=== PATIENT | male | born 1990 | race Caucasian/White ===

== ENCOUNTER 2018-01-29 05:52 | Emergency (ER) | payer MEDICAID, SELFPAY ==
[2018-01-29 05:53] VITALS: BP 128/99; PULSE 116; RESP 20; TEMP 36.6; O2SAT 100; BMI 22.1
--- NOTE | 2018-01-29 06:10 | ED.VISSUMM ---
- ER Visit Summary Date of Service: 01/29/18 Chief Complaint: Scalp wound History of Present Illness: The patient is a 27 M presenting for evaluation secondary to his scalp wound. Patient states that when he was 6 years old he suffered a laceration of his scalp. He states it was repaired with bob. Patient reports that the physician informed him that if it ever broke open he needed to go back to the emergency department immediately. Patient states 3 weeks ago he started to notice that this was opening. He states that there is pain over the area, and now he is getting drainage. Denies any headaches or fevers. Patient additionally states that he frequently gets skin infections. States that he has intermittent breakouts. He is not currently on any medications for this. Physical Examination: Vital signs notable for tachycardia 116. Well-nourished male no acute distress. Head exam shows a well-healed scar over the patient's occiput with an abrasion noted. No underlying fluctuance erythema or active drainage at this time. Neck was supple. Heart was tachycardic and regular. Lungs clear. Abdomen soft. Multiple picking gallego on the patient's skin, patient was alert and oriented no lateralizing deficits. Test Results: None indicated Emergency Department Course and Treatment: Patient presented for evaluation secondary to possible wound. Patient states that he has been getting purulent drainage out of this, although I do not appreciated at this point. However, the patient seems like he has multiple picking gallego on his body, and he reports that he gets breakouts. He potentially has a staph colonization. Patient will be placed on a course of doxycycline and Bactroban. He was instructed to follow-up primary care. Disposition: Discharge Impression: 1. Scalp abrasion This note was generated with [employer] dictation software. It may contain incorrect words, spelling, and punctuation that were not noted in review of the chart prior to signing ED Disposition - Plan for ED Patient: Disposition: Home or Assisted Living Chief Complaint: Head Injury Diagnosis: Scalp abrasion Instructions: ED Abrasion Prescriptions: Smz/Tmp Ds [Bactrim Ds] 1 tab PO BID #14 tab Mupirocin Calcium [Bactroban] 30 gm TP 4X/DAY #1 tube Referrals: Luis Antonio Mccartney MD [NON-STAFF] - As Needed
[2018-01-29 06:32] VITALS: RESP 16
== END 2018-01-29 06:32 | disposition home or self-care (01) ==
LOC: ED 06:25
PROVIDERS: Emergency Provider Emergency Medicine; Family Provider Family Medicine
DX: S00.01XA Abrasion of scalp, initial encounter (principal); X58.XXXA Exposure to other specified factors, initial encounter; Y93.9 Activity, unspecified; Y92.9 Unspecified place or not applicable; Z72.0 Tobacco use
CPT/HCPCS: 99282

== ENCOUNTER 2020-05-05 00:54 | Emergency (ER) | payer MEDICAID, SELFPAY ==
[2020-05-05 00:55] VITALS: BP 134/89; PULSE 94; RESP 16; TEMP 36.3; O2SAT 99; BMI 27.8
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
[2020-05-05] MEDS: HYDROcodone Bitartrate/Apap 5/325 Tablet PO (01:37)
== END 2020-05-05 02:55 | disposition home or self-care (01) ==
PROVIDERS: Emergency Provider Emergency Medicine
DX: S52.134A Nondisplaced fracture of neck of right radius, initial encounter for closed fracture (principal); S50.311A Abrasion of right elbow, initial encounter; V19.9XXA Pedal cyclist (driver) (passenger) injured in unspecified traffic accident, initial encounter; Y93.55 Activity, bike riding; Y92.9 Unspecified place or not applicable; F17.200 Nicotine dependence, unspecified, uncomplicated
CPT/HCPCS: 29125; 73080; 73090; 99283

== ENCOUNTER 2020-05-19 13:28 | Outpatient (RCR) | payer MEDICAID, SELFPAY ==
[2020-05-12 14:30] VITALS: BMI 27.8
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
--- NOTE | 2020-09-05 10:38 | HP.OT.NRP ---
CHARLY MONTALVO was seen in my office for initial evaluation on 05/19/20. The following Plan of Care was established for this patient: Initial Frequency: 1-2x /Week Initial Duration: 6 Weeks Anticipated Interventions: A/AAROM/PROM, Strengthening, Edema Control, Modalities, Orthoses, Joint Protection/Energy Conservation, Ergonomic Education This patient was last seen in our office 05/19/20. Pertinent comments regarding their Occupational therapy will appear below: pt was seen for eval only- cancelled his follow up apt and has not rescheduled. pt d/c at this time due to non attendance. At this point I will be discontinuing this patient from occupational therapy. I would be happy to see this patient again in the future if found appropriate by the physician. Thank you! Doloers Le, OTR/L, CHT
== END 2020-05-19 19:00 | disposition home or self-care (01) ==
LOC: OT 13:28
PROVIDERS: Referring Provider Orthopaedic Surgery; Visit Provider Orthopaedic Surgery
DX: S52.121D Displaced fracture of head of right radius, subsequent encounter for closed fracture with routine healing (principal)
CPT/HCPCS: 97110; 97166

== ENCOUNTER 2020-10-25 20:24 | Emergency (ER) | payer MEDICAID, SELFPAY ==
[2020-05-31 11:45] VITALS: BMI 27.8
[2020-10-25] VITALS (10 sets, daily range): BP systolic 115–154; BP diastolic 86–111; PULSE 82–118; RESP 13–28; TEMP 36.9–37; O2SAT 97–100; BMI 25.1
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
[2020-10-25 21:04] LABS: Absolute Lymphocyte Count 1.51 X10^3/uL (0.83-4.51); Absolute Neutrophil Count 9.9 X10^3/uL (2.0-7.7); Basophil# 0.03 X10^3/uL; Basophil% 0.2 % (0-1); Eosinophil# 0.01 X10^3/uL; Eosinophils% 0.1 % (0-5); Hematocrit 41.6 % (40-54); Hemoglobin 14.9 g/dL (13.0-16.5); Lymphocyte # 1.51 X10^3/ul (4.0); Lymphocyte % 12.5 % (19-41); Mean Corp Hgb Conc 35.8 g/dL (32-36); Mean Corpuscular Volume 89.3 fL (80-94); Mean Platelet Vol. 9.8 fl (6.2-12.0); Monocyte# 0.55 X10^3/uL; Monocyte% 4.6 % (0-10); NRBC Flagged by Analyzer 0 % (0-5); Neutrophil # 9.93 X10^3/uL (2.7-7.7); Neutrophil % 82.2 % (47-70); Platelet Count 206 K/mm3 (150-450); RBC Distribution Width CV 12.6 % (11.6-14.6); RBC Distribution Width SD 40.9 fl (35.1-43.9); Red Blood Count 4.66 M/mm3 (4.6-6.2); White Blood Count 12.1 K/mm3 (4.4-11.0)
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
--- NOTE | 2020-10-25 21:13 | ED.RN ---
CALLED AND LEFT MESSAGE WITH MOTHER AT THIS TIME TO NOTIFY HER THAT HE WAS IN THE ER
[2020-10-25 21:18] LABS: Anion Gap 7 (5-15); BUN 15 mg/dL (7-18); Calcium,Total 9.3 mg/dL (8.5-10.1); Chloride 102 mmol/L (98-107); Creatinine, Serum 1.07 mg/dL (0.70-1.30); EST Glomerular Filtration Rate 86 mL/min (>60); Est Glom Filt Rate - Afr Amer 104 mL/min (>60); Estimated Creatinine Clearance 81.24 ml/min; Glucose 98 mg/dL (74-106); Potassium 3.5 mmol/L (3.5-5.1); Sodium Level 138 mmol/L (136-145)
--- NOTE | 2020-10-25 22:36 | ED.RN ---
patient stating its getting hard to talk. MD at bedside for reassessment. states hematoma enlarging under patient tongue. Intubation ordered. difficult airway team called.
--- NOTE | 2020-10-25 22:38 | ED.RN ---
patient voice is changing, muffled voice noted. awaiting anesthesia.
[2020-10-25] MEDS: Ketamine HCl 500 MG/5 ML Vial 100 MG IV (22:39)
[2020-10-25] MEDS: Rocuronium Bromide 50 MG/5 ML Vial 100 MG IV (22:45)
[2020-10-25] MEDS: fentaNYL 100 MCG/2 ML Ampul 50 MCG IV (23:07)
[2020-10-25] MEDS: Propofol 10MG/Ml 1,000 MG/100 ML Bottle 3.9 MG CONT INF (23:09)
[2020-10-25] MEDS: Diphth,Pertuss(Acell),Tet Vac 0.5 ML Vial IM (23:09)
--- NOTE | 2020-10-25 23:15 | RAD_ITS ---
STUDY: X-RAY CHEST REASON FOR EXAM: Male, 30 years old. Endotracheal tube and enteric tube placement. TECHNIQUE: Single AP portable view of the chest. COMPARISON: None. FINDINGS: There is an endotracheal tube with its tip 3.6 cm above the derek. An enteric tube with its tip in the distal stomach. The lungs are clear and expanded. There is no demonstrated pleural abnormality. Normal size heart. Normal mediastinum and caridad. Normal visualized pulmonary arteries. Normal visualized aortic arch and descending thoracic aorta. Normal visualized thoracic spine. Normal visualized ribs, clavicles, and shoulders. There is no demonstrated abnormality of the visualized soft tissue structures of the upper abdomen. RAD/Chest 1 View (Portable) IMPRESSION: 1. Endotracheal tube and enteric tube as described. 2. No acute cardiopulmonary disease. Electronically Signed: Oren Singh DO at 23:51 EST Tel [phone], Service support ,
[2020-10-25] MEDS: Cefazolin 2 GM in 0.9% Normal Saline 100 ML IV (23:17)
[2020-10-25] MEDS: Propofol 200 MG/20 ML Vial 50 MG IV BOLUS ×2 (23:20→23:40)
[2020-10-25] MEDS: Midazolam 2 MG/2 ML Syringe IV ×2 (23:32→23:41)
[2020-10-25] MEDS: Propofol 10MG/Ml 1,000 MG/100 ML Bottle 15.5 MG CONT INF (23:35)
--- NOTE | 2020-10-25 23:51 | ED.RN ---
transport at bedside. report given. Transport team in process of switching patient over to their vent.
[2020-10-26] VITALS: BP 136/88; PULSE 98; RESP 16; O2SAT 99
== END 2020-10-26 00:22 | disposition short-term general hospital (02) ==
LOC: ED 21:39
PROVIDERS: Emergency Provider Emergency Medicine
DX: S01.81XA Laceration without foreign body of other part of head, initial encounter (principal); S00.532A Contusion of oral cavity, initial encounter; R13.10 Dysphagia, unspecified; R49.8 Other voice and resonance disorders; X99.1XXA Assault by knife, initial encounter; Y93.9 Activity, unspecified; Y92.9 Unspecified place or not applicable; F17.200 Nicotine dependence, unspecified, uncomplicated
CPT/HCPCS: 31500; 31720; 51702; 70498; 71045; 80048; 85025; 86850; 86900; 86901; 90715; 94002; 96365; 96368; 96375; 99251; 99285; J1670; J7030; Q9967; A4216; G0463; J3010

== ENCOUNTER 2020-11-02 11:05 | Emergency (ER) | payer MEDICAID, SELFPAY ==
[2020-10-25 20:26] VITALS: BMI 25.1
[2020-11-02 11:06] VITALS: BP 148/85; PULSE 126; RESP 18; TEMP 36.6; O2SAT 99; BMI 25.1
[2020-11-02] MEDS: LORazepam 1 MG Tablet PO (11:40)
--- NOTE | 2020-11-02 11:57 | ED.DEP ---
ED Disposition - Plan for ED Patient: Instructions: ED Panic Attack Prescriptions: Cephalexin [Keflex] 500 mg PO Q6 #40 cap Prescription Printed Referrals: Counseling,Center [GROUP OF PHYSICIANS] -
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
[2020-11-02 12:12] VITALS: BP 137/72; PULSE 92; RESP 16; O2SAT 97
== END 2020-11-02 12:14 | disposition home or self-care (01) ==
PROVIDERS: Emergency Provider Emergency Medicine
DX: F41.9 Anxiety disorder, unspecified (principal); Z72.0 Tobacco use
CPT/HCPCS: 99284

== ENCOUNTER 2020-11-03 11:02 | Emergency (ER) | payer MEDICAID, SELFPAY ==
[2020-11-02 11:06] VITALS: BMI 25.1
[2020-11-03 11:14] VITALS: BP 131/95; PULSE 140; RESP 20; TEMP 37.2; O2SAT 98; BMI 24.6
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
[2020-11-03] MEDS: Triamcinolone Acetonide 40 MG/ML Vial IM (12:21)
[2020-11-03] MEDS: hydrOXYzine 50 MG/ML Vial IM (12:21)
[2020-11-03 13:06] VITALS: RESP 16
== END 2020-11-03 13:51 | disposition home or self-care (01) ==
LOC: ED 11:49
PROVIDERS: Emergency Provider Emergency Medicine
DX: R21 Rash and other nonspecific skin eruption (principal); T14.8XXA Other injury of unspecified body region, initial encounter; W57.XXXA Bitten or stung by nonvenomous insect and other nonvenomous arthropods, initial encounter; Y93.9 Activity, unspecified; Y92.9 Unspecified place or not applicable; F17.200 Nicotine dependence, unspecified, uncomplicated
CPT/HCPCS: 96372; 99284

== ENCOUNTER 2020-11-04 20:09 | Emergency (ER) | payer MEDICAID, SELFPAY ==
[2020-11-03 11:14] VITALS: BMI 24.6
[2020-11-04 20:09] VITALS: BP 190/54; PULSE 113; RESP 16; TEMP 35.7; O2SAT 98; BMI 25.3
--- NOTE | 2020-11-04 20:50 | ED.DEP ---
ED Disposition - Plan for ED Patient: Instructions: ED Scabies Prescriptions: DiphenhydrAMINE [Benadryl] 25 mg PO TID PRN PRN #30 capsule PRN Reason: Itching Permethrin 5% [Permethrin] 60 gm TP X1 #1 cream..g. Referrals: Heladio Davey MD [STAFF PHYSICIAN] -
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
[2020-11-04 21:09] VITALS: BP 130/81; PULSE 101; RESP 20; O2SAT 99
== END 2020-11-04 21:11 | disposition home or self-care (01) ==
LOC: ED 20:46
PROVIDERS: Emergency Provider Emergency Medicine
DX: R21 Rash and other nonspecific skin eruption (principal); L29.9 Pruritus, unspecified; Z72.0 Tobacco use
CPT/HCPCS: 99282

== ENCOUNTER 2021-04-20 15:17 | Inpatient (IN) | payer MEDICAID, SELFPAY ==
[2021-04-20 15:18] VITALS: BP 115/84; PULSE 94; RESP 18; TEMP 36.7; O2SAT 99; BMI 23.1
--- NOTE | 2021-04-20 15:30 | VDUE_ITS ---
Reason For Study: Swelling Right Proximal Right jugular vein is spontaneous, widely patent, phasic, with no intraluminal echogenicity noted. Right subclavian vein is spontaneous, widely patent, phasic, with no intraluminal echogenicity noted. Right Lower Arm Right radial vein is compressible. Right ulnar vein is compressible. Right Arm Right axillary vein is spontaneous, patent, phasic, competent, compressible and demonstrates augmentation. Right brachial vein is compressible. Right cephalic vein is compressible. Right basilic vein is compressible. Patient Safety Prelim to [place]. VL/Venous Duplex US, Unilateral Interpretation Summary No evidence for acute deep venous thrombosis[right] upper extremity with patent and compressible cephalic and basilic veins. Ordering Physician: Bhupinder Byrd Performed By: Mirlande Jacobson RVT ?
--- NOTE | 2021-04-20 15:32 | EX.ED.UPPERE ---
HPI History of Present Illness Chief Complaint: Edema Detail of Chief Complaint: Redness and swelling of right arm for 3 days Informant: patient Narrative Narrative: Patient presents with redness and swelling for 3 days to the right arm. He denies any injury other than he was doing some shoveling of some debris from around the home. He denies any fevers or chills or sweats. 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 He complains of some mild shortness of breath. No recent travel or surgery. PFSH [facility] Medical History (Updated 04/20/21 @ 17:[address] Bhupinder Byrd, DO) Asthma Fatigue Knee pain SOB (shortness of breath) Home Medications NK 04/20/21 [History Last Taken Unknown] Allergy/AdvReac Type Severity Reaction Status Date / Time naproxen [From Naprosyn] Allergy Intermediate Hives Verified 04/20/21 15:17 shellfish derived Allergy Intermediate emesis Verified 04/20/21 15:17 mushroom Allergy Mild emesis Verified 04/20/21 15:17 amoxicillin [Amoxicillin] Allergy Hives Verified 04/20/21 15:17 clindamycin Allergy Hives Verified 04/20/21 16:02 Tetracyclines Allergy Hives Verified 04/20/21 15:17 BENZOCYCLINE Allergy Hives Uncoded 04/20/21 15:17 Family History (Updated 05/31/20 @ 11:45 by Karlos Berumen) Other Diabetes Heart disease Hypertension Social History (Updated 05/31/20 @ 12:34 by Haroon SCHWARTZ, PA) Smoking Status: Current every day smoker tobacco type: cigarettes alcohol intake: never ROS ROS ED Constitutional Constitutional ED: Reports systems reviewed and no addt'l complaints, except as documented; Denies body ache(s), change in weight or chills Eyes Eyes: Denies acute decrease in peripheral vision, change in vision, double vision or loss of vision ENT ENT ED: Reports none; Denies ear pain, lip swelling, loss taste/smell, neck pain, otalgia or sore throat Cardiovascular Cardiovascular: Reports none; Denies abdominal pain, chest pain with activity, leg edema, lightheadedness, palpitations, rapid heart rate or syncope Respiratory/Chest Respiratory/Chest: Reports none; Denies change in mental status, dry cough, dyspnea, hemoptysis, shortness of breath at rest or shortness of breath with exertion Gastrointestinal Gastrointestinal: Reports none; Denies abdominal pain, change in stool character, diarrhea, hematemesis, hematochezia, melena, rectal bleeding or vomiting Genitourinary Genitourinary ED: Reports none; Denies abdominal discomfort, anuria, dysuria, genital pain or polyuria Musculoskeletal Musculoskeletal: Reports none and other Details: Right arm pain and swelling ; Denies arthralgias, back pain, difficulty walking, extremity pain, muscle weakness or myalgias Integumentary Reports none; Denies abscess or rash Neurologic Neurologic: Reports none; Denies abnormal gait, confusion, focal weakness, frequent falls, headache(s), loss of vision, numbness, paresthesias, radicular pain, vertigo or weakness Psychiatric Psychiatric: Reports systems reviewed and no addt'l complaints, except as documented and none; Denies behavioral changes, confusion, difficulty concentrating, hallucinations, suicidal ideation, tactile hallucinations or visual hallucinations Endocrine Endocrinology: Denies none, cold intolerance, excessive sweating, fatigue or heat intolerance Hematologic/Lymphatic Hematologic/Lymphatic: Reports none; Denies anemia, easy bleeding or easy bruising Allergic/Immunologic Allergic/Immunologic ED: Denies as per HPI, none, lip swelling, mouth swelling, throat swelling, tongue swelling or hives EXAM Physical Exam Const Vital Signs: 04/20/21 15:18 Temperature 98.1 F Temperature Source Temporal Pulse Rate 94 Respiratory Rate 18 Blood Pressure 115/84 H Blood Pressure Mean 94 Pulse Ox 99 Oxygen Delivery Method Room Air Positive well nourished and well developed General Appearance ED: well developed and NAD HEENT Reports TM's clear and moist mucous membranes normocephalic and atraumatic; Negative for trauma or tenderness Tympanic Membrane ED: Yes TM's clear Eyes PERRL and EOMs intact bilaterally General Eye ED: Negative for pale conjunctiva or scleral icterus Neck no lymphadenopathy, supple and no JVD General: Negative for tenderness Chest Wall inspection of chest normal and palpation of chest normal Chest: Negative for tenderness Resp normal respiratory effort and clear to auscultation bilaterally Effort and Inspection: Negative for respiratory distress or pain with movement Auscultation: Negative for rhonchi, wheezes or diminished lung sounds Cardio regular rate, regular rhythm, S1 normal heart sound, S2 normal heart sound and no murmurs Peripheral Pulses: pulses 2+ throughout GI normal to inspection, nondistended, normoactive bowel sounds, soft to palpation, non-tender, non-distended and no masses Back/Spine no CVA tenderness and no thoracic nor lumbar tenderness Extremity Extremity Narrative: Evaluation of the right arm reveals diffuse soft tissue swelling over the forearm and dorsum of the hand. Patient has tenderness to palpation over the dorsum of the forearm and decreased extension of the wrist secondary to pain. Neurovascular intact distally. There are cellulitic changes noted to the skin. General Extremety ED: Yes edema General Extremity: edema Neuro oriented x3, CN's II-XII intact bilaterally, no sensory deficits noted and gait normal Sensorium / Orientation: awake, alert, oriented to person, oriented to place and oriented to time Motor Exam: strength 5/5 throughout and strength abnormal Psych mental status grossly normal Skin no rashes or lesions noted and no wounds MDM MDM MDM Narrative Medical decision making narrative: Patient's venous Doppler was negative for DVT. I suspect a likely cellulitis of the right upper extremity and patient was started on aztreonam and vancomycin given his multiple drug allergies. Patient case will be discussed with hospitalist evaluate for admission. At this point I do not see or feel a drainable abscess. Lab Data Attestation: I reviewed the patient's lab results. Discharge Plan Dx/Rx/DC Orders Clinical Impression: Cellulitis of arm, right Disposition Disposition: Acute Care [facility]
--- NOTE | 2021-04-20 16:12 | ED.RN ---
rn at the bedside to administer clindamycin iv antibiotic. pt states he is allergic. rn informed patient it wasn't on his allergy list. pt confirms he is sure he is allergic. dr lynn notified at this time. allergy list updated.
[2021-04-20 16:18] LABS: Absolute Lymphocyte Count 1.58 X10^3/uL (0.83-4.51); Absolute Neutrophil Count 7.5 X10^3/uL (2.0-7.7); Basophil# 0.05 X10^3/uL; Basophil% 0.5 % (0-1); Eosinophil# 0.19 X10^3/uL; Eosinophils% 1.9 % (0-5); Hematocrit 40.9 % (40-54); Hemoglobin 14.2 g/dL (13.0-16.5); Lymphocyte # 1.58 X10^3/ul (0.83-4.51); Lymphocyte % 15.7 % (19-41); Mean Corp Hgb Conc 34.7 g/dL (32-36); Mean Corpuscular Hgb 31.3 pg (27.0-32.0); Mean Corpuscular Volume 90.3 fL (80-94); Mean Platelet Vol. 9.5 fl (6.2-12.0); Monocyte# 0.69 X10^3/uL; Monocyte% 6.9 % (0-10); NRBC Flagged by Analyzer 0 % (0-5); Neutrophil % 74.5 % (47-70); Platelet Count 238 K/mm3 (150-450); RBC Distribution Width CV 12.8 % (11.6-14.6); RBC Distribution Width SD 42.1 fl (35.1-43.9); Red Blood Count 4.53 M/mm3 (4.6-6.2); White Blood Count 10.1 K/mm3 (4.4-11.0)
[2021-04-20 16:29] LABS: Anion Gap 7 (5-15); BUN 11 mg/dL (7-18); Chloride 103 mmol/L (98-107); Creatinine, Serum 0.69 mg/dL (0.70-1.30); EST Glomerular Filtration Rate 143 mL/min (>60); Est Glom Filt Rate - Afr Amer 173 mL/min (>60); Estimated Creatinine Clearance 125.99 ml/min; Glucose 93 mg/dL (74-106); Potassium 3.5 mmol/L (3.5-5.1); Sodium Level 140 mmol/L (136-145)
[2021-04-20 16:53] LABS: Lactic Acid 0.7 mmol/L (0.4-1.9)
[2021-04-20] MEDS: 0.9% Normal Saline 1,000 ML 150 ML IV (16:59)
[2021-04-20] MEDS: Ondansetron 4 MG/2 ML Vial IV (17:14)
--- NOTE | 2021-04-20 17:17 | ED.RN ---
rn asked patient to put on a gown since he will be admitted to the hospital. patient refused stating i am not doing that, it is stupid. RN explained that the reason for the gown is so staff know if the person is a patient. pt replied with i'm not getting admitted then, i have an IV and wrist band that is all i need. I'm not doing it.
--- NOTE | 2021-04-20 17:23 | NURSING ---
MED SURG DR MCCRARY CELLULITIS RT ARM
[2021-04-20 17:28] VITALS: BP 134/90; PULSE 85; PULSE 89; RESP 14; RESP 16; TEMP 36.6; O2SAT 100
--- NOTE | 2021-04-20 17:30 | HP.PCM.HOS_ITS ---
Documented by User: Tyler SCHWARTZ 04/20/21 17:47 HPI - General General Date of Admission: 04/20/21 Date of Service: 04/20/21 Chief Complaint: RUE swelling/pain HPI Narrative WESTON SORIA, is a 30 y/o M who presents to the ED at [facility] on 04/20/2021 with a chief complaint of right upper extremity swelling. Patient reports that about 3 days ago he noticed his right upper extremity was red, swelling and was in pain. Patient also started to develop a nonexertional shortness of breath around the same time. Patient cannot identify any precipitating event that might have allowed for infection to penetrate like a wound or insect bite that was excoriated. Of note, patient was a IV drug user for methamphetamine, although reports he has not used in over 6 months. In addition to right upper extremity swelling/pain and shortness of breath, review of systems significant for fevers, chills and nausea. Vital signs in the ED are stable. CBC does not demonstrate a leukocytosis. BMP is unremarkable. Ultrasound of the right upper extremity does not demonstrate any evidence for acute DVT. Blood cultures obtained in the ED and are pending. Patient was initiated on fluids and antibiotics in the ED. [facility] Medical History (Updated 04/20/21 @ 19:[address] Maribell Weaver, ) Anxiety Asthma Bipolar disorder Depression Fatigue Knee pain Smoker SOB (shortness of breath) Home Medications NK 04/20/21 [History Last Taken Unknown] Allergy/AdvReac Type Severity Reaction Status Date / Time naproxen [From Naprosyn] Allergy Intermediate Hives Verified 04/20/21 15:17 shellfish derived Allergy Intermediate emesis Verified 04/20/21 15:17 mushroom Allergy Mild emesis Verified 04/20/21 15:17 amoxicillin [Amoxicillin] Allergy Hives Verified 04/20/21 15:17 clindamycin Allergy Hives Verified 04/20/21 16:02 Tetracyclines Allergy Hives Verified 04/20/21 15:17 BENZOCYCLINE Allergy Hives Uncoded 04/20/21 15:17 Family History Father Diabetes Mother Diabetes Other Heart disease Hypertension no surgical history Social History Smoking Status: Current every day smoker tobacco type: cigarettes alcohol intake: never ROS Constitutional Constitutional: Reports chills, fatigue, fever(s) and malaise; Denies anorexia, change in weight, night sweats, weakness or other Eyes Eyes: Denies blurry vision, change in eye color, change in vision, discharge from eye(s), double vision, erythema, eye pain, loss of vision or other ENT HEENT: Denies abnormal hearing, dysphagia, ear pain, epistaxis, headache(s), hearing loss, nasal congestion, nasal discharge, post nasal drip, sinus pressure, sore throat or other Cardiovascular Cardiovascular: Denies chest pain, claudication, dyspnea on exertion, edema, lightheadedness, orthopnea, palpitations, paroxysmal nocturnal dyspnea, rapid heart rate, syncope or other Respiratory/Chest Respiratory/Chest: Reports dyspnea, shortness of breath at rest and shortness of breath with exertion; Denies cough, excessive phlegm production, hemoptysis, productive cough, wheezing or other Gastrointestinal Gastrointestinal: Denies abdominal pain, coffee ground emesis, constipation, diarrhea, dyspepsia, hematemesis, hematochezia, loose stools, melena, nausea, vomiting or other Genitourinary Genitourinary: Denies burning urination, difficulty urinating, dysuria, hematuria, nocturia, urinary frequency, urinary hesitancy, urinary incontinence, urinary urgency or other Musculoskeletal Musculoskeletal: Denies arthralgias, back pain, joint pain, joint stiffness, joint swelling, myalgias, neck pain or other Neurologic Neurologic: Denies abnormal gait, abnormal speech, confusion, disequilibrium, dizziness, focal weakness, headache(s), numbness, paresthesias, seizure-like activity, seizures, syncope, tingling, tremor(s) or other Psychiatric Psychiatric: Denies anxiety, depression, homicidal ideation, suicidal ideation or other Endocrine Endocrinology: Denies change in body appearance, cold intolerance, excessive sweating, heat intolerance, polydipsia, polyuria or other Hematologic/Lymphatic Hematologic/Lymphatic: Denies anemia, easy bleeding, easy bruising, lymphadenopathy or other Allergic/Immunologic Allergic/Immunologic: Denies rhinitis, hives, eczemia, asthma or other Vital Signs Vital Signs Vital Signs: 04/20/21 15:18 04/20/21 17:28 Temperature 98.1 F 97.8 F Temperature Source Temporal Temporal Pulse Rate 94 89 Respiratory Rate 18 14 Blood Pressure 115/84 H 134/90 H Blood Pressure Mean 94 104 Pulse Ox 99 100 Oxygen Delivery Method Room Air Room Air Weight Weight: 130 lb 4.691 oz Body Mass Index (BMI) 23.1 Physical Exam Narrative Physical exam limited by patient irritation during exam Const alert and oriented x3 General Appearance: uncooperative HEENT normocephalic, head/scalp atraumatic and hearing grossly normal bilaterally Eyes PERRL, EOMs intact bilaterally and conjunctivae normal Neck no lymphadenopathy, supple and no JVD Resp normal respiratory effort, no retractions and no use of accessory muscles Resp Narrative: Unable to auscultate due to patient irritation. Cardio regular rate, regular rhythm and no JVD Cardio Narrative: Unable to auscultate due to patient irritation. GI GI Narrative: Unable to examine due to patient agitation. Extremity Extremity Narrative: Right upper extremity does demonstrate erythema, swelling, tenderness and warmth. Skin Skin Narrative: See upper extremity. Neuro CN's II-XII intact bilaterally Psych Psych Narrative: Patient clearly agitated on my examination and on requested to be left alone. Results Lab / Micro Data Result Diagrams: 04/20/21 16:05 04/20/21 16:05 Labs: Laboratory Results - last 24 hr 04/20/21 16:03: Lactic Acid 0.7 04/20/21 16:05: WBC 10.1, RBC 4.53 L, Hgb 14.2, Hct 40.9, MCV 90.3, MCH 31.3, MCHC 34.7, RDW Std Deviation 42.1, RDW Coeff of Eliana 12.8, Plt Count 238, MPV 9.5, Immature Gran % (Auto) 0.500, Neut % (Auto) 74.5 H, Lymph % (Auto) 15.7 L, [place] % (Auto) 6.9, Eos % (Auto) 1.9, Baso % (Auto) 0.5, Absolute Neuts (auto) 7.5, Absolute Lymphs (auto) 1.58, Nucleated RBC % 0 04/20/21 16:05: Sodium 140, Potassium 3.5, Chloride 103, Carbon Dioxide 30.0, Anion Gap 7, BUN 11, Creatinine 0.69 L, Estim Creat Clear Calc 125.99, Est GFR (MDRD) Af Amer 173, Est GFR (MDRD) Non-Af 143, BUN/Creatinine Ratio 16.0, Glucose 93, Calcium 9.0 Radiology Impression Venous Doppler Study 04/20/21 15:30 Interpretation Summary No evidence for acute deep venous thrombosis[right] upper extremity with patent and compressible cephalic and basilic veins. Ordering Physician: Bhupinder Byrd Performed By: Mirlande Jacobson RVT ? Assessment & Plan Assessment/Plan (1) Cellulitis of arm, right: (2) IVDU (intravenous drug user): PLAN: Patient is a 30-year-old male presents to the ED at [facility] on 04/20/2021 with a chief complaint of right upper extremity swelling/pain. Patient will be admitted for management of right upper extremity cellulitis. 1) cellulitis of the right arm Patient reports a 3-day history of right forearm swelling, redness and tenderness. Patient denies any precipitating event like wound, bug bite or IV drug use. Ultrasound of the right upper extremity in the ED did not demonstrate any evidence for acute DVT. Vital signs stable and patient is afebrile. CBC and BMP unremarkable. Blood cultures pending. Plan; admit to [facility], initiate cefepime, initiate vancomycin, continue IV fluids, Toradol as needed, Zofran as needed, oxycodone as needed, senna as needed, CBC and BMP in a.m. 2) Hx IVDU Patient endorses that he used to shoot up methamphetamine, however reports that he has not used in over 6 months. Plan; urine tox screen ordered. DVT prophylaxis - low risk, not indicated Patient seen by Tyler Knott PA-C, under the supervision of Dr. Weaver. Documented by User: Dr. Maribell Weaver DO 04/20/21 19:08 HPI - General General Date of Admission: 04/20/21 Date of Service: 04/20/21 Chief Complaint: Right upper extremity cellulitis HPI Narrative Weston Soria is a 30-year-old white male who presented to the emergency department at [facility] on 04/20/2021 with a chief complaint of right upper extremity swelling. He noticed approximately 3 days ago that he had some redness and swelling in his arm. He also complains of pain. He admits to a history of IV drug use but states he has not used in approximately 5 to 6 months. His drug of choice was methamphetamines. A tox screen is pending at this time. In addition to right upper extremity pain and swelling he states that he had some shortness of breath. He states that he is also had some fevers, chills, and some nausea. He denies any rigors. Antibiotics were initiated in the emergency department with vancomycin and aztreonam given his antibiotic allergies. Blood cultures were obtained. A right upper extremity ultrasound was performed as well and there was no evidence of DVT. There are a few excoriations on his arms which may be a nidus for infection but no noted track gallego or any other penetration of the skin. Patient was only minimally cooperative with his exam and was upset that he was not able to go home. I did given the option to leave AGAINST MEDICAL ADVICE but he stated he would just stay. His vital signs are unremarkable. Oxygen saturation is 100% on room air. His CBC is unremarkable. His BMP is unremarkable. He will be admitted to [facility] for continued antibiotics. [facility] Medical History (Updated 04/20/21 @ 19:[address] Maribell Weaver DO) Anxiety Asthma Bipolar disorder Depression Fatigue Knee pain Smoker SOB (shortness of breath) Home Medications NK 04/20/21 [History Last Taken Unknown] Allergy/AdvReac Type Severity Reaction Status Date / Time naproxen [From Naprosyn] Allergy Intermediate Hives Verified 04/20/21 15:17 shellfish derived Allergy Intermediate emesis Verified 04/20/21 15:17 mushroom Allergy Mild emesis Verified 04/20/21 15:17 amoxicillin [Amoxicillin] Allergy Hives Verified 04/20/21 15:17 clindamycin Allergy Hives Verified 04/20/21 16:02 Tetracyclines Allergy Hives Verified 04/20/21 15:17 BENZOCYCLINE Allergy Hives Uncoded 04/20/21 15:17 Family History Father Diabetes Mother Diabetes Other Heart disease Hypertension Social History Smoking Status: Current every day smoker tobacco type: cigarettes alcohol intake: never ROS Constitutional Constitutional: Reports chills and fever(s); Denies anorexia, change in weight, fatigue, malaise, night sweats, weakness or other Eyes Eyes: Denies blurry vision, change in eye color, change in vision, discharge from eye(s), double vision, erythema, eye pain, loss of vision or other ENT HEENT: Denies abnormal hearing, dysphagia, ear pain, epistaxis, headache(s), hearing loss, nasal congestion, nasal discharge, post nasal drip, sinus pressure, sore throat or other Cardiovascular Cardiovascular: Denies chest pain, claudication, dyspnea on exertion, edema, lightheadedness, orthopnea, palpitations, paroxysmal nocturnal dyspnea, rapid he art rate, syncope or other Respiratory/Chest Respiratory/Chest: Reports shortness of breath at rest; Denies cough, dyspnea, excessive phlegm production, hemoptysis, productive cough, shortness of breath with exertion, wheezing or other Gastrointestinal Gastrointestinal: Reports nausea; Denies abdominal pain, coffee ground emesis, constipation, diarrhea, dyspepsia, hematemesis, hematochezia, loose stools, melena, vomiting or other Genitourinary Genitourinary: Denies burning urination, difficulty urinating, dysuria, hematuria, nocturia, urinary frequency, urinary hesitancy, urinary incontinence, urinary urgency or other Musculoskeletal Musculoskeletal: Reports other Details: Right upper extremity forearm erythema and swelling Psychiatric Psychiatric: Denies anxiety, depression, homicidal ideation, suicidal ideation or other Endocrine Endocrinology: Denies change in body appearance, cold intolerance, excessive sweating, heat intolerance, polydipsia, polyuria or other Hematologic/Lymphatic Hematologic/Lymphatic: Denies anemia, easy bleeding, easy bruising, lymphadenopathy or other Allergic/Immunologic Allergic/Immunologic: Denies rhinitis, hives, eczemia, asthma or other Results Lab / Micro Data Attestation: I reviewed the patient's lab results. Result Diagrams: 04/20/21 16:05 04/20/21 16:05 Assessment & Plan Assessment/Plan (1) Cellulitis of arm, right: (2) Nausea: PLAN: Assessment: Right upper extremity cellulitis Nausea History of IV drug use Plan: Blood cultures pending MRSA PCR Vascular assessment every 3 hours right upper extremity -No current signs of compartment syndrome Continue vancomycin will use cefepime instead of aztreonam As needed antiemetics As needed Toradol/APAP for pain -We will avoid narcotics if able given addiction history Charges/Coding Visit Charges Inpatient E&M: 49487 Init Hosp L2
[2021-04-20] MEDS: Vancomycin IV 1,000 MG/200 ML BAG 200 MG IV (17:50)
--- NOTE | 2021-04-20 17:51 | ED.RN ---
rn at bedside for second attempt to obtain urine sample. pt refuses.
[2021-04-20 18:24] VITALS: BMI 23.3
[2021-04-20 18:50] VITALS: BP 122/74; PULSE 78; RESP 16; TEMP 37.6; O2SAT 100
[2021-04-20] MEDS: proMETHazine 25 MG/ML Syringe IM (19:41)
--- NOTE | 2021-04-20 19:50 | PCM.RX.CS ---
Consult Pharmacy has been consulted to manage selected antiobiotic: Vancomycin Type of Consult: New start Suspected Infection: Skin/Soft tissue Prior Doses of Antibiotics Received/Current Regimen: Received 1gm iv x 1 in ED. Labs: Sodium 140 mmol/L (136-145) 04/20/21 16:05 Potassium 3.5 mmol/L (3.5-5.1) 04/20/21 16:05 Chloride 103 mmol/L (98-107) 04/20/21 16:05 Carbon Dioxide 30.0 mmol/L (21.0-32.0) 04/20/21 16:05 Anion Gap 7 (5-15) 04/20/21 16:05 BUN 11 mg/dL (7-18) 04/20/21 16:05 Creatinine 0.69 mg/dL (0.70-1.30) L 04/20/21 16:05 Est GFR (MDRD) Af Amer 173 mL/min (>60) 04/20/21 16:05 Est GFR (MDRD) Non-Af 143 mL/min (>60) 04/20/21 16:05 BUN/Creatinine Ratio 16.0 RATIO (10-20) 04/20/21 16:05 Glucose 93 mg/dL (74-106) 04/20/21 16:05 Weight used for dosin.6 kg Estimated Creatinine Clearance: 126ml/min Goal Trough: 15-20 mcg/mL Pharmacy Plan for Drug Dosing: Will begin 750mg iv q8h per protocol. Trough level ordered for 7..21 before 4th total dose. Pharmacy Service will continue to monitor and adjust dosing as required. Follow-Up Labs: Trough Vancomycin - 7.23.21 @1730 before 1800 dose
[2021-04-20 23:00] VITALS: BP 121/71; PULSE 77; RESP 16; TEMP 37.1; O2SAT 97
[2021-04-20 23:06] LABS: M R Staph aureus DNA By PCR Negative (Negative); Probe Check PASS; Specimen Processing Control PASS
[2021-04-21] MEDS: Ondansetron 4 MG/2 ML Vial IV (01:43)
[2021-04-21 03:50] VITALS: BP 127/94; PULSE 88; RESP 16; TEMP 36.9; O2SAT 99
[2021-04-21 06:48] LABS: Absolute Lymphocyte Count 1.66 X10^3/uL (0.83-4.51); Absolute Neutrophil Count 7.9 X10^3/uL (2.0-7.7); Basophil# 0.03 X10^3/uL; Basophil% 0.3 % (0-1); Eosinophil# 0.14 X10^3/uL; Eosinophils% 1.3 % (0-5); Hematocrit 40.7 % (40-54); Hemoglobin 13.9 g/dL (13.0-16.5); Lymphocyte # 1.66 X10^3/ul (0.83-4.51); Lymphocyte % 15.8 % (19-41); Mean Corp Hgb Conc 34.2 g/dL (32-36); Mean Corpuscular Volume 90.8 fL (80-94); Mean Platelet Vol. 10.1 fl (6.2-12.0); Monocyte# 0.69 X10^3/uL; Monocyte% 6.6 % (0-10); NRBC Flagged by Analyzer 0 % (0-5); Neutrophil # 7.92 X10^3/uL (2.7-7.7); Neutrophil % 75.6 % (47-70); Platelet Count 248 K/mm3 (150-450); RBC Distribution Width CV 12.7 % (11.6-14.6); RBC Distribution Width SD 41.6 fl (35.1-43.9); Red Blood Count 4.48 M/mm3 (4.6-6.2); White Blood Count 10.5 K/mm3 (4.4-11.0)
[2021-04-21 07:19] LABS: Anion Gap 6 (5-15); BUN 8 mg/dL (7-18); BUN/Creat Ratio 11.1 RATIO (10-20); Calcium,Total 8.6 mg/dL (8.5-10.1); Chloride 104 mmol/L (98-107); Creatinine, Serum 0.72 mg/dL (0.70-1.30); EST Glomerular Filtration Rate 136 mL/min (>60); Est Glom Filt Rate - Afr Amer 164 mL/min (>60); Estimated Creatinine Clearance 120.74 ml/min; Glucose 86 mg/dL (74-106); Potassium 3.6 mmol/L (3.5-5.1); Sodium Level 140 mmol/L (136-145)
[2021-04-21 07:50] VITALS: RESP 16; O2SAT 97
--- NOTE | 2021-04-21 07:52 | PN.HOSP_ITS ---
Subjective Subjective Patient denies using methamphetamine or opioids in the last 6 months. Admitted with right upper extremities pain and swelling consistent with cellulitis. Mild temperature 99.7 one-time otherwise afebrile Objective Data Objective Data Vital Signs: Vital Signs Temp Pulse Resp BP Pulse Ox 98.4 F 88 16 127/94 H 99 04/21/21 03:50 04/21/21 03:50 04/21/21 03:50 04/21/21 03:50 04/21/21 03:50 Oxygen Delivery Method Room Air Weight: 131 lb 6.328 oz Body Mass Index (BMI) 23.3 Intake & Output: Intake and Output for Last 24 Hours 04/19/21 04/20/21 04/21/21 23:59 23:59 23:59 Intake Total 654.17 / 1254.17 865 / 865 Balance 654.17 / 1254.17 865 / 865 Lab / Micro Data Result Diagrams: 04/21/21 05:30 04/21/21 05:30 Labs: Laboratory Results - last 24 hr 04/20/21 16:03: Lactic Acid 0.7 04/20/21 16:05: WBC 10.1, RBC 4.53 L, Hgb 14.2, Hct 40.9, MCV 90.3, MCH 31.3, MCHC 34.7, RDW Std Deviation 42.1, RDW Coeff of Eliana 12.8, Plt Count 238, MPV 9.5, Immature Gran % (Auto) 0.500, Neut % (Auto) 74.5 H, Lymph % (Auto) 15.7 L, [place] % (Auto) 6.9, Eos % (Auto) 1.9, Baso % (Auto) 0.5, Absolute Neuts (auto) 7.5, Absolute Lymphs (auto) 1.58, Nucleated RBC % 0 04/20/21 16:05: Sodium 140, Potassium 3.5, Chloride 103, Carbon Dioxide 30.0, Anion Gap 7, BUN 11, Creatinine 0.69 L, Estim Creat Clear Calc 125.99, Est GFR (MDRD) Af Amer 173, Est GFR (MDRD) Non-Af 143, BUN/Creatinine Ratio 16.0, Glucose 93, Calcium 9.0 04/20/21 21:40: MRSA (PCR) Negative 04/21/21 05:30: WBC 10.5, RBC 4.48 L, Hgb 13.9, Hct 40.7, MCV 90.8, MCH 31.0, MCHC 34.2, RDW Std Deviation 41.6, RDW Coeff of Eliana 12.7, Plt Count 248, MPV 10.1, Immature Gran % (Auto) 0.400, Neut % (Auto) 75.6 H, Lymph % (Auto) 15.8 L, [place] % (Auto) 6.6, Eos % (Auto) 1.3, Baso % (Auto) 0.3, Absolute Neuts (auto) 7.9 H, Absolute Lymphs (auto) 1.66, Nucleated RBC % 0 04/21/21 05:30: Sodium 140, Potassium 3.6, Chloride 104, Carbon Dioxide 30.0, Anion Gap 6, BUN 8, Creatinine 0.72, Estim Creat Clear Calc 120.74, Est GFR (MDRD) Af Amer 164, Est GFR (MDRD) Non-Af 136, BUN/Creatinine Ratio 11.1, Glucose 86, Calcium 8.6 Radiography Diagnostic Testing: Radiology Impression Venous Doppler Study 04/20/21 15:30 Interpretation Summary No evidence for acute deep venous thrombosis[right] upper extremity with patent and compressible cephalic and basilic veins. Ordering Physician: Bhupinder Byrd Performed By: Mirlande Jacobson RVT ? Physical Exam Narrative Physical exam General: awake. Seems mild drowsy. Oriented x3 HEENT: Atraumatic, PERRLA, EOMI, Normocephalic Oral: No Gingival or Mucosal Lesions/ Ulcerations Neck: Supple, No JVD, Negative Carotid Bruits Lungs: Air entry diminished in bilateral lung bases. No crepitation/rhonchi Cardiovascular: Regular rate, Regular Rhythm, Normal S1, Normal S2, No murmurs Abdomen: Bowel Sounds Present, Soft, Non Tender, Non-Distended : No renal angle tenderness. No suprapubic tenderness. Extremities: Redness, induration, tenderness over right forearm between wrist and elbow, antecubital fossa. No edema, Capillary Refill Less than 3 Seconds Skin: No rashes, No breakdown Musculoskeletal: Tenderness over right forearm area. Neurological: Cranial nerves II-XII grossly intact, Deep Tendon Reflexes 2+/4 and Symmetrical, Neuro grossly intact Psych/Mental Status: Normal Affect, Appropriate. Assessment & Plan Assessment/Plan (1) Cellulitis of arm, right: (2) IVDU (intravenous drug user): PLAN: 1. Right forearm cellulitis with history of intravenous drug use: [facility] Blood cultures x2 are pending. No fever. Patient on vancomycin and cefepime. MRSA PCR negative. Venous Doppler of upper extremity negative for DVT. No acute signs of neurovascular bundle compromise or compartment syndrome. As needed Toradol for pain. Avoid opioids or narcotics for pain control 2. History of polysubstance use: Urine tox screen is ordered. Patient claims he is sober for last 6 months VTE phylaxis: Early ambulation encouraged. Laboratory Results 04/20/21 16:03: Lactic Acid 0.7 04/20/21 16:05: WBC 10.1, RBC 4.53 L, Hgb 14.2, Hct 40.9, MCV 90.3, MCH 31.3, MCHC 34.7, RDW Std Deviation 42.1, RDW Coeff of Eliana 12.8, Plt Count 238, MPV 9.5, Immature Gran % (Auto) 0.500, Neut % (Auto) 74.5 H, Lymph % (Auto) 15.7 L, [place] % (Auto) 6.9, Eos % (Auto) 1.9, Baso % (Auto) 0.5, Absolute Neuts (auto) 7.5, Absolute Lymphs (auto) 1.58, Nucleated RBC % 0 04/20/21 16:05: Sodium 140, Potassium 3.5, Chloride 103, Carbon Dioxide 30.0, Anion Gap 7, BUN 11, Creatinine 0.69 L, Estim Creat Clear Calc 125.99, Est GFR (MDRD) Af Amer 173, Est GFR (MDRD) Non-Af 143, BUN/Creatinine Ratio 16.0, Glucose 93, Calcium 9.0 04/20/21 21:40: MRSA (PCR) Negative 04/21/21 05:30: WBC 10.5, RBC 4.48 L, Hgb 13.9, Hct 40.7, MCV 90.8, MCH 31.0, MCHC 34.2, RDW Std Deviation 41.6, RDW Coeff of Eliana 12.7, Plt Count 248, MPV 10.1, Immature Gran % (Auto) 0.400, Neut % (Auto) 75.6 H, Lymph % (Auto) 15.8 L, [place] % (Auto) 6.6, Eos % (Auto) 1.3, Baso % (Auto) 0.3, Absolute Neuts (auto) 7.9 H, Absolute Lymphs (auto) 1.66, Nucleated RBC % 0 04/21/21 05:30: Sodium 140, Potassium 3.6, Chloride 104, Carbon Dioxide 30.0, Anion Gap 6, BUN 8, Creatinine 0.72, Estim Creat Clear Calc 120.74, Est GFR (MDRD) Af Amer 164, Est GFR (MDRD) Non-Af 136, BUN/Creatinine Ratio 11.1, Glucose 86, Calcium 8.6 Charges/Coding Visit Charges Inpatient E&M: 49774 Subs Hosp L2
--- NOTE | 2021-04-21 09:30 | NURSING ---
This nurse into room as patient had spilled his breakfast tray. Pt yelling at staff, stating that he wanted to just leave. This nurse asked if he wanted to sign out AMA, patient stated, I need to leave. I spilled my breakfast and I need something to eat. Pt also upset that his SL was flopping around and irritating him. This nurse offered to order patient a new breakfast tray and re-tape his SL. Patient agreeable to stay at this time. Pt refusing to have IV vanc administered until he has breakfast because it makes him feel sick. Pt to call nursing staff when he is finished with his breakfast.
[2021-04-21 09:42] VITALS: BP 106/61; PULSE 75; RESP 18; TEMP 37.3; O2SAT 99
--- NOTE | 2021-04-21 11:12 | CASEMGMT ---
ROSIBEL GONZALES in to pt room to complete assessment. Pt agreeable to assessment stating Lets get it over with. Pt falling asleep during assessment and would not answer CM questions. Pt mother in pt room at this time. She is concerned about pt stating he is not this type of person referring to sleeping all day. She states that pt is homeless and hopes that someone can help him get off of the streets. 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 ROSIBEL GONZALES to check back for assessment.
--- NOTE | 2021-04-21 14:52 | CASEMGMT ---
SW attempted to meet w/pt, woke pt up to speak w/him. SW introduced self, role of SW in the hospital. SW initially asked pt if he has someplace to stay, he states he has some place to lay his head. He is not interested in a list of shelters, states none of them will help him. SW asked pt about his substance abuse. Pt closed his eyes and then answered the rest of SW questions with a yes or no. Pt denied any resources for substance abuse. He states no to being in treatment now. In regard to depression and bipolar, states no to wanting additional information for counseling. Pt also states no to any issues at present in regard to the depression and bipolar. SW explained to pt is available to speak w/pt further should pt want to speak w/SW. RIVER Layne
--- NOTE | 2021-04-21 18:35 | NURSING ---
Lab called at this time as 1730 vanc trough has not been collected. Order was incorrectly ordered as nurse to collect, order changed and lab aware that pt needs drawn.
[2021-04-21] MEDS: 0.9% Saline Lock 10 ML Syringe IV ×2 (18:59→22:57)
[2021-04-21 19:31] LABS: Vancomycin, Trough Level 7.9 ug/mL (5.0-15.0)
--- NOTE | 2021-04-21 19:41 | PCM.RX.CS ---
Consult Pharmacy has been consulted to manage selected antiobiotic: Vancomycin Type of Consult: Follow-up Suspected Infection: Skin/Soft tissue Prior Doses of Antibiotics Received/Current Regimen: Has been on 750mg iv q8h. Labs: Sodium 140 mmol/L (136-145) 04/21/21 05:30 Potassium 3.6 mmol/L (3.5-5.1) 04/21/21 05:30 Chloride 104 mmol/L (98-107) 04/21/21 05:30 Carbon Dioxide 30.0 mmol/L (21.0-32.0) 04/21/21 05:30 Anion Gap 6 (5-15) 04/21/21 05:30 BUN 8 mg/dL (7-18) 04/21/21 05:30 Creatinine 0.72 mg/dL (0.70-1.30) 04/21/21 05:30 Est GFR (MDRD) Af Amer 164 mL/min (>60) 04/21/21 05:30 Est GFR (MDRD) Non-Af 136 mL/min (>60) 04/21/21 05:30 BUN/Creatinine Ratio 11.1 RATIO (10-20) 04/21/21 05:30 Glucose 86 mg/dL (74-106) 04/21/21 05:30 Vancomycin Trough 7.9 ug/mL (5.0-15.0) 04/21/21 18:50 Weight used for dosin.6 kg Estimated Creatinine Clearance: 120ml/min Goal Trough: 15-20 mcg/mL Pharmacy Plan for Drug Dosing: Trough today 7.9 with goal range of 15-20mcg/ml. Renal about same. Will increase dose to 1500mg iv q8h and get another trough before 4th dose of new regimen. Pharmacy Service will continue to monitor and adjust dosing as required. Follow-Up Labs: Trough Vancomycin - 7.25.21 @0130 before 0200 dose
[2021-04-21 20:15] VITALS: BP 135/91; PULSE 105; RESP 18; TEMP 36.9; O2SAT 100
[2021-04-22 02:27] VITALS: BP 112/73; PULSE 80; RESP 18; TEMP 36.7; O2SAT 100
[2021-04-22 07:30] VITALS: O2SAT 100
[2021-04-22 09:07] VITALS: BP 111/75; PULSE 86; RESP 18; TEMP 36.6; O2SAT 100
[2021-04-22 09:15] VITALS: PULSE 80
[2021-04-22 09:45] LABS: Absolute Lymphocyte Count 1.66 X10^3/uL (0.83-4.51); Absolute Neutrophil Count 6.3 X10^3/uL (2.0-7.7); Basophil# 0.04 X10^3/uL; Basophil% 0.5 % (0-1); Eosinophil# 0.27 X10^3/uL; Eosinophils% 3.1 % (0-5); Hematocrit 39.3 % (40-54); Hemoglobin 13.4 g/dL (13.0-16.5); Lymphocyte # 1.66 X10^3/ul (0.83-4.51); Mean Corp Hgb Conc 34.1 g/dL (32-36); Mean Corpuscular Hgb 31.4 pg (27.0-32.0); Mean Platelet Vol. 9.9 fl (6.2-12.0); Monocyte# 0.41 X10^3/uL; Monocyte% 4.7 % (0-10); NRBC Flagged by Analyzer 0 % (0-5); Neutrophil % 72.2 % (47-70); Platelet Count 226 K/mm3 (150-450); RBC Distribution Width CV 12.6 % (11.6-14.6); RBC Distribution Width SD 41.9 fl (35.1-43.9); Red Blood Count 4.27 M/mm3 (4.6-6.2); White Blood Count 8.7 K/mm3 (4.4-11.0)
[2021-04-22] MEDS: 0.9% Saline Lock 10 ML Syringe IV (09:58)
--- NOTE | 2021-04-22 10:00 | CASEMGMT ---
RN CHRISTIAN Assessment: Face to Face with pt for initial transition planning/care coordination assessment. RN CHRISTIAN introduced self and role at [facility], pt voices understanding and consents to assessment. Pt is A/O x4 and answers all questions appropriately at this time. Pt lying in bed in no distress. Care providers, pharmacy, and demographics verified/updated. Admitting Dx: R arm cellulitis PCP:Pt denies having a PCP and denies need for pamphlet of local PCP's that this RN CHRISTIAN brought to room. Specialists: Pt denies having any specialists. [facility]erred Pharmacy: [facility] Insurance: [employer] Prescription Benefit: yes LW/HPOA: Pt denies having LW/DPOA LNOK: Clarence Castillo, Living Arrangements: Pt states he is staying at a friend's house. Pt would not answer any questions about the home or elaborate. Pt is I in ADL's. Transportation: Pt states he receives transportation through his insurance. DME/HHC/SNF: Pt denies any DME. Denies any hx of HHC or SNF stays. Pt states no concerns with going to his friend's home at time of dc. Pt states no further concerns/needs. CM to follow. Advised pt to ask CM if any further question/concerns/needs arise, voices understanding. Pt Goal: Friend's home Plan: Friend's Home
--- NOTE | 2021-04-22 12:43 | PCM.DC ---
Discharge Instructions Diet Discharge Diet: No restrictions Activity Discharge Activity: Return to Normal Activity Weight Bearing Status: No weight bearing (On right hand for 2 weeks.) Lifting Restrictions: Do not use right upper extremity for heavy lifting for 2 week Dressing / Incision Call your doctor if you observe: Fever of 101 or Higher, Coldness, Increased Pain, Numbness or Tingling, Inability to urinate, Inability to have a bowel movement, Shortness of breath, Dizziness, Fainting spells, Swelling in the ankles, Chest pain, Prolonged hiccupping, Increased palpitations (irregular heartbeat), Calf discomfort and Uncontrolled pain Follow Up Care Test Results: Test results from this visit will be discussed in further detail at your follow-up appointment, if applicable. Discharge Plan Admission Admit Date/Time: 04/20/21 17:23 Primary Reason for Your Visit: Right forearm cellulitis Attending Provider: Igor Campa Primary Care Provider: Care Physician,No Primary Instructions Patient Instructions: ED Cellulitis Discharge Orders/Prescriptions Prescriptions: New cephalexin 500 mg tablet 500 mg PO TID Qty: 21 RF: 0 sulfamethoxazole-trimethoprim [Bactrim DS] 800-160 mg tablet 1 tab PO BID Qty: 14 RF: 0 Referrals / Follow Up: Cornell Mata MD [STAFF PHYSICIAN] - Within 1 Week (For right forearm cellulitis) Care Physician,No Primary [Primary Care Provider] - In 1 Week Disposition Disposition (needs filled in before D/C Order can be placed): Home, Self Care
[2021-04-22 12:50] VITALS: BP 122/78; PULSE 77; RESP 18; TEMP 36.7; O2SAT 95
--- NOTE | 2021-04-22 12:52 | PCM.DC.SUM ---
Providers Date of Admission: 04/20/21 Primary Care Physician: Jackie Primary Care Phys Reason For Visit: R ARM CELLULITIS Diagnosis Discharge Diagnosis (1) Cellulitis of arm, right: Status: Acute Code(s): L03.113 - Cellulitis of right upper limb (2) IVDU (intravenous drug user): Status: Acute Code(s): F19.90 - Other psychoactive substance use, unspecified, uncomplicated Medications at Discharge Home Medications cephalexin 500 mg PO TID #21 tab 04/22/21 sulfamethoxazole-trimethoprim [Bactrim DS] 1 tab PO BID #14 tab 04/22/21 Hospital Course Summary of Care Provided Hospital Course: This is a 30-year gentleman admitted with right upper extremity swelling, edema, pain and tenderness from wrist to the elbow and antecubital fossa for 3 days. 1. Right forearm cellulitis with history of intravenous drug use: [facility] Blood cultures x2 are pending for 48 hours. No fever. Patient on vancomycin and cefepime. MRSA PCR negative. Venous Doppler of upper extremity negative for DVT. No acute signs of neurovascular bundle compromise or compartment syndrome. Patient extent of cellulitis got better now restricted to small area of tenderness and redness near the wrist. Patient is discharged on Keflex and Bactrim DS for 7 more days. Advised to follow-up PCP in 1 week. Avoid opioids or narcotics for pain control 2. History of polysubstance use: Urine tox screen is ordered. Patient claims he is sober for last 6 months Discharge medication reconciliation done. Discharge follow-up instructions completed. Discharge process discussed with the patient and all questions were answered to patient's satisfaction. Total time spent, exact 35 minutes on discharge meds reconciliation, examination, coordination of care with nurses and ancillary staff, review of imaging and blood test and discussion with the patient on follow-up instructions Physical Exam Narrative Physical exam General: awake. Seems mild drowsy. Oriented x3 HEENT: Atraumatic, PERRLA, EOMI, Normocephalic Oral: No Gingival or Mucosal Lesions/ Ulcerations Neck: Supple, No JVD, Negative Carotid Bruits Lungs: Air entry diminished in bilateral lung bases. No crepitation/rhonchi Cardiovascular: Regular rate, Regular Rhythm, Normal S1, Normal S2, No murmurs Abdomen: Bowel Sounds Present, Soft, Non Tender, Non-Distended : No renal angle tenderness. No suprapubic tenderness. Extremities: Extent of cellulitis is improved none mild tenderness over area proximal to wrist. Patient can make a fist although not completely. Inflammatory edema has resolved. Capillary Refill Less than 3 Seconds Skin: No rashes, No breakdown Musculoskeletal: Tenderness over right forearm area. Neurological: Cranial nerves II-XII grossly intact, Deep Tendon Reflexes 2+/4 and Symmetrical, Neuro grossly intact Psych/Mental Status: Normal Affect, Appropriate. Medical Records Data Medical Nutrition Assessment Dietitian: Nutrition Therapy Diagnosis Start: 04/21/21 11:01 Freq: Status: Active Protocol: Document 04/21/21 11:08 (Rec: 04/21/21 11:08 [id number]) Nutrition Malnutrition Evidence of Malnutrition Exists No Intake Problem Increased Nutrient Needs (specify) Etiology (protein) r/t increased protein needs w/ wound/ cellulitis Signs/Symptoms as evidenced by large area of cellulitis to R arm Status Active Problem Recommendation Dietitian Recommendations/Changes regular diet, ensure enlive 120mL 4x/day Weight / BMI Weight Weight: 131 lb 6.328 oz Body Mass Index (BMI) 23.3 ABG / Lab / Microbiology Data Result Diagrams: 04/22/21 09:10 04/21/21 05:30 Laboratory: Laboratory Results - last 24 hr 04/21/21 18:50: Vancomycin Trough 7.9 04/22/21 09:10: WBC 8.7, RBC 4.27 L, Hgb 13.4, Hct 39.3 L, MCV 92.0, MCH 31.4, MCHC 34.1, RDW Std Deviation 41.9, RDW Coeff of Eliana 12.6, Plt Count 226, MPV 9.9, Immature Gran % (Auto) 0.500, Neut % (Auto) 72.2 H, Lymph % (Auto) 19.0, [place] % (Auto) 4.7, Eos % (Auto) 3.1, Baso % (Auto) 0.5, Absolute Neuts (auto) 6.3, Absolute Lymphs (auto) 1.66, Nucleated RBC % 0 D/C Instructions Discharge Diet: No restrictions Weight Bearing Status: No weight bearing (On right hand for 2 weeks.) Call your doctor if you observe: Fever of 101 or Higher, Coldness, Increased Pain, Numbness or Tingling, Inability to urinate, Inability to have a bowel movement, Shortness of breath, Dizziness, Fainting spells, Swelling in the ankles, Chest pain, Prolonged hiccupping, Increased palpitations (irregular heartbeat), Calf discomfort and Uncontrolled pain Meaningful Use Info Meaningful Use Diagnoses (Choose all that apply): None applicable Discharge Plan Admission Admit Date/Time: 04/20/21 17:23 Primary Reason for Your Visit: Right forearm cellulitis Attending Provider: Igor Campa Primary Care Provider: Care Physician,No Primary Instructions Patient Instructions: ED Cellulitis Discharge Orders/Prescriptions Prescriptions: New cephalexin 500 mg tablet 500 mg PO TID Qty: 21 RF: 0 sulfamethoxazole-trimethoprim [Bactrim DS] 800-160 mg tablet 1 tab PO BID Qty: 14 RF: 0 Referrals / Follow Up: Cornell Mata MD [STAFF PHYSICIAN] - Within 1 Week (For right forearm cellulitis) Care Physician,No Primary [Primary Care Provider] - In 1 Week Disposition Disposition (needs filled in before D/C Order can be placed): Home, Self Care Charges/Coding Visit Charges Inpatient E&M: 94897 Disch Hosp
--- NOTE | 2021-04-22 15:11 | CASEMGMT ---
Late entry: Pt screened with Palliative Care Screening Tool on 04/21/21 due to strata 3, pt did not meet criteria.
--- NOTE | 2021-04-24 14:32 | CASEMGMT ---
Addendum entered by Deanne Redding 04/24/21 14:41: TC back to pt. Pt became irritated that he has no where to go. Spoke with Олег GLEASON who suggested the [facility]. Pt states he cannot go there as he is a sex offender. Discussed other options out of the [facility] who accept sex offenders and pt states he cannot leave the county. Suggested [facility], pt states he is already on the wait list. Pt denies further needs at this time and was quite irritated with his lack of finding housing. Original Note: RN CM Discharge Follow Up Phone Call: GILDARDO: 11 Strata: 3 Call Date: 04/24/21 Discharge Date: 04/22/21 Time of Call: [id number] Duration: 3 min Admitting Dx: cellulitis RN CM completed follow up phone call after recent hospitalization. Pt states he is doing ok. He states he was able to order picker his rx. He does have an appt on Saturday to follow up with as he did not have a PCP. Pt states he is nauseous. He does not understand why he was dc'd, he states he has no where to go and is unable to keep his arm clean. Made pt aware that when this RN CM spoke with him he stated he was staying with a friend. He states that is not happening. Pt became upset and stated he heard too much background noise and asked CM to call back when it was not so loud. Pt hung up.
== END 2021-04-22 13:15 | disposition home or self-care (01) | DRG 383 ==
LOC: ED 17:05 → MS3 17:57
PROVIDERS: Admitting Provider Internal Medicine; Emergency Provider Emergency Medicine; Visit Provider Internal Medicine
DX: L03.113 Cellulitis of right upper limb (principal); F19.90 Other psychoactive substance use, unspecified, uncomplicated; F31.9 Bipolar disorder, unspecified; F41.9 Anxiety disorder, unspecified; J45.909 Unspecified asthma, uncomplicated; F17.210 Nicotine dependence, cigarettes, uncomplicated
CPT/HCPCS: 36415; 80048; 80202; 83605; 85025; 87040; 87641; 93971; 97110; 97802; 99251; 99284; 99406; J7030; J7040; J7050; A4216; G0463; J2405

== ENCOUNTER → 2021-04-26 16:02 | Outpatient (CLI) | payer MEDICAID, SELFPAY ==
[2021-04-26 15:28] VITALS: BMI 23.3
[2021-04-26 16:54] LABS: Absolute Lymphocyte Count 2.46 X10^3/uL (0.83-4.51); Absolute Neutrophil Count 6.4 X10^3/uL (2.0-7.7); Basophil# 0.07 X10^3/uL; Basophil% 0.7 % (0-1); Eosinophil# 0.17 X10^3/uL; Eosinophils% 1.7 % (0-5); Hematocrit 39.8 % (40-54); Hemoglobin 13.5 g/dL (13.0-16.5); Lymphocyte # 2.46 X10^3/ul (0.83-4.51); Lymphocyte % 24.7 % (19-41); Mean Corp Hgb Conc 33.9 g/dL (32-36); Mean Corpuscular Hgb 31.1 pg (27.0-32.0); Mean Corpuscular Volume 91.7 fL (80-94); Mean Platelet Vol. 9.6 fl (6.2-12.0); Monocyte# 0.69 X10^3/uL; Monocyte% 6.9 % (0-10); NRBC Flagged by Analyzer 0 % (0-5); Neutrophil # 6.39 X10^3/uL (2.7-7.7); Neutrophil % 64.4 % (47-70); Platelet Count 282 K/mm3 (150-450); RBC Distribution Width CV 12.7 % (11.6-14.6); RBC Distribution Width SD 42.4 fl (35.1-43.9); Red Blood Count 4.34 M/mm3 (4.6-6.2); White Blood Count 9.9 K/mm3 (4.4-11.0)
[2021-04-26 17:30] LABS: ALB/GLOB Ratio 1.1 RATIO (0.9-2.4); AST(SGOT) 17 U/L (15-37); Alanine Aminotransfer ALT/SGPT 31 U/L (16-61); Albumin, Serum 3.7 g/dL (3.2-5.0); Alkaline Phosphatase 47 U/L (45-117); Anion Gap 3 (5-15); BUN 10 mg/dL (7-18); Calcium,Total 8.4 mg/dL (8.5-10.1); Chloride 97 mmol/L (98-107); Creatinine, Serum 0.91 mg/dL (0.70-1.30); EST Glomerular Filtration Rate 104 mL/min (>60); Est Glom Filt Rate - Afr Amer 126 mL/min (>60); Globulin 3.4 g/dL (2.2-4.2); Glucose 68 mg/dL (74-106); Potassium 3.9 mmol/L (3.5-5.1); Protein, Total 7.1 g/dL (6.4-8.2); Sodium Level 134 mmol/L (136-145); Thyroid Stim Hormone (TSH) 0.91 uIU/mL (0.358-3.74)
[2021-04-27 09:25] LABS: HIV - WCH Non-Reactive (Nonreactive); Hepatitis B Surface Antigen Non-Reactive (Nonreactive)
[2021-04-27 09:30] LABS: Hepatitis C Antibody REACTIVE (Nonreactive)
== END ==
PROVIDERS: PCP Nurse Practitioner Family; Referring Provider Nurse Practitioner Family; Visit Provider Nurse Practitioner Family
DX: L03.113 Cellulitis of right upper limb (principal); F19.10 Other psychoactive substance abuse, uncomplicated
CPT/HCPCS: 36415; 80053; 84443; 85025; 86703; 86803; 87340

== ENCOUNTER 2021-05-10 21:38 | Emergency (ER) | payer MEDICAID, SELFPAY ==
[2021-04-26 15:28] VITALS: BMI 23.3
[2021-05-10 21:38] VITALS: BP 128/88; PULSE 100; RESP 18; TEMP 36.1; O2SAT 100; BMI 24.3
--- NOTE | 2021-05-10 22:57 | ED.RN ---
PATIENT HAS MULTIPLE ITEMS IN THE HAZMAT ROOM. PATIENT HAS KNIFE LOCKED UP WITH SECURITY
--- NOTE | 2021-05-10 23:00 | EKG12_ITS ---
Test Reason : DYSRHYTHMIA Blood Pressure : / mmHG Vent. Rate : 080 BPM Atrial Rate : 080 BPM P-R Int : 130 ms QRS Dur : 088 ms QT Int : 384 ms P-R-T Axes : 071 052 050 degrees QTc Int : 442 ms Normal sinus rhythm Normal ECG Confirmed by JAME ORTIZ, INDU ([id number]), general expeditor KOTA GALINDO ([id number]) on 05/16/2021 8:28:27 AM Referred By: RK Confirmed By:INDU KILGORE MD
--- NOTE | 2021-05-10 23:01 | EDS_ITS ---
HPI HPI - Psych History of Present Illness Chief Complaint: Mental Health Informant: patient Narrative Narrative: It takes a while for the patient to talk. Evidently somebody he knows says he needs to be evaluated. He states people say he is crazy but he is not crazy. He wants to be left alone. He states everyone is following him. They are watching him. They are preventing him from doing things. When I ask you this is he states it is everyone. He does admit to having thoughts of suicide and homicide but states he would never do this. He just wants to be left alone. He states he has lost 74 people in his life and he is afraid to have more people come into his life because they will . He states he has seen a counselor for he many years of his life but he has not seen one for a while. He is not sure how long. He does not know any specific diagnoses that he has been given. He does smoke. He does not answer about drug use. Reviewing the chart it looks like he had does have a history of drug use. He has a history of anxiety at least. Nothing specifically makes these symptoms better or worse. [facility] Medical History Anxiety Arthritis Asthma Bipolar disorder Depression Drug abuse Fatigue Frequent headaches GERD (gastroesophageal reflux disease) Hives IVDU (intravenous drug user) Knee pain Polysubstance abuse Seasonal allergies Smoker SOB (shortness of breath) Home Medications NK 05/10/21 [History Last Taken Unknown] Allergy/AdvReac Type Severity Reaction Status Date / Time naproxen [From Naprosyn] Allergy Intermediate Hives Verified 05/10/21 21:40 shellfish derived Allergy Intermediate emesis Verified 05/10/21 21:40 mushroom Allergy Mild emesis Verified 05/10/21 21:40 amoxicillin [Amoxicillin] Allergy Hives Verified 05/10/21 21:40 clindamycin Allergy Hives Verified 05/10/21 21:40 Tetracyclines Allergy Hives Verified 05/10/21 21:40 BENZOCYCLINE Allergy Hives Uncoded 05/10/21 21:40 Family History Father Diabetes Mother Diabetes Other Alcohol abuse Anxiety Arthritis CVA (cerebral vascular accident) Depression Heart disease Hyperlipidemia Hypertension Mental disorder Myocardial infarction Psychiatric care Thyroid disorder Social History Smoking Status: Current every day smoker tobacco type: cigarettes alcohol intake: never substance use type: former substance user what type of physical activity do you participate in: none ROS ROS ED Constitutional Constitutional ED: Denies chills or fever(s) Eyes Eyes: Denies diplopia ENT ENT ED: Denies rhinorrhea or sore throat Cardiovascular Cardiovascular: Denies chest pain or palpitations Respiratory/Chest Respiratory/Chest: Reports other Details: Patient has history of asthma but is not having symptoms now. ; Denies cough or dyspnea Gastrointestinal Gastrointestinal: Denies abdominal pain, nausea or vomiting Genitourinary Genitourinary ED: Denies dysuria Musculoskeletal Musculoskeletal: Denies arthralgias or myalgias Integumentary Denies rash Neurologic Neurologic: Denies headache(s) Psychiatric Psychiatric: Reports anxiety, suicidal thoughts and other Details: See history of present illness. Allergic/Immunologic Allergic/Immunologic ED: Denies urticaria EXAM Physical Exam Const Vital Signs: 05/10/21 21:38 05/10/21 23:38 05/11/21 01:00 Temperature 97 F L Temperature Source Temporal Pulse Rate 100 Respiratory Rate 18 17 17 Blood Pressure 128/88 H Blood Pressure Mean 101 Pulse Ox 100 Oxygen Delivery Method Room Air Room Air 05/11/21 02:56 05/11/21 05:00 Temperature Temperature Source Pulse Rate 105 H Respiratory Rate 18 17 Blood Pressure 100/51 L Blood Pressure Mean 67 Pulse Ox 99 Oxygen Delivery Method Room Air Room Air Positive well nourished and well developed General Appearance ED: well developed HEENT normocephalic and atraumatic Eyes General Eye ED: Negative for pale conjunctiva or scleral icterus Resp normal respiratory effort and clear to auscultation bilaterally Auscultation: Negative for wheezes Cardio Rate: regular rate Rhythm: regular rhythm GI non-tender and non-distended Palpation: soft Back/Spine no CVA tenderness Extremity normal to inspection General Extremety ED: Negative for tenderness Neuro Sensorium / Orientation: alert Psych Psych Narrative: Patient does not make good eye contact. He seems very upset and internally stimulated. He seems somewhat paranoid. He does allow me to do an exam. But he initially is very concerned about being approached. Skin Lesions: no lesions Rashes: no rashes MDM MDM MDM Narrative Medical decision making narrative: Patient's blood work shows essentially normal CBC. Electrolytes liver function test are normal. Alcohol level is just 12. I am pending results of urine tox. However, this will not hold up medical clearance. Patient is medically cleared for psychiatric evaluation and admission if needed. Crisis director [employer] has seen the patient is also concerned about significant amount of paranoia. She got more information that it sounds like this patient is having hallucinations. He also told her that he had thoughts of hurting other people but would not do this. This is similar to what he told me. I think this patient is having exacerbation of psychiatric illness. It may be contributed by drug use. I think this patient could clearly benefit from further evaluation and treatment. They are calling to find placement for further therapy and care. His tox screen did come back with positive cannabis as well as amphetamines and methamphetamines. Patient has cause no issues so far here. [facility] psychiatry is being contacted for possible transfer. We are pending final transfer at this time. Patient will be observed in the emergency department until appropriate placement can be found. He is turned over to oncoming physician pending this placement. Lab Data Attestation: I reviewed the patient's lab results. Labs: Laboratory Results - last 24 hr 05/10/21 05/10/21 05/10/21 23:10 23:10 23:10 WBC 6.7 RBC 4.53 L Hgb 14.1 Hct 42.5 MCV 93.8 MCH 31.1 MCHC 33.2 RDW Std Deviation 44.7 H RDW Coeff of Eliana 13.2 Plt Count 267 MPV 9.3 Immature Gran % (Auto) 0.400 Neut % (Auto) 57.8 Lymph % (Auto) 33.7 [place] % (Auto) 5.5 Eos % (Auto) 1.9 Baso % (Auto) 0.7 Absolute Neuts (auto) 3.9 Absolute Lymphs (auto) 2.26 Nucleated RBC % 0 Sodium 141 Potassium 3.4 L Chloride 105 Carbon Dioxide 30.0 Anion Gap 6 BUN 15 Creatinine 0.90 Estim Creat Clear Calc 96.59 Est GFR (MDRD) Af Amer 127 Est GFR (MDRD) Non-Af 105 BUN/Creatinine Ratio 16.7 Glucose 102 Calcium 8.9 Total Bilirubin 0.40 AST 24 ALT 32 Alkaline Phosphatase 46 Total Protein 7.3 Albumin 3.9 Globulin 3.4 Albumin/Globulin Ratio 1.1 Urine Color Urine Clarity Urine pH Ur Specific [place] Urine Protein Urine Glucose (UA) Urine Ketones Urine Occult Blood Urine Nitrite Urine Bilirubin Urine Urobilinogen Ur Leukocyte Esterase Urine RBC Urine WBC Ur Squamous Epith Cells Calcium Oxalate Crystal Urine Bacteria Urine Mucus Urine Opiates Screen Urine Methadone Screen Ur Barbiturates Screen Ur Phencyclidine Scrn Ur Amphetamines Screen U Methamphetamin-MDMA U Benzodiazepines Scrn Urine Cocaine Screen U Cannabinoids Screen Ur Drug Screen Comment Ethyl Alcohol 12.0 05/11/21 05/11/21 02:27 02:27 WBC RBC Hgb Hct MCV MCH MCHC RDW Std Deviation RDW Coeff of Eliana Plt Count MPV Immature Gran % (Auto) Neut % (Auto) Lymph % (Auto) [place] % (Auto) Eos % (Auto) Baso % (Auto) Absolute Neuts (auto) Absolute Lymphs (auto) Nucleated RBC % Sodium Potassium Chloride Carbon Dioxide Anion Gap BUN Creatinine Estim Creat Clear Calc Est GFR (MDRD) Af Amer Est GFR (MDRD) Non-Af BUN/Creatinine Ratio Glucose Calcium Total Bilirubin AST ALT Alkaline Phosphatase Total Protein Albumin Globulin Albumin/Globulin Ratio Urine Color Yellow Urine Clarity Clear Urine pH 5.0 Ur Specific [place] 1.030 Urine Protein 15 H Urine Glucose (UA) Normal Urine Ketones 5 H Urine Occult Blood Negative Urine Nitrite Negative Urine Bilirubin Negative Urine Urobilinogen 1 H Ur Leukocyte Esterase 25 H Urine RBC 0 SEEN Urine WBC 0 SEEN Ur Squamous Epith Cells 0 SEEN Calcium Oxalate Crystal 2+ Urine Bacteria 0 SEEN Urine Mucus 0 SEEN Urine Opiates Screen NEGATIVE Urine Methadone Screen NEGATIVE Ur Barbiturates Screen NEGATIVE Ur Phencyclidine Scrn NEGATIVE Ur Amphetamines Screen POSITIVE H U Methamphetamin-MDMA POSITIVE H U Benzodiazepines Scrn NEGATIVE Urine Cocaine Screen NEGATIVE U Cannabinoids Screen POSITIVE H Ur Drug Screen Comment Ethyl Alcohol EKG Initial EKG: Comments: EKG done as part of medical clearance and read by me shows sinus rhythm with rate of 80. No ectopy. No acute ST elevation or depression. Mild early repole seen in V2 V3 and V4. IA interval, QRS duration and QTc normal. Discharge Plan Triage Chief Complaint: Mental Health ED Provider: Gregory Kaiser Dx/Rx/DC Orders Clinical Impression: Acute paranoia, Polysubstance abuse Prescriptions: No Action NK RF: 0 Primary Care Provider: Man,Pramod [employer] ENERGY CONSULTANT AND DESIGNER Referrals: Pramod Man [employer] ENERGY CONSULTANT AND DESIGNER, [employer] CONSULTANT AND DESIGNER-[facility] [Primary Care Provider] -
[2021-05-10 23:19] LABS: Absolute Lymphocyte Count 2.26 X10^3/uL (0.83-4.51); Absolute Neutrophil Count 3.9 X10^3/uL (2.0-7.7); Basophil# 0.05 X10^3/uL; Basophil% 0.7 % (0-1); Eosinophil# 0.13 X10^3/uL; Eosinophils% 1.9 % (0-5); Hematocrit 42.5 % (40-54); Hemoglobin 14.1 g/dL (13.0-16.5); Lymphocyte # 2.26 X10^3/ul (0.83-4.51); Lymphocyte % 33.7 % (19-41); Mean Corp Hgb Conc 33.2 g/dL (32-36); Mean Corpuscular Hgb 31.1 pg (27.0-32.0); Mean Corpuscular Volume 93.8 fL (80-94); Mean Platelet Vol. 9.3 fl (6.2-12.0); Monocyte# 0.37 X10^3/uL; Monocyte% 5.5 % (0-10); NRBC Flagged by Analyzer 0 % (0-5); Neutrophil # 3.86 X10^3/uL (2.7-7.7); Neutrophil % 57.8 % (47-70); Platelet Count 267 K/mm3 (150-450); RBC Distribution Width CV 13.2 % (11.6-14.6); RBC Distribution Width SD 44.7 fl (35.1-43.9); Red Blood Count 4.53 M/mm3 (4.6-6.2); White Blood Count 6.7 K/mm3 (4.4-11.0)
[2021-05-10] MEDS: LORazepam 1 MG Tablet PO (23:34)
[2021-05-10 23:37] LABS: ALB/GLOB Ratio 1.1 RATIO (0.9-2.4); AST(SGOT) 24 U/L (15-37); Alanine Aminotransfer ALT/SGPT 32 U/L (16-61); Albumin, Serum 3.9 g/dL (3.2-5.0); Alkaline Phosphatase 46 U/L (45-117); Anion Gap 6 (5-15); BUN 15 mg/dL (7-18); BUN/Creat Ratio 16.7 RATIO (10-20); Calcium,Total 8.9 mg/dL (8.5-10.1); Chloride 105 mmol/L (98-107); EST Glomerular Filtration Rate 105 mL/min (>60); Est Glom Filt Rate - Afr Amer 127 mL/min (>60); Estimated Creatinine Clearance 96.59 ml/min; Globulin 3.4 g/dL (2.2-4.2); Glucose 102 mg/dL (74-106); Potassium 3.4 mmol/L (3.5-5.1); Protein, Total 7.3 g/dL (6.4-8.2); Sodium Level 141 mmol/L (136-145)
[2021-05-10 23:38] VITALS: RESP 17
--- NOTE | 2021-05-11 00:30 | ED.RN ---
CALLED CRISIS TO SEE THIS PT, VERNA IS [employer]
[2021-05-11 01:00] VITALS: RESP 17
[2021-05-11 02:33] LABS: Bacteria 0 SEEN /hpf (None Seen); Mucous, Urine 0 SEEN /hpf (<or=2+); Red Blood Cells-Urine 0 SEEN /hpf (0-5); Squamous Epithelial Cells - UA 0 SEEN /hpf (0-5); White Blood Cells 0 SEEN /hpf (0-5)
[2021-05-11 02:37] LABS: Color, Urine Yellow (Yellow); Glucose, Dipstick Normal (Normal); Ketone-Dipstick 5 mg/dl (Negative); Leukocyte Esterase-Dipstick 25 /ul (Negative); Nitrite-Dipstick Negative (Negative); Occult Blood-Urine Negative /ul (Negative); Protein-Dipstick 15 mg/dl (Negative); Urine Bilirubin Dipstick Negative (Negative); Urine Clarity Clear (Clear); Urine Urobilinogen 1 mg/dl (Normal)
[2021-05-11 02:49] LABS: Calcium Oxalate Crystals Ur 2+ /hpf (<or=2+)
[2021-05-11 02:56] VITALS: BP 100/51; PULSE 105; RESP 18; O2SAT 99
[2021-05-11 03:32] LABS: Amphetamine Urine VISTA POSITIVE (<1000 ng/mL); Barbiturate Urine VISTA NEGATIVE (< 200 ng/mL); Benzodiazepine Urine VISTA NEGATIVE (< 200 ng/mL); Cocaine Urine VISTA NEGATIVE (< 300 ng/mL); Ecstacy Urine VISTA POSITIVE (< 500 ng/mL); Methadone Urine VISTA NEGATIVE (< 300 ng/mL); PCP Urine VISTA NEGATIVE (< 25 ng/mL); THC Urine VISTA POSITIVE (< 50 ng/mL); Vista UDS pH Range 5
[2021-05-11 05:00] VITALS: RESP 17
--- NOTE | 2021-05-11 06:34 | ED.RN ---
PATIENT HAS BEEN REFERRED TO [facility] AT THIS TIME
[2021-05-11 07:08] VITALS: BP 122/78; PULSE 78; RESP 18; TEMP 36.6; O2SAT 99
== END 2021-05-11 08:16 ==
PROVIDERS: Emergency Provider Emergency Medicine; PCP Nurse Practitioner Family
DX: F22 Delusional disorders (principal); F19.10 Other psychoactive substance abuse, uncomplicated; F31.9 Bipolar disorder, unspecified; M19.90 Unspecified osteoarthritis, unspecified site; J45.909 Unspecified asthma, uncomplicated; F17.210 Nicotine dependence, cigarettes, uncomplicated
CPT/HCPCS: 36415; 80053; 80307; 81001; 82077; 85025; 93005; 99284

== ENCOUNTER 2021-05-25 16:10 | Emergency (ER) | payer MEDICAID, SELFPAY ==
[2021-05-25 16:10] VITALS: BP 104/65; PULSE 107; RESP 18; TEMP 37.1; O2SAT 100; BMI 24.7
--- NOTE | 2021-05-25 18:21 | EDS_ITS ---
HPI History of Present Illness Chief Complaint: Back Informant: patient Onset/Context/Timing Onset: Today Context: Gradual Onset Injury: lifting Timing: Continuous Quality: Throbbing Location: Lumbar Worsened by: improves with Movement Relieved by: Nothing Associated Symptoms Associated Symptoms: Negative for Numbness, Tingling, Radiation to Right Leg, Radiation to Left Leg, Fever, Abdominal Pain, Unable to Ambulate, Unable to Transfer, Urinary Retention, Urinary Incontinence, Constipation and Fecal Incontinence Narrative Narrative: Patient presents with back pain that became worse today. Patient states the pain is over the right lower lumbar area. Patient states the pain is constant and throbbing. Patient states the pain is worse with any movement. Patient states he recently moved and has been doing a lot of lifting. Patient states he is also been constipated. Patient denies any incontinence of urine or stool. Patient denies any paresthesias or weakness. Patient denies any pain down his legs. [facility] Medical History Anxiety Arthritis Asthma Bipolar disorder Depression Drug abuse Fatigue Frequent headaches GERD (gastroesophageal reflux disease) Hives IVDU (intravenous drug user) Knee pain Polysubstance abuse Seasonal allergies Smoker SOB (shortness of breath) Home Medications NK 05/10/21 [History Last Taken Unknown] Allergy/AdvReac Type Severity Reaction Status Date / Time naproxen [From Naprosyn] Allergy Intermediate Hives Verified 05/25/21 16:12 shellfish derived Allergy Intermediate emesis Verified 05/25/21 16:12 mushroom Allergy Mild emesis Verified 05/25/21 16:12 amoxicillin [Amoxicillin] Allergy Hives Verified 05/25/21 16:12 clindamycin Allergy Hives Verified 05/25/21 16:12 Tetracyclines Allergy Hives Verified 05/25/21 16:12 BENZOCYCLINE Allergy Hives Uncoded 05/25/21 16:12 Family History Father Diabetes Mother Diabetes Other Alcohol abuse Anxiety Arthritis CVA (cerebral vascular accident) Depression Heart disease Hyperlipidemia Hypertension Mental disorder Myocardial infarction Psychiatric care Thyroid disorder Social History Smoking Status: Current every day smoker tobacco type: cigarettes alcohol intake: never substance use type: former substance user what type of physical activity do you participate in: none ROS ROS ED Constitutional Constitutional ED: Denies chills or fever(s) Eyes Eyes: Reports blurry vision; Denies diplopia ENT ENT ED: Denies rhinorrhea or sore throat Cardiovascular Cardiovascular: Denies chest pain or palpitations Respiratory/Chest Respiratory/Chest: Reports cough and dyspnea; Denies sputum Gastrointestinal Gastrointestinal: Reports nausea; Denies vomiting Genitourinary Genitourinary ED: Denies dysuria or hematuria Musculoskeletal Musculoskeletal: Reports back pain; Denies neck pain Integumentary Denies abscess or rash Neurologic Neurologic: Reports headache(s); Denies weakness Allergic/Immunologic Allergic/Immunologic ED: Denies mouth swelling or urticaria EXAM Physical Exam Const Vital Signs: 05/25/21 16:10 Temperature 98.7 F Temperature Source Temporal Pulse Rate 107 H Respiratory Rate 18 Blood Pressure 104/65 Blood Pressure Mean 78 Pulse Ox 100 Oxygen Delivery Method Room Air Positive well nourished, well developed and unkempt General Appearance ED: unkempt and well developed HEENT Reports moist mucous membranes Back/Spine Back/Spine Narrative: There is tenderness over the right lumbar paraspinal muscles. There is no midline tenderness. There is no bony crepitance or step- off. Range of motion was limited in all motion secondary to pain. Extremity normal to inspection General Extremety ED: Negative for edema General Extremity: Negative for edema Neuro oriented x3 and no sensory deficits noted Sensorium / Orientation: alert Motor Exam: strength 5/5 throughout Psych mental status grossly normal Appearance: unkempt MDM MDM MDM Narrative Medical decision making narrative: Patient was advised that this is most likely muscular strain. Patient states he needs to be admitted to the hospital because he has no place to go and it is too hot outside. Patient states he is willing to be admitted for detox. When I asked him what he wants to be detoxed from, he stated he used to use meth. Patient was advised that we do not do inpatient detox for meth. Patient then stated he had some alcohol today. Patient was advised that he is not dependent on alcohol and there is no indication to admit him for alcohol detox. I asked elementary school social worker to go in and talk with the patient. She gave him some resources but he stated he could not go to any of those places. Patient was given a referral to [facility] for outpatient treatment. Patient was given a dose of Tylenol here for his back pain. Patient was instructed to take Tylenol or ibuprofen as needed for pain. Patient was instructed to follow-up with his primary care physician in 3 to 5 days. Discharge Plan Triage Chief Complaint: Back ED Provider: Heladio Brasher Dx/Rx/DC Orders Clinical Impression: Acute low back pain Instructions: ED Back Sprain/Strain Prescriptions: No Action NK RF: 0 Primary Care Provider: Pramod Man NP Referrals: Pramod Man NP, SOIL TECHNICIAN-C [Primary Care Provider] - 3-5 Days Disposition Disposition: Home, Self Care
[2021-05-25] MEDS: Acetaminophen 500 MG Tablet 1000 MG PO (18:38)
--- NOTE | 2021-05-25 18:41 | ED.RN ---
PT VERY ANGRY THAT HE IS BEING DISCHARGED BECAUSE HE HAS NO WHERE TO GO AND STATES HE DOESN'T WANT TO LIVE IN [facility]. [facility] AT BEDSIDE AND PT STATED HE WILL DO SOMETHING TO GET ARRESTED. ON HIS WAY AMBULATING FROM ER ROOM HE THREW HIS RN REVIEW AT THE [facility] AND THEN RAPIDLY AMBULATED OUT THE DOORS AND HEADED TOWARDS MAGDALENA ORNELAS. [employer] WAS WATCHING PTS BEHAVIOR THE ENTIRE TIME. PT LEFT WITHOUT HIS DC INSTRUCTIONS
--- NOTE | 2021-05-25 18:57 | CM.ED ---
ROSIBEL Note Referral Source: MD Referral Reason: Patient reports it's too hot outside and he is not leaving the hospital . SW met with patient. Patient said that he is not leaving the hospital. He said that he needs a place to stay. SW suggested the [facility] and patient said that he can't go there as he is a registered sex offender. Patient said you need to send me to [facility] or [place]. SW stated that patient's being homeless does not mean that patient meets criteria for inpatient psych. Patient said yes it does.. I am bipolar. Patient was advised that was not accurate and patient said If I was you I would get the fucking out of this room before I go fucking cra. ROSIBEL updated allied health professional and Andres SCHMITZ responded. ROSIBEL had had attempted to provide patient with streetcard but he declined. Plan: Patient refused [facility] Jannet Kerr
== END 2021-05-25 18:43 | disposition home or self-care (01) ==
LOC: ED 18:38
PROVIDERS: Emergency Provider Emergency Medicine; PCP Nurse Practitioner Family
DX: M54.5 Low back pain (principal); K59.00 Constipation, unspecified; F31.9 Bipolar disorder, unspecified; J45.909 Unspecified asthma, uncomplicated; F17.210 Nicotine dependence, cigarettes, uncomplicated
CPT/HCPCS: 99284

== ENCOUNTER 2021-08-02 21:15 | Emergency (ER) | payer MEDICAID, SELFPAY ==
[2021-08-02 21:16] VITALS: BP 131/93; PULSE 108; RESP 16; TEMP 36.8; O2SAT 100; BMI 30.1
--- NOTE | 2021-08-02 22:22 | EDS_ITS ---
HPI HPI - URI History of Present Illness Chief Complaint: Sore Throat Detail of Chief Complaint: I think I have strep throat Informant: patient Onset/Context/Timing Onset: Days (Onset 2 to 3 days ago) Context: Sudden Onset Timing: Continuous Quality: Pain Location: Throat Current Severity: Mild Maximum Severity: Severe Worsened by: Swallowing, Eating Solids and Drinking Liquids Relieved by: Not Relieved By Tylenol and NSAIDs Associated Symptoms Associated Symptoms: Positive for Myalgias, Nausea, Shortness of Breath and Nonproductive cough; Negative for Nasal Congestion, Headache, Sinus Pressure, Vomiting, Diarrhea, Chest Pain, Hemoptysis and Productive Cough Narrative Narrative: Patient is a 30-year-old male who presents with sore throat, nonproductive cough, subjective fever, myalgias arthralgias, possible change in taste. He denies photophobia, change in vision or blurred vision. Denies ringing his ears or decreased hearing. He denies change in voice. He does have a nonproductive cough. He does smoke 1/2 pack/day and also vapes. He denies alcohol or drug use. He may have been exposed to someone sick. He denies vomiting or diarrhea. He denies rash. Prior similar symptoms: Yes Recent Illness/Hospitalization: No ROS ROS ED Constitutional Constitutional ED: Reports chills, fever(s), subjective and sweats; Denies weight loss Eyes Eyes: Denies blurry vision, change in vision or diplopia ENT ENT ED: Reports sore throat; Denies ear pain or rhinorrhea Cardiovascular Cardiovascular: Denies chest pain, orthopnea, palpitations, paroxysmal nocturnal dyspnea or racing heartbeat Respiratory/Chest Respiratory/Chest: Reports cough and dyspnea; Denies dyspnea on exertion, orthopnea, paroxysmal nocturnal dyspnea or sputum Gastrointestinal Gastrointestinal: Reports nausea; Denies abdominal pain, diarrhea, melena or vomiting Genitourinary Genitourinary ED: Denies dysuria, hematuria or urinary frequency Musculoskeletal Musculoskeletal: Reports arthralgias and myalgias; Denies back pain or neck pain Integumentary Denies rash Neurologic Neurologic: Denies headache(s), paresthesias or weakness Hematologic/Lymphatic Hematologic/Lymphatic: Denies easy bleeding or easy bruising [facility] Medical History Anxiety Arthritis Asthma Bipolar disorder Depression Drug abuse Fatigue Frequent headaches GERD (gastroesophageal reflux disease) Hives IVDU (intravenous drug user) Knee pain Polysubstance abuse Seasonal allergies Smoker SOB (shortness of breath) Home Medications NK 05/10/21 [History Last Taken Unknown] Allergy/AdvReac Type Severity Reaction Status Date / Time naproxen [From Naprosyn] Allergy Intermediate Hives Verified 08/02/21 22:46 shellfish derived Allergy Intermediate emesis Verified 08/02/21 22:46 mushroom Allergy Mild emesis Verified 08/02/21 22:46 amoxicillin [Amoxicillin] Allergy Hives Verified 08/02/21 22:46 clindamycin Allergy Hives Verified 08/02/21 22:46 Tetracyclines Allergy Hives Verified 08/02/21 22:46 BENZOCYCLINE Allergy Hives Uncoded 08/02/21 22:46 Family History Father Diabetes Mother Diabetes Other Alcohol abuse Anxiety Arthritis CVA (cerebral vascular accident) Depression Heart disease Hyperlipidemia Hypertension Mental disorder Myocardial infarction Psychiatric care Thyroid disorder Social History (Updated 08/02/21 @ 22:[address] Jayden Boston MD) household members: none Smoking Status: Current every day smoker tobacco type: cigarettes alcohol intake: never substance use type: former substance user what type of physical activity do you participate in: none EXAM Physical Exam Const Vital Signs: 08/02/21 21:16 08/02/21 22:46 Temperature 98.2 F Temperature Source Temporal Pulse Rate 108 H Respiratory Rate 16 Respiratory Effort Normal Non-Labored Respiratory Pattern Normal Blood Pressure 131/93 H Blood Pressure Mean 105 Pulse Ox 100 Oxygen Delivery Method Room Air Positive well nourished and well developed General Appearance ED: well developed and NAD; Negative for pallor HEENT Reports TM's clear and moist mucous membranes normocephalic and atraumatic Face and Sinus: Negative for sinus tenderness External Ear: external ears normal and no preauricular adenopathy External Auditory Canal: EAC's normal Tympanic Membrane ED: Yes TM's clear Throat: posterior oropharynx normal Eyes PERRL and EOMs intact bilaterally General Eye ED: Negative for pale conjunctiva or scleral icterus Neck no lymphadenopathy, supple, no meningeal signs and no JVD Neck Narrative: Trachea is midline. There is no inspiratory expiratory stridor. General: Negative for anterior neck swelling or lymphadenopathy Resp normal respiratory effort and clear to auscultation bilaterally Cardio S1 normal heart sound, S2 normal heart sound and no murmurs Rate: tachycardic Rhythm: regular rhythm GI non-tender, non-distended and no masses Auscultation: normoactive bowel sounds Palpation: soft Extremity normal to inspection and full ROM General Extremety ED: Negative for cyanosis or tenderness General Extremity: Negative for cyanosis Neuro oriented x3, CN's II-XII intact bilaterally and no sensory deficits noted Sensorium / Orientation: alert Motor Exam: strength 5/5 throughout Psych mental status grossly normal Skin General Skin Exam: Negative for jaundice or pallor Lesions: no lesions Rashes: no rashes MDM MDM MDM Narrative Medical decision making narrative: Nurse protocol was initiated. Rapid strep screen was obtained. Patient does have a Centor score of 2. And Covid test was obtained as well. Patient symptoms consistent with viral infection need to rule out Covid. Lab Data Attestation: I reviewed the patient's lab results. Lab results narrative: The rapid strep is negative. The Covid test is negative. Patient was informed of his results. Discharge Plan Triage Chief Complaint: Sore Throat ED Provider: Jayden Boston Dx/Rx/DC Orders Clinical Impression: Viral upper respiratory tract infection with cough Prescriptions: No Action NK RF: 0 Primary Care Provider: Pramod Man NP Referrals: Pramod Man NP, GRAIN OILSEED OR PASTURE FARM WORKER-C [Primary Care Provider] - 10-14 Days if not better Disposition Disposition: Home, Self Care
[2021-08-03 00:48] VITALS: PULSE 76; RESP 16; O2SAT 98
== END 2021-08-03 00:49 | disposition home or self-care (01) ==
PROVIDERS: Emergency Provider Emergency Medicine; PCP Nurse Practitioner Family
DX: J06.9 Acute upper respiratory infection, unspecified (principal); F41.9 Anxiety disorder, unspecified; F31.9 Bipolar disorder, unspecified; K21.9 Gastro-esophageal reflux disease without esophagitis; M19.90 Unspecified osteoarthritis, unspecified site; J45.909 Unspecified asthma, uncomplicated; Z79.899 Other long term (current) drug therapy; F17.210 Nicotine dependence, cigarettes, uncomplicated
CPT/HCPCS: 87426; 87880; 99282

== ENCOUNTER → 2021-08-29 08:20 | Outpatient (CLI) | payer MEDICAID, SELFPAY ==
[2021-08-29 08:39] LABS: Absolute Lymphocyte Count 2.43 X10^3/uL (0.83-4.51); Basophil# 0.05 X10^3/uL; Basophil% 0.7 % (0-1); Eosinophil# 0.35 X10^3/uL; Eosinophils% 4.7 % (0-5); Hematocrit 43.1 % (40-54); Hemoglobin 15.3 g/dL (13.0-16.5); Lymphocyte # 2.43 X10^3/ul (0.83-4.51); Lymphocyte % 32.3 % (19-41); Mean Corp Hgb Conc 35.5 g/dL (32-36); Mean Corpuscular Hgb 32.1 pg (27.0-32.0); Mean Corpuscular Volume 90.5 fL (80-94); Mean Platelet Vol. 9.6 fl (6.2-12.0); Monocyte# 0.65 X10^3/uL; Monocyte% 8.6 % (0-10); NRBC Flagged by Analyzer 0 % (0-5); Neutrophil # 3.97 X10^3/uL (2.7-7.7); Neutrophil % 52.8 % (47-70); Platelet Count 162 K/mm3 (150-450); RBC Distribution Width CV 12.9 % (11.6-14.6); RBC Distribution Width SD 42.6 fl (35.1-43.9); Red Blood Count 4.76 M/mm3 (4.6-6.2); White Blood Count 7.5 K/mm3 (4.4-11.0)
[2021-08-29 09:10] LABS: Vitamin B12 400 pg/mL (211-911); Vitamin D,25 Hydroxy 15.7 ng/mL
[2021-08-29 09:22] LABS: ALB/GLOB Ratio 1.1 RATIO (0.9-2.4); AST(SGOT) 23 U/L (15-37); Alanine Aminotransfer ALT/SGPT 36 U/L (16-61); Albumin, Serum 3.8 g/dL (3.2-5.0); Alkaline Phosphatase 44 U/L (45-117); Anion Gap 4 (5-15); BUN 14 mg/dL (7-18); BUN/Creat Ratio 13.6 RATIO (10-20); Calcium,Total 8.6 mg/dL (8.5-10.1); Chloride 109 mmol/L (98-107); Cholesterol 210 mg/dL (200); Creatinine, Serum 1.03 mg/dL (0.70-1.30); EST Glomerular Filtration Rate 90 mL/min (>60); Est Glom Filt Rate - Afr Amer 108 mL/min (>60); Globulin 3.4 g/dL (2.2-4.2); Glucose 96 mg/dL (74-106); High Density Lipoprotein 45 mg/dL; Protein, Total 7.2 g/dL (6.4-8.2); Sodium Level 140 mmol/L (136-145); T4 Free Direct 0.67 ng/dL (0.76-1.46); Thyroid Stim Hormone (TSH) 3.73 uIU/mL (0.358-3.74); Triglycerides 143 mg/dL; Very Low Density Lipoprotein 29 mg/dL (5-40)
[2021-08-29 09:44] LABS: Hemoglobin A1c 4.4 % (3.8-5.6)
[2021-08-30 22:06] LABS: HCV Quant. RNA PCR HCV Not Detected IU/mL (.)
== END ==
PROVIDERS: PCP Nurse Practitioner Family
DX: F33.2 Major depressive disorder, recurrent severe without psychotic features (principal); F11.20 Opioid dependence, uncomplicated; F10.20 Alcohol dependence, uncomplicated
CPT/HCPCS: 36415; 80053; 80061; 82306; 82607; 82746; 83036; 84439; 84443; 85025; 87522

== ENCOUNTER → 2021-09-15 13:34 | Outpatient (CLI) | payer MEDICAID, SELFPAY ==
[2021-09-18 09:27] LABS: HIV - WCH Non-Reactive (Nonreactive); Hepatitis B Surface Antigen Non-Reactive (Nonreactive); Hepatitis C Antibody REACTIVE (Nonreactive)
== END ==
PROVIDERS: PCP Nurse Practitioner Family; Visit Provider Nurse Practitioner Family
DX: F19.10 Other psychoactive substance abuse, uncomplicated (principal)
CPT/HCPCS: 36415; 86703; 86803; 87340

== ENCOUNTER 2021-10-03 14:54 | Outpatient (CLI) | payer MEDICAID, SELFPAY ==
[2021-10-03 16:46] LABS: T4 Free Direct 0.86 ng/dL (0.76-1.46); Thyroid Stim Hormone (TSH) 1.22 uIU/mL (0.358-3.74)
[2021-10-06 18:07] LABS: HCV Quant. RNA PCR HCV Not Detected IU/mL (.)
== END 2021-10-03 23:59 | disposition short-term general hospital (02) ==
PROVIDERS: PCP Nurse Practitioner Family; Visit Provider Nurse Practitioner Family
DX: R76.8 Other specified abnormal immunological findings in serum (principal); R79.89 Other specified abnormal findings of blood chemistry; E56.9 Vitamin deficiency, unspecified
CPT/HCPCS: 36415; 82306; 84439; 84443; 87521; 87522

== ENCOUNTER 2022-04-25 14:02 | Emergency (ER) | payer MEDICAID, SELFPAY ==
[2022-04-25 14:03] VITALS: BP 119/72; PULSE 91; RESP 16; TEMP 35.9; O2SAT 100; BMI 27.8
--- NOTE | 2022-04-25 14:26 | EDS_ITS ---
HPI History of Present Illness Chief Complaint: Abscess Informant: patient Onset/Context/Timing Onset: Days (3) Context: Gradual Onset Timing: Continuous Quality: sore Location: right ankle Current Severity: Moderate Maximum Severity: Moderate Worsened by: palpation, walking Relieved by: remaining still/rest Associated Symptoms Associated Symptoms: none Narrative Narrative: Patient presents with a small tender swollen area started on the back of his right ankle 3 days ago. No spontaneous drainage. No bleeding. No obvious etiology such as a splinter or injury, but he states he recently bought some shoes from [employer], and he shaved his legs including this area, and he went waiting in a [place]. It is sore, not itchy, he denies any systemic symptoms. [facility] Medical History Anxiety Arthritis Asthma Bipolar disorder Decreased thyroxine (T4) level Depression Drug abuse Fatigue Frequent headaches GERD (gastroesophageal reflux disease) Hives IVDU (intravenous drug user) Knee pain Polysubstance abuse Seasonal allergies Smoker SOB (shortness of breath) Tobacco abuse Vitamin deficiency Home Medications ergocalciferol (vitamin D2) 1,250 mcg (50,000 unit) capsule 50,000 unit PO QWEEK #8 caps 11/09/21 [Rx Last Taken Unknown] Allergy/AdvReac Type Severity Reaction Status Date / Time naproxen [From Naprosyn] Allergy Intermediate Hives Verified 04/25/22 14:05 shellfish derived Allergy Intermediate emesis Verified 04/25/22 14:05 lamotrigine [From Lamictal] Allergy Mild rash Verified 04/25/22 14:05 mushroom Allergy Mild emesis Verified 04/25/22 14:05 amoxicillin [Amoxicillin] Allergy Hives Verified 04/25/22 14:05 clindamycin Allergy Hives Verified 04/25/22 14:05 Tetracyclines Allergy Hives Verified 04/25/22 14:05 BENZOCYCLINE Allergy Hives Uncoded 04/25/22 14:05 Family History Father Diabetes Mother Diabetes Other Alcohol abuse Anxiety Arthritis CVA (cerebral vascular accident) Depression Heart disease Hyperlipidemia Hypertension Mental disorder Myocardial infarction Psychiatric care Thyroid disorder Social History household members: none Smoking Status: Current every day smoker tobacco type: cigarettes Electronic Cigarette Use: with nicotine alcohol intake: never substance use type: former substance user what type of physical activity do you participate in: none ROS ROS ED Constitutional Constitutional ED: Denies chills or fever(s) Musculoskeletal Musculoskeletal: Reports extremity pain; Denies neck pain Integumentary Reports abscess; Denies Abrasions or rash Neurologic Neurologic: Denies paresthesias or weakness EXAM Physical Exam Const Vital Signs: 04/25/22 14:03 Temperature 96.7 F L Temperature Source Temporal Pulse Rate 91 Respiratory Rate 16 Blood Pressure 119/72 Blood Pressure Mean 87 Pulse Ox 100 Oxygen Delivery Method Room Air Positive well nourished and well developed General Appearance ED: well developed and NAD Neck full ROM and supple Back/Spine normal ROM and normal to inspection Extremity Extremity Narrative: For range of motion all joints, small abscess to the Achilles area on the posterior aspect of the right ankle, 1 cm in diameter, there is a small lesion in the front of it that looks like a scab, possibly from an ingrown hair, there is no surrounding cellulitis or lymphangitis. No spontaneous drainage. Neuro oriented x3, no focal motor deficits and no sensory deficits noted Sensorium / Orientation: alert Psych mental status grossly normal and thought process normal Skin no wounds Skin Narrative: Small abscess posterior right ankle see above. Mildly tender. Rashes: no rashes MDM MDM MDM Narrative Medical decision making narrative: Patient giving verbal consent to perform incision and drainage, we did this and there is barely anything that came out of it. After 3 days this is very unlikely to be MRSA so I do not think he needs systemic antibiotics, it is so small I am just putting him on topical antibiotics and basically sits baths and hot soapy water, discussed reasons to return he is comfortable with that plan. Procedures Other Procedures Procedure(s): Simple incision and drainage right lower leg abscess: Local prep with isopropanol followed by 0.5 cc 1% lidocaine with epinephrine, incised with a #11 blade. Very small amount of purulent material expressed, there is no cavity and I am not able to irrigate or pack. Dressed with bacitracin minimal bleeding tolerated well no complications. Discharge Plan Triage Chief Complaint: Abscess ED Provider: Matty Bellamy Dx/Rx/DC Orders Clinical Impression: Abscess of skin of right ankle Instructions: ED Abscess Incision And Drainage Prescriptions: No Action ergocalciferol (vitamin D2) 1,250 mcg (50,000 unit) capsule 50,000 unit PO QWEEK Qty: 8 1RF Primary Care Provider: Pramod Man NP Referrals: Pramod Man NP, METROLOGY TECHNICIAN-C [Primary Care Provider] - 3-5 Days if not improving (Or may return to ER) Activity Restrictions/Additional Instructions: Until there is no more bleeding or discharge, once daily soak in hot soapy water in the tub, after bathing or showering, place a new dressing, each time you change the dressing placing antibiotic ointment on it. Once there is no more bleeding or discharge you may discontinue soaks. Disposition Disposition: Home, Self Care
== END 2022-04-25 14:43 | disposition home or self-care (01) ==
PROVIDERS: Emergency Provider Emergency Medicine; PCP Nurse Practitioner Family; Visit Provider Emergency Medicine
DX: L02.415 Cutaneous abscess of right lower limb (principal); F31.9 Bipolar disorder, unspecified; F17.210 Nicotine dependence, cigarettes, uncomplicated; J45.909 Unspecified asthma, uncomplicated
CPT/HCPCS: 10060; 99282

== ENCOUNTER → 2022-07-04 | Outpatient (CLI) | payer MEDICAID, SELFPAY ==
[2022-07-04 15:37] LABS: Absolute Lymphocyte Count 2.32 X10^3/uL (0.83-4.51); Absolute Neutrophil Count 5.6 X10^3/uL (2.0-7.7); Basophil# 0.05 X10^3/uL; Basophil% 0.6 % (0-1); Eosinophil# 0.16 X10^3/uL; Eosinophils% 1.8 % (0-5); Hematocrit 45.6 % (40-54); Hemoglobin 15.8 g/dL (13.0-16.5); Lymphocyte # 2.32 X10^3/ul (0.83-4.51); Lymphocyte % 26.4 % (19-41); Mean Corp Hgb Conc 34.6 g/dL (32-36); Mean Corpuscular Hgb 31.5 pg (27.0-32.0); Mean Platelet Vol. 10.5 fl (6.2-12.0); Monocyte# 0.55 X10^3/uL; Monocyte% 6.3 % (0-10); NRBC Flagged by Analyzer 0 % (0-5); Neutrophil # 5.63 X10^3/uL (2.7-7.7); Neutrophil % 64.1 % (47-70); Platelet Count 225 K/mm3 (150-450); RBC Distribution Width CV 12.5 % (11.6-14.6); RBC Distribution Width SD 40.8 fl (35.1-43.9); Red Blood Count 5.01 M/mm3 (4.6-6.2); White Blood Count 8.8 K/mm3 (4.4-11.0)
[2022-07-04 16:35] LABS: ALB/GLOB Ratio 1.1 RATIO (0.9-2.4); AST(SGOT) 17 U/L (15-37); Alanine Aminotransfer ALT/SGPT 31 U/L (16-61); Albumin, Serum 4.4 g/dL (3.2-5.0); Alkaline Phosphatase 50 U/L (45-117); Anion Gap 5 (5-15); BUN 13 mg/dL (7-18); BUN/Creat Ratio 12.5 RATIO (10-20); Calcium,Total 9.8 mg/dL (8.5-10.1); Chloride 102 mmol/L (98-107); Cholesterol 237 mg/dL (200); Creatinine, Serum 1.04 mg/dL (0.70-1.30); EST Glomerular Filtration Rate 88 mL/min (>60); Est Glom Filt Rate - Afr Amer 107 mL/min (>60); Globulin 3.9 g/dL (2.2-4.2); Glucose 94 mg/dL (74-106); High Density Lipoprotein 40 mg/dL; Potassium 4.3 mmol/L (3.5-5.1); Protein, Total 8.3 g/dL (6.4-8.2); Sodium Level 136 mmol/L (136-145); Thyroid Stim Hormone (TSH) 2.09 uIU/mL (0.358-3.74); Triglycerides 203 mg/dL; Very Low Density Lipoprotein 41 mg/dL (5-40)
[2022-07-04 16:54] LABS: HIV - WCH Non-Reactive (Nonreactive); Hepatitis B Surface Antigen Non-Reactive (Nonreactive)
[2022-07-06 21:06] LABS: HCV Quant. RNA PCR HCV Not Detected IU/mL (.)
== END | disposition home or self-care (01) ==
LOC: BIMLAB 13:20
PROVIDERS: PCP Nurse Practitioner Family; Referring Provider Nurse Practitioner Family; Visit Provider Nurse Practitioner Family
DX: F19.10 Other psychoactive substance abuse, uncomplicated (principal)
CPT/HCPCS: 36415; 80053; 80061; 84443; 85025; 86703; 87340; 87522

== ENCOUNTER 2022-08-17 18:25 | Emergency (ER) | payer MEDICAID, SELFPAY ==
[2022-08-17 18:29] VITALS: BP 133/87; PULSE 105; RESP 16; TEMP 37; O2SAT 100; BMI 32.6
--- NOTE | 2022-08-17 18:38 | RAD_ITS ---
EXAM: XR SOFT TISSUE NECK CLINICAL INDICATION: pain TECHNIQUE: Frontal and lateral views of the soft tissues of the neck. This report was created using [employer] report generation technology. COMPARISON: None. FINDINGS: AIRWAY: Unremarkable. Grossly patent. SOFT TISSUES: Unremarkable. No radiopaque foreign body. No pathologic thickening or enlargement of the epiglottis. RAD/Neck for Soft Tissue IMPRESSION: Negative neck x-rays. Electronically Signed: Ghanshyam Nicholson MD at 19:04 [facility] ,
--- NOTE | 2022-08-17 18:39 | EDS_ITS ---
HPI History of Present Illness Chief Complaint: Cough Informant: patient Onset/Context/Timing Onset: Today Context: Gradual Onset Current Severity: Mild Maximum Severity: Mild Narrative Narrative: Patient presents with multiple complaints. He reports developing a cough this morning and when he coughs he brings up quite a bit of phlegm. It is still fairly thin and watery. He states he feels that his throat is swollen. He has felt feverish intermittently throughout the day but did not measure his temperature. He states when he tries to read something or focus he gets a headache. It is not typical migrainous symptoms. He has not taken anything for his symptoms today. He has not taken a COVID test. [facility] Medical History Anxiety Arthritis Asthma Bipolar disorder Decreased thyroxine (T4) level Depression Drug abuse Fatigue Frequent headaches GERD (gastroesophageal reflux disease) Hives IVDU (intravenous drug user) Knee pain Polysubstance abuse Seasonal allergies Smoker SOB (shortness of breath) Tobacco abuse Vitamin deficiency Home Medications fluticasone propionate 50 mcg/actuation nasal spray,suspension (Flonase Allergy Relief) 2 spray intranasal DAILY #15.8 grams 07/04/22 [Rx Last Taken Unknown] levocetirizine 5 mg tablet (Xyzal) 5 mg PO QPM PRN allergy symptoms #90 tabs 07/04/22 [Rx Last Taken Unknown] albuterol sulfate 90 mcg/actuation aerosol inhaler (Ventolin HFA) 1 - 2 puff inhalation Q4H PRN PRN Wheezing ##1 08/17/22 [Rx Last Taken Unknown] guaifenesin 600 mg tablet, extended release 12 hr (Mucinex) 1,200 mg PO Q12H PRN cough #20 tabs 08/17/22 [Rx Last Taken Unknown] Allergy/AdvReac Type Severity Reaction Status Date / Time aloe vera [From Benzo-Creme] Allergy Hives Verified 08/17/22 18:28 amoxicillin [Amoxicillin] Allergy Hives Verified 08/17/22 18:28 benzocaine [From Benzo-Creme] Allergy Hives Verified 08/17/22 18:28 clindamycin Allergy Hives Verified 08/17/22 18:28 ergocalciferol (vitamin D2) Allergy Hives Verified 08/17/22 18:28 [From Benzo-Creme] lamotrigine [From Lamictal] Allergy rash Verified 08/17/22 18:28 mushroom Allergy Vomiting Verified 08/17/22 18:28 naproxen [From Naprosyn] Allergy Hives Verified 08/17/22 18:28 shellfish derived Allergy Vomiting Verified 08/17/22 18:28 Tetracyclines Allergy Hives Verified 08/17/22 18:28 vitamin A [From Benzo-Creme] Allergy Hives Verified 08/17/22 18:28 vitamin E (d-alpha Allergy Hives Verified 08/17/22 18:28 tocopherol) [From Benzo-Creme] Family History Father Diabetes Mother Diabetes Other Alcohol abuse Anxiety Arthritis CVA (cerebral vascular accident) Depression Heart disease Hyperlipidemia Hypertension Mental disorder Myocardial infarction Psychiatric care Thyroid disorder Social History household members: none Smoking Status: Current every day smoker tobacco type: cigarettes Electronic Cigarette Use: with nicotine alcohol intake: never substance use type: former substance user what type of physical activity do you participate in: none ROS ROS ED Constitutional Constitutional ED: Reports fever(s) and subjective; Denies chills Eyes Eyes: Denies change in vision or discharge from eye(s) ENT ENT ED: Reports other Details: Throat feels swollen ; Denies discharge from eye(s) or rhinorrhea Cardiovascular Cardiovascular: Denies chest pain or palpitations Respiratory/Chest Respiratory/Chest: Reports cough, dyspnea and sputum Gastrointestinal Gastrointestinal: Reports other Details: Some posttussive emesis of phlegm. ; Denies abdominal pain, diarrhea or nausea Genitourinary Genitourinary ED: Denies dysuria Musculoskeletal Musculoskeletal: Denies back pain or extremity pain Integumentary Denies Abrasions or rash Neurologic Neurologic: Reports headache(s); Denies weakness Psychiatric Psychiatric: Denies anxiety or depression Allergic/Immunologic Allergic/Immunologic ED: Denies lip swelling or urticaria EXAM Physical Exam Const Vital Signs: 08/17/22 18:29 08/17/22 18:46 Temperature 98.6 F Temperature Source Temporal Pulse Rate 105 H Respiratory Rate 16 Respiratory Effort Normal Respiratory Depth Normal Respiratory Pattern Normal Blood Pressure 133/87 H Blood Pressure Mean 102 Pulse Ox 100 Oxygen Delivery Method Room Air Positive well nourished and well developed General Appearance ED: well developed HEENT Reports normocephalic and head/scalp atraumatic Eyes PERRL and EOMs intact bilaterally Neck supple Chest Wall inspection of chest normal and palpation of chest normal Resp normal respiratory effort and clear to auscultation bilaterally Cardio regular rate and regular rhythm GI normal to inspection, nondistended, normoactive bowel sounds Palpation: soft Extremity normal to inspection Neuro oriented x3 and no sensory deficits noted Sensorium / Orientation: alert Motor Exam: strength 5/5 throughout Psych mental status grossly normal Skin no rashes or lesions noted MDM MDM MDM Narrative Medical decision making narrative: 2 view chest x-ray and soft tissue neck x-rays obtained. Swab for COVID and influenza ordered. Radiography Diagnostic Testing: Clinical Impression(s) from Imaging Studies Soft Tissue Neck X-Ray 08/17/22 18:38 IMPRESSION: Negative neck x-rays. Electronically Signed: Ghanshyam Nicholson MD at 19:04 EST , Chest X-Ray 08/17/22 18:45 IMPRESSION: No radiographic evidence of acute cardiopulmonary disease. Electronically Signed: Ghanshyam Nicholson MD at 19:05 EST , Treatment and Re-Evaluation Narrative: Chest x-ray per my interpretation reveals no focal infiltrate. Soft tissue neck x-ray is normal. Radiology interpretation reviewed on both studies. COVID and influenza swabs are negative. On repeat evaluation test results discussed with the patient. I will write him for Mucinex as well as an albuterol inhaler as he feels intermittently wheezy. I did discuss with him that this is all viral in nature and will need to run its course. Return instructions are given. Discharge Plan Triage Chief Complaint: Cough ED Provider: Daphne Trimble Dx/Rx/DC Orders Clinical Impression: Viral URI with cough Instructions: ED URI, Viral, No Abx (Adult) Prescriptions: New guaifenesin [Mucinex] 600 mg tablet extended release 12hr 1,200 mg PO Q12H PRN (Reason: cough) Qty: 20 0RF albuterol sulfate [Ventolin HFA] 90 mcg/actuation HFA aerosol inhaler 1 - 2 puff inhalation Q4H PRN PRN (Reason: Wheezing) Qty: 1 0RF No Action levocetirizine [Xyzal] 5 mg tablet 5 mg PO QPM PRN (Reason: allergy symptoms) Qty: 90 1RF fluticasone propionate [Flonase Allergy Relief] 50 mcg/actuation spray,suspension 2 spray intranasal DAILY Qty: 15.8 1RF Rx Instructions: administer into each nostril Primary Care Provider: Pramod Man NP Referrals: Pramod Man NP, [facility] [Primary Care Provider] - 1 Week if not improving Disposition Disposition: Home, Self Care
--- NOTE | 2022-08-17 18:45 | RAD_ITS ---
EXAM: XR CHEST, 2 VIEWS CLINICAL INDICATION: cough TECHNIQUE: Frontal and lateral views of the chest. This report was created using Harir report generation technology. COMPARISON: October 25, 2020. FINDINGS: LUNGS AND PLEURAL SPACES: Unremarkable. No consolidation or edema. No pneumothorax. No effusion. HEART: Unremarkable. Cardiac silhouette not enlarged. MEDIASTINUM: Central airways and mediastinal contour are unremarkable. BONES/JOINTS: Unremarkable. SOFT TISSUES: Unremarkable. RAD/Chest PA and Lateral IMPRESSION: No radiographic evidence of acute cardiopulmonary disease. Electronically Signed: Ghanshyam Nicholson MD at 19:05 RUST ,
[2022-08-17 20:42] VITALS: RESP 18
== END 2022-08-17 20:43 | disposition home or self-care (01) ==
PROVIDERS: Emergency Provider Emergency Medicine; PCP Nurse Practitioner Family; Visit Provider Emergency Medicine
DX: J06.9 Acute upper respiratory infection, unspecified (principal); F17.210 Nicotine dependence, cigarettes, uncomplicated
CPT/HCPCS: 70360; 71046; 87428; 99282

== ENCOUNTER → 2023-01-31 | Outpatient (CLI) | payer MEDICAID, SELFPAY ==
[2023-01-31 18:19] LABS: HIV - WCH Non-Reactive (Nonreactive); Hepatitis C Antibody Preliminary Reactive (Nonreactive); Syphilis Antibodies Reactive
[2023-02-02 18:07] LABS: HCV Quant. RNA PCR HCV Not Detected IU/mL (.)
== END | disposition home or self-care (01) ==
LOC: BIMLAB 14:13
PROVIDERS: PCP Nurse Practitioner Family; Referring Provider Nurse Practitioner Family; Visit Provider Nurse Practitioner Family
DX: B19.20 Unspecified viral hepatitis C without hepatic coma (principal)
CPT/HCPCS: 36415; 86703; 86780; 86803; 87522

== ENCOUNTER → 2023-02-28 | Outpatient (CLI) | payer MEDICAID, SELFPAY ==
[2023-02-28 15:30] LABS: Bacteria 0 SEEN /hpf (None Seen); Mucous, Urine 0 SEEN /hpf (<or=2+); Red Blood Cells-Urine 0 SEEN /hpf (0-5); Squamous Epithelial Cells - UA 0 SEEN /hpf (0-5); White Blood Cells 0 SEEN /hpf (0-5)
[2023-02-28 16:50] LABS: Color, Urine Yellow (Yellow); Glucose, Dipstick Normal (Normal); Ketone-Dipstick 5 mg/dl (Negative); Leukocyte Esterase-Dipstick Negative /ul (Negative); Nitrite-Dipstick Negative (Negative); Occult Blood-Urine Negative /ul (Negative); Protein-Dipstick 15 mg/dl (Negative); Urine Bilirubin Dipstick Negative (Negative); Urine Clarity Sl. Cloudy (Clear); Urine Urobilinogen 1 mg/dl (Normal)
== END | disposition home or self-care (01) ==
PROVIDERS: PCP Nurse Practitioner Family; Visit Provider Nurse Practitioner Family
DX: R30.0 Dysuria (principal); N50.89 Other specified disorders of the male genital organs; A53.0 Latent syphilis, unspecified as early or late
CPT/HCPCS: 87529 ×2; 36415; 81001; 87086; 87088

== ENCOUNTER → 2023-04-04 | Outpatient (CLI) | payer MEDICAID, SELFPAY ==
[2023-04-04 16:42] LABS: Absolute Lymphocyte Count 2.54 X10^3/uL (0.83-4.51); Absolute Neutrophil Count 5.9 X10^3/uL (2.0-7.7); Basophil# 0.07 X10^3/uL; Basophil% 0.8 % (0-1); Eosinophil# 0.18 X10^3/uL; Eosinophils% 1.9 % (0-5); Hematocrit 43.9 % (40-54); Hemoglobin 15.2 g/dL (13.0-16.5); Lymphocyte # 2.54 X10^3/ul (0.83-4.51); Lymphocyte % 27.3 % (19-41); Mean Corp Hgb Conc 34.6 g/dL (32-36); Mean Corpuscular Volume 92.4 fL (80-94); Mean Platelet Vol. 10.3 fl (6.2-12.0); Monocyte# 0.56 X10^3/uL; NRBC Flagged by Analyzer 0 % (0-5); Neutrophil # 5.92 X10^3/uL (2.7-7.7); Neutrophil % 63.5 % (47-70); Platelet Count 208 K/mm3 (150-450); RBC Distribution Width CV 12.5 % (11.6-14.6); RBC Distribution Width SD 42.3 fl (35.1-43.9); Red Blood Count 4.75 M/mm3 (4.6-6.2); White Blood Count 9.3 K/mm3 (4.4-11.0)
[2023-04-04 17:06] LABS: ALB/GLOB Ratio 1.2 RATIO (0.9-2.4); AST(SGOT) 40 U/L (15-37); Alanine Aminotransfer ALT/SGPT 79 U/L (16-61); Albumin, Serum 4.2 g/dL (3.2-5.0); Alkaline Phosphatase 50 U/L (45-117); Anion Gap 8 (5-15); BUN 18 mg/dL (7-18); BUN/Creat Ratio 17.8 RATIO (10-20); Calcium,Total 9.1 mg/dL (8.5-10.1); Chloride 103 mmol/L (98-107); Cholesterol 225 mg/dL (200); Creatinine, Serum 1.01 mg/dL (0.70-1.30); EST Glomerular Filtration Rate 91 mL/min (>60); Est Glom Filt Rate - Afr Amer 110 mL/min (>60); Globulin 3.4 g/dL (2.2-4.2); Glucose 80 mg/dL (74-106); High Density Lipoprotein 40 mg/dL; Potassium 3.6 mmol/L (3.5-5.1); Protein, Total 7.6 g/dL (6.4-8.2); Sodium Level 135 mmol/L (136-145); Triglycerides 118 mg/dL; Very Low Density Lipoprotein 24 mg/dL (5-40)
== END | disposition home or self-care (01) ==
LOC: BIMLAB 15:13
PROVIDERS: PCP Internal Medicine; Referring Provider Internal Medicine; Visit Provider Internal Medicine
DX: L73.2 Hidradenitis suppurativa (principal)
CPT/HCPCS: 36415; 80053; 80061; 85025

== ENCOUNTER → 2023-04-15 | Outpatient (CLI) | payer MEDICAID, SELFPAY ==
--- NOTE | 2023-04-15 07:32 | US_ITS ---
INDICATION: elevated liver enzymes EXAMINATION: Ultrasound US Abdomen Limited (quadrant) TECHNIQUE: Robertson scale and color doppler imaging was performed of the right upper quadrant. COMPARISON: No relevant prior comparison study available FINDINGS: LIVER: The liver is diffusely echogenic consistent with fatty infiltration. Adjacent to the gallbladder fossa there is an ovoid hypoechoic focus measuring up to 1.8 x 1.2 x 3.4 cm with no internal vascularity. There is no free fluid. GALLBLADDER AND BILIARY TREE: No shadowing gallstone, pericholecystic fluid or gallbladder wall thickening is demonstrated. The proximal common bile duct measures 2.1 mm, which is within normal limits for the patient''s age. Songraphic Garland''s sign: Negative. PANCREAS: No focal abnormality is demonstrated in the pancreas. No pancreatic ductal dilatation. RIGHT KIDNEY: The right kidney measures 10.4 cm in length and is within normal limits. US/Liver IMPRESSION: Fatty infiltration of the liver. Indeterminate 1.8 x 1.2 x 3.4 cm ovoid round focus adjacent to the gallbladder fossa which may be a reactive lymph node, consider MRI or CT of the abdomen for further characterization. Electronically Signed: Christie Marx MD at 10:05 EDT ,
== END | disposition home or self-care (01) ==
LOC: US 07:31
PROVIDERS: PCP Internal Medicine; Referring Provider Internal Medicine; Visit Provider Internal Medicine
DX: R74.8 Abnormal levels of other serum enzymes (principal)
CPT/HCPCS: 76705

== ENCOUNTER → 2023-05-02 | Outpatient (CLI) | payer MEDICAID, SELFPAY ==
--- NOTE | 2023-05-02 14:19 | CT_ITS ---
STUDY: CT ABDOMEN WITH CONTRAST REASON FOR EXAM: Male, 32 years old. Fatty infiltration of the liver. RADIATION DOSAGE (If Supplied By Facility): CTDIvol = ( 12.82 ) mGy, DLP = ( 741.45 ) mGycm TECHNIQUE: Transaxial images were obtained post I.V. administration of IV 100mL Isovue-300, and without oral contrast. Sagittal and coronal images were reconstructed. Individualized dose optimization techniques were used for this CT. COMPARISON: None. FINDINGS: The visualized lung bases are unremarkable. The visualized portions of the heart are within normal limits. There is decreased attenuation of the liver consistent with steatosis. Normal gallbladder and extrahepatic biliary system. Normal spleen. Normal pancreas. Normal bilateral adrenal glands. Normal right kidney. Normal left kidney. There is a small hiatal hernia. Normal small intestine. Normal colon. The appendix is visualized and appears normal. Normal abdominal aorta. Normal inferior vena cava. Normal retroperitoneum. Normal abdominal wall. Normal osseous structures. CT/Abdomen WITH IV Contrast IMPRESSION: Fatty infiltration of the liver. Electronically Signed: Hever Romero MD at 15:23 EDT ,
== END | disposition home or self-care (01) ==
LOC: CT 14:18
PROVIDERS: PCP Internal Medicine; Referring Provider Internal Medicine; Visit Provider Internal Medicine
DX: R93.5 Abnormal findings on diagnostic imaging of other abdominal regions, including retroperitoneum (principal)
CPT/HCPCS: 74160; Q9967

== ENCOUNTER 2023-07-28 15:48 | Emergency (ER) | payer MEDICAID, SELFPAY ==
[2023-07-28 15:50] VITALS: BP 125/96; PULSE 89; RESP 16; TEMP 36.1; O2SAT 98; BMI 34.2
[2023-07-28] MEDS: Lidocaine 1% (20 ml mdv) 20 ML Vial INFILT (16:17)
[2023-07-28] MEDS: levoFLOXacin 750 MG Tablet PO (16:17)
--- NOTE | 2023-07-28 16:39 | EDS_ITS ---
HPI History of Present Illness Chief Complaint: Wound Detail of Chief Complaint: Oil proximal medial left thigh Informant: patient Onset/Context/Timing Onset: Days Context: Sudden Onset Timing: Continuous Quality: Pain and redness with swelling Location: Proximal medial left thigh Current Severity: Moderate Maximum Severity: Moderate Worsened by: Pain worse with palpation Relieved by: Nothing Associated Symptoms Associated Symptoms: No constitutional symptoms Narrative Narrative: Patient is a 32-year-old male without history of diabetes who presents with boil medial proximal left thigh. This started couple days ago. He did not attempt to drain it on his own. He has multiple antibiotic allergies which include amoxicillin, clindamycin and tetracycline with hives. Patient denies history of MRSA. He denies history of rheumatic heart disease, heart murmur, SBE or being immune suppressed. He denies history of SBE. There is a history of polysubstance abuse. He does have history of hepatitis C. Prior similar symptoms: Yes Recent Illness/Hospitalization: No PFSH PFSH Medical History Anxiety Arthritis Asthma Bipolar disorder Decreased thyroxine (T4) level Depression Dysuria Frequent headaches Genital lesion, male GERD (gastroesophageal reflux disease) Hepatitis C Hidradenitis suppurativa Hives IVDU (intravenous drug user) Knee pain Polysubstance abuse Positive RPR test Seasonal allergies Smoker Tobacco abuse Vitamin deficiency Home Medications levofloxacin 500 mg tablet 500 mg PO DAILY #6 tabs 07/28/23 [Rx Last Taken Unknown] Allergy/AdvReac Type Severity Reaction Status Date / Time aloe vera [From Benzo-Creme] Allergy Hives Verified 07/28/23 15:50 amoxicillin [Amoxicillin] Allergy Hives Verified 07/28/23 15:50 benzocaine [From Benzo-Creme] Allergy Hives Verified 07/28/23 15:50 clindamycin Allergy Hives Verified 07/28/23 15:50 lamotrigine [From Lamictal] Allergy rash Verified 07/28/23 15:50 mushroom Allergy Vomiting Verified 07/28/23 15:50 naproxen [From Naprosyn] Allergy Hives Verified 07/28/23 15:50 shellfish derived Allergy Vomiting Verified 07/28/23 15:50 Tetracyclines Allergy Hives Verified 07/28/23 15:50 Family History Father Diabetes Alcohol abuse Arthritis Heart disease Hyperlipidemia Hypertension Myocardial infarction Mother Diabetes Alcohol abuse Anxiety Arthritis Hyperlipidemia Thyroid disorder Other CVA (cerebral vascular accident) Depression Mental disorder Psychiatric care Surgical History No pertinent past surgical history Social History household members: none current occupational status: employed 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 Smoking Status: Current every day smoker tobacco type: cigarettes Electronic Cigarette Use: not used alcohol intake: never substance use type: former substance user Date of last use: 03/2022, opiates and methamphetamine what type of physical activity do you participate in: none do you feel safe at home: Yes ROS ROS ED Constitutional Constitutional ED: Denies chills, fever(s), subjective or sweats Eyes Eyes: Denies blurry vision, change in vision or diplopia ENT ENT ED: Denies ear pain, rhinorrhea or sore throat Cardiovascular Cardiovascular: Denies chest pain or palpitations Respiratory/Chest Respiratory/Chest: Denies dyspnea Gastrointestinal Gastrointestinal: Denies nausea or vomiting Musculoskeletal Musculoskeletal: Denies arthralgias or myalgias Integumentary Reports abscess and rash EXAM Physical Exam Const Vital Signs: 07/28/23 15:50 Temperature 97 F L Temperature Source Temporal Pulse Rate 89 Respiratory Rate 16 Blood Pressure 125/96 H Blood Pressure Mean 105 Pulse Ox 98 Oxygen Delivery Method Room Air Positive well nourished and well developed General Appearance ED: well developed and NAD HEENT Reports moist mucous membranes HEENT Narrative: Head is atraumatic and normocephalic. Ears are normal. Nares are patent. Eyes PERRL and EOMs intact bilaterally General Eye ED: Negative for pale conjunctiva or scleral icterus Resp normal respiratory effort and clear to auscultation bilaterally Cardio regular rate, regular rhythm, S1 normal heart sound, S2 normal heart sound and no murmurs Extremity Negative for normal to inspection Extremity Narrative: Patient has a small abscess with surrounding cellulitis proximal medial left thigh. There is no ilana lymphadenopathy. There is no lymphangitis. Neuro oriented x3, CN's II-XII intact bilaterally and no sensory deficits noted Sensorium / Orientation: alert Motor Exam: strength 5/5 throughout Psych mental status grossly normal Skin Rashes: rashes noted MDM MDM MDM Narrative Medical decision making narrative: Patient has an abscess which required incision and drainage. Patient was consented for incision and drainage. Please read procedure note. Since patient's vitals are normal and he is afebrile there is no indication for laboratory studies. The area of erythema is approximately 4 cm in diameter. Procedures Other Procedures Procedure(s): Patient was prepped draped sterile manner. The area was Nestabs with dorsi lidocaine. Incision was made with a 10 blade. A 2 to 2-1/2 cm laceration was made. There was purulent material noted. Blunt dissection was undertaken. A wick was placed. Patient was treated with levofloxacin in light of his allergies. Discharge Plan Triage Chief Complaint: Wound ED Provider: Jayden Boston Dx/Rx/DC Orders Clinical Impression: Cellulitis and abscess of left lower extremity, Polysubstance abuse, Hepatitis C, Mixed hyperlipidemia Instructions: ED Abscess Incision And Drainage, ED Cellulitis Prescriptions: New levofloxacin [levofloxacin] 500 mg tablet 500 mg PO DAILY Qty: 6 0RF Primary Care Provider: Elise Lopez Referrals: Elise Lopez MD [Primary Care Provider] - 2 Days for wound check Activity Restrictions/Additional Instructions: Call your doctor for follow-up appointment for wound check and removal of wick Take antibiotics until gone If you have a temperature greater than 100, shaking chills or develop severe pain see your doctor or return to the emergency department. Disposition Disposition: Home, Self Care
== END 2023-07-28 17:18 | disposition home or self-care (01) ==
PROVIDERS: Emergency Provider Emergency Medicine; PCP Internal Medicine; Visit Provider Emergency Medicine
DX: L02.416 Cutaneous abscess of left lower limb (principal); F19.19 Other psychoactive substance abuse with unspecified psychoactive substance-induced disorder; F17.210 Nicotine dependence, cigarettes, uncomplicated; E78.2 Mixed hyperlipidemia; B19.20 Unspecified viral hepatitis C without hepatic coma; L03.116 Cellulitis of left lower limb
CPT/HCPCS: 10060; 99282

== ENCOUNTER 2023-07-31 17:55 | Observation (INO) | payer MEDICAID, SELFPAY ==
[2023-07-31 16:49] VITALS: BMI 32.6
[2023-07-31 16:53] VITALS: BP 128/87; PULSE 95; RESP 18; TEMP 36.7; O2SAT 98
--- NOTE | 2023-07-31 17:16 | HP.PCM_ITS ---
HPI - General General Date of Admission: 07/31/23 Date of Service: 07/31/23 Chief Complaint: Cellulitis and abscess of the left lower extremity HPI Narrative CHARLY MONTALVO, is a 32 M who presents to our office with worsening erythema, pain and increased drainage from a left lower extremity abscess. Patient was evaluated in the ED on 07/28 for a painful lump on the left medial thigh. The abscess was incised and drained in the ED. Patient notes the abscess was packed following the procedure. Patient notes he was given levaquin daily to take and has been taking the medication for 3 days now. He followed up with his PCP yesterday who replaced the packing and the abscess was improving. Patient contacted his PCP this morning noting he had saturated a gauze dressing and the redness has increased. Patient's PCP contacted our office noting the patient may need the abscess opened further. Patient denies fever. He notes a previous history of abscesses. [facility] Medical History (Updated 07/31/23 @ 16:57 by Kristyn Kearns) Anxiety Arthritis Asthma Bipolar disorder Decreased thyroxine (T4) level Depression Dysuria Frequent headaches Genital lesion, male GERD (gastroesophageal reflux disease) Hepatitis Hepatitis C Hidradenitis suppurativa Hives Injury of head and neck IVDU (intravenous drug user) Knee pain Polysubstance abuse Positive RPR test Seasonal allergies Smoker Stroke/cerebrovascular accident Tobacco abuse Vitamin deficiency Home Medications levofloxacin 500 mg tablet 500 mg PO DAILY #6 tabs 07/28/23 [Rx Last Taken 07/31/23] gauze bandage 2 X 2 (Band-Aid Gauze Pads) #25 ea 07/30/23 [Rx Last Taken Unknown] Allergy/AdvReac Type Severity Reaction Status Date / Time aloe vera [From Benzo-Creme] Allergy Hives Verified 07/31/23 14:48 amoxicillin [Amoxicillin] Allergy Hives Verified 07/31/23 14:48 benzocaine [From Benzo-Creme] Allergy Hives Verified 07/31/23 14:48 clindamycin Allergy Hives Verified 07/31/23 14:48 lamotrigine [From Lamictal] Allergy rash Verified 07/31/23 14:48 mushroom Allergy Vomiting Verified 07/31/23 14:48 naproxen [From Naprosyn] Allergy Hives Verified 07/31/23 14:48 shellfish derived Allergy Vomiting Verified 07/31/23 14:48 Tetracyclines Allergy Hives Verified 07/31/23 14:48 Family History Father Diabetes Alcohol abuse Arthritis Heart disease Hyperlipidemia Hypertension Myocardial infarction Mother Diabetes Alcohol abuse Anxiety Arthritis Hyperlipidemia Thyroid disorder Other CVA (cerebral vascular accident) Depression Mental disorder Psychiatric care Surgical History No pertinent past surgical history Social History household members: none current occupational status: employed 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 [employer] Smoking Status: Current every day smoker tobacco type: cigarettes Electronic Cigarette Use: not used alcohol intake: never substance use type: former substance user Date of last use: 03/2022, opiates and methamphetamine what type of physical activity do you participate in: none do you feel safe at home: Yes ROS Constitutional Constitutional: Reports systems reviewed and no addt'l complaints, except as documented Eyes Eyes: Reports systems reviewed and no addt'l complaints, except as documented ENT HEENT: Reports systems reviewed and no addt'l complaints, except as documented Cardiovascular Cardiovascular: Reports systems reviewed and no addt'l complaints, except as documented Respiratory/Chest Respiratory/Chest: Reports systems reviewed and no addt'l complaints, except as documented Gastrointestinal Gastrointestinal: Reports systems reviewed and no addt'l complaints, except as documented Genitourinary Genitourinary: Reports systems reviewed and no addt'l complaints, except as documented Musculoskeletal Musculoskeletal: Reports systems reviewed and no addt'l complaints, except as documented Integumentary Integumentary: Reports systems reviewed and no addt'l complaints, except as documented Neurologic Neurologic: Reports systems reviewed and no addt'l complaints, except as documented Psychiatric Psychiatric: Reports systems reviewed and no addt'l complaints, except as documented Endocrine Endocrinology: Reports systems reviewed and no addt'l complaints, except as documented Hematologic/Lymphatic Hematologic/Lymphatic: Reports systems reviewed and no addt'l complaints, except as documented Allergic/Immunologic Allergic/Immunologic: Reports systems reviewed and no addt'l complaints, except as documented Vital Signs Vital Signs Vital Signs: 07/31/23 16:53 Temperature 98.1 F Temperature Source Oral Pulse Rate 95 Respiratory Rate 18 Blood Pressure 128/87 H Blood Pressure Mean 100 Blood Pressure Source Monitor Blood Pressure Position Semi-Fowlers Blood Pressure Location Left Arm Pulse Ox 98 Oxygen Delivery Method Room Air Weight Weight: 184 lb 4.903 oz Body Mass Index (BMI) 32.6 Physical Exam Const alert, oriented x3 and no apparent distress HEENT normocephalic and head/scalp atraumatic Eyes PERRL Neck full ROM Lymph Lymphatic: no lymphadenopathy noted Resp normal respiratory effort and clear to auscultation bilaterally Cardio regular rate and regular rhythm GI normal to inspection, nondistended, normoactive bowel sounds no CVA tenderness Back/Spine no CVA tenderness Extremity normal to inspection Skin Skin Narrative: Left medial thigh- 2 cm open wound with purulent bloody material coming out. Erythema extends down inferior towards the knee. Blanching is noted from the erythema. Neuro no focal motor deficits and no sensory deficits noted Psych mental status grossly normal Results Lab / Micro Data 07/31/23 17:33 07/31/23 17:33 Assessment & Plan Assessment/Plan (1) Cellulitis and abscess of left lower extremity: PLAN: Dr. Espinal performed an exploration and further debridement of the left thigh abscess in the office. Patient's erythema was marked with a marking pen. Due to the extent of the erythema and failed outpatient antibiotic treatment, patient was admitted for IV antibiotics. Obtain CBC and BMP upon admission. Culture was sent from the wound from the office procedure. Packing will remain in place along with dressing until tomorrow unless saturated then change the outer dressing however leave the packing. Patient has had the opportunity to ask and have questions answered. Patient verbally understands and agrees with the plan. Dr. Espinal will also follow this patient and has evaluated this patient in the office. Charges/Coding Visit Charges OBSV E&M: 38308 Observ/hosp same date L1
[2023-07-31 17:48] LABS: Absolute Lymphocyte Count 2.19 X10^3/uL (0.83-4.51); Absolute Neutrophil Count 4.8 X10^3/uL (2.0-7.7); Basophil# 0.06 X10^3/uL; Basophil% 0.8 % (0-1); Eosinophil# 0.21 X10^3/uL; Eosinophils% 2.7 % (0-5); Hemoglobin 13.7 g/dL (13.0-16.5); Lymphocyte # 2.19 X10^3/ul (0.83-4.51); Lymphocyte % 28.1 % (19-41); Mean Corp Hgb Conc 34.3 g/dL (32-36); Mean Corpuscular Hgb 31.7 pg (27.0-32.0); Mean Corpuscular Volume 92.6 fL (80-94); Mean Platelet Vol. 9.9 fl (6.2-12.0); Monocyte# 0.46 X10^3/uL; Monocyte% 5.9 % (0-10); NRBC Flagged by Analyzer 0 % (0-5); Neutrophil % 61.7 % (47-70); Platelet Count 191 K/mm3 (150-450); RBC Distribution Width CV 13.1 % (11.6-14.6); RBC Distribution Width SD 44.4 fl (35.1-43.9); Red Blood Count 4.32 M/mm3 (4.6-6.2); White Blood Count 7.8 K/mm3 (4.4-11.0)
[2023-07-31 17:57] LABS: Anion Gap 7 (5-15); BUN 20 mg/dL (7-18); BUN/Creat Ratio 17.5 RATIO (10-20); Calcium,Total 8.8 mg/dL (8.5-10.1); Chloride 107 mmol/L (98-107); Creatinine, Serum 1.14 mg/dL (0.70-1.30); EST Glomerular Filtration Rate 79 mL/min (>60); Est Glom Filt Rate - Afr Amer 95 mL/min (>60); Estimated Creatinine Clearance 74.87 ml/min; Glucose 111 mg/dL (74-106); Potassium 3.5 mmol/L (3.5-5.1); Sodium Level 140 mmol/L (136-145)
[2023-07-31] MEDS: 0.9% Normal Saline (1000mL) 1,000 ML 75 ML IV (18:37)
[2023-07-31] MEDS: 0.9% Saline Lock 10 ML Syringe IV (18:37)
[2023-07-31] MEDS: Meropenem 1 GM in 0.9% Normal Saline (100mL MB+) 100 ML IV (18:37)
[2023-07-31] MEDS: Vancomycin HCl 2,000 MG in 0.9% Normal Saline (500mL Bag) 500 ML 250 MG IV (20:24)
[2023-07-31 20:26] VITALS: BP 108/64; PULSE 96; RESP 16; TEMP 36.7; O2SAT 98
[2023-07-31] MEDS: Ibuprofen 600 MG Tablet PO (20:37)
--- NOTE | 2023-07-31 22:45 | PCM.RX.CS ---
Consult Antibiotic Management Pharmacy has been consulted to manage selected antiobiotic: Vancomycin Type of Intervention Type of Consult: New start Suspected Infection Suspected Infection: Skin/Soft tissue Labs Labs: Sodium 140 mmol/L (136-145) 07/31/23 17:33 Potassium 3.5 mmol/L (3.5-5.1) 07/31/23 17:33 Chloride 107 mmol/L (98-107) 07/31/23 17:33 Carbon Dioxide 26.0 mmol/L (21.0-32.0) 07/31/23 17:33 Anion Gap 7 (5-15) 07/31/23 17:33 BUN 20 mg/dL (7-18) H 07/31/23 17:33 Creatinine 1.14 mg/dL (0.70-1.30) 07/31/23 17:33 Est GFR (MDRD) Af Amer 95 mL/min (>60) 07/31/23 17:33 Est GFR (MDRD) Non-Af 79 mL/min (>60) 07/31/23 17:33 BUN/Creatinine Ratio 17.5 RATIO (10-20) 07/31/23 17:33 Glucose 111 mg/dL (74-106) H 07/31/23 17:33 Dosing Weight Weight used for dosin.6 kg Estimated Creatinine Clearance Estimated Creatinine Clearance: 75 Goal Trough Goal Trough: 15-20 mcg/mL Pharmacy Plan for Drug Dosing Pharmacy Plan for Drug Dosing: Pharmacy Service will continue to monitor and adjust dosing as required. Follow-Up Labs Follow-Up Labs: Trough: Vancomycin Date/Time Labs Ordered Labs to be done on [date and time ordered]: 08/02 @ 0800
[2023-07-31 23:58] VITALS: BP 107/81; PULSE 77; RESP 16; TEMP 36.3; O2SAT 97
[2023-08-01] MEDS: Meropenem 1 GM in 0.9% Normal Saline (100mL MB+) 100 ML IV ×3 (05:22→21:11)
[2023-08-01] MEDS: Ibuprofen 600 MG Tablet PO (05:26)
[2023-08-01 05:29] VITALS: BP 108/79; PULSE 78; RESP 16; TEMP 36.3; O2SAT 98
[2023-08-01 07:41] LABS: Absolute Lymphocyte Count 1.56 X10^3/uL (0.83-4.51); Absolute Neutrophil Count 6.4 X10^3/uL (2.0-7.7); Basophil# 0.04 X10^3/uL; Basophil% 0.5 % (0-1); Eosinophil# 0.18 X10^3/uL; Hematocrit 40.4 % (40-54); Hemoglobin 13.6 g/dL (13.0-16.5); Lymphocyte # 1.56 X10^3/ul (0.83-4.51); Lymphocyte % 17.7 % (19-41); Mean Corp Hgb Conc 33.7 g/dL (32-36); Mean Corpuscular Hgb 31.3 pg (27.0-32.0); Mean Corpuscular Volume 93.1 fL (80-94); Mean Platelet Vol. 9.7 fl (6.2-12.0); Monocyte# 0.63 X10^3/uL; Monocyte% 7.1 % (0-10); NRBC Flagged by Analyzer 0 % (0-5); Neutrophil # 6.37 X10^3/uL (2.7-7.7); Neutrophil % 72.1 % (47-70); Platelet Count 174 K/mm3 (150-450); RBC Distribution Width CV 13.1 % (11.6-14.6); RBC Distribution Width SD 44.6 fl (35.1-43.9); Red Blood Count 4.34 M/mm3 (4.6-6.2); White Blood Count 8.8 K/mm3 (4.4-11.0)
[2023-08-01 08:06] LABS: Anion Gap 4 (5-15); BUN 17 mg/dL (7-18); BUN/Creat Ratio 19.9 RATIO (10-20); Calcium,Total 8.2 mg/dL (8.5-10.1); Chloride 111 mmol/L (98-107); Creatinine, Serum 0.86 mg/dL (0.70-1.30); EST Glomerular Filtration Rate 110 mL/min (>60); Est Glom Filt Rate - Afr Amer 133 mL/min (>60); Estimated Creatinine Clearance 99.24 ml/min; Glucose 94 mg/dL (74-106); Potassium 4.2 mmol/L (3.5-5.1); Sodium Level 138 mmol/L (136-145)
[2023-08-01] MEDS: Vancomycin HCl 1,250 MG in 0.9% Normal Saline (250mL Bag) 250 ML 167 MG IV (08:34)
--- NOTE | 2023-08-01 09:53 | PCM.PN.SRG ---
Subjective Subjective Patient is a 32 y/o M I am following for left medial thigh abscess with cellulitis. Dr. Espinal performed an exploration and drainage of the thigh abscess in the office. Patient has continued to have yellow drainage from the open wound. Dressing was changed once over night due to saturation. Packing has remained in place. He denies any fever. He continues to note pain. Objective Data Objective Data Vital Signs: Vital Signs Temp Pulse Resp BP Pulse Ox O2 Del Method 97.3 F L 78 16 108/79 98 Room Air 08/01/23 05:29 08/01/23 05:29 08/01/23 05:29 08/01/23 05:29 08/01/23 05:29 08/01/23 05:29 Oxygen Delivery Method Room Air Weight: 184 lb 4.903 oz Body Mass Index (BMI) 32.6 Intake & Output: Intake and Output for Last 24 Hours 07/30/23 07/31/23 08/01/23 23:59 23:59 23:59 Intake Total 660 / 860 1520 / 1520 Balance 660 / 860 1520 / 1520 Lab / Micro Data 08/01/23 07:26 08/01/23 07:26 Labs: Laboratory Results - last 24 hr 07/31/23 17:33: WBC 7.8, RBC 4.32 L, Hgb 13.7, Hct 40.0, MCV 92.6, MCH 31.7, MCHC 34.3, RDW Std Deviation 44.4 H, RDW Coeff of Eliana 13.1, Plt Count 191, MPV 9.9, Immature Gran % (Auto) 0.800, Neut % (Auto) 61.7, Lymph % (Auto) 28.1, [place] % (Auto) 5.9, Eos % (Auto) 2.7, Baso % (Auto) 0.8, Absolute Neuts (auto) 4.8, Absolute Lymphs (auto) 2.19, Nucleated RBC % 0, Sodium 140, Potassium 3.5, Chloride 107, Carbon Dioxide 26.0, Anion Gap 7, BUN 20 H, Creatinine 1.14, Estim Creat Clear Calc 74.87, Est GFR (MDRD) Af Amer 95, Est GFR (MDRD) Non-Af 79, BUN/Creatinine Ratio 17.5, Glucose 111 H, Calcium 8.8 08/01/23 07:26: WBC 8.8, RBC 4.34 L, Hgb 13.6, Hct 40.4, MCV 93.1, MCH 31.3, MCHC 33.7, RDW Std Deviation 44.6 H, RDW Coeff of Eliana 13.1, Plt Count 174, MPV 9.7, Immature Gran % (Auto) 0.600, Neut % (Auto) 72.1 H, Lymph % (Auto) 17.7 L, [place] % (Auto) 7.1, Eos % (Auto) 2.0, Baso % (Auto) 0.5, Absolute Neuts (auto) 6.4, Absolute Lymphs (auto) 1.56, Nucleated RBC % 0, Sodium 138, Potassium 4.2, Chloride 111 H, Carbon Dioxide 23.0, Anion Gap 4 L, BUN 17, Creatinine 0.86, Estim Creat Clear Calc 99.24, Est GFR (MDRD) Af Amer 133, Est GFR (MDRD) Non-Af 110, BUN/Creatinine Ratio 19.9, Glucose 94, Calcium 8.2 L Physical Exam Extremity Extremity Narrative: Left medial thigh- open wound with packing in place. ABD pad was removed and replaced. Erythema has extended slightly past the purple marking. Surrounding area appears soft to palpation. Continued firmness near the open wound. Drainage on the ABD pad was yellow mixed with bloody drainage. Assessment & Plan Assessment/Plan (1) Cellulitis and abscess of left lower extremity: PLAN: I have evaluated this patient in conjunction with Dr. Espinal Continue IV antibiotics Change dressing and packing. Replace with 1/4 inch iodoform packing Cultures are still pending We will continue to monitor this patient Charges/Coding Visit Charges Inpatient E&M: 20810 Subs Hosp L1
--- NOTE | 2023-08-01 10:10 | PCM.RX.CS ---
Consult Antibiotic Management Pharmacy has been consulted to manage selected antiobiotic: Vancomycin Type of Intervention Type of Consult: Follow-up Suspected Infection Suspected Infection: Skin/Soft tissue Prior Doses of Antibiotics Prior Doses of Antibiotics Received/Current Regimen: Received 2000mg iv loading dose and 1250mg iv x 1. Labs Labs: Sodium 138 mmol/L (136-145) 08/01/23 07:26 Potassium 4.2 mmol/L (3.5-5.1) 08/01/23 07:26 Chloride 111 mmol/L (98-107) H 08/01/23 07:26 Carbon Dioxide 23.0 mmol/L (21.0-32.0) 08/01/23 07:26 Anion Gap 4 (5-15) L 08/01/23 07:26 BUN 17 mg/dL (7-18) 08/01/23 07:26 Creatinine 0.86 mg/dL (0.70-1.30) 08/01/23 07:26 Est GFR (MDRD) Af Amer 133 mL/min (>60) 08/01/23 07:26 Est GFR (MDRD) Non-Af 110 mL/min (>60) 08/01/23 07:26 BUN/Creatinine Ratio 19.9 RATIO (10-20) 08/01/23 07:26 Glucose 94 mg/dL (74-106) 08/01/23 07:26 Dosing Weight Weight used for dosin.6 kg Estimated Creatinine Clearance Estimated Creatinine Clearance: 99ml/min Goal Trough Goal Trough: 15-20 mcg/mL Pharmacy Plan for Drug Dosing Pharmacy Plan for Drug Dosing: Renal function improved with Cr change from 1.14 to 0.86. CrCl change from 75ml/min to 99ml/min. Recommend changing dose to 1750mg iv q12h starting ~8hrs post 1250mg dose this AM. Trough level ordered for tomorrow before 5th total dose. Pharmacy Service will continue to monitor and adjust dosing as required. Follow-Up Labs Follow-Up Labs: Trough: Vancomycin (08.02.23 @1530)
[2023-08-01 11:00] VITALS: BP 102/64; PULSE 83; RESP 18; TEMP 36.5; O2SAT 98
[2023-08-01] MEDS: 0.9% Normal Saline (1000mL) 1,000 ML 75 ML IV (11:01)
[2023-08-01] MEDS: 0.9% Saline Lock 10 ML Syringe IV (11:02)
[2023-08-01] MEDS: Ketorolac 15 MG/ML Vial IV (11:02)
--- NOTE | 2023-08-01 11:50 | WOUNDNOTE ---
wound photo: left upper thigh
[2023-08-01] MEDS: Vancomycin HCl 1,750 MG in 0.9% Normal Saline (500mL Bag) 500 ML 250 MG IV (15:35)
[2023-08-01 15:39] VITALS: BP 104/70; PULSE 90; RESP 18; TEMP 36.9; O2SAT 97
[2023-08-01 21:09] VITALS: BP 119/75; PULSE 87; RESP 18; TEMP 36.9; O2SAT 100
[2023-08-02] MEDS: 0.9% Normal Saline (1000mL) 1,000 ML 75 ML IV (03:14)
[2023-08-02 03:17] VITALS: BP 117/71; PULSE 83; RESP 18; TEMP 36.6; O2SAT 97
[2023-08-02] MEDS: Ibuprofen 600 MG Tablet PO (03:20)
[2023-08-02] MEDS: Vancomycin HCl 1,750 MG in 0.9% Normal Saline (500mL Bag) 500 ML 250 MG IV (03:32)
[2023-08-02] MEDS: Meropenem 1 GM in 0.9% Normal Saline (100mL MB+) 100 ML IV (06:03)
--- NOTE | 2023-08-02 08:21 | PCM.PN.SRG ---
Subjective Subjective Patient seen and examined during AM rounds. He is found resting out of bed in a chair. He reports that he is feeling better. Nursing has reported that they have seen a decrease in the amount of cellulitic changes in his right lower extremity. Patient also reports that he has checked with his current housing situation and they do not allow any sort of visitors?which would exclude any home health visitors as well. Objective Data Objective Data Vital Signs: Vital Signs Temp Pulse Resp BP Pulse Ox O2 Del Method 97.8 F 83 18 117/71 97 Room Air 08/02/23 03:17 08/02/23 03:17 08/02/23 03:17 08/02/23 03:17 08/02/23 03:17 08/02/23 03:17 Oxygen Delivery Method Room Air Weight: 184 lb 4.903 oz Body Mass Index (BMI) 32.6 Intake & Output: Intake and Output for Last 24 Hours 07/31/23 08/01/23 08/02/23 23:59 23:59 23:59 Intake Total 660 / 860 2971.25 / 2971.25 1522.50 / 1522.50 Balance 660 / 860 2971.25 / 2971.25 1522.50 / 1522.50 Lab / Micro Data 08/01/23 07:26 08/01/23 07:26 Micro: Microbiology 07/31/23 16:53 Boil - Leg Gram Stain - Final 07/31/23 16:53 Boil - Leg Wound Culture - Final Staphylococcus epidermidis Physical Exam Const oriented x3 and no apparent distress Resp normal respiratory effort Extremity Extremity Narrative: Decreased area of cellulitis and induration. Some immediate rob-incisional induration remains. Patient remains tender about this area. There does not appear to be any proximal propagation of the area of concern. Area was repacked and there is no signs of purulence just simple serosanguineous drainage. Assessment & Plan Assessment/Plan (1) Cellulitis and abscess of left lower extremity: PLAN: Patient is doing well hospital day 2 with significant improvements of his area of cellulitis. No further purulent drainage. Wound culture showing Staph epidermidis?possible skin contaminant. Transition to oral Bactrim Given patient's limitations with inability to receive home health visitation, he was educated on packing procedure for his wound care at bedside Plan for discharge later today Charges/Coding Visit Charges Inpatient E&M: 23316 Subs Hosp L2
[2023-08-02 08:58] VITALS: BP 111/73; PULSE 72; RESP 18; TEMP 36.8; O2SAT 100
--- NOTE | 2023-08-02 10:31 | DCINST_ITS ---
Discharge Instructions Diet Discharge Diet: No restrictions Activity Discharge Activity: May Shower (Should sponge water out of wound following shower) Dressing / Incision Call your doctor if your incision/area has: Continuous Slow Oozing, Sudden Increased Bleeding, Increased Pain/ Swelling, Increased Redness and Foul Smelling Discharge Call your doctor if you observe: Fever of 101 or Higher Change Dressing in: Daily Additional Dressing/Incision Instructions:: Pack daily after showering and cover with clean dry gauze Follow Up Care Please Follow Up With: Sharon Elizabeth PA-C When: Within 1 week of hospital discharge for wound check Test Results: Test results from this visit will be discussed in further detail at your follow- up appointment, if applicable. Discharge Plan Admission Admit Date/Time: 07/31/23 17:55 Primary Reason for Your Visit: IV antibiotics for extremity abscess Attending Provider: Qasim Espinal Primary Care Provider: Elise Lopez Discharge Orders/Prescriptions Prescriptions: New sulfamethoxazole-trimethoprim 800-160 mg Tablet 1 tab PO BIDCM 10 Days Qty: 20 0RF Discontinued levofloxacin [levofloxacin] 500 mg tablet 500 mg PO DAILY Qty: 6 0RF No Action (DME) gauze bandage [Band-Aid Gauze Pads] 2 X 2 bandage See Rx Instructions .Route Qty: 25 0RF Rx Instructions: As directed Referrals / Follow Up: Elise Lopez MD [Primary Care Provider] - Disposition Disposition (needs filled in before D/C Order can be placed): Home, Self Care
--- NOTE | 2023-08-02 10:37 | PCM.DC.SUM ---
Providers Date of Admission: 07/31/23 Primary Care Physician: Dr. Elise Lopez MD Consultations 07/31/23 17:01 Consult: Onc/Wound/manufacturing engineering technologist Routine Comment: Reason For Visit: CELLULITIS AND ABSCESS OF LEFT LOWER EXTREMITY Diagnosis Discharge Diagnosis (1) Cellulitis and abscess of left lower extremity: Status: Acute Code(s): L03.116 - Cellulitis of left lower limb; L02.416 - Cutaneous abscess of left lower limb Plan: Patient is doing well hospital day 2 with significant improvements of his area of cellulitis. No further purulent drainage. Wound culture showing Staph epidermidis?possible skin contaminant. Transition to oral Bactrim Given patient's limitations with inability to receive home health visitation, he was educated on packing procedure for his wound care at bedside Plan for discharge later today Medications at Discharge Home Medications gauze bandage 2 X 2 (Band-Aid Gauze Pads) #25 ea 07/30/23 sulfamethoxazole 800 mg-trimethoprim 160 mg tablet 1 tab PO BIDCM 10 days #20 tabs 08/02/23 Hospital Course Operations None Procedures None Summary of Care Provided Hospital Course: Patient is a 32-year-old male who was admitted via direct admit from general surgery clinic on 07/31/2023 after he presented with signs of progressive cellulitis following an I&D procedure of a thigh abscess by emergency medicine. Prior to his admission I performed a incision and drainage procedure to extend the depth of his drainage capabilities in the office. He was then maintained on IV antibiotic therapy for 2 days with empiric coverage using meropenem and vancomycin. Morning of hospital day 2 his thigh wound appearance was significantly improved with near resolution of the prior erythema and significant reduction in the area of induration. Drainage had remained serosanguineous in character and his cultures returned positive only for Staph epidermidis. Although an option for home health was explored, he clearly stated this would not be a possibility given his current living arrangement so he was educated on the wound care for self administration. We also discussed outpatient follow-up with general surgery in short order to keep the wound under close surveillance. Discharge was then granted to home with these instructions and a prescription for oral antibiotics. Weight / BMI Weight Weight: 184 lb 4.903 oz Body Mass Index (BMI) 32.6 ABG / Lab / Microbiology Data 08/01/23 07:26 08/01/23 07:26 Microbiology: Microbiology 07/31/23 16:53 Boil - Leg Gram Stain - Final 07/31/23 16:53 Boil - Leg Wound Culture - Final Staphylococcus epidermidis 07/31/23 16:53 Boil - Leg Anaerobic Culture - Preliminary Checking for anaerobes, further studies to follow. D/C Instructions Discharge Diet: No restrictions Call your doctor if your incision/area has: Continuous Slow Oozing, Sudden Increased Bleeding, Increased Pain/ Swelling, Increased Redness and Foul Smelling Discharge Call your doctor if you observe: Fever of 101 or Higher Additional Dressing/Incision Instructions: Pack daily after showering and cover with clean dry gauze Please Follow Up With: Sharon Elizabeth PA-C When: Within 1 week of hospital discharge for wound check Meaningful Use Info Meaningful Use Diagnoses (Choose all that apply): None applicable Discharge Plan Admission Admit Date/Time: 07/31/23 17:55 Primary Reason for Your Visit: IV antibiotics for extremity abscess Attending Provider: Qasim Espinal Primary Care Provider: Elise Lopez Instructions Forms: Work / School Excuse Discharge Orders/Prescriptions Prescriptions: New sulfamethoxazole-trimethoprim 800-160 mg Tablet 1 tab PO BIDCM 10 Days Qty: 20 0RF Discontinued levofloxacin [levofloxacin] 500 mg tablet 500 mg PO DAILY Qty: 6 0RF No Action (DME) gauze bandage [Band-Aid Gauze Pads] 2 X 2 bandage See Rx Instructions .Route Qty: 25 0RF Rx Instructions: As directed Referrals / Follow Up: Elise Lopez MD [Primary Care Provider] - Disposition Disposition (needs filled in before D/C Order can be placed): Home, Self Care Charges/Coding Visit Charges Inpatient E&M: 80784 Disch Hosp
--- NOTE | 2023-08-02 10:49 | PHA.DC_ITS ---
Pharmacy [facility] Pharmacy Service has performed discharge medication reconciliation and counseling for this patient. The patient's discharge medication list was reviewed for discrepancies and discrepancies were resolved. The patient was counseled on the following discharge medications and changes in medications for homegoing were reviewed. The Reason for Use, instructions for use, and potential side effects were reviewed for all new medications. The patient's questions regarding all of their medications were answered. 1. Bactrim DS BID x 10 days The patient was able to verbally demonstrate an understanding of their discharge medications. Medications at Discharge Home Medications gauze bandage 2 X 2 (Band-Aid Gauze Pads) #25 ea 07/30/23 sulfamethoxazole 800 mg-trimethoprim 160 mg tablet 1 tab PO BIDCM 10 days #20 tabs 08/02/23
--- NOTE | 2023-08-02 10:52 | CASEMGMT ---
ROSIBEL CM into pt room, pt sitting up in chair. Pt states he feels comfortable packing his own wound. Pt was given supplies to go home on. Pt lives in [place] housing so he is not able to have any visitors which would include home health care. Pt denies any home going needs.
== END 2023-08-02 12:50 | disposition home or self-care (01) ==
PROVIDERS: Physician Assistant; Admitting Provider Surgery; PCP Internal Medicine; Visit Provider Surgery
DX: L02.416 Cutaneous abscess of left lower limb (principal); L03.116 Cellulitis of left lower limb; F17.210 Nicotine dependence, cigarettes, uncomplicated; J45.909 Unspecified asthma, uncomplicated; K21.9 Gastro-esophageal reflux disease without esophagitis; Z79.899 Other long term (current) drug therapy
CPT/HCPCS: 36415; 80048; 85025; 87070; 87075; 87077; 87186; 87205; 96361; 96365; 96366; 96367; 96375; 99221; 99406; J2185; J7030; J7040; J7050; A4216; G0378; G0379

== ENCOUNTER 2024-01-12 13:39 | Emergency (ER) | payer MEDICAID, SELFPAY ==
[2024-01-12 13:40] VITALS: BP 124/87; PULSE 90; RESP 18; TEMP 36.3; O2SAT 100; BMI 28.9
--- NOTE | 2024-01-12 14:22 | EX.ED.VIS.PS ---
HPI HPI - Psych History of Present Illness Chief Complaint: Mental Health Detail of Chief Complaint: Paranoia Informant: patient Narrative Narrative: Patient presents to the emergency department with complaint of feeling like people are out to get him. Patient states that he had been living in [place] with some friends from [employer] and then they all ended up leaving and that he was there alone. He started hearing things voices that were outside or open doors opening and closing and there was nobody there. At times she is felt like there were people outside his house talking and when he looks outside the window there is nobody there. Patient currently denies being suicidal or homicidal. Patient states that he cannot take it anymore. Apparently there was an incident 3 days ago where he called his mother to come and get him and it took a while to get the test [facility] where he was so he ended up calling his aunt and told her that he was feeling suicidal. When the mom finally got to the patient he handed her a small pocket knife. Patient does have history of depression and bipolar disorder. Currently not taking medications. Patient also states has been having vomiting and diarrhea for several weeks to months. He states that he is lost about 50 pounds in the last month. Patient has had decreased p.o. intake. He states that he is sleeping all the time and feels fatigued and rundown all the time. [facility] Medical History (Updated 01/12/24 @ 15:[address] Bhupinder Byrd, ) Anxiety Arthritis Asthma Bipolar disorder Decreased thyroxine (T4) level Depression Dysuria Frequent headaches Genital lesion, male GERD (gastroesophageal reflux disease) Hepatitis Hepatitis C Hidradenitis suppurativa Hives Injury of head and neck IVDU (intravenous drug user) Knee pain Polysubstance abuse Positive RPR test Seasonal allergies Smoker Stroke/cerebrovascular accident Tobacco abuse Vitamin deficiency Home Medications gauze bandage 2 X 2 (Band-Aid Gauze Pads) #25 ea 07/30/23 [Rx Last Taken Unknown] sulfamethoxazole 800 mg-trimethoprim 160 mg tablet 1 tab PO BIDCM 10 days #20 tabs 08/02/23 [Rx Last Taken Unknown] Allergy/AdvReac Type Severity Reaction Status Date / Time aloe vera [From Benzo-Creme] Allergy Hives Verified 01/12/24 13:42 amoxicillin [Amoxicillin] Allergy Hives Verified 04/14/24 13:42 benzocaine [From Benzo-Creme] Allergy Hives Verified 01/12/24 13:42 clindamycin Allergy Hives Verified 01/12/24 13:42 lamotrigine [From Lamictal] Allergy rash Verified 01/12/24 13:42 mushroom Allergy Vomiting Verified 01/12/24 13:42 naproxen [From Naprosyn] Allergy Hives Verified 01/12/24 13:42 shellfish derived Allergy Vomiting Verified 01/12/24 13:42 Tetracyclines Allergy Hives Verified 01/12/24 13:42 Family History Father Diabetes Alcohol abuse Arthritis Heart disease Hyperlipidemia Hypertension Myocardial infarction Mother Diabetes Alcohol abuse Anxiety Arthritis Hyperlipidemia Thyroid disorder Other CVA (cerebral vascular accident) Depression Mental disorder Psychiatric care Surgical History No pertinent past surgical history Social History household members: none current occupational status: employed 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 [employer] Smoking Status: Current every day smoker tobacco type: cigarettes Electronic Cigarette Use: not used alcohol intake: never substance use type: former substance user Date of last use: 03/2022, opiates and methamphetamine what type of physical activity do you participate in: none do you feel safe at home: Yes ROS ROS ED Review of Systems ROS Unobtainable: other Constitutional Constitutional ED: Reports lethargy; Denies chills, fever(s), sweats or weight loss Eyes Eyes: Denies blurry vision, change in vision or diplopia ENT ENT ED: Denies rhinorrhea or sore throat Cardiovascular Cardiovascular: Denies chest pain, orthopnea or racing heartbeat Respiratory/Chest Respiratory/Chest: Reports dyspnea on exertion; Denies cough, dyspnea, orthopnea or sputum Gastrointestinal Gastrointestinal: Denies abdominal pain, diarrhea, nausea or vomiting Genitourinary Genitourinary ED: Denies dysuria, hematuria or urinary frequency Musculoskeletal Musculoskeletal: Denies arthralgias, back pain, myalgias or neck pain Integumentary Denies abscess, Abrasions or rash Neurologic Neurologic: Denies headache(s) or weakness Psychiatric Psychiatric: Denies anxiety, depression or suicidal thoughts Endocrine Endocrinology: Denies polydipsia, polyphagia or polyuria Hematologic/Lymphatic Hematologic/Lymphatic: Denies easy bleeding, easy bruising or lymphadenopathy Allergic/Immunologic Allergic/Immunologic ED: Denies mouth swelling, tongue swelling or urticaria EXAM Physical Exam Const Vital Signs: 01/12/24 13:40 Temperature 97.4 F L Temperature Source Temporal Pulse Rate 90 Respiratory Rate 18 Blood Pressure 124/87 H Blood Pressure Mean 99 Pulse Ox 100 Oxygen Delivery Method Room Air Positive well nourished and well developed General Appearance ED: well developed and NAD HEENT Reports TM's clear and moist mucous membranes normocephalic and atraumatic; Negative for trauma or tenderness Tympanic Membrane ED: Yes TM's clear Eyes PERRL and EOMs intact bilaterally General Eye ED: Negative for pale conjunctiva or scleral icterus Neck no lymphadenopathy, supple and no JVD General: Negative for tenderness Chest Wall inspection of chest normal and palpation of chest normal Chest: Negative for tenderness Resp normal respiratory effort and clear to auscultation bilaterally Effort and Inspection: Negative for respiratory distress or pain with movement Auscultation: Negative for rhonchi, wheezes or diminished lung sounds Cardio regular rate, regular rhythm, S1 normal heart sound, S2 normal heart sound and no murmurs Peripheral Pulses: pulses 2+ throughout GI normal to inspection, nondistended, normoactive bowel sounds, soft to palpation, non-tender, non-distended and no masses Back/Spine no CVA tenderness and no thoracic nor lumbar tenderness Extremity normal to inspection General Extremety ED: Negative for edema General Extremity: Negative for edema Neuro oriented x3, CN's II-XII intact bilaterally, no sensory deficits noted and gait normal Sensorium / Orientation: awake, alert, oriented to person, oriented to place and oriented to time Motor Exam: strength 5/5 throughout and strength abnormal Psych mental status grossly normal Skin no rashes or lesions noted and no wounds MDM MDM MDM Narrative Medical decision making narrative: Patient presents to the emergency department with complaint of paranoia and psychosis. Does admit to using methamphetamines several days ago after initially denying and stating he had not used for years. Apparently he did tell his aunt several days ago that he was suicidal but currently denies suicidality. CBC with differential obtained was normal. Talk screen positive for methamphetamines and marijuana. LFTs and alcohol level still pending. Care of patient will be turned over to evening physician awaiting evaluation by crisis and final disposition. Lab Data Attestation: I reviewed the patient's lab results. Labs: Laboratory Results - last 24 hr 01/12/24 01/12/24 14:30 14:56 WBC 10.6 RBC 4.18 L Hgb 13.0 Hct 37.9 L MCV 90.7 MCH 31.1 MCHC 34.3 RDW Std Deviation 43.5 RDW Coeff of Eliana 13.2 Plt Count 239 MPV 10.0 Immature Gran % (Auto) 0.800 Neut % (Auto) 71.1 H Lymph % (Auto) 20.2 [place] % (Auto) 5.9 Eos % (Auto) 1.2 Baso % (Auto) 0.8 Absolute Neuts (auto) 7.5 Absolute Lymphs (auto) 2.13 Nucleated RBC % 0 Urine Opiates Screen NEGATIVE Urine Methadone Screen NEGATIVE Ur Barbiturates Screen NEGATIVE Ur Phencyclidine Scrn NEGATIVE Ur Amphetamines Screen POSITIVE H MDMA (Ecstasy) Screen NEGATIVE U Benzodiazepines Scrn NEGATIVE Urine Cocaine Screen NEGATIVE U Cannabinoids Screen POSITIVE H Ur Drug Screen Comment Discharge Plan Triage Chief Complaint: Mental Health ED Provider: Bhupinder Byrd Dx/Rx/DC Orders Clinical Impression: Acute paranoia, Psychosis, Methamphetamine abuse Prescriptions: No Action (DME) gauze bandage [Band-Aid Gauze Pads] 2 X 2 bandage See Rx Instructions .Route Qty: 25 0RF Rx Instructions: As directed sulfamethoxazole-trimethoprim 800-160 mg Tablet 1 tab PO BIDCM 10 Days Qty: 20 0RF Primary Care Provider: Elise Lopez Referrals: Elise Lopez MD [Primary Care Provider] -
[2024-01-12 14:47] LABS: Amphetamine Urine VISTA POSITIVE (<1000 ng/mL); Barbiturate Urine VISTA NEGATIVE (< 200 ng/mL); Benzodiazepine Urine VISTA NEGATIVE (< 200 ng/mL); Cocaine Urine VISTA NEGATIVE (< 300 ng/mL); Ecstacy Urine VISTA NEGATIVE (< 500 ng/mL); Methadone Urine VISTA NEGATIVE (< 300 ng/mL); PCP Urine VISTA NEGATIVE (< 25 ng/mL); THC Urine VISTA POSITIVE (< 50 ng/mL); Vista UDS pH Range 6
[2024-01-12] MEDS: LORazepam 1 MG Tablet PO (14:54)
[2024-01-12 15:05] LABS: Absolute Lymphocyte Count 2.13 X10^3/uL (0.83-4.51); Absolute Neutrophil Count 7.5 X10^3/uL (2.0-7.7); Basophil# 0.08 X10^3/uL; Basophil% 0.8 % (0-1); Eosinophil# 0.13 X10^3/uL; Eosinophils% 1.2 % (0-5); Hematocrit 37.9 % (40-54); Lymphocyte # 2.13 X10^3/ul (0.83-4.51); Lymphocyte % 20.2 % (19-41); Mean Corp Hgb Conc 34.3 g/dL (32-36); Mean Corpuscular Hgb 31.1 pg (27.0-32.0); Mean Corpuscular Volume 90.7 fL (80-94); Monocyte# 0.62 X10^3/uL; Monocyte% 5.9 % (0-10); NRBC Flagged by Analyzer 0 % (0-5); Neutrophil # 7.53 X10^3/uL (2.7-7.7); Neutrophil % 71.1 % (47-70); Platelet Count 239 K/mm3 (150-450); RBC Distribution Width CV 13.2 % (11.6-14.6); RBC Distribution Width SD 43.5 fl (35.1-43.9); Red Blood Count 4.18 M/mm3 (4.6-6.2); White Blood Count 10.6 K/mm3 (4.4-11.0)
[2024-01-12 15:23] LABS: ALB/GLOB Ratio 1.1 RATIO (0.9-2.4); AST(SGOT) 15 U/L (15-37); Alanine Aminotransfer ALT/SGPT 21 U/L (16-61); Albumin, Serum 3.3 g/dL (3.2-5.0); Alkaline Phosphatase 49 U/L (45-117); Anion Gap 6 (5-15); BUN 12 mg/dL (7-18); BUN/Creat Ratio 13.5 RATIO (10-20); Calcium,Total 8.8 mg/dL (8.5-10.1); Chloride 106 mmol/L (98-107); Creatinine, Serum 0.89 mg/dL (0.70-1.30); EST Glomerular Filtration Rate 105 mL/min (>60); Est Glom Filt Rate - Afr Amer 127 mL/min (>60); Estimated Creatinine Clearance 106.43 ml/min; Globulin 3.1 g/dL (2.2-4.2); Glucose 89 mg/dL (74-106); Potassium 3.4 mmol/L (3.5-5.1); Protein, Total 6.4 g/dL (6.4-8.2); Sodium Level 139 mmol/L (136-145)
[2024-01-12 15:36] LABS: Alcohol, Blood (Medical)-Serum < 3.0 mg/dL
--- NOTE | 2024-01-12 15:36 | ED.RN ---
Per. Dr. Byrd, pt. does not need a sitter
--- NOTE | 2024-01-12 15:47 | ED.RN ---
CALLED CRISIS TO LET THEM KNOW PT WILL NEED EVALUATED. FAXED OVER [facility] [employer].
[2024-01-12] MEDS: Potassium Chloride Oral Tablet 20 MEQ 40 MEQ PO (16:02)
[2024-01-12 17:00] VITALS: BP 105/63; PULSE 75; RESP 19; O2SAT 97
--- NOTE | 2024-01-12 20:21 | EKG12_ITS ---
Test Reason : [facility] Blood Pressure : / mmHG Vent. Rate : 084 BPM Atrial Rate : 084 BPM P-R Int : 132 ms QRS Dur : 086 ms QT Int : 364 ms P-R-T Axes : 053 038 019 degrees QTc Int : 430 ms Normal sinus rhythm Normal ECG Confirmed by RAMONA HIGGINS MD ([id number]), web content editor MISAEL CAPPS ([id number]) on 01/14/2024 8:13:54 AM Referred By: Confirmed By:RAMONA HIGGINS MD
[2024-01-12 20:49] LABS: CPK Total, Creatine Kinase 53 U/L (39-308)
[2024-01-12 21:00] VITALS: BP 110/74; PULSE 80; RESP 20; O2SAT 99
--- NOTE | 2024-01-13 00:16 | ED.RN ---
Attempted to call RN report x2 with no answer.
[2024-01-13 01:00] VITALS: BP 114/80; PULSE 66; RESP 16; TEMP 36.7; O2SAT 98
[2024-01-13 05:00] VITALS: BP 114/77
[2024-01-13 05:11] VITALS: PULSE 65; RESP 16; TEMP 36.6; O2SAT 98
[2024-01-13 07:00] VITALS: BP 119/73; PULSE 81; RESP 18; TEMP 37.1; O2SAT 97
--- NOTE | 2024-01-13 07:31 | ED.RN ---
Called [facility] again to attempt report with no answer. Called [facility] intake and they state just send the patient, if they have any questions they will call you
== END 2024-01-13 07:03 ==
PROVIDERS: Emergency Medicine; Emergency Provider Emergency Medicine; PCP Internal Medicine; Visit Provider Emergency Medicine
DX: F22 Delusional disorders (principal); F29 Unspecified psychosis not due to a substance or known physiological condition; F15.10 Other stimulant abuse, uncomplicated; F17.210 Nicotine dependence, cigarettes, uncomplicated; E87.6 Hypokalemia; B19.20 Unspecified viral hepatitis C without hepatic coma
CPT/HCPCS: 80053; 80307; 80320; 82550; 85025; 93005; 99285; G0480

== ENCOUNTER → 2024-01-29 | Outpatient (CLI) | payer MEDICAID, SELFPAY ==
[2024-01-29 12:07] LABS: Absolute Lymphocyte Count 1.93 X10^3/uL (0.83-4.51); Absolute Neutrophil Count 4.8 X10^3/uL (2.0-7.7); Basophil# 0.07 X10^3/uL; Basophil% 0.9 % (0-1); Eosinophil# 0.18 X10^3/uL; Eosinophils% 2.4 % (0-5); Hemoglobin 14.6 g/dL (13.0-16.5); Lymphocyte # 1.93 X10^3/ul (0.83-4.51); Lymphocyte % 25.5 % (19-41); Mean Corp Hgb Conc 33.2 g/dL (32-36); Mean Corpuscular Hgb 30.9 pg (27.0-32.0); Mean Platelet Vol. 10.1 fl (6.2-12.0); Monocyte# 0.52 X10^3/uL; Monocyte% 6.9 % (0-10); NRBC Flagged by Analyzer 0 % (0-5); Neutrophil # 4.78 X10^3/uL (2.7-7.7); Platelet Count 227 K/mm3 (150-450); RBC Distribution Width CV 13.9 % (11.6-14.6); RBC Distribution Width SD 46.7 fl (35.1-43.9); Red Blood Count 4.73 M/mm3 (4.6-6.2); White Blood Count 7.6 K/mm3 (4.4-11.0)
[2024-01-29 12:21] LABS: AST(SGOT) 28 U/L (15-37); Alanine Aminotransfer ALT/SGPT 59 U/L (16-61); Albumin, Serum 3.8 g/dL (3.2-5.0); Alkaline Phosphatase 50 U/L (45-117); Anion Gap 4 (5-15); BUN 8 mg/dL (7-18); BUN/Creat Ratio 9.7 RATIO (10-20); Calcium,Total 8.8 mg/dL (8.5-10.1); Chloride 107 mmol/L (98-107); Creatinine, Serum 0.82 mg/dL (0.70-1.30); EST Glomerular Filtration Rate 114 mL/min (>60); Est Glom Filt Rate - Afr Amer 138 mL/min (>60); Globulin 3.7 g/dL (2.2-4.2); Glucose 90 mg/dL (74-106); Lipase 33 U/L (13-75); Potassium 4.2 mmol/L (3.5-5.1); Protein, Total 7.5 g/dL (6.4-8.2); Sodium Level 136 mmol/L (136-145)
[2024-01-29 14:17] LABS: HIV - WCH Preliminary Reactive (Nonreactive)
== END | disposition home or self-care (01) ==
PROVIDERS: PCP Internal Medicine; Visit Provider Internal Medicine
DX: F19.11 Other psychoactive substance abuse, in remission (principal); F31.9 Bipolar disorder, unspecified; R19.7 Diarrhea, unspecified
CPT/HCPCS: 36415; 80053; 80074; 83690; 85025; 86703

== ENCOUNTER → 2024-03-30 | Outpatient (CLI) | payer MEDICAID, SELFPAY ==
[2024-03-30 11:37] LABS: Absolute Lymphocyte Count 2.25 X10^3/uL (0.83-4.51); Absolute Neutrophil Count 11.4 X10^3/uL (2.0-7.7); Basophil# 0.07 X10^3/uL; Basophil% 0.5 % (0-1); Eosinophil# 0.07 X10^3/uL; Eosinophils% 0.5 % (0-5); Hematocrit 46.6 % (40-54); Hemoglobin 16.4 g/dL (13.0-16.5); Lymphocyte # 2.25 X10^3/ul (0.83-4.51); Lymphocyte % 15.5 % (19-41); Mean Corp Hgb Conc 35.2 g/dL (32-36); Mean Corpuscular Hgb 31.7 pg (27.0-32.0); Mean Corpuscular Volume 90.1 fL (80-94); Mean Platelet Vol. 9.6 fl (6.2-12.0); Monocyte# 0.69 X10^3/uL; Monocyte% 4.8 % (0-10); NRBC Flagged by Analyzer 0 % (0-5); Neutrophil # 11.36 X10^3/uL (2.7-7.7); Neutrophil % 78.4 % (47-70); Platelet Count 253 K/mm3 (150-450); RBC Distribution Width CV 13.5 % (11.6-14.6); RBC Distribution Width SD 44.5 fl (35.1-43.9); Red Blood Count 5.17 M/mm3 (4.6-6.2); White Blood Count 14.5 K/mm3 (4.4-11.0)
[2024-03-30 12:00] LABS: ALB/GLOB Ratio 1.3 RATIO (0.9-2.4); AST(SGOT) 37 U/L (15-37); Alanine Aminotransfer ALT/SGPT 33 U/L (16-61); Albumin, Serum 4.5 g/dL (3.2-5.0); Alkaline Phosphatase 55 U/L (45-117); Anion Gap 7 (5-15); BUN 13 mg/dL (7-18); BUN/Creat Ratio 10.3 RATIO (10-20); Calcium,Total 9.4 mg/dL (8.5-10.1); Chloride 105 mmol/L (98-107); Creatinine, Serum 1.26 mg/dL (0.70-1.30); EST Glomerular Filtration Rate 70 mL/min (>60); Est Glom Filt Rate - Afr Amer 85 mL/min (>60); Globulin 3.5 g/dL (2.2-4.2); Glucose 111 mg/dL (74-106); Potassium 3.7 mmol/L (3.5-5.1); Sodium Level 138 mmol/L (136-145)
[2024-04-01 02:07] LABS: HIV-1 RNA by PCR, Quant. 50 copies/mL (.); LOG10 HIV-1 RNA 1.699 (.)
[2024-04-03 10:07] LABS: Absolute CD4 Helper 909 /uL (359-1519); Basophils (Absolute) 0.1 x10E3/uL (0.0-0.2); Eosinophils 1 % (Not Estab.); Eosinophils (Absolute) 0.1 x10E3/uL (0.0-0.4); Hematocrit 48.4 % (37.5-51.0); Hemoglobin 16.6 g/dL (13.0-17.7); Immature Granulocytes 0 % (Not Estab.); Immature Granulocytes Absolute 0 x10E3/uL (0.0-0.1); Lymphs 16 % (Not Estab.); Lymphs (Absolute) 2.3 x10E3/uL (0.7-3.1); MCH 32.4 pg (26.6-33.0); MCHC 34.3 g/dL (31.5-35.7); MCV 94 fL (79-97); Monocytes 5 % (Not Estab.); Monocytes (Absolute) 0.7 x10E3/uL (0.1-0.9); Neutrophils 78 % (Not Estab.); Neutrophils (Absolute) 10.8 x10E3/uL (1.4-7.0); Percent % CD4 Pos. Lymph. 39.5 % (30.8-58.5); Platelets 252 x10E3/uL (150-450); QNTFERON TB Mitogen Value > 10.00 IU/mL (.); QNTFERON TB Nil Value 0.01 IU/mL (.); QNTFERON TB1+ Ag Value 0.05 IU/mL (.); QNTFERON TB2+ Ag Value 0.03 IU/mL (.); QNTIFERON TB Positive Criteria Negative (Negative); RBC Count 5.13 x10E6/uL (4.14-5.80); RDW 13.5 % (11.6-15.4)
== END | disposition home or self-care (01) ==
LOC: LAB 11:16
PROVIDERS: PCP Internal Medicine; Referring Provider Internal Medicine; Visit Provider Internal Medicine
DX: B20 Human immunodeficiency virus [HIV] disease (principal)
CPT/HCPCS: 36415; 80053; 85025; 86361; 86480; 87536

== ENCOUNTER → 2024-04-07 | Outpatient (CLI) | payer MEDICAID, SELFPAY | END | disposition home or self-care (01) | LOC: LABSPEC 16:36 | PROVIDERS: PCP Internal Medicine; Referring Provider Internal Medicine; Visit Provider Internal Medicine | DX: J06.9 Acute upper respiratory infection, unspecified (principal) ==

== ENCOUNTER 2024-04-25 11:00 | Emergency (ER) | payer MEDICAID, SELFPAY ==
[2024-04-25 11:00] VITALS: BP 128/93; PULSE 100; RESP 16; TEMP 36.6; O2SAT 100; BMI 29.9
[2024-04-25] MEDS: Dicyclomine 10 MG Capsule 20 MG PO (11:28)
[2024-04-25] MEDS: Ondansetron 4 MG/2 ML Vial IV (11:28)
[2024-04-25] MEDS: 0.9% Normal Saline (1000mL) 1,000 ML 999 ML IV (11:28)
[2024-04-25 11:30] LABS: Absolute Lymphocyte Count 1.85 X10^3/uL (0.83-4.51); Absolute Neutrophil Count 6.7 X10^3/uL (2.0-7.7); Basophil# 0.03 X10^3/uL; Basophil% 0.3 % (0-1); Eosinophil# 0.16 X10^3/uL; Eosinophils% 1.7 % (0-5); Hematocrit 44.9 % (40-54); Lymphocyte # 1.85 X10^3/ul (0.83-4.51); Lymphocyte % 20.1 % (19-41); Mean Corp Hgb Conc 35.6 g/dL (32-36); Mean Corpuscular Hgb 32.4 pg (27.0-32.0); Mean Corpuscular Volume 90.9 fL (80-94); Mean Platelet Vol. 9.5 fl (6.2-12.0); Monocyte# 0.45 X10^3/uL; Monocyte% 4.9 % (0-10); NRBC Flagged by Analyzer 0 % (0-5); Neutrophil # 6.65 X10^3/uL (2.7-7.7); Neutrophil % 72.1 % (47-70); Platelet Count 247 K/mm3 (150-450); RBC Distribution Width CV 13.7 % (11.6-14.6); RBC Distribution Width SD 45.2 fl (35.1-43.9); Red Blood Count 4.94 M/mm3 (4.6-6.2); White Blood Count 9.2 K/mm3 (4.4-11.0)
--- NOTE | 2024-04-25 11:30 | EX.ED.DYSGE1 ---
HPI <CODY Edmondson - Last Filed: 04/25/24 12:10> History of Present Illness Chief Complaint: Diarrhea Narrative Narrative: Patient is a 33-year-old male with history of HIV positive who had his viral levels checked April 10 and was undetectable, he is medicated via his infectious disease physician. Patient states that he does have history of soft stools however over the last 24 hours, he has been having severe diarrhea which she is going greater than 8 times. Patient states that he is feeling dehydrated, weak, and is here for evaluation. He denies any blood in his stool, denies any nausea or vomiting. Patient states he feels like he needs fluids. Denies any history of antibiotic use. PFS <CODY Edmondson - Last Filed: 04/25/24 12:10> [facility] Medical History Injury of head and neck Hepatitis Stroke/cerebrovascular accident Hidradenitis suppurativa Dysuria Genital lesion, male Positive RPR test Hepatitis C Tobacco abuse Vitamin deficiency Decreased thyroxine (T4) level Polysubstance abuse GERD (gastroesophageal reflux disease) Hives Frequent headaches Arthritis Seasonal allergies Bipolar disorder Anxiety Depression Smoker IVDU (intravenous drug user) Knee pain Asthma Home Medications ?Medication ?Instructions ?Recorded ?Last Taken ?Type bictegravir 50 mg-emtricitabine 1 tab PO DAILY 04/07/24 Unknown History 200 mg-tenofovir alafenam 25 mg tablet (Biktarvy) buspirone 5 mg tablet 5 mg PO TID #90 tabs 04/07/24 Unknown Rx loratadine 10 mg tablet (Allergy 10 mg PO DAILY #10 tabs 04/07/24 Unknown Rx Relief (loratadine)) quetiapine 50 mg tablet (Seroquel) 50 mg PO QHS #30 tabs 04/07/24 Unknown Rx dicyclomine 20 mg tablet 20 mg PO TID #20 tabs 04/25/24 Unknown Rx ondansetron 4 mg disintegrating 4 mg PO Q8H PRN PRN Nausea #10 tabs 04/25/24 Unknown Rx tablet Allergy/AdvReac Type Severity Reaction Status Date / Time amoxicillin (Amoxicillin) Allergy Hives Verified 04/25/24 11:01 benzocaine (From Benzo-Creme) Allergy Hives Verified 04/25/24 11:01 clindamycin Allergy Hives Verified 04/25/24 11:01 lamotrigine (From Lamictal) Allergy rash Verified 04/25/24 11:01 mushroom Allergy Vomiting Verified 04/25/24 11:01 naproxen (From Naprosyn) Allergy Hives Verified 04/25/24 11:01 shellfish derived Allergy Vomiting Verified 04/25/24 11:01 Tetracyclines Allergy Hives Verified 04/25/24 11:01 Family History Father Diabetes Alcohol abuse Arthritis Heart disease Hyperlipidemia Hypertension Myocardial infarction Mother Diabetes Alcohol abuse Anxiety Arthritis Hyperlipidemia Thyroid disorder Other CVA (cerebral vascular accident) Depression Mental disorder Psychiatric care Surgical History No pertinent past surgical history Social History (Updated 04/07/24 @ 15:[address] Elise Lopez MD) household members: friend(s) current occupational status: employed current occupation: [employer] Smoking Status: Current every day smoker tobacco type: cigarettes Electronic Cigarette Use: not used alcohol intake: never substance use type: former substance user Date of last use: 11/2023, opiates and methamphetamine what type of physical activity do you participate in: none do you feel safe at home: Yes ROS <CODY Edmondson - Last Filed: 04/25/24 12:10> ROS ED ROS Narrative Constitutional: Negative for fever, chills, weight loss positive for weakness Eyes: Negative for vision loss, vision change, double vision ENT: Negative for any sore throat, ear pain, congestion Cardiovascular: Negative for any chest pain, tightness, palpitations Respiratory: Negative for any cough, sputum production, hemoptysis, dyspnea, dyspnea on exertion, orthopnea Gastrointestinal: Negative for any vomiting, constipation, blood in stool, blood in vomit. Positive for abdominal pain, nausea, diarrhea : Negative for any urinary frequency, dysuria, retention, blood in urine Muscle skeletal: Negative for any neck pain, back pain Neurological: Negative for any headache, syncope, dizziness Skin: Negative for any rashes, itching, abrasions, lacerations Psychiatric: Negative for any depression, anxiety, stress, suicidal ideation, homicidal ideation Hematologic: Negative for any excessive bruising, easy bleeding EXAM <CODY Edmondson - Last Filed: 04/25/24 12:10> Physical Exam Narrative Exam Narrative: Vital signs reviewed. HEET: Head normocephalic atraumatic, TMs clear bilaterally. Posterior pharynx is clear, dry mucous membranes. Nares clear bilaterally. Neck: Supple with no lymphadenopathy or tenderness. No signs of meningismus. Cardiac: Regular rate and rhythm no murmurs gallops or rubs, equal peripheral pulses bilaterally. Respiratory: Lungs clear to auscultation bilaterally. No chest tenderness. Abdomen: Soft, nontender, nondistended. No abdominal bruit or pulsatile masses. No hepatosplenomegaly. Negative for any peritoneal signs, active bowel sounds in all quadrants Extremities: No peripheral edema, no signs of gross trauma or deformity. Active full range of motion of all extremities. Neuro: Cranial nerves II through XII intact, no focal neurological deficits. Skin: Clean dry and intact with no rash, purpura, petechiae, vesicles or pustules. Backs/flank: No CVA tenderness, no midline spinal tenderness, no deformity. Psych: Normal mood and affect. No SI, HI or acute psychosis. Const Vital Signs: 04/25/24 11:00 Temperature 98 F Temperature Source Temporal Pulse Rate 100 Respiratory Rate 16 Blood Pressure 128/93 H Blood Pressure Mean 104 Pulse Ox 100 Oxygen Delivery Method Room Air <Vincent Begum MD - Last Filed: 04/25/24 12:23> Physical Exam Const Vital Signs: 04/25/24 11:00 Temperature 98 F Temperature Source Temporal Pulse Rate 100 Respiratory Rate 16 Blood Pressure 128/93 H Blood Pressure Mean 104 Pulse Ox 100 Oxygen Delivery Method Room Air [facility] <CODY Edmondson - Last Filed: 04/25/24 12:10> [facility] Lab Data Labs: Laboratory Results - last 24 hr 04/25/24 11:25 WBC 9.2 RBC 4.94 Hgb 16.0 Hct 44.9 MCV 90.9 MCH 32.4 H MCHC 35.6 RDW Std Deviation 45.2 H RDW Coeff of Eliana 13.7 Plt Count 247 MPV 9.5 Immature Gran % (Auto) 0.900 Neut % (Auto) 72.1 H Lymph % (Auto) 20.1 Darke % (Auto) 4.9 Eos % (Auto) 1.7 Baso % (Auto) 0.3 Absolute Neuts (auto) 6.7 Absolute Lymphs (auto) 1.85 Nucleated RBC % 0 Sodium 138 Potassium 4.3 Chloride 109 H Carbon Dioxide 25.0 Anion Gap 4 L BUN 9 Creatinine 1.04 Estim Creat Clear Calc 92.62 Est GFR (MDRD) Af Amer 105 Est GFR (MDRD) Non-Af 87 BUN/Creatinine Ratio 8.7 L Glucose 93 Calcium 9.0 Total Bilirubin 0.70 AST 25 ALT 38 Alkaline Phosphatase 56 Total Protein 7.4 Albumin 3.8 Globulin 3.6 Albumin/Globulin Ratio 1.1 Treatment and Re-Evaluation :: Differential diagnosis includes however is not limited to: Infectious diarrhea, viral syndrome, dehydration, acute kidney injury, sequelae of HIV, ulcerative colitis, diverticulitis Patient appears to be in no obvious respiratory distress vital signs are stable, presenting to the emergency department with complaints of abdominal cramping, diarrhea. Patient will receive IV fluids, IV Zofran, oral Bentyl. Laboratory values such as CBC, CMP will be obtained. Patient will be reevaluated Patient CBC was negative for any leukocytosis, anemia. Patient's chemistry shows normal renal function, no significant abnormality. On reevaluation, after the medication, IV fluids, patient was feeling much better. There is low suspicion for any infectious-like diarrhea, this is likely a viral issue. Patient will maintain hydration, he will be given Bentyl, Zofran for home. He is happy with the plan of care, will follow-up outpatient. Patient stable for discharge. <Vincent Begum MD - Last Filed: 04/25/24 12:23> [facility] Narrative Medical decision making narrative: Dr. Begum: I have personally performed a face to face assessment of the patient and have reviewed the TRICIA Note. I performed a substantive portion of the visit including all aspects of the following. My moore findings include: History is diarrhea since yesterday. 8 or 9 episodes. Complains of generalized weakness. Exam is afebrile. Vital signs noted. Regular rate and rhythm. Lungs clear to auscultation bilaterally. Abdomen soft nontender with normoactive bowel sounds. Medical Decision Making: Check labs. IV fluids. No overt dehydration on laboratory work. I do not feel CT imaging is indicated. I also do not feel antibiotics are indicated, as he probably has more of a viral diarrhea. Follow-up primary care. Return instructions reviewed. Disposition is discharged home in stable condition. Other additions or changes: [None] History & Record Review Discussion w/independent historian: Patient Lab Data Attestation: I reviewed the patient's lab results. Labs: Laboratory Results - last 24 hr 04/25/24 11:25 WBC 9.2 RBC 4.94 Hgb 16.0 Hct 44.9 MCV 90.9 MCH 32.4 H MCHC 35.6 RDW Std Deviation 45.2 H RDW Coeff of Eliana 13.7 Plt Count 247 MPV 9.5 Immature Gran % (Auto) 0.900 Neut % (Auto) 72.1 H Lymph % (Auto) 20.1 Darke % (Auto) 4.9 Eos % (Auto) 1.7 Baso % (Auto) 0.3 Absolute Neuts (auto) 6.7 Absolute Lymphs (auto) 1.85 Nucleated RBC % 0 Sodium 138 Potassium 4.3 Chloride 109 H Carbon Dioxide 25.0 Anion Gap 4 L BUN 9 Creatinine 1.04 Estim Creat Clear Calc 92.62 Est GFR (MDRD) Af Amer 105 Est GFR (MDRD) Non-Af 87 BUN/Creatinine Ratio 8.7 L Glucose 93 Calcium 9.0 Total Bilirubin 0.70 AST 25 ALT 38 Alkaline Phosphatase 56 Total Protein 7.4 Albumin 3.8 Globulin 3.6 Albumin/Globulin Ratio 1.1 Discharge Plan Triage Chief Complaint: Diarrhea ED Midlevel Provider: Vance Real ED Provider: Vincent Begum Dx/Rx/DC Orders Clinical Impression: Diarrhea, Abdominal cramping Instructions: Abdominal Pain, ED Diarrhea, Unknown Cause Prescriptions: New dicyclomine 20 mg tablet 20 mg PO TID Qty: 20 0RF ondansetron 4 mg tablet,disintegrating 4 mg PO Q8H PRN PRN (Reason: Nausea) Qty: 10 0RF No Action Biktarvy 50-200-25 mg tablet 1 tab PO DAILY buspirone 5 mg tablet 5 mg PO TID Qty: 90 0RF quetiapine [Seroquel] 50 mg tablet 50 mg PO QHS Qty: 30 1RF loratadine [Allergy Relief (loratadine)] 10 mg tablet 10 mg PO DAILY Qty: 10 0RF Primary Care Provider: Elise Lopez Referrals: Elise Lopez MD [Primary Care Provider] - Activity Restrictions/Additional Instructions: Please follow-up outpatient. Maintain hydration. Print Language: Hungarian Disposition Disposition: Home, Self Care Discharge Date/Time: 04/25/24 12:18
[2024-04-25 11:54] LABS: ALB/GLOB Ratio 1.1 RATIO (0.9-2.4); AST(SGOT) 25 U/L (15-37); Alanine Aminotransfer ALT/SGPT 38 U/L (16-61); Albumin, Serum 3.8 g/dL (3.2-5.0); Alkaline Phosphatase 56 U/L (45-117); Anion Gap 4 (5-15); BUN 9 mg/dL (7-18); BUN/Creat Ratio 8.7 RATIO (10-20); Chloride 109 mmol/L (98-107); Creatinine, Serum 1.04 mg/dL (0.70-1.30); EST Glomerular Filtration Rate 87 mL/min (>60); Est Glom Filt Rate - Afr Amer 105 mL/min (>60); Estimated Creatinine Clearance 92.62 ml/min; Globulin 3.6 g/dL (2.2-4.2); Glucose 93 mg/dL (74-106); Potassium 4.3 mmol/L (3.5-5.1); Protein, Total 7.4 g/dL (6.4-8.2); Sodium Level 138 mmol/L (136-145)
== END 2024-04-25 12:18 | disposition home or self-care (01) ==
PROVIDERS: Nurse Practitioner; Emergency Provider Emergency Medicine; PCP Internal Medicine; Visit Provider Emergency Medicine
DX: K52.9 Noninfective gastroenteritis and colitis, unspecified (principal); F31.9 Bipolar disorder, unspecified; Z21 Asymptomatic human immunodeficiency virus [HIV] infection status; R10.9 Unspecified abdominal pain; F17.210 Nicotine dependence, cigarettes, uncomplicated; Z86.73 Personal history of transient ischemic attack (TIA), and cerebral infarction without residual deficits; F41.9 Anxiety disorder, unspecified; Z79.899 Other long term (current) drug therapy; L02.211 Cutaneous abscess of abdominal wall
CPT/HCPCS: 80053; 85025; 96361; 96372; 96374; 99282; 99284; J2405

== ENCOUNTER 2024-04-25 21:27 | Emergency (ER) | payer MEDICAID, SELFPAY ==
[2024-04-25 21:27] VITALS: BP 123/84; PULSE 112; RESP 15; TEMP 36.6; O2SAT 99; BMI 30.1
--- NOTE | 2024-04-25 21:40 | EDS_ITS ---
HPI History of Present Illness Chief Complaint: General Illness Informant: patient Narrative Narrative: 33-year-old male was seen here earlier in the day because of diarrhea and feeling dehydrated. States he was feeling nauseated and prescribed Zofran, he took it but it did not help and he has been vomiting and having heartburn subsequently, no abdominal pain, he states that diarrhea seems to be improving. Also, he states he thinks he is developing an abscess on his lower abdominal wall, he has had these before and is asking for incision and drainage. He states it is less swollen now than it was yesterday and the day before but it has not been draining spontaneously. He has HIV compliant with his medications, states his last viral load was 50, follows with infectious disease. Denies any recent syncope, he has had subjective fevers and chills but his temperature is normal here. No known sick contacts. [facility] Medical History Injury of head and neck Hepatitis Stroke/cerebrovascular accident Hidradenitis suppurativa Dysuria Genital lesion, male Positive RPR test Hepatitis C Tobacco abuse Vitamin deficiency Decreased thyroxine (T4) level Polysubstance abuse GERD (gastroesophageal reflux disease) Hives Frequent headaches Arthritis Seasonal allergies Bipolar disorder Anxiety Depression Smoker IVDU (intravenous drug user) Knee pain Asthma Home Medications ?Medication ?Instructions ?Recorded ?Last Taken ?Type bictegravir 50 mg-emtricitabine 1 tab PO DAILY 04/07/24 Unknown History 200 mg-tenofovir alafenam 25 mg tablet (Biktarvy) buspirone 5 mg tablet 5 mg PO TID #90 tabs 04/07/24 Unknown Rx quetiapine 50 mg tablet (Seroquel) 50 mg PO QHS #30 tabs 04/07/24 Unknown Rx metoclopramide HCl 10 mg tablet 10 mg PO Q8H PRN PRN nausea and 04/25/24 Unknown Rx vomiting #10 tabs ondansetron 4 mg disintegrating 4 mg PO Q8H PRN PRN Nausea #10 tabs 04/25/24 Unknown Rx tablet Allergy/AdvReac Type Severity Reaction Status Date / Time amoxicillin (Amoxicillin) Allergy Hives Verified 04/25/24 11:01 benzocaine (From Benzo-Creme) Allergy Hives Verified 04/25/24 11:01 clindamycin Allergy Hives Verified 04/25/24 11:01 lamotrigine (From Lamictal) Allergy rash Verified 04/25/24 11:01 mushroom Allergy Vomiting Verified 04/25/24 11:01 naproxen (From Naprosyn) Allergy Hives Verified 04/25/24 11:01 shellfish derived Allergy Vomiting Verified 04/25/24 11:01 Tetracyclines Allergy Hives Verified 04/25/24 11:01 Family History Father Diabetes Alcohol abuse Arthritis Heart disease Hyperlipidemia Hypertension Myocardial infarction Mother Diabetes Alcohol abuse Anxiety Arthritis Hyperlipidemia Thyroid disorder Other CVA (cerebral vascular accident) Depression Mental disorder Psychiatric care Surgical History No pertinent past surgical history Social History household members: friend(s) current occupational status: employed current occupation: [employer] Smoking Status: Current every day smoker tobacco type: cigarettes Electronic Cigarette Use: not used alcohol intake: never substance use type: former substance user Date of last use: 11/2023, opiates and methamphetamine what type of physical activity do you participate in: none do you feel safe at home: Yes ROS ROS ED Constitutional Constitutional ED: Denies chills or fever(s) Eyes Eyes: Denies change in vision or diplopia ENT ENT ED: Denies rhinorrhea or sore throat Cardiovascular Cardiovascular: Denies chest pain or palpitations Respiratory/Chest Respiratory/Chest: Denies cough or dyspnea Gastrointestinal Gastrointestinal: Reports diarrhea, nausea and vomiting; Denies abdominal pain Genitourinary Genitourinary ED: Denies dysuria or hematuria Musculoskeletal Musculoskeletal: Denies back pain or neck pain Integumentary Reports abscess; Denies rash Neurologic Neurologic: Denies headache(s), paresthesias or weakness Psychiatric Psychiatric: Denies suicidal thoughts EXAM Physical Exam Const Vital Signs: 04/25/24 21:27 04/25/24 21:37 04/25/24 22:39 Temperature 97.9 F 98.1 F Temperature Source Temporal Oral Pulse Rate 112 H 90 Respiratory Rate 15 16 Respiratory Pattern Normal Blood Pressure 123/84 H 120/90 H Blood Pressure Mean 97 100 Pulse Ox 99 97 Oxygen Delivery Method Room Air Room Air Positive well nourished and well developed Constitutional Narrative: Well-appearing General Appearance ED: well developed and NAD HEENT Reports moist mucous membranes normocephalic and atraumatic Eyes PERRL and EOMs intact bilaterally Neck full ROM and supple Resp normal respiratory effort and clear to auscultation bilaterally Cardio regular rate, regular rhythm and no murmurs GI non-tender and non-distended GI Narrative: Benign abdomen, mild tenderness what appears to be 1-2 cm healing lower abdominal wall abscess. There is an early-forming 1 lateral to this that is barely indurated. Nothing is spontaneously draining. Auscultation: normoactive bowel sounds Palpation: soft Back/Spine no CVA tenderness General Back: other FROM Extremity normal to inspection General Extremety ED: Negative for edema, pulses abnormal or tenderness General Extremity: Negative for edema or pulses abnormal Neuro oriented x3, CN's II-XII intact bilaterally, no sensory deficits noted and gait normal Sensorium / Orientation: awake and alert Motor Exam: strength 5/5 throughout Skin no rashes or lesions noted Skin Narrative: 1-2 cm small abscess without spontaneous drainage right lower abdominal wall. Resolved/healed hidradenitis I&D scar left groin nontender. MDM MDM MDM Narrative Medical decision making narrative: Patient states he took a Zofran earlier and might of helped temporarily but then he started vomiting up Tums and the other prescription he was given. Feels very nauseated right now. He had a liter of fluids a little earlier, his labs were normal showing no signs of prerenal azotemia or GENNA, and he is amenable to trying an oral promethazine before we place another IV. He is asking for incision and drainage of the right lower abdominal wall infection, which we performed see the procedure note. He vomited up about half hour after we gave him the promethazine, still feels nauseated unclear if he threw up the pill so instead of putting another IV and he was amenable to an injection of Reglan. This really helped he was able to tolerate oral fluids and his nausea was much better. Will write him a prescription for Reglan to use as needed he is comfortable with that plan. Also we decided that his abscess was very small there is not a significant amount of surrounding cellulitis at all so we are going to avoid antibiotics since he has been having diarrhea. History & Record Review Additional record(s) reviewed:: Prior ED visit Procedures Other Procedures Procedure(s): Simple incision and drainage abscess lower abdominal wall: After sterile prep and drape and obtained informed consent, locally anesthetized with 2 cc plain 1% lidocaine, incised centrally with a #11 blade, liquid purulent material was expressed followed by solid necrotic material, the cavity was deloculated, irrigated, dressed with bacitracin. Not large enough for packing. Tolerated well no complications. Discharge Plan Triage Chief Complaint: General Illness ED Provider: Matty Bellamy Dx/Rx/DC Orders Clinical Impression: Cutaneous abscess of abdominal wall, Gastroenteritis Instructions: ED Abscess Incision And Drainage Prescriptions: New metoclopramide HCl 10 mg tablet 10 mg PO Q8H PRN PRN (Reason: nausea and vomiting) Qty: 10 0RF No Action Biktarvy 50-200-25 mg tablet 1 tab PO DAILY buspirone 5 mg tablet 5 mg PO TID Qty: 90 0RF quetiapine [Seroquel] 50 mg tablet 50 mg PO QHS Qty: 30 1RF ondansetron 4 mg tablet,disintegrating 4 mg PO Q8H PRN PRN (Reason: Nausea) Qty: 10 0RF Primary Care Provider: Elise Lopez Referrals: Elise Lopez MD [Primary Care Provider] - 3-5 Days if not improving Activity Restrictions/Additional Instructions: The metoclopramide worked for you in the hospital, but when combined with your Seroquel could cause unpleasant side effects. If it does, discontinue the new medication and stick with the Zofran that you had from before. You can take up to 8 mg of the Zofran at 1 time if you need to. Print Language: South Korean Disposition Disposition: Home, Self Care
[2024-04-25] MEDS: proMETHazine 25 MG Tablet PO (21:45)
[2024-04-25] MEDS: Lidocaine 1% (20 ml mdv) 20 ML Vial INFILT (21:46)
[2024-04-25] MEDS: Metoclopramide 10 MG/2 ML Vial IM (22:34)
[2024-04-25 22:39] VITALS: BP 120/90; PULSE 90; RESP 16; TEMP 36.7; O2SAT 97
[2024-04-25 23:41] VITALS: BP 112/82; PULSE 90; RESP 16; TEMP 36.6; O2SAT 98
== END 2024-04-25 23:45 | disposition home or self-care (01) ==
PROVIDERS: Emergency Provider Emergency Medicine; PCP Internal Medicine; Visit Provider Emergency Medicine
DX: K52.9 Noninfective gastroenteritis and colitis, unspecified (principal); F31.9 Bipolar disorder, unspecified; Z21 Asymptomatic human immunodeficiency virus [HIV] infection status; F17.210 Nicotine dependence, cigarettes, uncomplicated; L02.211 Cutaneous abscess of abdominal wall; Z86.73 Personal history of transient ischemic attack (TIA), and cerebral infarction without residual deficits; Z79.899 Other long term (current) drug therapy; F41.9 Anxiety disorder, unspecified
CPT/HCPCS: 10060; 99282

== ENCOUNTER → 2024-06-12 | Outpatient (CLI) | payer MEDICAID, SELFPAY ==
[2024-06-12 10:42] LABS: Absolute Lymphocyte Count 2.07 X10^3/uL (0.83-4.51); Absolute Neutrophil Count 4.1 X10^3/uL (2.0-7.7); Basophil# 0.02 X10^3/uL; Basophil% 0.3 % (0-1); Eosinophil# 0.12 X10^3/uL; Eosinophils% 1.7 % (0-5); Hematocrit 41.6 % (40-54); Hemoglobin 14.6 g/dL (13.0-16.5); Lymphocyte # 2.07 X10^3/ul (0.83-4.51); Lymphocyte % 30.2 % (19-41); Mean Corp Hgb Conc 35.1 g/dL (32-36); Mean Corpuscular Hgb 32.6 pg (27.0-32.0); Mean Corpuscular Volume 92.9 fL (80-94); Mean Platelet Vol. 9.8 fl (6.2-12.0); Monocyte# 0.52 X10^3/uL; Monocyte% 7.6 % (0-10); NRBC Flagged by Analyzer 0 % (0-5); Neutrophil % 59.8 % (47-70); Platelet Count 250 K/mm3 (150-450); Red Blood Count 4.48 M/mm3 (4.6-6.2); White Blood Count 6.9 K/mm3 (4.4-11.0)
[2024-06-12 11:30] LABS: ALB/GLOB Ratio 1.3 RATIO (0.9-2.4); AST(SGOT) 24 U/L (15-37); Alanine Aminotransfer ALT/SGPT 26 U/L (16-61); Albumin, Serum 4.1 g/dL (3.2-5.0); Alkaline Phosphatase 49 U/L (45-117); Anion Gap 8 (5-15); BUN 11 mg/dL (7-18); BUN/Creat Ratio 11.2 RATIO (10-20); Calcium,Total 9.2 mg/dL (8.5-10.1); Chloride 103 mmol/L (98-107); Creatinine, Serum 0.98 mg/dL (0.70-1.30); EST Glomerular Filtration Rate 93 mL/min (>60); Est Glom Filt Rate - Afr Amer 113 mL/min (>60); Globulin 3.2 g/dL (2.2-4.2); Glucose 86 mg/dL (74-106); Potassium 3.2 mmol/L (3.5-5.1); Protein, Total 7.3 g/dL (6.4-8.2); Sodium Level 136 mmol/L (136-145)
[2024-06-15 15:07] LABS: Absolute CD4 Helper 979 /uL (359-1519); Basophils (Absolute) 0 x10E3/uL (0.0-0.2); Eosinophils 2 % (Not Estab.); Eosinophils (Absolute) 0.1 x10E3/uL (0.0-0.4); Immature Granulocytes 0 % (Not Estab.); Immature Granulocytes Absolute 0 x10E3/uL (0.0-0.1); Lymphs 31 % (Not Estab.); Lymphs (Absolute) 2.2 x10E3/uL (0.7-3.1); MCHC 32.6 g/dL (31.5-35.7); MCV 101 fL (79-97); Monocytes 7 % (Not Estab.); Monocytes (Absolute) 0.5 x10E3/uL (0.1-0.9); Neutrophils 60 % (Not Estab.); Neutrophils (Absolute) 4.2 x10E3/uL (1.4-7.0); Percent % CD4 Pos. Lymph. 44.5 % (30.8-58.5); Platelets 261 x10E3/uL (150-450); RBC Count 4.55 x10E6/uL (4.14-5.80); RDW 12.6 % (11.6-15.4)
[2024-06-15 21:07] LABS: HIV-1 RNA by PCR, Quant. < 20 copies/mL (.)
== END | disposition home or self-care (01) ==
LOC: LAB 09:43
PROVIDERS: PCP Internal Medicine; Referring Provider Internal Medicine; Visit Provider Internal Medicine
DX: B20 Human immunodeficiency virus [HIV] disease (principal)
CPT/HCPCS: 36415; 80053; 85025; 86361; 87536

== ENCOUNTER 2024-07-09 16:06 | Emergency (ER) | payer MEDICAID, SELFPAY ==
[2024-07-09 16:07] VITALS: BP 121/82; PULSE 112; RESP 20; TEMP 36.6; O2SAT 100; BMI 27.3
--- NOTE | 2024-07-09 16:46 | EDS_ITS ---
HPI History of Present Illness Chief Complaint: Substance Abuse Informant: patient and parent Onset/Context/Timing Onset: Weeks Timing: Continuous Current Severity: Mild Maximum Severity: Mild Narrative Narrative: 33-year-old male history of HIV, hep C, bipolar disorder, PTSD and drug abuse including fentanyl, methamphetamine and marijuana. Says he does shoot up the meth and fentanyl. He believes that the meth fentanyl is being laced possibly with antifreeze. The other day he had a motor vehicle citation driving under the influence. He wants to be evaluated. States he has not used meth for 2 to 3 days. He has had some intermittent diarrhea. Prior similar symptoms: Yes Recent Illness/Hospitalization: No PFSH FORMERLY [facility], 1928–1983 Medical History Injury of head and neck Hepatitis Stroke/cerebrovascular accident Hidradenitis suppurativa Dysuria Genital lesion, male Positive RPR test Hepatitis C Tobacco abuse Vitamin deficiency Decreased thyroxine (T4) level Polysubstance abuse GERD (gastroesophageal reflux disease) Hives Frequent headaches Arthritis Seasonal allergies Bipolar disorder Anxiety Depression Smoker IVDU (intravenous drug user) Knee pain Asthma Home Medications ?Medication ?Instructions ?Recorded ?Last Taken ?Type bictegravir 50 mg-emtricitabine 1 tab PO DAILY 04/07/24 Unknown History 200 mg-tenofovir alafenam 25 mg tablet (Biktarvy) buspirone 10 mg tablet 10 mg PO TID #90 tabs 06/12/24 Unknown Rx divalproex 500 mg tablet,extended 500 mg PO QDAY #30 tabs 06/12/24 Unknown Rx release 24 hr (Depakote ER) quetiapine 100 mg tablet 100 mg PO QHS #30 tabs 06/12/24 Unknown Rx Allergy/AdvReac Type Severity Reaction Status Date / Time amoxicillin (Amoxicillin) Allergy Hives Verified 07/09/24 16:12 benzocaine (From Benzo-Creme) Allergy Hives Verified 07/09/24 16:12 clindamycin Allergy Hives Verified 07/09/24 16:12 lamotrigine (From Lamictal) Allergy rash Verified 07/09/24 16:12 mushroom Allergy Vomiting Verified 07/09/24 16:12 naproxen (From Naprosyn) Allergy Hives Verified 07/09/24 16:12 shellfish derived Allergy Vomiting Verified 07/09/24 16:12 Tetracyclines Allergy Hives Verified 07/09/24 16:12 Family History Father Diabetes Alcohol abuse Arthritis Heart disease Hyperlipidemia Hypertension Myocardial infarction Mother Diabetes Alcohol abuse Anxiety Arthritis Hyperlipidemia Thyroid disorder Other CVA (cerebral vascular accident) Depression Mental disorder Psychiatric care Surgical History No pertinent past surgical history Social History household members: friend(s) current occupational status: employed current occupation: [employer] Smoking Status: Current every day smoker tobacco type: cigarettes Electronic Cigarette Use: not used alcohol intake: never substance use type: former substance user Date of last use: 11/2023, marijuana, opiates and methamphetamine what type of physical activity do you participate in: none do you feel safe at home: Yes ROS ROS ED ROS Narrative Diarrhea. Constitutional Constitutional ED: Denies chills or fever(s) Eyes Eyes: Denies blurry vision ENT ENT ED: Denies ear pain Cardiovascular Cardiovascular: Denies chest pain Respiratory/Chest Respiratory/Chest: Denies cough or dyspnea Gastrointestinal Gastrointestinal: Reports diarrhea; Denies abdominal pain Genitourinary Genitourinary ED: Denies dysuria Musculoskeletal Musculoskeletal: Denies arthralgias or back pain Integumentary Denies abscess or Abrasions Neurologic Neurologic: Denies headache(s) Psychiatric Psychiatric: Denies anxiety Endocrine Endocrinology: Denies cold intolerance Hematologic/Lymphatic Hematologic/Lymphatic: Denies easy bleeding or easy bruising Allergic/Immunologic Allergic/Immunologic ED: Denies mouth swelling or tongue swelling EXAM Physical Exam Narrative Exam Narrative: Well-appearing 33-year-old male. Vital signs stable afebrile. H EENT exam unremarkable. Neck nontender. Lungs clear to auscultation bilateral. Heart regular rhythm no murmur rate about 105. Chest wall ribs nontender. Abdomen soft, nontender, nondistended, normal bowel sounds without peritoneal signs. Patient moving all 4 extremities. Nontender no edema. Neurologically patient awake alert no focal motor deficits. Right arm he does have track gallego but there is no infection or abscess. Neurologically is awake and alert. Answering questions following commands. Clinically looks well. Const Vital Signs: 07/09/24 16:07 07/09/24 18:07 Temperature 97.9 F Temperature Source Temporal Pulse Rate 112 H 78 Respiratory Rate 20 H Blood Pressure 121/82 H 140/82 H Blood Pressure Mean 95 101 Pulse Ox 100 98 Oxygen Delivery Method Room Air Positive well nourished and well developed; Negative for obese, cachectic, contractures or unkempt General Appearance ED: well developed and NAD; Negative for unkempt, cachectic, contractures or pallor Nutritional Appearance: Negative for cachectic or obese HEENT Reports moist mucous membranes Negative for atraumatic, trauma or tenderness Eyes PERRL and EOMs intact bilaterally Neck no lymphadenopathy, supple and no JVD Lymph Lymphatic: no lymphadenopathy noted Chest Wall inspection of chest normal and palpation of chest normal Resp normal respiratory effort and clear to auscultation bilaterally Cardio regular rhythm, S1 normal heart sound, S2 normal heart sound and no murmurs; Negative for regular rate Rate: tachycardic GI soft to palpation, non-tender, non-distended and no masses Back/Spine no CVA tenderness Extremity Extremity Narrative: Track gallego right antecubital area. No abscess or infection. No cellulitis. Nontender. No swelling. General Extremety ED: Negative for edema or tenderness General Extremity: Negative for edema Neuro oriented x3 and CN's II-XII intact bilaterally Sensorium / Orientation: alert, oriented to person, oriented to place and oriented to time; Negative for confused, lethargic or stuporous Motor Exam: strength 5/5 throughout Psych mental status grossly normal and thought process normal Appearance: Negative for unkempt Attitude: No belligerent, No agitated, No aggressive and No hostile Mood & Affect: anxious; Negative for depressed or tearful Skin General Skin Exam: Negative for jaundice or pallor Lesions: no lesions Rashes: no rashes MDM MDM MDM Narrative Medical decision making narrative: 33-year-old male with history of methamphetamine drug abuse his concern is being obtained there. He wants screening labs done. I told him a tox screen would not show up any she was sent in by [employer] for abnormal substance that was being cut with. Repeat exam patient doing well at 6:30 PM. Exam unchanged. We discharged home with outpatient follow-up. Strongly urged to seek History & Record Review Discussion w/independent historian: Patient Additional record(s) reviewed:: Prior inpatient record, Prior outpatient record, Prior ED visit and Prior labs Lab Data Attestation: I reviewed the patient's lab results. Lab results narrative: CBC is unremarkable. White count of 7. H&H 14 and 40. Platelets 219. Electrolytes show gap of 6. BUN and creatinine of 7 and 1. Glucose 104. Liver enzymes normal. Lipase normal at 50. I did evaluate his urine sample with a fluorescent light and there was no signs of isopropyl alcohol. Labs: Laboratory Results - last 24 hr 07/09/24 16:55 WBC 7.1 RBC 4.30 L Hgb 14.1 Hct 40.9 MCV 95.1 H MCH 32.8 H MCHC 34.5 RDW Std Deviation 43.8 RDW Coeff of Eliana 12.5 Plt Count 219 MPV 9.7 Immature Gran % (Auto) 0.300 Neut % (Auto) 61.1 Lymph % (Auto) 29.2 Redwood % (Auto) 6.3 Eos % (Auto) 2.1 Baso % (Auto) 1.0 Absolute Neuts (auto) 4.3 Absolute Lymphs (auto) 2.07 Nucleated RBC % 0 Sodium 140 Potassium 3.6 Chloride 108 H Carbon Dioxide 26.0 Anion Gap 7 BUN 7 Creatinine 1.03 Estim Creat Clear Calc 89.57 Est GFR (MDRD) Af Amer 106 Est GFR (MDRD) Non-Af 88 BUN/Creatinine Ratio 6.8 L Glucose 104 Calcium 8.8 Total Bilirubin 0.50 AST 10 L ALT 22 Alkaline Phosphatase 50 Total Protein 6.7 Albumin 3.6 Globulin 3.1 Albumin/Globulin Ratio 1.2 Lipase 50 Discharge Plan Triage Chief Complaint: Substance Abuse ED Provider: Kamlesh Christiansen Dx/Rx/DC Orders Clinical Impression: Polysubstance abuse, Anxiety, History of HIV infection Instructions: ED Drug Abuse Prescriptions: No Action Biktarvy 50-200-25 mg tablet 1 tab PO DAILY divalproex [Depakote ER] 500 mg tablet extended release 24 hr 500 mg PO QDAY Qty: 30 1RF quetiapine 100 mg tablet 100 mg PO QHS Qty: 30 1RF buspirone 10 mg tablet 10 mg PO TID Qty: 90 1RF Primary Care Provider: Elise Lopez Referrals: Elise Lopez MD [Primary Care Provider] - As Needed [facility] [Non-Staff] - As soon as possible Activity Restrictions/Additional Instructions: All your tests are normal. Lab work looks good. Obviously long-term you need to stop using the drugs. Follow-up with [facility] for drug counseling and rehabilitation. Print Language: Frisian Disposition Disposition: Home, Self Care
[2024-07-09 17:09] LABS: Absolute Lymphocyte Count 2.07 X10^3/uL (0.83-4.51); Absolute Neutrophil Count 4.3 X10^3/uL (2.0-7.7); Basophil# 0.07 X10^3/uL; Eosinophil# 0.15 X10^3/uL; Eosinophils% 2.1 % (0-5); Hematocrit 40.9 % (40-54); Hemoglobin 14.1 g/dL (13.0-16.5); Lymphocyte # 2.07 X10^3/ul (0.83-4.51); Lymphocyte % 29.2 % (19-41); Mean Corp Hgb Conc 34.5 g/dL (32-36); Mean Corpuscular Hgb 32.8 pg (27.0-32.0); Mean Corpuscular Volume 95.1 fL (80-94); Mean Platelet Vol. 9.7 fl (6.2-12.0); Monocyte# 0.45 X10^3/uL; Monocyte% 6.3 % (0-10); NRBC Flagged by Analyzer 0 % (0-5); Neutrophil # 4.34 X10^3/uL (2.7-7.7); Neutrophil % 61.1 % (47-70); Platelet Count 219 K/mm3 (150-450); RBC Distribution Width CV 12.5 % (11.6-14.6); RBC Distribution Width SD 43.8 fl (35.1-43.9); White Blood Count 7.1 K/mm3 (4.4-11.0)
[2024-07-09 17:19] LABS: ALB/GLOB Ratio 1.2 RATIO (0.9-2.4); AST(SGOT) 10 U/L (15-37); Alanine Aminotransfer ALT/SGPT 22 U/L (16-61); Albumin, Serum 3.6 g/dL (3.2-5.0); Alkaline Phosphatase 50 U/L (45-117); Anion Gap 7 (5-15); BUN 7 mg/dL (7-18); BUN/Creat Ratio 6.8 RATIO (10-20); Calcium,Total 8.8 mg/dL (8.5-10.1); Chloride 108 mmol/L (98-107); Creatinine, Serum 1.03 mg/dL (0.70-1.30); EST Glomerular Filtration Rate 88 mL/min (>60); Est Glom Filt Rate - Afr Amer 106 mL/min (>60); Estimated Creatinine Clearance 89.57 ml/min; Globulin 3.1 g/dL (2.2-4.2); Glucose 104 mg/dL (74-106); Lipase 50 U/L (13-75); Potassium 3.6 mmol/L (3.5-5.1); Protein, Total 6.7 g/dL (6.4-8.2); Sodium Level 140 mmol/L (136-145)
[2024-07-09 18:07] VITALS: BP 140/82; PULSE 78; O2SAT 98
== END 2024-07-09 18:38 | disposition home or self-care (01) ==
PROVIDERS: Emergency Provider Emergency Medicine; PCP Internal Medicine; Visit Provider Emergency Medicine
DX: F19.19 Other psychoactive substance abuse with unspecified psychoactive substance-induced disorder (principal); F31.9 Bipolar disorder, unspecified; Z21 Asymptomatic human immunodeficiency virus [HIV] infection status; F41.9 Anxiety disorder, unspecified; F17.210 Nicotine dependence, cigarettes, uncomplicated; B19.20 Unspecified viral hepatitis C without hepatic coma; Z86.73 Personal history of transient ischemic attack (TIA), and cerebral infarction without residual deficits; Z79.899 Other long term (current) drug therapy
CPT/HCPCS: 80053; 83690; 85025; 99283

== ENCOUNTER → 2024-09-07 | Outpatient (CLI) | payer MEDICAID, SELFPAY ==
[2024-09-07 12:19] LABS: Valproic Acid (Depakene) Level 49 ug/mL (50-100)
== END | disposition home or self-care (01) ==
LOC: LAB 11:05
PROVIDERS: PCP Internal Medicine; Referring Provider Nurse Practitioner Psychiatric/Mental Health; Visit Provider Nurse Practitioner Psychiatric/Mental Health
DX: F31.9 Bipolar disorder, unspecified (principal)
CPT/HCPCS: 36415; 80164

== ENCOUNTER → 2024-10-02 | Outpatient (CLI) | payer MEDICAID, SELFPAY ==
[2024-10-02 23:06] LABS: ALB/GLOB Ratio 1.2 RATIO (0.9-2.4); AST(SGOT) 23 U/L (15-37); Alanine Aminotransfer ALT/SGPT 61 U/L (16-61); Albumin, Serum 3.8 g/dL (3.2-5.0); Alkaline Phosphatase 44 U/L (45-117); Anion Gap 4 (5-15); BUN 12 mg/dL (7-18); BUN/Creat Ratio 10.3 RATIO (10-20); Calcium,Total 9.2 mg/dL (8.5-10.1); Chloride 106 mmol/L (98-107); Creatinine, Serum 1.17 mg/dL (0.70-1.30); EST Glomerular Filtration Rate 76 mL/min (>60); Est Glom Filt Rate - Afr Amer 92 mL/min (>60); Globulin 3.2 g/dL (2.2-4.2); Glucose 99 mg/dL (74-106); Sodium Level 141 mmol/L (136-145)
[2024-10-05 15:07] LABS: Absolute CD4 Helper 1130 /uL (359-1519); Basophils (Absolute) 0.1 x10E3/uL (0.0-0.2); Eosinophils 3 % (Not Estab.); Eosinophils (Absolute) 0.2 x10E3/uL (0.0-0.4); Hematocrit 43.9 % (37.5-51.0); Hemoglobin 14.3 g/dL (13.0-17.7); Immature Granulocytes 2 % (Not Estab.); Immature Granulocytes Absolute 0.1 x10E3/uL (0.0-0.1); Lymphs 30 % (Not Estab.); Lymphs (Absolute) 2.5 x10E3/uL (0.7-3.1); MCH 32.7 pg (26.6-33.0); MCHC 32.6 g/dL (31.5-35.7); MCV 101 fL (79-97); Monocytes 7 % (Not Estab.); Monocytes (Absolute) 0.6 x10E3/uL (0.1-0.9); Neutrophils 57 % (Not Estab.); Neutrophils (Absolute) 4.7 x10E3/uL (1.4-7.0); Percent % CD4 Pos. Lymph. 45.2 % (30.8-58.5); Platelets 219 x10E3/uL (150-450); RBC Count 4.37 x10E6/uL (4.14-5.80); RDW 12.6 % (11.6-15.4); WBC Count 8.2 x10E3/uL (3.4-10.8)
[2024-10-06 16:08] LABS: HIV-1 RNA by PCR, Quant. < 20 copies/mL (.)
== END | disposition home or self-care (01) ==
LOC: LAB 22:09
PROVIDERS: PCP Internal Medicine; Visit Provider Internal Medicine
DX: B20 Human immunodeficiency virus [HIV] disease (principal)
CPT/HCPCS: 36415; 80053; 86361; 87536

== ENCOUNTER → 2024-11-11 | Outpatient (CLI) | payer MEDICAID, SELFPAY ==
[2024-11-11 13:26] LABS: ALB/GLOB Ratio 1.1 RATIO (0.9-2.4); AST(SGOT) 17 U/L (15-37); Alanine Aminotransfer ALT/SGPT 51 U/L (16-61); Albumin, Serum 3.8 g/dL (3.2-5.0); Alkaline Phosphatase 65 U/L (45-117); Anion Gap 7 (5-15); BUN 10 mg/dL (7-18); Calcium,Total 8.9 mg/dL (8.5-10.1); Chloride 105 mmol/L (98-107); Creatinine, Serum 1.11 mg/dL (0.70-1.30); EST Glomerular Filtration Rate 81 mL/min (>60); Est Glom Filt Rate - Afr Amer 97 mL/min (>60); Globulin 3.5 g/dL (2.2-4.2); Glucose 117 mg/dL (74-106); Potassium 3.8 mmol/L (3.5-5.1); Protein, Total 7.3 g/dL (6.4-8.2); Sodium Level 137 mmol/L (136-145)
[2024-11-13 12:08] LABS: HIV-1 RNA by PCR, Quant. < 20 copies/mL (.)
== END | disposition home or self-care (01) ==
LOC: LAB 11:53
PROVIDERS: PCP Internal Medicine; Referring Provider Internal Medicine; Visit Provider Internal Medicine
DX: B20 Human immunodeficiency virus [HIV] disease (principal)
CPT/HCPCS: 86361; 36415; 80053; 87536

== ENCOUNTER 2025-03-28 00:25 | Emergency (ER) | payer MEDICAID, SELFPAY ==
[2025-03-28 00:28] VITALS: BP 154/93; PULSE 121; RESP 18; TEMP 36.2; O2SAT 100; BMI 31.1
--- NOTE | 2025-03-28 00:49 | EX.ED.DYSGE1 ---
HPI History of Present Illness Chief Complaint: General Illness Informant: patient Narrative Narrative: Patient is a 34-year-old male with past medical history of hepatitis C HIV bipolar disorder as well as anxiety and depression and polysubstance use. He states that he continues to notice these lesions on his skin that seem to worsen when he gets out of the shower and when they open there appears to be some type of insect or bug moving out of the lesion. He states no one else at home has a rash. He states that he was on ketoconazole for the symptoms but has not been taking it as he has been in senior living. He states he has not seen a bus matron or had a skin biopsy. He states he is unsure if he needs to be back on his previous medication and therefore comes in for evaluation. [facility] Medical History Injury of head and neck Hepatitis Stroke/cerebrovascular accident Hidradenitis suppurativa Dysuria Genital lesion, male Positive RPR test Hepatitis C Tobacco abuse Vitamin deficiency Decreased thyroxine (T4) level Polysubstance abuse GERD (gastroesophageal reflux disease) Hives Frequent headaches Arthritis Seasonal allergies Bipolar disorder Anxiety Depression Smoker IVDU (intravenous drug user) Knee pain Asthma Home Medications ?Medication ?Instructions ?Recorded ?Last Taken ?Type bictegravir 50 mg-emtricitabine 1 tab PO DAILY 04/07/24 Unknown History 200 mg-tenofovir alafenam 25 mg tablet (Biktarvy) quetiapine 100 mg tablet 100 mg PO QHS #90 tabs 08/07/24 Unknown Rx hydroxyzine pamoate 50 mg capsule 50 mg PO PRN 03/28/25 Unknown History ketoconazole 2 % shampoo 1 applic topical Q14D #120 mL 03/28/25 Unknown Rx ketoconazole 2 % topical cream 1 applic topical BID #60 grams 03/28/25 Unknown Rx Allergy/AdvReac Type Severity Reaction Status Date / Time amoxicillin (Amoxicillin) Allergy Hives Verified 03/28/25 00:27 benzocaine (From Benzo-Creme) Allergy Hives Verified 03/28/25 00:27 clindamycin Allergy Hives Verified 03/28/25 00:27 lamotrigine (From Lamictal) Allergy rash Verified 03/28/25 00:27 mushroom Allergy Vomiting Verified 03/28/25 00:27 naproxen (From Naprosyn) Allergy Hives Verified 03/28/25 00:27 shellfish derived Allergy Vomiting Verified 03/28/25 00:27 Tetracyclines Allergy Hives Verified 03/28/25 00:27 Family History Father Diabetes Alcohol abuse Arthritis Heart disease Hyperlipidemia Hypertension Myocardial infarction Mother Diabetes Alcohol abuse Anxiety Arthritis Hyperlipidemia Thyroid disorder Other CVA (cerebral vascular accident) Depression Mental disorder Psychiatric care Surgical History No pertinent past surgical history Social History (System 07/29/24 @ 15:48 by Trena Louie) household members: friend(s) current occupational status: employed current occupation: [employer] Smoking Status: Current every day smoker tobacco type: cigarettes Electronic Cigarette Use: not used alcohol intake: never substance use type: former substance user Date of last use: 11/2023, marijuana, opiates and methamphetamine what type of physical activity do you participate in: none do you feel safe at home: Yes ROS ROS ED Constitutional Constitutional ED: Denies chills or fever(s) Eyes Eyes: Denies blurry vision or change in vision ENT ENT ED: Denies sore throat Cardiovascular Cardiovascular: Denies chest pain Respiratory/Chest Respiratory/Chest: Denies cough or dyspnea Gastrointestinal Gastrointestinal: Denies abdominal pain, diarrhea, nausea or vomiting Musculoskeletal Musculoskeletal: Denies myalgias Integumentary Reports rash Neurologic Neurologic: Denies headache(s) Hematologic/Lymphatic Hematologic/Lymphatic: Denies easy bleeding or easy bruising EXAM Physical Exam Const Vital Signs: 03/28/25 00:28 03/28/25 00:30 03/28/25 00:55 Temperature 97.2 F L 98.2 F Temperature Source Temporal Pulse Rate 121 H 98 Respiratory Rate 18 18 Respiratory Effort Normal Non-Labored Respiratory Pattern Normal Blood Pressure 154/93 H 125/89 H Blood Pressure Mean 113 101 Pulse Ox 100 98 Oxygen Delivery Method Room Air Positive well nourished and well developed General Appearance ED: well developed HEENT Reports moist mucous membranes HEENT Narrative: No tongue or lip swelling no oral lesions no airway edema or compromise No signs of infection noted in the posterior pharynx Eyes PERRL and EOMs intact bilaterally General Eye ED: Negative for scleral icterus Neck supple Neck Narrative: No nuchal rigidity or meningeal signs Resp normal respiratory effort and clear to auscultation bilaterally Cardio regular rhythm Rate: tachycardic Extremity normal to inspection Neuro oriented x3 and CN's II-XII intact bilaterally Sensorium / Orientation: alert Psych Mood & Affect: anxious Skin Skin Narrative: Patient has scattered circular areas of mild erythema with apparent excoriation most likely from him picking at the site. There is no obvious foreign object or insect/parasite noted. No surrounding soft tissue changes to suggest cellulitis or abscess. No lymphangitic streaking. No vesicular or pustule changes. No involvement of the palms or soles. MDM MDM MDM Narrative Medical decision making narrative: Patient presented hypertensive and tachycardic but otherwise afebrile. He reported that these lesions have been present for quite some time and that he has used ketoconazole in the past to help with symptoms. By exam there is no obvious cellulitis or abscess. He has concern about a insect or parasite infection but physical exam does not show any findings of this. With the patient's past medical history there is concern that his thoughts of skin disorder could be related to polysubstance abuse. However as he reports that ketoconazole has helped with symptoms in the past and he is currently not on it I will place him back on the medication. Without physical exam findings showing concern for secondary infection such as cellulitis abscess or Kaposi's sarcoma I do not feel the need for workup and patient is otherwise safe for discharge. He is not homicidal or suicidal and therefore there is no need for emergent psychiatric evaluation History & Record Review Discussion w/independent historian: Patient Discharge Plan Triage Chief Complaint: General Illness ED Provider: Ghanshyam Booth Dx/Rx/DC Orders Clinical Impression: Dermatitis, Polysubstance abuse, Hepatitis C, HIV (human immunodeficiency virus infection), Bipolar 1 disorder Instructions: ED Atopic Dermatitis (Adult) Prescriptions: New ketoconazole 2 % shampoo 1 applic topical Q14D Qty: 120 0RF ketoconazole 2 % cream 1 applic topical BID Qty: 60 0RF No Action Biktarvy 50-200-25 mg tablet 1 tab PO DAILY hydroxyzine pamoate 50 mg capsule 50 mg PO PRN quetiapine 100 mg tablet 100 mg PO QHS Qty: 90 1RF Primary Care Provider: Elise Lopez Referrals: Elise Lopez MD [Primary Care Provider] - Paula Cano MD [Non-Staff] - Activity Restrictions/Additional Instructions: Based on the chronicity of your lesions and the recurrent nature you will most likely need a biopsy to truly diagnose the cause. Please begin using the ketoconazole shampoo and cream to help with symptoms. Follow-up with dermatology for further evaluation and return to the ER should you have any further concerns Print Language: Armenian Disposition Disposition: Home, Self Care Discharge Date/Time: 03/28/25 00:56
[2025-03-28 00:55] VITALS: BP 125/89; PULSE 98; RESP 18; TEMP 36.8; O2SAT 98
--- OUTSIDE RECORDS SUMMARY | 2025-03-28 01:03 | XMS RPT_ITS | CCD ---
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 Chronic Sexually transmitted infections (not HIV or hepatitis) (4 sources) Syphilis; Translations: [Syphilis, unspecified] 02-07-2024 Episodic Skin and subcutaneous tissue infections (20 sources) Abscess of skin of right ankle; Translations: [Cutaneous abscess of right lower limb] Onset: 4 05-03-2022 Episodic Spondylosis; intervertebral disc disorders; other back problems (12 sources) Acute low back pain; Translations: [Acute low back pain] 05-25-2021 Episodic Substance-related disorders (20 sources) Polysubstance abuse ; Translations: [Other psychoactive substance abuse, uncomplicated] Onset: Chronic Past or Other Problems Problem Classification Problem Date Documented Da te Episodic/Chronic Fluid and electrolyte disorders (18 sources) Lactic acidemia; Translations: [Lactic acidemia] Onset: 10-26-2020 Resolved: 02-07-2024 10-26-2020 Episodic Immunizations and screening for infectious disease (13 sources) Patient encounter status; Translations: [Encounter for screening for infections with a predominantly sexual mode of transmission] Onset: 04-10-2024 02-07-2024 Episodic Noninfectious gastroenteritis (1 source) Noninfective gastroenteritis and colitis, unspecified; Translations: [Noninfective gastroenteritis and colitis, unspecified] Onset: 07-29-2024 Episodic Other gastrointestinal disorders (3 sources) Diarrhea, unspecified; Translations: [Diarrhea] Onset: 06-19-2024 01-29-2024 Episodic Other infections; including parasitic (14 sources) History of hepatitis C; Translations: [Personal history of other infectious and parasitic diseases] Onset: 02-07-2024 02-07-2024 Episodic Other inflammatory condition of skin (2 sources) Seborrheic dermatitis, unspecified; Translations: [Seborrheic dermatitis, unspecified] Onset: 06-19-2024 Episodic Other injuries and conditions due to external causes (18 sources) Injury of face; Translations: [Unspecified injury of face, initial encounter] Onset: 10-26-2020 Resolved: 02-07-2024 10-29-2020 Episodic Other skin disorders (20 sources) Hidradenitis suppurativa; Translations: [Hidradenitis suppurativa] Onset: 02-07-2024 03-05-2023 Episodic Other upper respiratory infections (20 sources) Viral upper respiratory tract infection; Translations: [Acute upper respiratory infection, unspecified] Onset: 04-16-2024 08-11-2021 Episodic Residual codes; unclassified (20 sources) Tobacco user; Translations: [Tobacco use] Onset: 02-07-2024 10-05-2022 Episodic Superficial injury; contusion (20 sources) Hematoma of oral cavity; Translations: [Abrasion of scalp] Onset: 10-28-2020 Resolved: 02-07-2024 10-28-2020 Episodic Results Test Name Value Interpretation Reference Range Facility 36on 03-18-2025 36 I will refill for another 30 days but he will need to contact us as soon as he is out of longterm so we can get him an appt scheduled. He has labs done already that were done while in longterm. Normal [facility] 36 Patient is still in [facility] longterm and is scheduled to be released on 03/26. He is on his last tablet of Biktarvy and will need refill for dose tomorrow. According to longterm staff, he will need to coordinate follow up after discharge and they will not be scheduling to bring him to an appointment since he will be released soon. Patient wants to know if 1 more refill of Biktarvy can be sent to longterm to get him through until discharge. He will schedule follow up after his release. Normal [facility] CD4 Count, Bloodon 5 LAB CP FLOW PB %CD4 (HELP/IND) 45 % Normal 32-58 [facility] Comment on above: Result Comment: Test ing Performed At: [facility] [address] [place] [address] Performed By: #### C D4C #### [facility] (UNKNOWN) [address], [place] [address] LAB CP FLOW PB CD4 ABSOLUTE 1032 Cells/mcL Normal 430-1580 [facility] Comment on above: Result Comment: Test ing Performed At: [facility] [address] [place] [address] Performed By: #### C D4C #### [facility] (UNKNOWN) [address], [place] [address] Comprehensive Metabolic Pane sanaz 02-16-2025 Albumin [Mass/Vol] 4.6 g/dL Normal 3.2-5.2 [facility] Comment on above: Performed By: #### C MP #### [facility] (DEFAULT) [address] [place], [place] [address]sim[place], [place] [address] ALP [Catalytic activity/Vol] 59 U/L Normal 40-140 [facility] Comment on above: Performed By: #### C MP #### [facility] (DEFAULT) [address] [place], [place] [address]on [place], [place] [address] ALT [Catalytic activity/Vol] 40 U/L Normal 0-50 [facility] Comment on above: Performed By: #### C MP #### [facility] (DEFAULT) [address] [place] [address] Anion gap [Moles/Vol] 14 mmol/L Normal 10-20 [facility] Comment on above: Performed By: #### C MP #### [facility] (DEFAULT) [address] [place], [place] [address]on [place], [place] [address] AST [Catalytic activity/Vol] 25 U/L Normal 0-50 [facility] Comment on above: Performed By: #### C MP #### [facility] (DEFAULT) [address] [place] [address] Bilirubin [Mass/Vol] 0.8 mg/dL Normal 0.0-1.3 [facility] Comment on above: Performed By: #### C MP #### [facility] (DEFAULT) [address] [place] [address] Calcium [Mass/Vol] 9.2 mg/dL Normal 8.4-10.2 [facility] Comment on above: Performed By: #### C MP #### [facility] (DEFAULT) [address] [place], [place] [address] Chloride [Moles/Vol] 102 mmol/L Normal 98-108 [facility] Comment on above: Performed By: #### C MP #### [facility] (DEFAULT) [address] [place], [place] [address] CO2 [Moles/Vol] 29.0 mmol/L Normal 21.0-32.0 [facility] Comment on above: Performed By: #### C MP #### [facility] (DEFAULT) [address] [place], [place] [address] Creatinine [Mass/Vol] 1.1 mg/dL Normal 0.5-1.3 [facility] Comment on above: Performed By: #### C MP #### [facility] (DEFAULT) [address] [place], [place] [address] [place], [place] [address] GFR/1.73 sq M.predicted MDRD (S/P/Bld) [Vol rate/Area] 93 mL/min/{1.73_m2} Normal 60-1000 [facility] Comment on above: Result Comment: The eGFR should be used for monitoring renal function only and not for medication dosing. Performed By: #### C MP #### [facility] (DEFAULT) [address] [place], [place] [address] Glucose [Mass/Vol] 97 mg/dL Normal 65-99 [facility] Comment on above: Performed By: #### C MP #### [facility] (DEFAULT) [address] [place], [place] [address] Potassium [Moles/Vol] 3.9 mmol/L Normal 3.5-5.1 [facility] Comment on above: Performed By: #### C MP #### [facility] (DEFAULT) [address] [place], [place] [address] Protein [Mass/Vol] 7.3 g/dL Normal 6.0-8.0 [facility] Comment on above: Performed By: #### C MP #### [facility] (DEFAULT) [address] [place], [place] [address] Sodium [Moles/Vol] 141 mmol/L Normal 135-145 [facility] Comment on above: Performed By: #### C MP #### [facility] (DEFAULT) [address] [place], [place] [address] Urea nitrogen [Mass/Vol] 14 mg/dL Normal 8-25 [facility] Comment on above: Performed By: #### C MP #### [facility] (DEFAULT) [address] [place], [place] [address] 36on 02-11-2025 36 I will refill for 30 days only as we need to make sure I get lab results and that we follow up on when he can be seen. [place] [address] Spoke to [facility] magdalena King. They are noit sure how long Weston will be at their facility. He may transfer to [facility] if they have room. They can draw his blood. Lab orders faxed to [facility] at . [facility] 36on 02-09-2025 36 Thank you. Maybe we could get an idea of how much longer they anticipate he will be there? If they are able to do the labs, let me know and I can order and have the staff fax them to the longterm. [place] [address] Patient currently in [facility] I will call them to see if they are able to draw his labs. [place] [address] Left another message for patient to call the office. [facility] 36on 02-08-2025 36 Left message to call office. [place] [address] I have not seen Ivan in since his first follow up appt after starting ART. This was back in May. He was supposed to follow up in 4 months. He will need to get labs done again, as the last ones were from September. Please call him to schedule him an appt to see me. Please see where he wants to get labs done and I will then order them. Once we have talked ot him and made an appt, then I will send one month of refills. I will not be able to refill beyond that until he is seen. Normal [facility] 36on 01-11-2025 36 Will do one refill a t this time so we can follow up on his situation. He is past due for follow up. [facility] 36on 01-08-2025 36 Last seen 06/19/24, no future appt scheduled Patient is now in [facility] overflow at the [facility] facility. They are requesting a refill of his medication to be delivered. Rx pended for approval. [facility] 36on 12-10-2024 36 Last seen 06/19/24, no future appt scheduled Labs completed. Pt stated he is waiting to confirm if he will have to face longterm time soon before scheduling an appt. Additional 30 day supply pended to hold him over. Please approve if appropriate. [facility] HIV Viral Load Quanton 11-13 HIV-1 RNA, PCR < 20 Normal . [facility] Comment on above: Result Comment: HIV- 1 RNA not detected The reportable range for this assay is 20 to 10,000,000 copies HIV-1 RNA/mL. Performed By: #### L 3400.8000, L3890.0200, L500.4050, L3890.4000, L100.0100 #### [facility] [address] [place], [address] log10 HIV-1 RNA TNP Normal . [facility] Comment on above: Result Comment: Resu lt Units: [id number]/mL Unable to calculate result since non-numeric result obtained for component test. Performed at: - [address] [id number] [place]: Ashlyn Foley MD, Phone: [phone] Performed By: #### L 3400.8000, L3890.0200, L500.4050, L3890.4000, L100.0100 #### [facility] [address] [place], [address] Progress Noteon 11-12-2024 Progress Note New orders needed [facility] to draw. Normal [facility] CD4, T Lymph [place] Count[place] 11-11-2024 % CD4 POS.LYMPH Normal [facility] Comment on above: Result Comment: REJE CTED BY [facility]. ACDA TUBE RF. MUST BE RT Performed By: #### L 100.0100, L500.4050 #### [facility] [address] [place], [address] ABSOLUTE CD4 Normal [facility] Comment on above: Result Comment: REJE CTED BY [facility]. ACDA TUBE RF. MUST BE RT Performed By: #### L 100.0100, L500.4050 #### [facility] [address] [place], [address] Basophils Normal [facility] Comment on above: Result Comment: REJE CTED BY [facility]. ACDA TUBE RF. MUST BE RT Performed By: #### L 100.0100, L500.4050 #### [facility] [address] [place], [address] Basos Absolute Normal [facility] Comment on above: Result Comment: REJE CTED BY [facility]. ACDA TUBE RF. MUST BE RT Performed By: #### L 100.0100, L500.4050 #### [facility] [address] [place], [address] Eos Absolute Normal [facility] Comment on above: Result Comment: REJE CTED BY [facility]. ACDA TUBE RF. MUST BE RT Performed By: #### L 100.0100, L500.4050 #### [facility] [address] [place], [address] Eosinophils Normal [facility] Comment on above: Result Comment: REJE CTED BY [facility]. ACDA TUBE RF. MUST BE RT Performed By: #### L 100.0100, L500.4050 #### [facility] [address] [place], [address] Hematocrit Normal [facility] Comment on above: Result Comment: REJE CTED BY [facility]. ACDA TUBE RF. MUST BE RT Performed By: #### L 100.0100, L500.4050 #### [facility] [address] [place], [address] Hemoglobin Normal [facility] Comment on above: Result Comment: REJE CTED BY [facility]. ACDA TUBE RF. MUST BE RT Performed By: #### L 100.0100, L500.4050 #### [facility] [address] [place], [address] Imm Grans Abs Normal [facility] Comment on above: Result Comment: REJE CTED BY [facility]. ACDA TUBE RF. MUST BE RT Performed By: #### L 100.0100, L500.4050 #### [facility] [address] [place], [address] Immature Cells Normal [facility] Comment on above: Result Comment: REJE CTED BY [facility] ACDA TUBE RF. MUST BE RT Performed By: #### L 100.0100, L500.4050 #### [facility] [address] [place], [address] Immature Grans Normal [facility] Comment on above: Result Comment: REJE CTED BY [facility] ACDA TUBE RF. MUST BE RT Performed By: #### L 100.0100, L500.4050 #### [facility] [address] [place], [address] Lymphocytes Normal [facility] Comment on above: Result Comment: REJE CTED BY [facility]. ACDA TUBE RF. MUST BE RT Performed By: #### L 100.0100, L500.4050 #### [facility] [address] [place], [address] Lymphs Absolute Normal [facility] Comment on above: Result Comment: REJE CTED BY [facility] ACDA TUBE RF. MUST BE RT Performed By: #### L 100.0100, L500.4050 #### [facility] [address] [place], [address] MCH Normal [facility] Comment on above: Result Comment: REJE CTED BY [facility] ACDA TUBE RF. MUST BE RT Performed By: #### L 100.0100, L500.4050 #### [facility] [address] [place], [address] MCHC Normal [facility] Comment on above: Result Comment: REJE CTED BY [facility] ACDA TUBE RF. MUST BE RT Performed By: #### L 100.0100, L500.4050 #### [facility] [address] [place], [address] MCV Normal [facility] Comment on above: Result Comment: REJE CTED BY [facility] ACDA TUBE RF. MUST BE RT Performed By: #### L 100.0100, L500.4050 #### [facility] [address] [place], [address] Monocytes Normal [facility] Comment on above: Result Comment: REJE CTED BY [facility] ACDA TUBE RF. MUST BE RT Performed By: #### L 100.0100, L500.4050 #### [facility] [address] [place], [address] Monos Absolute Normal [facility] Comment on above: Result Comment: REJE CTED BY [facility] ACDA TUBE RF. MUST BE RT Performed By: #### L 100.0100, L500.4050 #### [facility] [address] [place], [address] Neutro Absolute Normal [facility] Comment on above: Result Comment: REJE CTED BY [facility] ACDA TUBE RF. MUST BE RT Performed By: #### L 100.0100, L500.4050 #### [facility] [address] [place], [address] Neutrophils Normal [facility] Comment on above: Result Comment: REJE CTED BY [facility] ACDA TUBE RF. MUST BE RT Performed By: #### L 100.0100, L500.4050 #### [facility] [address] [place], [address] NRBC Count Normal [facility] Comment on above: Result Comment: REJE CTED BY [facility] ACDA TUBE RF. MUST BE RT Performed By: #### L 100.0100, L500.4050 #### [facility] [address] [place], [address] Plt Count Normal [facility] Comment on above: Result Comment: REJE CTED BY [facility] ACDA TUBE RF. MUST BE RT Performed By: #### L 100.0100, L500.4050 #### [facility] [address] [place], [address] RBC Count Normal [facility] Comment on above: Result Comment: REJE CTED BY [facility] ACDA TUBE RF. MUST BE RT Performed By: #### L 100.0100, L500.4050 #### [facility] [address] [place], [address] RDW Normal [facility] Comment on above: Result Comment: REJE CTED BY [facility] ACDA TUBE RF. MUST BE RT Performed By: #### L 100.0100, L500.4050 #### [facility] [address] [place], [address] WBC Count Normal [facility] Comment on above: Result Comment: REJE CTED BY [facility] ACDA TUBE RF. MUST BE RT Performed By: #### L 100.0100, L500.4050 #### [facility] [address] [place], [address] Comprehensive Metabolic Prof ilon 11-11-2024 Albumin [Mass/Vol] 3.8 g/dL Normal 3.2-5.0 [facility] Comment on above: Performed By: #### L 100.0100, L500.4050 #### [facility] [address] [place], [address] Albumin/Globulin [Mass ratio] 1.1 {ratio} Normal 0.9-2.4 [facility] Comment on above: Performed By: #### L 100.0100, L500.4050 #### [facility] [address] [place], [address] ALK P 65 U/L Normal 45-117 [facility] Comment on above: Performed By: #### L 100.0100, L500.4050 #### [facility] [address] [place], [address] ALT [Catalytic activity/Vol] 51 U/L Normal 16-61 [facility] Comment on above: Performed By: #### L 100.0100, L500.4050 #### [facility] [address] [place], [address] AST [Catalytic activity/Vol] 17 U/L Normal 15-37 [facility] Comment on above: Performed By: #### L 100.0100, L500.4050 #### [facility] [address] [place], [address] Bilirubin [Mass/Vol] 0.70 mg/dL Normal 0.20-1.00 [facility] Comment on above: Result Comment: For patients on eltrombopag therapy, use of Dimension [place] TBIL is not recommended. Performed By: #### L 100.0100, L500.4050 #### [facility] [address] [place], [address] BUN/CRE 9.0 RATIO Low 10-20 [facility] Comment on above: Performed By: #### L 100.0100, L500.4050 #### [facility] [address] [place], [address] CA,Total 8.9 mg/dL Normal 8.5-10.1 [facility] Comment on above: Performed By: #### L 100.0100, L500.4050 #### [facility] [address] [place], [address] Chloride [Moles/Vol] 105 mmol/L Normal 98-107 [facility] Comment on above: Performed By: #### L 100.0100, L500.4050 #### [facility] [address] [place], [address] CO2 [Moles/Vol] 25.0 mmol/L Normal 21.0-32.0 [facility] Comment on above: Performed By: #### L 100.0100, L500.4050 #### [facility] [address] [place], [address] Creatinine [Mass/Vol] 1.11 mg/dL Normal 0.70-1.30 [facility] Comment on above: Result Comment: The validity of the calculated GFR GFRAA in patients over 70 years has not been determined. Clinical correlation is essential. Performed By: #### L 100.0100, L500.4050 #### [facility] [address] [place], [address] EST GFR - AA 97 mL/min Normal >60 [facility] Comment on above: Result Comment: Afri can [place] GFR Calc Performed By: #### L 100.0100, L500.4050 #### [facility] [address] [place], [address] GAP 7 Normal 5-15 [facility] Comment on above: Performed By: #### L 100.0100, L500.4050 #### [facility] [address] [place], [address] GFR/1.73 sq M.predicted among non-blacks MDRD (S/P/Bld) [Vol rate/Area] 81 mL/min/{1.73_m2} Normal >60 [facility] Comment on above: Result Comment: Non- GFR Calc Performed By: #### L 100.0100, L500.4050 #### [facility] [address] [place], [address] Globulin (S) [Mass/Vol] 3.5 g/dL Normal 2.2-4.2 [facility] Comment on above: Performed By: #### L 100.0100, L500.4050 #### [facility] [address] [place], [address] Glucose [Mass/Vol] 117 mg/dL High 74-106 [facility] Comment on above: Result Comment: Fast ing Glucose result from 100 to 125 mg/dL suggests IMPAIRED HOMEOSTASIS per A.D.A. criteria. Performed By: #### L 100.0100, L500.4050 #### [facility] [address] [place], [address] Potassium [Moles/Vol] 3.8 mmol/L Normal 3.5-5.1 [facility] Comment on above: Performed By: #### L 100.0100, L500.4050 #### [facility] [address] [place], [address] Sodium [Moles/Vol] 137 mmol/L Normal 136-145 [facility] Comment on above: Performed By: #### L 100.0100, L500.4050 #### [facility] [address] [place], [address] T PROT 7.3 g/dL Normal 6.4-8.2 [facility] Comment on above: Performed By: #### L 100.0100, L500.4050 #### [facility] [address] [place], [address] Urea nitrogen [Mass/Vol] 10 mg/dL Normal 7-18 [facility] Comment on above: Performed By: #### L 100.0100, L500.4050 #### [facility] [address] [place], [address] 36on 11-02-2024 36 Last seen 06/19/24, no future appt scheduled Patient is due for follow-up, we will remind him to get labs done and schedule appt Normal [facility] 36on 10-06-2024 36 Name of caller: Ivan in Contact phone number: [phone] Relationship to Patient: patient Provider: Dr Parada Practice: [facility] Chief Complaint/Reason for Call: Patient stated he is needing refills for ketoconazole (NIZOral) 2 % cream and bictegravir-emtricitab- tenofovir (Biktarvy) 50-200-25 MG tablet. I apologize, I did not realize we do not take these types of calls for your office, but I wanted you to know that your patient was needing his medications Best time of day caller can be reached: any Patient advised that office/PCP has 24-48 business hours to return their call: No Normal [facility] HIV Viral Load Quanton 10-06 HIV-1 RNA, PCR < 20 Normal . [facility] [facility] Comment on above: Result Comment: HIV- 1 RNA not detected The reportable range for this assay is 20 to 10,000,000 copies HIV-1 RNA/mL. Performed By: #### L 3400.8000, L3890.0200, L500.4050, L3890.4000, L100.0100 #### [facility] [address] [place], [address] log10 HIV-1 RNA TNP Normal . [facility] Comment on above: Result Comment: Resu lt Units: [id number]/mL Unable to calculate result since non-numeric result obtained for component test. Performed at: [address] [id number] [place]: Ashlyn Foley MD, Phone: [phone] Performed By: #### L 3400.8000, L3890.0200, L500.4050, L3890.4000, L100.0100 #### [facility] [address] [place], [address] CD4, T Lymph [place] 10-05-2024 % CD4 POS.LYMPH 45.2 Normal 30.8-58.5 [facility] Comment on above: Performed By: #### L 3400.8000, L3890.0200, L500.4050, L3890.4000, L100.0100 #### [facility] [address] [place], [address] ABSOLUTE CD4 1130 /uL Normal 359-1519 [facility] Comment on above: Performed By: #### L 3400.8000, L3890.0200, L500.4050, L3890.4000, L100.0100 #### [facility] [address] [place], [address] Basophils 1 Normal Not Estab. [facility] Comment on above: Performed By: #### L 3400.8000, L3890.0200, L500.4050, L3890.4000, L100.0100 #### [facility] [address] [place], [address] Basos Absolute 0.1 x10E3/uL Normal 0.0-0.2 [facility] Comment on above: Performed By: #### L 3400.8000, L3890.0200, L500.4050, L3890.4000, L100.0100 #### [facility] [address] [place], [address] Eos Absolute 0.2 x10E3/uL Normal 0.0-0.4 [facility] Comment on above: Performed By: #### L 3400.8000, L3890.0200, L500.4050, L3890.4000, L100.0100 #### [facility] [address] [place], [address] Eosinophils 3 Normal Not Estab. [facility] Comment on above: Performed By: #### L 3400.8000, L3890.0200, L500.4050, L3890.4000, L100.0100 #### [facility] [address] [place], [address] Erythrocyte distribution width (RBC) [Ratio] 12.6 % Normal 11.6-15.4 [facility] Comment on above: Performed By: #### L 3400.8000, L3890.0200, L500.4050, L3890.4000, L100.0100 #### [facility] [address] [place], [address] Hematocrit (Bld) [Volume fraction] 43.9 % Normal 37.5-51.0 [facility] Comment on above: Performed By: #### L 3400.8000, L3890.0200, L500.4050, L3890.4000, L100.0100 #### [facility] [address] [place], [address] Heme Comment TNP Normal . [facility] Comment on above: Performed By: #### L 3400.8000, L3890.0200, L500.4050, L3890.4000, L100.0100 #### [facility] [address] [place], [address] Hemoglobin (Bld) [Mass/Vol] 14.3 g/dL Normal 13.0-17.7 [facility] Comment on above: Performed By: #### L 3400.8000, L3890.0200, L500.4050, L3890.4000, L100.0100 #### [facility] [address] [place], [address] Imm Grans Abs 0.1 x10E3/uL Normal 0.0-0.1 [facility] Comment on above: Result Comment: Perf ormed at: - [facility] [address] [id number] [place]: Toy Rider PhD, Phone: [phone] Performed By: #### L 3400.8000, L3890.0200, L500.4050, L3890.4000, L100.0100 #### [facility] [address] [place], [address] Immature Cells TNP Normal . [facility] Comment on above: Performed By: #### L 3400.8000, L3890.0200, L500.4050, L3890.4000, L100.0100 #### [facility] [address] [place], [address] Immature Grans 2 Normal Not Estab. [facility] Comment on above: Performed By: #### L 3400.8000, L3890.0200, L500.4050, L3890.4000, L100.0100 #### [facility] [address] [place], [address] Lymphocytes 30 Normal Not Estab. [facility] Comment on above: Performed By: #### L 3400.8000, L3890.0200, L500.4050, L3890.4000, L100.0100 #### [facility] [address] [place], [address] Lymphocytes (Bld) [#/Vol] 2.5 10*3/uL Normal 0.7-3.1 [facility] Comment on above: Performed By: #### L 3400.8000, L3890.0200, L500.4050, L3890.4000, L100.0100 #### [facility] [address] [place], [address] MCH (RBC) [Entitic mass] 32.7 pg Normal 26.6-33.0 [facility] Comment on above: Performed By: #### L 3400.8000, L3890.0200, L500.4050, L3890.4000, L100.0100 #### [facility] [address] [place], [address] MCHC (RBC) [Mass/Vol] 32.6 g/dL Normal 31.5-35.7 [facility] Comment on above: Performed By: #### L 3400.8000, L3890.0200, L500.4050, L3890.4000, L100.0100 #### [facility] [address] [place], [address] MCV (RBC) [Entitic vol] 101 fL High 79-97 [facility] Comment on above: Performed By: #### L 3400.8000, L3890.0200, L500.4050, L3890.4000, L100.0100 #### [facility] [address] [place], [address] Monocytes 7 Normal Not Estab. [facility] Comment on above: Performed By: #### L 3400.8000, L3890.0200, L500.4050, L3890.4000, L100.0100 #### [facility] [address] [place], [address] Monos Absolute 0.6 x10E3/uL Normal 0.1-0.9 [facility] Comment on above: Performed By: #### L 3400.8000, L3890.0200, L500.4050, L3890.4000, L100.0100 #### [facility] [address] [place], [address] Neutro Absolute 4.7 x10E3/uL Normal 1.4-7.0 [facility] Comment on above: Performed By: #### L 3400.8000, L3890.0200, L500.4050, L3890.4000, L100.0100 #### [facility] [address] [place], [address] Neutrophils 57 Normal Not Estab. [facility] Comment on above: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 mass] 33.0 pg Normal 26.6-33.0 [facility] Comment on above: Performed By: #### L 3890.0200, L100.0100, L500.4050, L3890.4000 #### [facility] [address] [place], [address] MCHC (RBC) [Mass/Vol] 32.6 g/dL Normal 31.5-35.7 [facility] Comment on above: Performed By: #### L 3890.0200, L100.0100, L500.4050, L3890.4000 #### [facility] [address] [place], [address] MCV (RBC) [Entitic vol] 101 fL High 79-97 [facility] Comment on above: Performed By: #### L 3890.0200, L100.0100, L500.4050, L3890.4000 #### [facility] [address] [place], [address] Monocytes 7 Normal Not Estab. [facility] Comment on above: Performed By: #### L 3890.0200, L100.0100, L500.4050, L3890.4000 #### [facility] [address] [place], [address] Monos Absolute 0.5 x10E3/uL Normal 0.1-0.9 [facility] Comment on above: Performed By: #### L 3890.0200, L100.0100, L500.4050, L3890.4000 #### [facility] [address] [place], [address] Neutro Absolute 4.2 x10E3/uL Normal 1.4-7.0 [facility] Comment on above: Performed By: #### L 3890.0200, L100.0100, L500.4050, L3890.4000 #### [facility] [address] [place], [address] Neutrophils 60 Normal Not Estab. [facility] Comment on above: Performed By: #### L 3890.0200, L100.0100, L500.4050, L3890.4000 #### [facility] [address] [place], [address] NRBC Count TNP Normal . [facility] Comment on above: Performed By: #### L 3890.0200, L100.0100, L500.4050, L3890.4000 #### [facility] [address] [place], [address] Platelets (Bld) [#/Vol] 261 10*3/uL Normal 150-450 [facility] Comment on above: Performed By: #### L 3890.0200, L100.0100, L500.4050, L3890.4000 #### [facility] [address] [place], [address] RBC (Bld) [#/Vol] 4.55 10*6/uL Normal 4.14-5.80 [facility] Comment on above: Performed By: #### L 3890.0200, L100.0100, L500.4050, L3890.4000 #### [facility] [address] [place], [address] WBC (Bld) [#/Vol] 7.0 10*3/uL Normal 3.4-10.8 [facility] Comment on above: Performed By: #### L 3890.0200, L100.0100, L500.4050, L3890.4000 #### [facility] [address] [place], [address] HIV Viral Load Quanton 06-15 HIV-1 RNA, PCR < 20 Normal . [facility] Comment on above: Result Comment: HIV- 1 RNA not detected The reportable range for this assay is 20 to 10,000,000 copies HIV-1 RNA/mL. Performed By: #### L 100.0100, L500.4050 #### [facility] [address] [place], [address] log10 HIV-1 RNA TNP Normal . [facility] Comment on above: Result Comment: Resu lt Units: [id number]/mL Unable to calculate result since non-numeric result obtained for component test. Performed at: [address] [id number] [place]: Ashlyn Foley MD, Phone: [phone] Performed By: #### L 100.0100, L500.4050 #### [facility] [address] [place], [address] CBC W/Diff, Automatedon 05-31-2023 Absolute Lymph 2.07 X10 3/uL Normal 0.83-4.51 [facility] Comment on above: Performed By: #### L 3890.0200, L100.0100, L500.4050, L3890.4000 #### [facility] [address] [place], [address] Absolute Neut 4.1 X10 3/uL Normal 2.0-7.7 [facility] Comment on above: Performed By: #### L 3890.0200, L100.0100, L500.4050, L3890.4000 #### [facility] [address] [place], [address] Basophils/100 WBC (Bld) 0.3 % Normal 0-1 [facility] Comment on above: Performed By: #### L 3890.0200, L100.0100, L500.4050, L3890.4000 #### [facility] [address] [place], [address] Eosinophils/100 WBC (Bld) 1.7 % Normal 0-5 [facility] Comment on above: Performed By: #### L 3890.0200, L100.0100, L500.4050, L3890.4000 #### [facility] [address] [place], [address] Erythrocyte distribution width (RBC) [Ratio] 13.0 % Normal 11.6-14.6 [facility] Comment on above: Performed By: #### L 3890.0200, L100.0100, L500.4050, L3890.4000 #### [facility] [address] [place], [address] Hematocrit (Bld) [Volume fraction] 41.6 % Normal 40-54 [facility] Comment on above: Performed By: #### L 3890.0200, L100.0100, L500.4050, L3890.4000 #### [facility] [address] [place], [address] Hemoglobin (Bld) [Mass/Vol] 14.6 g/dL Normal 13.0-16.5 [facility] Comment on above: Performed By: #### L 3890.0200, L100.0100, L500.4050, L3890.4000 #### [facility] [address] [place], [address] IG% 0.400 Normal 0.0-0.9 [facility] Comment on above: Result Comment: IG% - Immature Granulocytes (promyelocytes, myelocytes and metamyelocytes) > 1% indicates that a LEFT SHIFT is Present. Performed By: #### L 3890.0200, L100.0100, L500.4050, L3890.4000 #### [facility] [address] [place], [address] Lymphocytes/100 WBC (Bld) 30.2 % Normal 19-41 [facility] Comment on above: Performed By: #### L 3890.0200, L100.0100, L500.4050, L3890.4000 #### [facility] [address] [place], [address] MCH (RBC) [Entitic mass] 32.6 pg High 27.0-32.0 [facility] Comment on above: Performed By: #### L 3890.0200, L100.0100, L500.4050, L3890.4000 #### [facility] [address] [place], [address] MCHC (RBC) [Mass/Vol] 35.1 g/dL Normal 32-36 [facility] Comment on above: Performed By: #### L 3890.0200, L100.0100, L500.4050, L3890.4000 #### [facility] [address] [place], [address] MCV (RBC) [Entitic vol] 92.9 fL Normal 80-94 [facility] Comment on above: Performed By: #### L 3890.0200, L100.0100, L500.4050, L3890.4000 #### [facility] [address] [place], [address] Monocytes/100 WBC (Bld) 7.6 % Normal 0-10 [facility] Comment on above: Performed By: #### L 3890.0200, L100.0100, L500.4050, L3890.4000 #### [facility] [address] [place], [address] Neutrophils/100 WBC (Bld) 59.8 % Normal 47-70 [facility] Comment on above: Performed By: #### L 3890.0200, L100.0100, L500.4050, L3890.4000 #### [facility] [address] [place], [address] Nucleated RBC (Bld) [#/Vol] 0 10*3/uL Normal 0-5 [facility] Comment on above: Performed By: #### L 3890.0200, L100.0100, L500.4050, L3890.4000 #### [facility] [address] [place], [address] Platelet mean volume (Bld) [Entitic vol] 9.8 fL Normal 6.2-12.0 [facility] Comment on above: Performed By: #### L 3890.0200, L100.0100, L500.4050, L3890.4000 #### [facility] [address] [place], [address] Platelets (Bld) [#/Vol] 250 10*3/uL Normal 150-450 [facility] Comment on above: Performed By: #### L 3890.0200, L100.0100, L500.4050, L3890.4000 #### [facility] [address] [place], [address] RBC (Bld) [#/Vol] 4.48 10*6/uL Low 4.6-6.2 [facility] Comment on above: Performed By: #### L 3890.0200, L100.0100, L500.4050, L3890.4000 #### [facility] [address] [place], [address] RDW SD 44.0 fl High 35.1-43.9 [facility] Comment on above: Performed By: #### L 3890.0200, L100.0100, L500.4050, L3890.4000 #### [facility] [address] [place], [address] WBC (Bld) [#/Vol] 6.9 10*3/uL Normal 4.4-11.0 [facility] Comment on above: Performed By: #### L 3890.0200, L100.0100, L500.4050, L3890.4000 #### [facility] [address] [place], [address] Comprehensive Metabolic Prof ilon 06-12-2024 Albumin [Mass/Vol] 4.1 g/dL Normal 3.2-5.0 [facility] Comment on above: Performed By: #### L 3890.0200, L100.0100, L500.4050, L3890.4000 #### [facility] [address] [place], [address] Albumin/Globulin [Mass ratio] 1.3 {ratio} Normal 0.9-2.4 [facility] Comment on above: Performed By: #### L 3890.0200, L100.0100, L500.4050, L3890.4000 #### [facility] [address] [place], [address] ALK P 49 U/L Normal 45-117 [facility] Comment on above: Performed By: #### L 3890.0200, L100.0100, L500.4050, L3890.4000 #### [facility] [address] [place], [address] ALT [Catalytic activity/Vol] 26 U/L Normal 16-61 [facility] Comment on above: Performed By: #### L 3890.0200, L100.0100, L500.4050, L3890.4000 #### [facility] [address] [place], [address] AST [Catalytic activity/Vol] 24 U/L Normal 15-37 [facility] Comment on above: Performed By: #### L 3890.0200, L100.0100, L500.4050, L3890.4000 #### [facility] [address] [place], [address] Bilirubin [Mass/Vol] 1.30 mg/dL High 0.20-1.00 [facility] Comment on above: Result Comment: For patients on eltrombopag therapy, use of Dimension [place] TBIL is not recommended. Performed By: #### L 3890.0200, L100.0100, L500.4050, L3890.4000 #### [facility] [address] [place], [address] BUN/CRE 11.2 RATIO Normal 10-20 [facility] Comment on above: Performed By: #### L 3890.0200, L100.0100, L500.4050, L3890.4000 #### [facility] [address] [place], [address] CA,Total 9.2 mg/dL Normal 8.5-10.1 [facility] Comment on above: Performed By: #### L 3890.0200, L100.0100, L500.4050, L3890.4000 #### [facility] [address] [place], [address] Chloride [Moles/Vol] 103 mmol/L Normal 98-107 [facility] Comment on above: Performed By: #### L 3890.0200, L100.0100, L500.4050, L3890.4000 #### [facility] [address] [place], [address] CO2 [Moles/Vol] 25.0 mmol/L Normal 21.0-32.0 [facility] Comment on above: Performed By: #### L 3890.0200, L100.0100, L500.4050, L3890.4000 #### [facility] [address] [place], [address] Creatinine [Mass/Vol] 0.98 mg/dL Normal 0.70-1.30 [facility] Comment on above: Result Comment: The validity of the calculated GFR GFRAA in patients over 70 years has not been determined. Clinical correlation is essential. Performed By: #### L 3890.0200, L100.0100, L500.4050, L3890.4000 #### [facility] [address] [place], [address] EST GFR - AA 113 mL/min Normal >60 [facility] Comment on above: Result Comment: Afri can [place] GFR Calc Performed By: #### L 3890.0200, L100.0100, L500.4050, L3890.4000 #### [facility] [address] [place], [address] GAP 8 Normal 5-15 [facility] Comment on above: Performed By: #### L 3890.0200, L100.0100, L500.4050, L3890.4000 #### [facility] [address] [place], [address] GFR/1.73 sq M.predicted among non-blacks MDRD (S/P/Bld) [Vol rate/Area] 93 mL/min/{1.73_m2} Normal >60 [facility] Comment on above: Result Comment: Non- GFR Calc Performed By: #### L 3890.0200, L100.0100, L500.4050, L3890.4000 #### [facility] [address] [place], [address] Globulin (S) [Mass/Vol] 3.2 g/dL Normal 2.2-4.2 [facility] Comment on above: Performed By: #### L 3890.0200, L100.0100, L500.4050, L3890.4000 #### [facility] [address] [place], [address] Glucose [Mass/Vol] 86 mg/dL Normal 74-106 [facility] Comment on above: Performed By: #### L 3890.0200, L100.0100, L500.4050, L3890.4000 #### [facility] [address] [place], [address] Potassium [Moles/Vol] 3.2 mmol/L Low 3.5-5.1 [facility] Comment on above: Performed By: #### L 3890.0200, L100.0100, L500.4050, L3890.4000 #### [facility] [address] [place], [address] Sodium [Moles/Vol] 136 mmol/L Normal 136-145 [facility] Comment on above: Performed By: #### L 3890.0200, L100.0100, L500.4050, L3890.4000 #### [facility] [address] [place], [address] T PROT 7.3 g/dL Normal 6.4-8.2 [facility] Comment on above: Performed By: #### L 3890.0200, L100.0100, L500.4050, L3890.4000 #### [facility] [address] [place], [address] Urea nitrogen [Mass/Vol] 11 mg/dL Normal 7-18 [facility] Comment on above: Performed By: #### L 3890.0200, L100.0100, L500.4050, L3890.4000 #### [facility] [address] [place], [address] MR/BMS.BPon 06-12-2024 MR/BMS.BP [address], [address] [place] [address] OFFICE VISIT Date of Service: 06/12/24 MR#: [id number] Acct: [id number] Name: WESTON SORIA Rep #: [id number] : 1990 Provider: CODY pascual Age/Sex: 33/M Location: BMS.BP Status: Signed Intake Vital Signs 05/14/24 07:15 06/12/24 10:00 Height 5 ft 3 in 5 ft 3 in Weight: 155 lb BMI 27.4 BP 113/75 Blood Pressure Location Rt brachial Position Sitting Respiration 16 Pulse 83 Pulse Source Monitor Pulse Oximetry (%) 100 Oxygen Delivery Method room air BP Intake Visit Reasons: 6 wk FU Accompanied by: Self Is patient in pain?: No (Generalized) Allergies amoxicillin (Amoxicillin) Allergy (Verified 06/12/24 10:05) Hives benzocaine (From Benzo-Creme) Allergy (Verified 06/12/24 10:05) Hives clindamycin Allergy (Verified 06/12/24 10:05) Hives lamotrigine (From Lamictal) Allergy (Verified 06/12/24 10:05) rash mushroom Allergy (Verified 06/12/24 10:05) Vomiting naproxen (From Naprosyn) Allergy (Verified 06/12/24 10:05) Hives shellfish derived Allergy (Verified 06/12/24 10:05) Vomiting Tetracyclines Allergy (Verified 06/12/24 10:05) Hives Medications ???Medication ???Instructions ???Recorded ???Confirmed ???Type bictegravir 50 mg-emtricitabine 1 tab PO DAILY 04/07/24 06/12/24 History 200 mg-tenofovir alafenam 25 mg tablet (Biktarvy) buspirone 10 mg tablet 10 mg PO TID #90 tabs 06/12/24 06/12/24 Rx divalproex 500 mg tablet,extended 500 mg PO QDAY #30 tabs 06/12/24 06/12/24 Rx release 24 hr (Depakote ER) quetiapine 100 mg tablet 100 mg PO QHS #30 tabs 06/12/24 06/12/24 Rx PFSH Medical History Injury of head and neck Hepatitis Stroke/cerebrovascular accident Hidradenitis suppurativa Dysuria Genital lesion, male Positive RPR test Hepatitis C Tobacco abuse Vitamin deficiency Decreased thyroxine (T4) level Polysubstance abuse GERD (gastroesophageal reflux disease) Hives Frequent headaches Arthritis Seasonal allergies Bipolar disorder Anxiety Depression Smoker IVDU (intravenous drug user) Knee pain Asthma Surgical History No pertinent past surgical history Family History Father Diabetes Alcohol abuse Arthritis Heart disease Hyperlipidemia Hypertension Myocardial infarction Mother Diabetes Alcohol abuse Anxiety Arthritis Hyperlipidemia Thyroid disorder Other CVA (cerebral vascular accident) Depression Mental disorder Psychiatric care Social History household members: friend(s) current occupational status: employed current occupation: [employer] Smoking Status: Current every day smoker tobacco type: cigarettes Electronic Cigarette Use: not used alcohol intake: never substance use type: former substance user Date of last use: 11/2023, marijuana, opiates and methamphetamine what type of physical activity do you participate in: none do you feel safe at home: Yes HPI History of Present Illness History provided by: patient Chief complaint: Mood instability and insomnia HPI: Weston Soria is a 33 year old male patient presenting today for a follow up evaluation. Patient states he had been taking the medication as prescribed and felt he was wanting to take more than needed of the buspirone for it to provide benefit. Feels everything around him has been crumbling and he is trying to maintain consistency but is struggling with this. Reports he was staying in a home with bedbugs and it was worrying him to continue to stay there. Patient has been making irresponsible decisions about his income and his previous job that he was let go from. Has been feeling more depressed every day. Denies SI/HI. Has not been sleeping well and only sleeping every couple of days for a few hours. Is currently living in his vehicle. Has been having more anxiety. When he was taking more buspirone he felt it was more effective. Does feel like he is paranoid and thinking people are following him and watching him all the time. Feels unable to be alone and relax. Does feel he is more irritated and more aggressive. Previous similar episode: Yes Age of first onset of symptoms: 11-20 years Review of Systems Constitutional Reports: change in weight and fatigue; Denies: fever(s) or chills Eyes Denies: change in vision or blurry vision Ears, Nose, Mouth, Throat Denies: throat pain or neck pain Cardiovascular Denies: chest pain, palpitations or dyspnea Respiratory Denies: dyspnea or wheezing Gastrointestinal Reports: diarrhea; Denies: abdominal pain, nausea, vomiting or constipati (more content not included)... [facility] 36on 05-28-2024 36 I spoke with Weston and informed him of Dr. Parada's message. Per patient no other reported sickness, travel, camping or change in dietary habits. Patient thinks he has an order from his PCP to have his stool studies checked. He will reach out to that office to confirm. [facility] 36 Yes, I do not think that Biktarvy is causing his diarrhea. This is a very uncommon side effect of Biktarvy, and he has been on it since January and if the diarrhea has only been the last month (he did not report it at his last appt with me in March) then it would be something more recent which would cause that. If Bik was to cause diarrhea, it would have started right away, not 2-3 months later. I agree with asking other provider about the other medications but I think he was on those at his last appt and he did not report any diarrhea. Has he had any sick contacts, any travel, camping, anything like that? Change in diet or eating habits? If his symptoms persist, then he can either let me know and I can order some stool studies to make sure there is no infection but he can also see his PCP and they can also work this up. [facility] 36 I called patient becca diallo to get more information. He states he has watery light brown stool off and on for the last month to 6 weeks, maybe even prior to that. He also started taking Buspar and Seroquel approx a month ago as well. No other symptoms. Patient is very concerned about this and I advised patient to contact his prescriber regarding the newer medications as well. Since patient has been on Biktarvy since January the diarrhea may not be directly related to his HIV medication. Informed him I would send a message to the provider to get any further recommendations and call him back if needed. [facility] 36 Patient left a [employer] ge asking for a call. He is having diarrhea and thinks it is from his medications. [facility] MR/BMS.BPon 05-14-2024 MR/BMS.BP [address], [address] [place] [address] OFFICE VISIT Date of Service: 05/14/24 MR#: [id number] Acct: [id number] Name: WESTON SORIA Rep #: [id number] : 1990 Provider: CODY pascual Age/Sex: 33/M Location: [facility].BP Status: Signed Intake Vital Signs 01/29/24 09:27 04/25/24 21:27 05/14/24 07:12 05/14/24 07:13 Height 5 ft 3 in 5 ft 3 in 5 ft 3 in 5 ft 3 in Weight: 168 lb BMI 29.7 BP 122/78 H Blood Pressure Location Rt brachial Position Sitting Pulse 80 Pulse Source Monitor BP Intake Visit Reasons: Substance abuse,brief psychotic disorder Allergies amoxicillin (Amoxicillin) Allergy (Verified 05/14/24 07:14) Hives benzocaine (From Benzo-Creme) Allergy (Verified 05/14/24 07:14) Hives clindamycin Allergy (Verified 05/14/24 07:14) Hives lamotrigine (From Lamictal) Allergy (Verified 05/14/24 07:14) rash mushroom Allergy (Verified 05/14/24 07:14) Vomiting naproxen (From Naprosyn) Allergy (Verified 05/14/24 07:14) Hives shellfish derived Allergy (Verified 05/14/24 07:14) Vomiting Tetracyclines Allergy (Verified 05/14/24 07:14) Hives Medications ???Medication ???Instructions ???Recorded ???Confirmed ???Type bictegravir 50 mg-emtricitabine 1 tab PO DAILY 04/07/24 05/14/24 History 200 mg-tenofovir alafenam 25 mg tablet (Biktarvy) buspirone 7.5 mg tablet 7.5 mg PO TID #90 tabs 05/14/24 05/14/24 Rx quetiapine 100 mg tablet 100 mg PO QHS #30 tabs 05/14/24 05/14/24 Rx PFSH Medical History (Updated 05/14/24 @ 08:18 by CODY Collado) Injury of head and neck Hepatitis Stroke/cerebrovascular accident Hidradenitis suppurativa Dysuria Genital lesion, male Positive RPR test Hepatitis C Tobacco abuse Vitamin deficiency Decreased thyroxine (T4) level Polysubstance abuse GERD (gastroesophageal reflux disease) Hives Frequent headaches Arthritis Seasonal allergies Bipolar disorder Anxiety Depression Smoker IVDU (intravenous drug user) Knee pain Asthma Surgical History No pertinent past surgical history Family History Father Diabetes Alcohol abuse Arthritis Heart disease Hyperlipidemia Hypertension Myocardial infarction Mother Diabetes Alcohol abuse Anxiety Arthritis Hyperlipidemia Thyroid disorder Other CVA (cerebral vascular accident) Depression Mental disorder Psychiatric care Social History (Updated 05/14/24 @ 07:15 by Hedy London) household members: friend(s) current occupational status: employed current occupation: [employer] Smoking Status: Current every day smoker tobacco type: cigarettes Electronic Cigarette Use: not used alcohol intake: never substance use type: former substance user Date of last use: 11/2023, marijuana, opiates and methamphetamine what type of physical activity do you participate in: none do you feel safe at home: Yes HPI History of Present Illness History provided by: patient Chief complaint: irritability HPI: Weston Soria is a 33 year old male patient presenting today for an intake evaluation. Patient presents today due to feeling like his medications are not well managed. Feels the medication is helping some but not a lot. Feels he is getting frustrated a lot. Does report he previous was using invega sustena and felt he did not do well on this. Does feel he is easily frustrated and irritable. Does report his car is broken right now and is trying to work on getting it fixed. Does state that he is also trying to get [employer] for housing. Sleep: Does report sometimes he will be up for days and other times he will sleep all day. Sometimes will be up 2-3 days or getting only a few hours. Does not feel well when he isn't sleeping. Struggles at night to fall asleep and stay asleep. Does report having nightmares most nights. Interest: Tries to find eufemia in things but bunn struggle with this due to having a lack of energy and feeling like everything is falling apart. Feels depressed every day. Energy: Does report energy to be low. Can't even complete the things that he needs to complete. Reports a lack of motivation. Guilt: Reports feeling of guilt, hopelessness, and worthlessness daily. Tries to put more on himself than he needs to and tried to make other people problems his problems. Concentration: Does report an issue with concentration, focus, and attention. Feels when he is overwhelmed he struggles more with this. Appetite: Does report having a poor appetite, feels this is due to HIV diagnosis. Has lost about 10 pounds recently. Psychomotor: WNL Suicide: Does report some passive SI at times. Denies plan or intent. Memory: Does report an issue with short term memory, jail memory, and for (more content not included)... Normal [facility] CBC W/Diff, Automatedon 03-31 Absolute Lymph 1.85 X10 3/uL Normal 0.83-4.51 [facility] Comment on above: Performed By: #### L 100.0100, L500.4050 #### [facility] [address] [place], [address] Absolute Neut 6.7 X10 3/uL Normal 2.0-7.7 [facility] Comment on above: Performed By: #### L 100.0100, L500.4050 #### [facility] [address] [place], [address] Basophils/100 WBC (Bld) 0.3 % Normal 0-1 [facility] Comment on above: Performed By: #### L 100.0100, L500.4050 #### [facility] [address] [place], [address] Eosinophils/100 WBC (Bld) 1.7 % Normal 0-5 [facility] Comment on above: Performed By: #### L 100.0100, L500.4050 #### [facility] [address] [place], [address] Erythrocyte distribution width (RBC) [Ratio] 13.7 % Normal 11.6-14.6 [facility] Comment on above: Performed By: #### L 100.0100, L500.4050 #### [facility] [address] [place], [address] Hematocrit (Bld) [Volume fraction] 44.9 % Normal 40-54 [facility] Comment on above: Performed By: #### L 100.0100, L500.4050 #### [facility] [address] [place], [address] Hemoglobin (Bld) [Mass/Vol] 16.0 g/dL Normal 13.0-16.5 [facility] Comment on above: Performed By: #### L 100.0100, L500.4050 #### [facility] [address] [place], [address] IG% 0.900 Normal 0.0-0.9 [facility] Comment on above: Result Comment: IG% - Immature Granulocytes (promyelocytes, myelocytes and metamyelocytes) > 1% indicates that a LEFT SHIFT is Present. Performed By: #### L 100.0100, L500.4050 #### [facility] [address] [place], [address] Lymphocytes/100 WBC (Bld) 20.1 % Normal 19-41 [facility] Comment on above: Performed By: #### L 100.0100, L500.4050 #### [facility] [address] [place], [address] MCH (RBC) [Entitic mass] 32.4 pg High 27.0-32.0 [facility] Comment on above: Performed By: #### L 100.0100, L500.4050 #### [facility] [address] [place], [address] MCHC (RBC) [Mass/Vol] 35.6 g/dL Normal 32-36 [facility] Comment on above: Performed By: #### L 100.0100, L500.4050 #### [facility] [address] [place], [address] MCV (RBC) [Entitic vol] 90.9 fL Normal 80-94 [facility] Comment on above: Performed By: #### L 100.0100, L500.4050 #### [facility] [address] [place], [address] Monocytes/100 WBC (Bld) 4.9 % Normal 0-10 [facility] Comment on above: Performed By: #### L 100.0100, L500.4050 #### [facility] [address] [place], [address] Neutrophils/100 WBC (Bld) 72.1 % High 47-70 [facility] Comment on above: Performed By: #### L 100.0100, L500.4050 #### [facility] [address] [place], [address] Nucleated RBC (Bld) [#/Vol] 0 10*3/uL Normal 0-5 [facility] Comment on above: Performed By: #### L 100.0100, L500.4050 #### [facility] [address] [place], [address] Platelet mean volume (Bld) [Entitic vol] 9.5 fL Normal 6.2-12.0 [facility] Comment on above: Performed By: #### L 100.0100, L500.4050 #### [facility] [address] [place], [address] Platelets (Bld) [#/Vol] 247 10*3/uL Normal 150-450 [facility] Comment on above: Performed By: #### L 100.0100, L500.4050 #### [facility] [address] [place], [address] RBC (Bld) [#/Vol] 4.94 10*6/uL Normal 4.6-6.2 [facility] Comment on above: Performed By: #### L 100.0100, L500.4050 #### [facility] [address] [place], [address] RDW SD 45.2 fl High 35.1-43.9 [facility] Comment on above: Performed By: #### L 100.0100, L500.4050 #### [facility] [address] [place], [address] WBC (Bld) [#/Vol] 9.2 10*3/uL Normal 4.4-11.0 [facility] Comment on above: Performed By: #### L 100.0100, L500.4050 #### [facility] [address] [place], [address] Comprehensive Metabolic Prof [facility] 04-25-2024 Albumin [Mass/Vol] 3.8 g/dL Normal 3.2-5.0 [facility] Comment on above: Performed By: #### L 100.0100, L500.4050 #### [facility] [address] [place], [address] Albumin/Globulin [Mass ratio] 1.1 {ratio} Normal 0.9-2.4 [facility] Comment on above: Performed By: #### L 100.0100, L500.4050 #### [facility] [address] [place], [address] ALK P 56 U/L Normal 45-117 [facility] Comment on above: Performed By: #### L 100.0100, L500.4050 #### [facility] [address] [place], [address] ALT [Catalytic activity/Vol] 38 U/L Normal 16-61 [facility] Comment on above: Performed By: #### L 100.0100, L500.4050 #### [facility] [address] [place], [address] AST [Catalytic activity/Vol] 25 U/L Normal 15-37 [facility] Comment on above: Performed By: #### L 100.0100, L500.4050 #### [facility] [address] [place], [address] Bilirubin [Mass/Vol] 0.70 mg/dL Normal 0.20-1.00 [facility] Comment on above: Result Comment: For patients on eltrombopag therapy, use of Dimension [place] TBIL is not recommended. Performed By: #### L 100.0100, L500.4050 #### [facility] [address] [place], [address] BUN/CRE 8.7 RATIO Low 10-20 [facility] Comment on above: Performed By: #### L 100.0100, L500.4050 #### [facility] [address] [place], [address] CA,Total 9.0 mg/dL Normal 8.5-10.1 [facility] Comment on above: Performed By: #### L 100.0100, L500.4050 #### [facility] [address] [place], [address] Chloride [Moles/Vol] 109 mmol/L High 98-107 [facility] Comment on above: Performed By: #### L 100.0100, L500.4050 #### [facility] [address] [place], [address] CO2 [Moles/Vol] 25.0 mmol/L Normal 21.0-32.0 [facility] Comment on above: Performed By: #### L 100.0100, L500.4050 #### [facility] [address] [place], [address] Creatinine [Mass/Vol] 1.04 mg/dL Normal 0.70-1.30 [facility] Comment on above: Result Comment: The validity of the calculated GFR GFRAA in patients over 70 years has not been determined. Clinical correlation is essential. Performed By: #### L 100.0100, L500.4050 #### [facility] [address] [place], [address] ECRCL 92.62 ml/min Normal [facility] Comment on above: Performed By: #### L 100.0100, L500.4050 #### [facility] [address] [place], [address] EST GFR - AA 105 mL/min Normal >60 [facility] Comment on above: Result Comment: Afri can [place] GFR Calc Performed By: #### L 100.0100, L500.4050 #### [facility] [address] [place], [address] GAP 4 Low 5-15 [facility] Comment on above: Performed By: #### L 100.0100, L500.4050 #### [facility] [address] [place], [address] GFR/1.73 sq M.predicted among non-blacks MDRD (S/P/Bld) [Vol rate/Area] 87 mL/min/{1.73_m2} Normal >60 [facility] Comment on above: Result Comment: Non- GFR Calc Performed By: #### L 100.0100, L500.4050 #### [facility] [address] [place], [address] Globulin (S) [Mass/Vol] 3.6 g/dL Normal 2.2-4.2 [facility] Comment on above: Performed By: #### L 100.0100, L500.4050 #### [facility] [address] [place], [address] Glucose [Mass/Vol] 93 mg/dL Normal 74-106 [facility] Comment on above: Performed By: #### L 100.0100, L500.4050 #### [facility] [address] [place], [address] Potassium [Moles/Vol] 4.3 mmol/L Normal 3.5-5.1 [facility] Comment on above: Performed By: #### L 100.0100, L500.4050 #### [facility] [address] [place], [address] Sodium [Moles/Vol] 138 mmol/L Normal 136-145 [facility] Comment on above: Performed By: #### L 100.0100, L500.4050 #### [facility] [address] [place], [address] T PROT 7.4 g/dL Normal 6.4-8.2 [facility] Comment on above: Performed By: #### L 100.0100, L500.4050 #### [facility] [address] [place], [address] Urea nitrogen [Mass/Vol] 9 mg/dL Normal 7-18 [facility] Comment on above: Performed By: #### L 100.0100, L500.4050 #### [facility] Laboratory [address] [place], [address] Emergency Department Summary on 04-25-2024 Emergency Department Summary [facility] Medical Records Department [address] [place] [address] Emergency Department Summary 04/25/24 MR#: [id number] Acct: [id number] Name: WESTON SORIA Rep #: [id number] : 1990 33 From: Matty Bellamy MD PCP: Dr. Rosalva Lopez MD Status:REG ER Location: ED HPI History of Present Illness Chief Complaint: General Illness Informant: patient Narrative Narrative: 33-year-old male was seen here earlier in the day because of diarrhea and feeling dehydrated. States he was feeling nauseated and prescribed Zofran, he took it but it did not help and he has been vomiting and having heartburn subsequently, no abdominal pain, he states that diarrhea seems to be improving. Also, he states he thinks he is developing an abscess on his lower abdominal wall, he has had these before and is asking for incision and drainage. He states it is less swollen now than it was yesterday and the day before but it has not been draining spontaneously. He has HIV compliant with his medications, states his last viral load was 50, follows with infectious disease. Denies any recent syncope, he has had subjective fevers and chills but his temperature is normal here. No known sick contacts. [facility] Medical History Injury of head and neck Hepatitis Stroke/cerebrovascular accident Hidradenitis suppurativa Dysuria Genital lesion, male Positive RPR test Hepatitis C Tobacco abuse Vitamin deficiency Decreased thyroxine (T4) level Polysubstance abuse GERD (gastroesophageal reflux disease) Hives Frequent headaches Arthritis Seasonal allergies Bipolar disorder Anxiety Depression Smoker IVDU (intravenous drug user) Knee pain Asthma Home Medications ???Medication ???Instructions ???Recorded ???Last Taken ???Type bictegravir 50 mg-emtricitabine 1 tab PO DAILY 04/07/24 Unknown History 200 mg-tenofovir alafenam 25 mg tablet (Biktarvy) buspirone 5 mg tablet 5 mg PO TID #90 tabs 04/07/24 Unknown Rx quetiapine 50 mg tablet (Seroquel) 50 mg PO QHS #30 tabs 04/07/24 Unknown Rx metoclopramide HCl 10 mg tablet 10 mg PO Q8H PRN PRN nausea and 04/25/24 Unknown Rx vomiting #10 tabs ondansetron 4 mg disintegrating 4 mg PO Q8H PRN PRN Nausea #10 tabs 04/25/24 Unknown Rx tablet Allergy/AdvReac Type Severity Reaction Status Date / Time amoxicillin (Amoxicillin) Allergy Hives Verified 04/25/24 11:01 benzocaine (From Benzo-Creme) Allergy Hives Verified 04/25/24 11:01 clindamycin Allergy Hives Verified 04/25/24 11:01 lamotrigine (From Lamictal) Allergy rash Verified 04/25/24 11:01 mushroom Allergy Vomiting Verified 04/25/24 11:01 naproxen (From Naprosyn) Allergy Hives Verified 04/25/24 11:01 shellfish derived Allergy Vomiting Verified 04/25/24 11:01 Tetracyclines Allergy Hives Verified 04/25/24 11:01 Family History Father Diabetes Alcohol abuse Arthritis Heart disease Hyperlipidemia Hypertension Myocardial infarction Mother Diabetes Alcohol abuse Anxiety Arthritis Hyperlipidemia Thyroid disorder Other CVA (cerebral vascular accident) Depression Mental disorder Psychiatric care Surgical History No pertinent past surgical history Social History household members: friend(s) current occupational status: employed current occupation: [employer] Smoking Status: Current every day smoker tobacco type: cigarettes Electronic Cigarette Use: not used alcohol intake: never substance use type: former substance user Date of last use: 11/2023, opiates and methamphetamine what type of physical activity do you participate in: none do you feel safe at home: Yes ROS ROS ED Constitutional Constitutional ED: Denies chills or fever(s) Eyes Eyes: Denies change in vision or diplopia ENT ENT ED: Denies rhinorrhea or sore throat Cardiovascular Cardiovascular: Denies chest pain or palpitations Respiratory/Chest Respiratory/Chest: Denies cough or dyspnea Gastrointestinal Gastrointestinal: Reports diarrhea, nausea and vomiting; Denies abdominal pain Genitourinary Genitourinary ED: Denies dysuria or hematuria Musculoskeletal Musculoskeletal: Denies back pain or neck pain Integumentary Reports abscess; Denies rash Neurologic Neurologic: Denies headache(s), paresthesias or weakness Psychiatric Psychiatric: Denies suicidal thoughts EXAM Physical Exam Const Vital Signs: 04/25/24 21:27 04/25/24 21:37 04/25/24 22:39 Temperature 97.9 F 98.1 F Temperature Source Temporal Oral Pulse Rate 112 H 90 Respiratory Rate 15 16 Respiratory Pattern Nor (more content not included)... Normal [facility] Emergency Department Summary [facility] Medical Records Department [address] [place] [address] Emergency Department Summary 04/25/24 MR#: [id number] Acct: [id number] Name: WESTON SORIA Rep #: [id number] : 1990 33 From: Vincent Begum MD PCP: Dr. Rosalva Lopez MD Status:DEP ER Location: ED HPI History of Present Illness Chief Complaint: Diarrhea Narrative Narrative: Patient is a 33-year-old male with history of HIV positive who had his viral levels checked April 10 and was undetectable, he is medicated via his infectious disease physician. Patient states that he does have history of soft stools however over the last 24 hours, he has been having severe diarrhea which she is going greater than 8 times. Patient states that he is feeling dehydrated, weak, and is here for evaluation. He denies any blood in his stool, denies any nausea or vomiting. Patient states he feels like he needs fluids. Denies any history of antibiotic use. [facility] Medical History Injury of head and neck Hepatitis Stroke/cerebrovascular accident Hidradenitis suppurativa Dysuria Genital lesion, male Positive RPR test Hepatitis C Tobacco abuse Vitamin deficiency Decreased thyroxine (T4) level Polysubstance abuse GERD (gastroesophageal reflux disease) Hives Frequent headaches Arthritis Seasonal allergies Bipolar disorder Anxiety Depression Smoker IVDU (intravenous drug user) Knee pain Asthma Home Medications ???Medication ???Instructions ???Recorded ???Last Taken ???Type bictegravir 50 mg-emtricitabine 1 tab PO DAILY 04/07/24 Unknown History 200 mg-tenofovir alafenam 25 mg tablet (Biktarvy) buspirone 5 mg tablet 5 mg PO TID #90 tabs 04/07/24 Unknown Rx loratadine 10 mg tablet (Allergy 10 mg PO DAILY #10 tabs 04/07/24 Unknown Rx Relief (loratadine)) quetiapine 50 mg tablet (Seroquel) 50 mg PO QHS #30 tabs 04/07/24 Unknown Rx dicyclomine 20 mg tablet 20 mg PO TID #20 tabs 04/25/24 Unknown Rx ondansetron 4 mg disintegrating 4 mg PO Q8H PRN PRN Nausea #10 tabs 04/25/24 Unknown Rx tablet Allergy/AdvReac Type Severity Reaction Status Date / Time amoxicillin (Amoxicillin) Allergy Hives Verified 04/25/24 11:01 benzocaine (From Benzo-Creme) Allergy Hives Verified 04/25/24 11:01 clindamycin Allergy Hives Verified 04/25/24 11:01 lamotrigine (From Lamictal) Allergy rash Verified 04/25/24 11:01 mushroom Allergy Vomiting Verified 04/25/24 11:01 naproxen (From Naprosyn) Allergy Hives Verified 04/25/24 11:01 shellfish derived Allergy Vomiting Verified 04/25/24 11:01 Tetracyclines Allergy Hives Verified 04/25/24 11:01 Family History Father Diabetes Alcohol abuse Arthritis Heart disease Hyperlipidemia Hypertension Myocardial infarction Mother Diabetes Alcohol abuse Anxiety Arthritis Hyperlipidemia Thyroid disorder Other CVA (cerebral vascular accident) Depression Mental disorder Psychiatric care Surgical History No pertinent past surgical history Social History (Updated 04/07/24 @ 15:[address] Rosalva Lopez MD) household members: friend(s) current occupational status: employed current occupation: [employer] Smoking Status: Current every day smoker tobacco type: cigarettes Electronic Cigarette Use: not used alcohol intake: never substance use type: former substance user Date of last use: 11/2023, opiates and methamphetamine what type of physical activity do you participate in: none do you feel safe at home: Yes ROS ROS ED ROS Narrative Constitutional: Negative for fever, chills, weight loss positive for weakness Eyes: Negative for vision loss, vision change, double vision ENT: Negative for any sore throat, ear pain, congestion Cardiovascular: Negative for any chest pain, tightness, palpitations Respiratory: Negative for any cough, sputum production, hemoptysis, dyspnea, dyspnea on exertion, orthopnea Gastrointestinal: Negative for any vomiting, constipation, blood in stool, blood in vomit. Positive for abdominal pain, nausea, diarrhea : Negative for any urinary frequency, dysuria, retention, blood in urine Muscle skeletal: Negative for any neck pain, back pain Neurological: Negative for any headache, syncope, dizziness Skin: Negative for any rashes, itching, abrasions, lacerations Psychiatric: Negative for any depression, anxiety, stress, suicidal ideation, homicidal ideation Hematologic: Negative for any excessive bruising, easy bleeding EXAM Physical Exam Narrative Exam Narrative: Vital signs reviewed. HEET: Head normocephalic atraumatic, TMs clear bilaterally. Posterior pharynx is clear, dry mucous membranes. Angel (more content not included)... Normal [facility] CHLAMYDIA/N. GONORRHOEAE RNA , TMA, THROAT ([employer])on 04-10-2024 CHLAMYDIA/N. GONORRHOEAE RNA, TMA, THROAT ([employer]) CHLAMYDIA TRACHOMATIS RNA, TMA, THROAT Reference Not Detected Not Detected NEISSERIA GONORRHOEAE RNA, TMA, THROAT Reference Not Detected Not Detected Methodology: Physical Geographer Mediated Amplification(TMA) to detect RNA. The analytical performance characteristics of this assay have been determined by [place] The modifications have not been cleared or approved by the FDA. This assay has been validated pursuant to the CLIA regulations and is used for clinical purposes. Test Performed by [facility], Sina [place], [address] [place] [address] Christian Alonso M.D., Ph.D., Director of Laboratories , CLIA [id number] [facility] Comment on above: Performed By: #### L [id number] ####[employer] ([employer])[address] [place] [address] [facility] Office Visiton 04-10-2024 Follow-up visit [id number] Ivan Soria 1990 M Date Provider Department Center 04/10/2024 JAZZMINE PALACIOS [facility] None Family History Problem Relation Age of Onset Diabetes Mother Liver disease Mother Diabetes Father Hypertension Father Heart disease Father COPD Father Family Status - Relation Status Age at Mother Alive Father Alive Sister Alive Brother Alive Level of Service:[address] [place] OFFICE/OUTPATIENT ESTABLISHED HIGH MDM 40 MIN Reason for Visit and Comments: HIV Positive/AIDS [109] [facility] Progress Noteon 04-10-2024 Progress Note Care Center Follow-U p HIV Follow-Up Adherence: No missed doses Non Adherence: non applicable Mood: Upset, car issues today Substance Abuse: denies current use PJP Prophylaxis: does not need Sexual Activity: yes, sometimes uses condoms, and new partners Last CD4: Lab Results Last 12 Months Component Value Date/Time [id number] 715 02/07/2024 11:39 AM 909 03/30/2024 Last CD4%: Lab Results Last 12 Months Component Value Date/Time [id number] 36.3 02/07/2024 11:39 AM Last HIV VL: Lab Results Last 12 Months Component Value Date/Time [id number] 9,450 (H) 02/07/2024 11:40 AM 50 copies, 03/30/2024 Nurse Intervention: TimeTotal Visit: 16-30 minutes total visit time SHAHZAD Ontiveros is here for HIV follow up. He was started on Biktarvy in January after his diagnosis. Has continued to do well. No missed doses. No side effects. No current insurance or pharmacy problems. His VL has fallen from around 9000 copies down to 50 copies. CD4 count has increased to over 900. He reports that his interval health has been good. Was seen by PCP, prescribed claritin for some congestion. Also new mental health medications. He only took them for one day and now he cannot find the bottles. They were in his car, is wondering if they were stolen. He continues to see counseling for his mental health. Has had some alcohol use, but has cut back. Denies any other drug use. Life has been busy and stressful in dealing with car issues, work, classes. He is trying to cope with taking drives to get away. He is still working at the same job. Living situation stable. He is not dating. Has same 2-3 sexual partners. Only condomless oral sex, with him performing oral on partners. Had treatment for gonorrhea at his last appt. Patient Active Problem List Diagnosis Date Noted HIV infection ([facility]) 02/07/2024 Bipolar disorder in partial remission ([facility]) ([facility]) 02/07/2024 Gastroesophageal reflux disease without esophagitis 02/07/2024 Methamphetamine use disorder, mild, in early remission ([facility]) ([facility]) 02/07/2024 History of hepatitis C 02/07/2024 Hidradenitis suppurativa 02/07/2024 Tobacco abuse 02/07/2024 Current Outpatient Medications Medication Sig Dispense Refill bictegravir-emtricitab- tenofovir (Biktarvy) 50-200-25 MG tablet Take 1 tablet by mouth daily. 30 tablet 2 busPIRone HCl (BUSPAR PO) Take by mouth. QUEtiapine Fumarate (SEROQUEL PO) Take by mouth. Allergy Relief 10 MG tablet Take 10 mg by mouth daily. Invega 6 MG 24 hr tablet Take 6 mg by mouth every morning. omeprazole (PriLOSEC) [address] capsule Take 20 mg by mouth daily. No current facility-administered medications for this visit. Allergies: Shellfish allergy, Benzocaine, Clindamycin, Mushroom extract complex, Amoxicillin, Lamotrigine, Naproxen, and Tetracyclines & related Past Medical History: Diagnosis Date Depression GERD (gastroesophageal reflux disease) Hepatitis C antibody test positive Hidradenitis suppurativa HIV disease (HCC) IV drug user recently quit December 2023 Polysubstance use disorder Syphilis History reviewed. No pertinent surgical history. Family History Problem Relation Name Age of Onset Diabetes Mother Liver disease Mother Diabetes Father Hypertension Father Heart disease Father COPD Father Social History Tobacco Use Smoking status: Every Day Current packs/day: 1.00 Types: Cigarettes Smokeless tobacco: Not on file Tobacco comments: Also vapes Substance Use Topics Alcohol use: Yes Alcohol/week: 2.0 standard drinks of alcohol Types: 2 Cans of beer per week Comment: Couples times a week Review of Systems Constitutional: Negative for appetite change, chills, diaphoresis, fatigue, fever and unexpected weight change. HENT: Positive for congestion. Negative for dental problem, ear pain, mouth sores, postnasal drip, rhinorrhea, sore throat and trouble swallowing. Eyes: Negative for visual disturbance. Respiratory: Positive for cough (occasional). Negative for shortness of breath and wheezing. Cardiovascular: Negative for chest pain, palpitations and leg swelling. Gastrointestinal: Negative for abdominal pain, blood in stool, constipation, diarrhea, nausea and vomiting. Endocrine: Negative for polydipsia and polyuria. Genitourinary: Negative for difficulty urinating, dysuria, frequency, genital sores and urgency. Musculoskeletal: Negative for arthralgias, gait problem and myalgias. Skin: Negative for rash and wound. Allergic/Immunologic: Positive for environmental allergies. Neurological: Negative for dizziness, seizures, syncope, weakness, numbness and headaches. Psychiatric/Behavioral: Positive for dysphoric mood. Negative for sleep disturbance and suicidal ideas. The patient is nervous/anxious. BP 115/77 (BP Location: Right arm, Patient Position: Sitting, BP Cuff Size: Adult long) Pulse 100 Temp 36.4 ?C (97.5 ?F) Ht 5' 3 (1.6 m) Wt 165 lb (74.8 kg) BMI 29.23 k (more content not included)... Normal [facility] Internal Medicine Office Vis bernarda 04-06-2024 Internal Medicine Office Visit [facility] [address] [place] [address] OFFICE VISIT Date of Service: 04/07/24 MR#: [id number] Acct: [id number] Name: WESTON SORIA Rep #: [id number] : 1990 Provider: Dr. Rosalva choe MD Age/Sex: 33/M Location: [facility] Status: Signed Intake Vital Signs 01/29/24 09:27 04/07/24 15:27 Height 5 ft 3 in 5 ft 3 in Weight: 172 lb 8 oz BMI 30.5 BP 120/78 Blood Pressure Location Lt brachial Position Sitting Respiration 18 Pulse 69 Pulse Source Monitor Temp 97.1 F L Temp Source Temporal Pulse Oximetry (%) 98 Oxygen Delivery Method room air Intake Visit Reasons: 6 week f/u Chief Complaint: 6 week f/u Flume Worker Required: No Accompanied by: Self Is patient in pain?: No Allergies amoxicillin (Amoxicillin) Allergy (Verified 04/07/24 15:25) Hives benzocaine (From Benzo-Creme) Allergy (Verified 04/07/24 15:25) Hives clindamycin Allergy (Verified 04/07/24 15:25) Hives lamotrigine (From Lamictal) Allergy (Verified 04/07/24 15:25) rash mushroom Allergy (Verified 04/07/24 15:25) Vomiting naproxen (From Naprosyn) Allergy (Verified 04/07/24 15:25) Hives shellfish derived Allergy (Verified 04/07/24 15:25) Vomiting Tetracyclines Allergy (Verified 04/07/24 15:25) Hives Medications ???Medication ???Instructions ???Recorded ???Confirmed ???Type omeprazole 20 mg capsule,delayed 20 mg PO DAILY #30 caps 05/01/24 07/09/24 Rx release bictegravir 50 mg-emtricitabine 1 tab PO DAILY 04/07/24 04/07/24 History 200 mg-tenofovir alafenam 25 mg tablet (Biktarvy) buspirone 5 mg tablet 5 mg PO TID #90 tabs 04/07/24 04/07/24 Rx loratadine 10 mg tablet (Allergy 10 mg PO DAILY #10 tabs 04/07/24 04/07/24 Rx Relief (loratadine)) quetiapine 50 mg tablet (Seroquel) 50 mg PO QHS #30 tabs 04/07/24 04/07/24 Rx PFSH Medical History Injury of head and neck Hepatitis Stroke/cerebrovascular accident Hidradenitis suppurativa Dysuria Genital lesion, male Positive RPR test Hepatitis C Tobacco abuse Vitamin deficiency Decreased thyroxine (T4) level Polysubstance abuse GERD (gastroesophageal reflux disease) Hives Frequent headaches Arthritis Seasonal allergies Bipolar disorder Anxiety Depression Smoker IVDU (intravenous drug user) Knee pain Asthma Surgical History No pertinent past surgical history Family History Father Diabetes Alcohol abuse Arthritis Heart disease Hyperlipidemia Hypertension Myocardial infarction Mother Diabetes Alcohol abuse Anxiety Arthritis Hyperlipidemia Thyroid disorder Other CVA (cerebral vascular accident) Depression Mental disorder Psychiatric care Social History (Updated 04/07/24 @ 15:[address] Rosalva Lopez MD) household members: friend(s) current occupational status: employed current occupation: [employer] Smoking Status: Current every day smoker tobacco type: cigarettes Electronic Cigarette Use: not used alcohol intake: never substance use type: former substance user Date of last use: 11/2023, opiates and methamphetamine what type of physical activity do you participate in: none do you feel safe at home: Yes HPI HPI Chief Complaint: 6 week f/u Details: WESTON SORIA, is a 33 M who presents to the office today for a follow up. He is up to date on his routine blood work. He isn't due for any screening. He previously declined his COVID vaccines. He does smoke and doesn't want to quit at this time. He doesn't need any refills today. He reports he is eating healthy and is trying to stay active. The patient has a history of IV drug abuse, particularly with methamphetamine. He has been sober since 11/2023. He reports he is doing well. He does report having cravings. He has a good support system which he has been relying on. The patient reports his mental health has not been doing well. He reports he has been depressed and having a lot of anxiety. He is following with jonelle arrington for counseling and has an appointment with them on . He has an appointment in June with the psychiatrist. He denies any thoughts of suicide at all. He reports he hasn't had any further hallucinations or delusions. The patient reports he didn't tolerate the invega due to side effects, so he stopped taking it about 3 weeks ago. He feels that the medication he was previously on (seroquel and buspar) was beneficial for him and he is interested in trying that again. Following the patient's last office visit, labs demonstrated a positive HIV test. He was referred to ID and was started on medications, biktarvy. He reports that he has been doing well with i (more content not included)... Normal [facility] CD4, T Lymph [place] 04-03-2024 % CD4 POS.LYMPH 39.5 Normal 30.8-58.5 [facility] Comment on above: Performed By: #### L 3400.8000, L3890.0200, L500.4050, L3890.4000, L100.0100 #### [facility] Laboratory [address] [place], [address] ABSOLUTE CD4 909 /uL Normal [id number] [facility] Comment on above: Performed By: #### L 3400.8000, L3890.0200, L500.4050, L3890.4000, L100.0100 #### [facility] [address] [place], [address] Basophils 0 Normal Not Estab. [facility] Comment on above: Performed By: #### L 3400.8000, L3890.0200, L500.4050, L3890.4000, L100.0100 #### [facility] [address] [place], [address] Basos Absolute 0.1 x10E3/uL Normal 0.0-0.2 [facility] Comment on above: Performed By: #### L 3400.8000, L3890.0200, L500.4050, L3890.4000, L100.0100 #### [facility] [address] [place], [address] Eos Absolute 0.1 x10E3/uL Normal 0.0-0.4 [facility] Comment on above: Performed By: #### L 3400.8000, L3890.0200, L500.4050, L3890.4000, L100.0100 #### [facility] [address] [place], [address] Eosinophils 1 Normal Not Estab. [facility] Comment on above: Performed By: #### L 3400.8000, L3890.0200, L500.4050, L3890.4000, L100.0100 #### [facility] [address] [place], [address] Erythrocyte distribution width (RBC) [Ratio] 13.5 % Normal 11.6-15.4 [facility] Comment on above: Performed By: #### L 3400.8000, L3890.0200, L500.4050, L3890.4000, L100.0100 #### [facility] [address] [place], [address] Hematocrit (Bld) [Volume fraction] 48.4 % Normal 37.5-51.0 [facility] Comment on above: Performed By: #### L 3400.8000, L3890.0200, L500.4050, L3890.4000, L100.0100 #### [facility] [address] [place], [address] Heme Comment TNP Normal . [facility] Comment on above: Performed By: #### L 3400.8000, L3890.0200, L500.4050, L3890.4000, L100.0100 #### [facility] [address] [place], [address] Hemoglobin (Bld) [Mass/Vol] 16.6 g/dL Normal 13.0-17.7 [facility] Comment on above: Performed By: #### L 3400.8000, L3890.0200, L500.4050, L3890.4000, L100.0100 #### [facility] [address] [place], [address] Imm Grans Abs 0 x10E3/uL Normal 0.0-0.1 [facility] Comment on above: Performed By: #### L 3400.8000, L3890.0200, L500.4050, L3890.4000, L100.0100 #### [facility] [address] [place], [address] Immature Cells TNP Normal . [facility] Comment on above: Performed By: #### L 3400.8000, L3890.0200, L500.4050, L3890.4000, L100.0100 #### [facility] [address] [place], [address] Immature Grans 0 Normal Not Estab. [facility] Comment on above: Performed By: #### L 3400.8000, L3890.0200, L500.4050, L3890.4000, L100.0100 #### [facility] [address] [place], [address] Lymphocytes 16 Normal Not Estab. [facility] Comment on above: Performed By: #### L 3400.8000, L3890.0200, L500.4050, L3890.4000, L100.0100 #### [facility] [address] [place], [address] Lymphocytes (Bld) [#/Vol] 2.3 10*3/uL Normal 0.7-3.1 [facility] Comment on above: Performed By: #### L 3400.8000, L3890.0200, L500.4050, L3890.4000, L100.0100 #### [facility] [address] [place], [address] MCH (RBC) [Entitic mass] 32.4 pg Normal 26.6-33.0 [facility] Comment on above: Performed By: #### L 3400.8000, L3890.0200, L500.4050, L3890.4000, L100.0100 #### [facility] [address] [place], [address] MCHC (RBC) [Mass/Vol] 34.3 g/dL Normal 31.5-35.7 [facility] Comment on above: Performed By: #### L 3400.8000, L3890.0200, L500.4050, L3890.4000, L100.0100 #### [facility] [address] [place], [address] MCV (RBC) [Entitic vol] 94 fL Normal 79-97 [facility] Comment on above: Performed By: #### L 3400.8000, L3890.0200, L500.4050, L3890.4000, L100.0100 #### [facility] [address] [place], [address] Monocytes 5 Normal Not Estab. [facility] Comment on above: Performed By: #### L 3400.8000, L3890.0200, L500.4050, L3890.4000, L100.0100 #### [facility] [address] [place], [address] Monos Absolute 0.7 x10E3/uL Normal 0.1-0.9 [facility] Comment on above: Performed By: #### L 3400.8000, L3890.0200, L500.4050, L3890.4000, L100.0100 #### [facility] [address] [place], [address] Neutro Absolute 10.8 x10E3/uL High 1.4-7.0 [facility] Comment on above: Performed By: #### L 3400.8000, L3890.0200, L500.4050, L3890.4000, L100.0100 #### [facility] [address] [place], [address] Neutrophils 78 Normal Not Estab. [facility] Comment on above: Performed By: #### L 3400.8000, L3890.0200, L500.4050, L3890.4000, L100.0100 #### [facility] [address] [place], [address] NRBC Count TNP Normal . [facility] Comment on above: Performed By: #### L 3400.8000, L3890.0200, L500.4050, L3890.4000, L100.0100 #### [facility] [address] [place], [address] Platelets (Bld) [#/Vol] 252 10*3/uL Normal 150-450 [facility] Comment on above: Performed By: #### L 3400.8000, L3890.0200, L500.4050, L3890.4000, L100.0100 #### [facility] [address] [place], [address] RBC (Bld) [#/Vol] 5.13 10*6/uL Normal 4.14-5.80 [facility] Comment on above: Performed By: #### L 3400.8000, L3890.0200, L500.4050, L3890.4000, L100.0100 #### [facility] [address] [place], [address] WBC (Bld) [#/Vol] 14.0 10*3/uL High 3.4-10.8 [facility] Comment on above: Performed By: #### L 3400.8000, L3890.0200, L500.4050, L3890.4000, L100.0100 #### [facility] [address] [place], [address] Quantiferon TB-Gold+on 04-03 QFT MITOGEN JOEY > 10.00 Normal . [facility] Comment on above: Performed By: #### L 3400.8000, L3890.0200, L500.4050, L3890.4000, L100.0100 #### [facility] [address] [place], [address] QFT NIL VALUE 0.01 IU/mL Normal . [facility] Comment on above: Performed By: #### L 3400.8000, L3890.0200, L500.4050, L3890.4000, L100.0100 #### [facility] [address] [place], [address] QFT TB GOLD+ Comment Normal . [facility] Comment on above: Result Comment: Joseph tiFERON-TB Gold Plus is a qualitative indirect test for M tuberculosis infection (including disease) and is intended for use in conjunction with risk assessment, radiography, and other medical and diagnostic evaluations. The QuantiFERON-TB Gold Plus result is determined by subtracting the Nil value from either TB antigen (Ag) value. The Mitogen tube serves as a control for the test. Performed By: #### L 3400.8000, L3890.0200, L500.4050, L3890.4000, L100.0100 #### [facility] [address] [place], [address] QFT TB POS CRIT Negative Normal Negative [facility] Comment on above: Result Comment: No r esponse to M tuberculosis antigens detected. Infection with M tuberculosis is unlikely, but high risk individuals should be considered for additional testing (ATS/IDSA/CDC Clinical Practice Guidelines, 2017). The reference range is an Antigen minus Nil result of <0.35 IU/mL. The specimen received for QuantiFERON testing was incubated by the ordering institution. Specific procedures outlined in our Directory of Services and in the package insert for the QuantiFERON Gold (In Tube) test must be followed to enable for proper stimulation of cells for the production of interferon gamma. Chemiluminescence immunoassay methodology Performed at: [facility] [id number] [place]: Toy Rider PhD, Phone: [phone] Performed By: #### L 3400.8000, L3890.0200, L500.4050, L3890.4000, L100.0100 #### [facility] [address] [place], [address] QFT TB1+ AG JOEY 0.05 IU/mL Normal . [facility] Comment on above: Performed By: #### L 3400.8000, L3890.0200, L500.4050, L3890.4000, L100.0100 #### [facility] [address] [place], [address] QFT TB2+ AG JOEY 0.03 IU/mL Normal . [facility] Comment on above: Performed By: #### L 3400.8000, L3890.0200, L500.4050, L3890.4000, L100.0100 #### [facility] [address] [place], [address] HIV Viral Load Quanton 04-01 HIV-1 RNA, PCR 50 copies/mL Normal . [facility] Comment on above: Result Comment: The reportable range for this assay is 20 to 10,000,000 copies HIV-1 RNA/mL. Performed By: #### L 3400.8000, L3890.0200, L500.4050, L3890.4000, L100.0100 #### [facility] [address] [place], [address] log10 HIV-1 RNA 1.699 Normal . [facility] Comment on above: Result Comment: Resu lt Units: [id number]/mL Performed at: - [address] [id number] [place]: Ashlyn Foley MD, Phone: [phone] Performed By: #### L 3400.8000, L3890.0200, L500.4050, L3890.4000, L100.0100 #### [facility] [address] [place], [address] CBC W/Diff, Automatedon 07-0 1-4 Absolute Lymph 2.25 X10 3/uL Normal 0.83-4.51 [facility] Comment on above: Performed By: #### L 3400.8000, L3890.0200, L500.4050, L3890.4000, L100.0100 #### [facility] [address] [place], [address] Absolute Neut 11.4 X10 3/uL High 2.0-7.7 [facility] Comment on above: Performed By: #### L 3400.8000, L3890.0200, L500.4050, L3890.4000, L100.0100 #### [facility] [address] [place], [address] Basophils/100 WBC (Bld) 0.5 % Normal 0-1 [facility] Comment on above: Performed By: #### L 3400.8000, L3890.0200, L500.4050, L3890.4000, L100.0100 #### [facility] [address] [place], [address] Eosinophils/100 WBC (Bld) 0.5 % Normal 0-5 [facility] Comment on above: Performed By: #### L 3400.8000, L3890.0200, L500.4050, L3890.4000, L100.0100 #### [facility] [address] [place], [address] Erythrocyte distribution width (RBC) [Ratio] 13.5 % Normal 11.6-14.6 [facility] Comment on above: Performed By: #### L 3400.8000, L3890.0200, L500.4050, L3890.4000, L100.0100 #### [facility] [address] [place], [address] Hematocrit (Bld) [Volume fraction] 46.6 % Normal 40-54 [facility] Comment on above: Performed By: #### L 3400.8000, L3890.0200, L500.4050, L3890.4000, L100.0100 #### [facility] [address] [place], [address] Hemoglobin (Bld) [Mass/Vol] 16.4 g/dL Normal 13.0-16.5 [facility] Comment on above: Performed By: #### L 3400.8000, L3890.0200, L500.4050, L3890.4000, L100.0100 #### [facility] [address] [place], [address] IG% 0.300 Normal 0.0-0.9 [facility] Comment on above: Result Comment: IG% - Immature Granulocytes (promyelocytes, myelocytes and metamyelocytes) > 1% indicates that a LEFT SHIFT is Present. Performed By: #### L 3400.8000, L3890.0200, L500.4050, L3890.4000, L100.0100 #### [facility] [address] [place], [address] Lymphocytes/100 WBC (Bld) 15.5 % Low 19-41 [facility] Comment on above: Performed By: #### L 3400.8000, L3890.0200, L500.4050, L3890.4000, L100.0100 #### [facility] [address] [place], [address] MCH (RBC) [Entitic mass] 31.7 pg Normal 27.0-32.0 [facility] Comment on above: Performed By: #### L 3400.8000, L3890.0200, L500.4050, L3890.4000, L100.0100 #### [facility] [address] [place], [address] MCHC (RBC) [Mass/Vol] 35.2 g/dL Normal 32-36 [facility] Comment on above: Performed By: #### L 3400.8000, L3890.0200, L500.4050, L3890.4000, L100.0100 #### [facility] [address] [place], [address] MCV (RBC) [Entitic vol] 90.1 fL Normal 80-94 [facility] Comment on above: Performed By: #### L 3400.8000, L3890.0200, L500.4050, L3890.4000, L100.0100 #### [facility] [address] [place], [address] Monocytes/100 WBC (Bld) 4.8 % Normal 0-10 [facility] Comment on above: Performed By: #### L 3400.8000, L3890.0200, L500.4050, L3890.4000, L100.0100 #### [facility] [address] [place], [address] Neutrophils/100 WBC (Bld) 78.4 % High 47-70 [facility] Comment on above: Performed By: #### L 3400.8000, L3890.0200, L500.4050, L3890.4000, L100.0100 #### [facility] [address] [place], [address] Nucleated RBC (Bld) [#/Vol] 0 10*3/uL Normal 0-5 [facility] Comment on above: Performed By: #### L 3400.8000, L3890.0200, L500.4050, L3890.4000, L100.0100 #### [facility] [address] [place], [address] Platelet mean volume (Bld) [Entitic vol] 9.6 fL Normal 6.2-12.0 [facility] Comment on above: Performed By: #### L 3400.8000, L3890.0200, L500.4050, L3890.4000, L100.0100 #### [facility] [address] [place], [address] Platelets (Bld) [#/Vol] 253 10*3/uL Normal 150-450 [facility] Comment on above: Performed By: #### L 3400.8000, L3890.0200, L500.4050, L3890.4000, L100.0100 #### [facility] [address] [place], [address] RBC (Bld) [#/Vol] 5.17 10*6/uL Normal 4.6-6.2 [facility] Comment on above: Performed By: #### L 3400.8000, L3890.0200, L500.4050, L3890.4000, L100.0100 #### [facility] [address] [place], [address] RDW SD 44.5 fl High 35.1-43.9 [facility] Comment on above: Performed By: #### L 3400.8000, L3890.0200, L500.4050, L3890.4000, L100.0100 #### [facility] [address] [place], [address] WBC (Bld) [#/Vol] 14.5 10*3/uL High 4.4-11.0 [facility] Comment on above: Performed By: #### L 3400.8000, L3890.0200, L500.4050, L3890.4000, L100.0100 #### [facility] [address] [place], [address] Comprehensive Metabolic Prof [facility] 03-30-2024 Albumin [Mass/Vol] 4.5 g/dL Normal 3.2-5.0 [facility] Comment on above: Performed By: #### L 3400.8000, L3890.0200, L500.4050, L3890.4000, L100.0100 #### [facility] [address] [place], [address] Albumin/Globulin [Mass ratio] 1.3 {ratio} Normal 0.9-2.4 [facility] Comment on above: Performed By: #### L 3400.8000, L3890.0200, L500.4050, L3890.4000, L100.0100 #### [facility] [address] [place], [address] ALK P 55 U/L Normal 45-117 [facility] Comment on above: Performed By: #### L 3400.8000, L3890.0200, L500.4050, L3890.4000, L100.0100 #### [facility] [address] [place], [address] ALT [Catalytic activity/Vol] 33 U/L Normal 16-61 [facility] Comment on above: Performed By: #### L 3400.8000, L3890.0200, L500.4050, L3890.4000, L100.0100 #### [facility] [address] [place], [address] AST [Catalytic activity/Vol] 37 U/L Normal 15-37 [facility] Comment on above: Performed By: #### L 3400.8000, L3890.0200, L500.4050, L3890.4000, L100.0100 #### [facility] [address] [place], [address] Bilirubin [Mass/Vol] 1.10 mg/dL High 0.20-1.00 [facility] Comment on above: Result Comment: For patients on eltrombopag therapy, use of Dimension [place] TBIL is not recommended. Performed By: #### L 3400.8000, L3890.0200, L500.4050, L3890.4000, L100.0100 #### [facility] [address] [place], [address] BUN/CRE 10.3 RATIO Normal 10-20 [facility] Comment on above: Performed By: #### L 3400.8000, L3890.0200, L500.4050, L3890.4000, L100.0100 #### [facility] [address] [place], [address] CA,Total 9.4 mg/dL Normal 8.5-10.1 [facility] Comment on above: Performed By: #### L 3400.8000, L3890.0200, L500.4050, L3890.4000, L100.0100 #### [facility] [address] [place], [address] Chloride [Moles/Vol] 105 mmol/L Normal 98-107 [facility] Comment on above: Performed By: #### L 3400.8000, L3890.0200, L500.4050, L3890.4000, L100.0100 #### [facility] [address] [place], [address] CO2 [Moles/Vol] 26.0 mmol/L Normal 21.0-32.0 [facility] Comment on above: Performed By: #### L 3400.8000, L3890.0200, L500.4050, L3890.4000, L100.0100 #### [facility] [address] [place], [address] Creatinine [Mass/Vol] 1.26 mg/dL Normal 0.70-1.30 [facility] Comment on above: Result Comment: The validity of the calculated GFR GFRAA in patients over 70 years has not been determined. Clinical correlation is essential. Performed By: #### L 3400.8000, L3890.0200, L500.4050, L3890.4000, L100.0100 #### [facility] [address] [place], [address] EST GFR - AA 85 mL/min Normal >60 [facility] Comment on above: Result Comment: Afri can [place] GFR Calc Performed By: #### L 3400.8000, L3890.0200, L500.4050, L3890.4000, L100.0100 #### [facility] [address] [place], [address] GAP 7 Normal 5-15 [facility] Comment on above: Performed By: #### L 3400.8000, L3890.0200, L500.4050, L3890.4000, L100.0100 #### [facility] [address] [place], [address] GFR/1.73 sq M.predicted among non-blacks MDRD (S/P/Bld) [Vol rate/Area] 70 mL/min/{1.73_m2} Normal >60 [facility] Comment on above: Result Comment: Non- GFR Calc Performed By: #### L 3400.8000, L3890.0200, L500.4050, L3890.4000, L100.0100 #### [facility] [address] [place], [address] Globulin (S) [Mass/Vol] 3.5 g/dL Normal 2.2-4.2 [facility] Comment on above: Performed By: #### L 3400.8000, L3890.0200, L500.4050, L3890.4000, L100.0100 #### [facility] [address] [place], [address] Glucose [Mass/Vol] 111 mg/dL High 74-106 [facility] Comment on above: Result Comment: Fast ing Glucose result from 100 to 125 mg/dL suggests IMPAIRED HOMEOSTASIS per A.D.A. criteria. Performed By: #### L 3400.8000, L3890.0200, L500.4050, L3890.4000, L100.0100 #### [facility] [address] [place], [address] Potassium [Moles/Vol] 3.7 mmol/L Normal 3.5-5.1 [facility] Comment on above: Performed By: #### L 3400.8000, L3890.0200, L500.4050, L3890.4000, L100.0100 #### [facility] [address] [place], [address] Sodium [Moles/Vol] 138 mmol/L Normal 136-145 [facility] Comment on above: Performed By: #### L 3400.8000, L3890.0200, L500.4050, L3890.4000, L100.0100 #### [facility] [address] [place], [address] T PROT 8.0 g/dL Normal 6.4-8.2 [facility] Comment on above: Performed By: #### L 3400.8000, L3890.0200, L500.4050, L3890.4000, L100.0100 #### [facility] [address] [place], [address] Urea nitrogen [Mass/Vol] 13 mg/dL Normal 7-18 [facility] Comment on above: Performed By: #### L 3400.8000, L3890.0200, L500.4050, L3890.4000, L100.0100 #### [facility] [address] [place], [address] N. gonorrhoeae DNA ALYSHA+probe Ql (Cervical mucus)on 02-21-2024 C. trachomatis DNA ALYSHA+probe Ql (Unsp spec) Not detected Not Detected [facility] Interpretation and review of laboratory results Normal [facility] N gonorrhoeae, DNA Probe Not detected Not Detected [facility] Methodology: real-ti me PCR This test is intended for medical purposes only and is not intended for the evaluation of suspected sexual abuse or for other forensic purposes. In certain contexts, culture may be required to meet applicable laws and regulations for diagnosis of C. trachomatis and N. gonorrhoeae infections. Per 2014 CDC recommmendations, this test does not include confirmation of positive results by an alternative nucleic acid target. A negative result does not exclude the possibility of infection. A result of invalid indicates that a new specimen should be collected if clinically indicated. [facility] HCV RNA panel ALYSHA+probeon HCV RNA ALYSHA+probe [Log units/Vol] Not detected [facility] HCV RNA ALYSHA+probe Qn Not detected [facility] Interpretation and review of laboratory results Normal [facility] The linear detection limit for this assay is 15 HCV IU/ml. A result of <15 IU (<1.18 log IU) indicates that HCV was detected, but at a level below the linear cutoff. A result of None Detected means that no HCV RNA was detected. This test is performed via rtPCR methodology. [facility] HIV 1 RNA ALYSHA+probe [#/Vol]o n 02-12-2024 HIV-1 RNA Viral Load Log 3.[address] [facility] Interpretation and review of laboratory results Abnormal [employer] The linear detection limit for this assay is 20 HIV Copies/mL. A result of <20 Copies (<1.30 Log Copies) indicates that HIV was detected, but at a level below the linear cutoff. A result of None Detected means that no HIV-1 was detected. This test is performed via rtPCR methodology. [facility] HIV-1 RNA, Quantitative Millicent l Load, PCRon 02-12-2024 HIV 1 RNA ALYSHA+probe [#/Vol] 9450 {copies}/mL High [facility] T-cell helper (CD4) subset p mariay (Bld)Ordered By: Yonatan Rogers on 02-10-2024 CD3 % 90.0 % High 61.0 - 83.0 % [employer] Work Phone: CD3 Absolute Cnt 1774 [employer] Work Phone: [phone] CD3+CD4+ (T4 helper) cells (Bld) [#/Vol] 715 [employer] Phone: CD3+CD4+ (T4 helper) cells/100 cells (Bld) 36.3 % 32.5 - 62.0 % [employer] Phone: Interpretation and review of laboratory results Abnormal [employer] Work Phone: [employer] Work Phone: Chlamydia/N. Gonorrhoeae RNA , TMA, Rectal ([place])on 02-09-2024 C. trachomatis rRNA ALYSHA+probe Ql (Rectum) Not detected Not Detected [facility] Interpretation and review of laboratory results Abnormal [employer] N. gonorrhoeae rRNA ALYSHA+probe Ql (Rectum) Detected Abnormal Not Detected [employer] Comment on above: A Positive CT or NG Nucleic Acid Amplification Test (NAAT) result should be interpreted in conjunction with other laboratory and clinical data available to the clinician. If clinically indicated, further testing can be performed on the same sample using an alternate molecular target. To order alternate target test use 12768 (C. trachomatis) or 295[address] (N. gonorrhoeae). Methodology: Physical Geographer Mediated Amplification(TMA) to detect RNA. The analytical performance characteristics of this assay have been determined by [facility] [place], [place]. The modifications have not been cleared or approved by the FDA. This assay has been validated pursuant to the CLIA regulations and is used for clinical purposes. Test Performed by [facility], [facility], [address] [place] [address] Christian Alonso M.D., Ph.D., Director of Laboratories , CLIA [id number] [facility] Hepatitis A antibody, totalo n 02-09-2024 HAV Ab IA Ql (S) Negative Negative [facility] Comment on above: Performed By: [employer] [place] [address] Roll Form Operator: Blake Wang MD, PhD CLIA Number: [id number] [facility] Hepatitis B core antibody, t otalon 02-09-2024 HBV core Ab IA Ql Positive Abnormal Negative [facility] Comment on above: The anti-HBc is reac tive, which is consistent with recent or remote HBV infection. False positive anti-HBc results are not uncommon. INTERPRETIVE INFORMATION: Hepatitis B Core Ab (Total) This assay should not be used for blood donor screening, associated re-entry protocols, or for screening Human Cells, Tissues and Cellular and Tissue-Based Products (HCT/P). Performed By: [employer] [address] [place] [address] Roll Form Operator: Blake Wang MD, PhD CLIA Number: [id number] Interpretation and review of laboratory results Abnormal [facility] CBC W Auto Differential pane l (Bld)on 02-07-2024 Basophils (Bld) [#/Vol] 0.0 10*3/uL 0.0 - 0.2 10*3/uL [employer] Basophils/100 WBC (Bld) 0.5 % 0.0 - 2.0 % [facility] Eosinophils (Bld) [#/Vol] 0.1 10*3/uL 0.0 - 0.5 10*3/uL [facility] Eosinophils/100 WBC (Bld) 1.9 % 0.0 - 6.0 % [employer] Erythrocyte distribution width (RBC) [Ratio] 13.5 % 11.5 - 15.0 % [facility] Hematocrit (Bld) [Volume fraction] 42.0 % 40.0 - 52.0 % [facility] [facility] Hemoglobin (Bld) [Mass/Vol] 14.3 g/dL 13.0 - 18.0 g/dL [facility] Immature granulocytes (Bld) [#/Vol] 0.1 10*3/uL High NINF - 0.1 10*3/uL [facility] Immature granulocytes/100 WBC (Bld) 0.7 % 0.0 - 2.0 % [facility] Interpretation and review of laboratory results Abnormal [facility] Lymphocytes (Bld) [#/Vol] 2.3 10*3/uL 1.0 - 4.3 10*3/uL [facility] Lymphocytes/100 WBC (Bld) 31.0 % 15.0 - 45.0 % [facility] MCH (RBC) [Entitic mass] 30.8 pg 26.0 - 34.0 pg [facility] MCHC (RBC) [Mass/Vol] 34.0 % 30.5 - 36.0 % [facility] MCV (RBC) [Entitic vol] 90.5 fL 77.0 - 99.0 fL [facility] Monocytes (Bld) [#/Vol] 0.5 10*3/uL 0.0 - 0.9 10*3/uL [facility] Monocytes/100 WBC (Bld) 6.2 % 5.0 - 13.0 % [facility] Neutrophils (Bld) [#/Vol] 4.4 10*3/uL 1.8 - 7.5 10*3/uL [facility] Neutrophils/100 WBC (Bld) 59.7 % 38.0 - 82.0 % [facility] Nucleated RBC/100 WBC (Bld) [Ratio] 0.0 % [facility] Platelet mean volume (Bld) [Entitic vol] 10.2 fL 9.0 - 12.7 fL [facility] Platelets (Bld) [#/Vol] 209 10*3/uL 140 - 440 10*3/uL [facility] RBC (Bld) [#/Vol] 4.64 10*6/uL 4.40 - 5.9 0 10*6/uL [facility] WBC (Bld) [#/Vol] 7.4 10*3/uL 3.6 - 10.7 10*3/uL [facility] Comprehensive metabolic 1998 panelon 02-07-2024 Albumin [Mass/Vol] 4.5 g/dL 3.5 - 5.0 g/dL [facility] ALP [Catalytic activity/Vol] 43 U/L 38 - 126 U/L [facility] ALT [Catalytic activity/Vol] 51 U/L High 0 - 49 U/L [facility] Anion gap [Moles/Vol] 9 mmol/L 3 - 13 mmol/L [facility] AST [Catalytic activity/Vol] 39 U/L 15 - 46 U/L [facility] Bilirubin [Mass/Vol] 0.7 mg/dL 0.2 - 1 .3 mg/dL [facility] Calcium [Mass/Vol] 9.1 mg/dL 8.4 - 10. 4 mg/dL [facility] Chloride [Moles/Vol] 106 mmol/L 98 - 10 7 mmol/L [facility] CO2 [Moles/Vol] 23 mmol/L 22 - 30 mmol/L [facility] Creatinine [Mass/Vol] 0.72 mg/dL 0.66 - 1.25 mg/dL [facility] GFR/1.73 sq M.predicted MDRD (S/P/Bld) [Vol rate/Area] - PINF [facility] Comment on above: Calculation based on the Chronic Kidney Disease Epidemiology Collaboration (CKD-EPI) equation refit without adjustment for race Glucose [Mass/Vol] 83 mg/dL 70 - 100 mg/dL [facility] Interpretation and review of laboratory results Abnormal [facility] Potassium [Moles/Vol] 3.7 mmol/L 3.5 - 5.1 mmol/L [facility] Protein [Mass/Vol] 7.6 g/dL 6.3 - 8.2 g/dL [facility] Sodium [Moles/Vol] 137 mmol/L 135 - 145 mmol/L [facility] Urea nitrogen [Mass/Vol] 13 mg/dL 9 - 20 mg/dL [facility] HBV surface Ab IA Qnon 02-06 Interpretation: <8.0 Non-Reactive 8.0-11.9 Equivocal >= 12.0 Ab Detected Note: If an equivocal result is interpreted, an antibody status is unable to be determined. Collect new specimen if clinically indicated. [facility] HBV surface Ag IA Qlon 02-06 Interpretation and review of laboratory results Normal [facility] HCV Ab IA QlOrdered By: Rao Govea on 02-07-2024 Interpretation and review of laboratory results Abnormal [facility] HIV genotype Genotyping [Toshia c]on 02-07-2024 ELECTRONICALLY SIGNED BY Rubens Felipe MD PhD Normal [facility] Comment on above: Performed By: #### [id number] #### [facility] ([id number]) [facility] ([facility]) [address] [place] [address] HIV GENOTYPE RESULTS SEE COMMENT Normal [facility] Comment on above: Result Comment: Drug Class: NRTI ZIAGEN (abacavir, ABC) Susceptible VIDEX (didanosine, DDI) Susceptible EMTRIVA (emtricitabine, FTC) Susceptible EPIVIR (lamivudine, 3TC) Susceptible ZERIT (stavudine, D4T) Susceptible Retrovir (zidovudine, AZT) Susceptible VIREAD (tenofovir, TDF) Susceptible NRTI drug resistance mutations (VAF >=20.0%) identified: Drug Class: NNRTI SUSTIVA (efavirenz, EFV) Susceptible INTELENCE (etravirine, ETR) Susceptible VIRAMUNE (nevirapine, NVP) Susceptible EDURANT (rilpivirine, RPV) Susceptible PIFELTRO (doravirine, REBECCA) Susceptible NNRTI drug resistance mutations (VAF >=20.0%) identified: Drug Class: PI REYATAZ (atazanavir, ATV) Susceptible LEXIVA (fosamprenavir, FPV) Susceptible PREZISTA (darunavir, DRV) Susceptible CRIXIVAN (indinavir, IDV) Susceptible KALETRA (lopinavir + ritonavir, LPV) Susceptible VIRACEPT (nelfinavir, NFV) Susceptible INVIRASE (saquinavir, SQV) Susceptible APTIVUS, (tipranavir, TPV) Susceptible PI drug resistance mutations (VAF >=20.0%) identified: Drug Class: INI ISENTRESS (raltegravir, RAL) Susceptible VITEKTA (elvitegravir, EVG) Susceptible TIVICAY (dolutegravir, DTG) Susceptible BIKTARVY (bictegravir, BIC) Susceptible VOCABRIA (cabotegravir, CAB) Susceptible INI drug resistance mutations (VAF >=20.0%) identified: LOW LEVEL HOTSPOT MUTATIONS (VAF <20.0%) ASSOCIATED WITH DRUG SUSCEPTIBILITY OF UNKNOWN CLINICAL SIGNIFICANCE: AK: RT: IN: MUTATIONS IN HOTSPOT POSITIONS NOT CURRENTLY ASSOCIATED WITH DRUG SUSCEPTIBILITY: AK: K43R(98.4%) RT: V179I(8.7%), H221T(7.9%) IN: Comments: DISCLAIMER Based on correlation with the presence of mutations at a frequency consistent with Zuleima/population sequencing (around 20.0%) and established relationships with the most recent HIV mutation information. ([facility] HIV Drug Resistance Database, HIVdb Algorithm Version 9.5.1). Amino acid substitutions (mutations) present below the level detectable by population sequencing (variant allele frequency, VAF of 20.0%) and above the clinical sensitivity level of the assay (VAF >5.0%) are reported. The clinical significance of these low-level drug resistance mutations is uncertain. The low-level mutations (VAF <20.0%) are not considered when determining drug susceptibility. This assay uses [email or web address]) HIV protocol and patient-derived gag-p2/NCp7/p1/p6/mitch-AK/RT/IN HIV fragments to assess virus susceptibility to PI, NRTI, NNRTI, and INI (i.e., AK codons 1 to 99, RT codons 1 to 280, and INT codons 1 to 288). This assay uses a [facility] proprietary bioinformatics pipeline created by Dr. Josiah Sommer to detect HIV-1 variants. Genome assembly ([id number]) was used for alignment. The amino acid B subtype consensus sequence from the [facility] HIV Drug Resistance Database Version drugDBVersion is used for variant calling. This assay is validated for testing specimens with plasma HIV-1 RNA load =1000 copies/mL or greater. Samples with viral load <1000 copies/mL may show increased rate of amplification failure and increased variability in variant percentage due to selective amplification of viral quasispecies. Non-reportable results are usually caused by plasma viral load <1000 copies/mL or compromised sample collection/handling. This assay is capable of detecting HIV-1 minority variants when present above 5.0% of the viral population. Mutations associated with reduced susceptibility to protease, reverse transcriptase, or integrase inhibitors are indicated as determined based on the [facility] HIV Drug Resistance Database. These result should not be used as the sole criteria for patient management. This laboratory developed test was developed and its analytical performance characteristics have been determined by [facility]. This test has not been cleared or approved by the FDA; however, the FDA has determined that such approval is not necessary. The [facility] is certified under the Clinical Laboratory Improvement Amendments of 1988 (CLIA-88) as qualified to perform high complexity testing. Nucleic acid extraction and testing are performed in the [facility] ([facility]) located at [address] [place] [address] (CLIA License [id number], CAP [id number]). Performed By: #### [id number] #### [facility]EL[facility] ([id number]) [facility] ([facility]) [address] [place] [address] Laboratory - Microbiology an d Antimicrobial susceptibilityOrdered By: Doris Adkins on 02-07-2024 HCV Ab IA Ql Detected Abnormal Not Detected [facility] Comment on above: Patients with DETECT ED Hepatitis C Ab results should have a new specimen submitted for supplemental testing with a Hepatitis C Quantitative RNA assay (viral load), if clinically indicated. Laboratory - Microbiology an d Antimicrobial susceptibilityon 02-07-2024 HBV surface Ab IA Qn 45.4 m[IU]/mL mIU/mL S [facility] HBV surface Ag IA Ql Not detected Not Detected [facility] Laboratory - Microbiology an d Antimicrobial susceptibilityOrdered By: Sylvie Reyes on 02-07-2024 Reagin Ab RPR Ql (S) Non-Reactive Nonreactive S [facility] No Panel Informationon 02-06 [facility] Reagin Ab RPR Ql (S)Ordered By: Sylvie Reyes on 02-07-2024 Interpretation and review of laboratory results Normal [facility] Absolute lymphocyte countOrd ered By: Rosalva Lopez on 01-29-2024 Lymphocytes Auto (Unsp spec) [#/Vol] 1.93 10*3/uL 0.83-4.51 [facility] Automated lymphocyte count a s percentage of total leukocytesOrdered By: Rosalva Lopez on 01-29-2024 Lymphocytes/100 WBC Auto (Unsp spec) 25.5 % 19-41 [facility] Basophil percentageOrdered B y: Rosalva Lopez on 01-29-2024 Basophils/100 WBC (Bld) 0.9 % 0-1 [facility] Bilirubin [Mass/Vol] 0.50 mg/dL 0.20-1.00 [facility] Comment on above: For patients on eltr ombopag therapy, use of [place] TBIL is not recommended. Chloride [Moles/Vol] 107 mmol/L 98-107 [facility] Eosinophils/100 WBC (Bld) 2.4 % 0-5 [facility] Glucose [Mass/Vol] 90 mg/dL 74-106 [facility] Hemoglobin (Bld) [Mass/Vol] 14.6 g/dL 13.0-16.5 [facility] Monocytes/100 WBC (Bld) 6.9 % 0-10 [facility] Neutrophils (Bld) [#/Vol] 4.8 10*3/uL 2.0-7.7 [facility] Neutrophils/100 WBC (Bld) 63.0 % 47-70 [facility] Potassium [Moles/Vol] 4.2 mmol/L 3.5-5.1 [facility] Protein [Mass/Vol] 7.5 g/dL 6.4-8.2 [facility] Sodium [Moles/Vol] 136 mmol/L 136-145 [facility] WBC (Bld) [#/Vol] 7.6 10*3/uL 4.4-11.0 [facility] Determination of erythrocyte mean corpuscular volume (MCV)Ordered By: Rosalva Lopez on 01-29-2024 MCV (RBC) [Entitic vol] 93.0 fL 80-94 [facility] Erythrocyte distribution wid th ratioOrdered By: Rosalva Lopez on 01-29-2024 Erythrocyte distribution width (RBC) [Ratio] 13.9 % 11.6-14.6 [facility] Erythrocyte distribution wid th standard deviationOrdered By: Rosalva Lopez on 01-29-2024 Erythrocyte distribution width (RBC) [Entitic vol] 46.7 fL 35.1-43.9 [facility] HIV 1 and HIV-2 antibody ass ay with HIV-1 p24 antigen detectionOrdered By: Rosalva Lopez on 01-29-2024 HIV 1+2 Ab+HIV1 p24 Ag IA Ql Preliminary Reactive Nonreactive [facility] Comment on above: SEND OUT PRESUMPTIVE REACTIVE SPECIMENS TO [facility] TEST NUMBER [id number] FOR CONFIRMATION. Hematocrit Auto (Bld) [Volum e fraction]Ordered By: Rosalva Lopez on 01-29-2024 Hematocrit (Bld) [Volume fraction] 44.0 % 40-54 [facility] Immature granulocytes/100 WB C Auto (Bld)Ordered By: Rosalva Lopez on 01-29-2024 Immature granulocytes/100 WBC (Bld) 1.300 % 0.0-0.9 [facility] Comment on above: IG% - Immature Granu locytes (promyelocytes, myelocytes and metamyelocytes) > 1% indicates that a LEFT SHIFT is Present. Laboratory - Chemistry and C hemistry - challengeOrdered By: Rosalva Lopez on 01-29-2024 Albumin/Globulin [Mass ratio] 1.0 {ratio} 0.9-2.4 [facility] ALP [Catalytic activity/Vol] 50 U/L 45-117 [facility] ALT [Catalytic activity/Vol] 59 U/L 16-61 [facility] CO2 [Moles/Vol] 25.0 mmol/L 21.0-32.0 [facility] Globulin (S) [Mass/Vol] 3.7 g/dL 2.2-4.2 [facility] Lipase [Catalytic activity/Vol] 33 U/L 13-75 [facility] Comment on above: Please note:LIPASE r evised reference range effective 23. New Lipase methodology. Expected to produce lower values than the previous assay method. NEW Reference Range: 13 - 75 U/L Urea nitrogen/Creatinine [Mass ratio] 9.7 mg/mg 10-20 [facility] Laboratory - Hematology and Cell countsOrdered By: Rosalva Lopez on 01-29-2024 MCH (RBC) [Entitic mass] 30.9 pg 27.0-32.0 [facility] MCHC (RBC) [Mass/Vol] 33.2 g/dL 32-36 [facility] Nucleated RBC/100 WBC (Bld) [Ratio] 0 % 0-5 [facility] Platelet mean volume (Bld) [Entitic vol] 10.1 fL 6.2-12.0 [facility] Platelets (Bld) [#/Vol] 227 10*3/uL 150-450 [facility] No Panel InformationOrdered By: Rosalva Lopez on 01-29-2024 Miscellaneous Test See comment [facility] Comment on above: TEST RESULTS LIMITSH IV Ab/p24 Ag with Reflex HIV Ab/p24 Ag Screen Preliminary Reactive Non Reactive Please refer to the Final Interpretation. Results reactive by HIV Antigen/Antibody EIA must be confirmed by the HIV testing algorithm to be considered indicative of a true HIV infection. HIV 1/2 Ab Differentiation HIV 1 Ab Reactive Non Reactive HIV 2 Ab Non Reactive Non Reactive Interpretation: HIV-1 Positive Abnormal Laboratory evidence consistent with HIV-1 infection. TESTING PERFORMED AT [facility]. ORIGINAL REPORT ON FILE IN LAB CONTAINS ADDITIONAL TEST SITE INFORMATION. Estimated GFR (MDRD) Amer 138 mL/min >60 [facility] Comment on above: GFR Calc Estimated GFR (MDRD) Non-Af Amer 114 mL/min >60 [facility] Comment on above: Non- GFR Calc RBC Auto (Bld) [#/Vol]Ordere d By: Rosalva Lopez on 01-29-2024 RBC (Bld) [#/Vol] 4.73 10*6/uL 4.6-6.2 [facility] Serum or plasma calcium melinda urement (mass/volume)Ordered By: Rosalva Lopez on 01-29-2024 Calcium [Mass/Vol] 8.8 mg/dL 8.5-10.1 [facility] Serum or plasma creatinine m easurement (mass/volume)Ordered By: Rosalva Lopez on 01-29-2024 Creatinine [Mass/Vol] 0.82 mg/dL 0.70-1.30 [facility] Comment on above: The validity of the calculated GFR & GFRAA in patients over 70 years has not been determined. Clinical correlation is essential. Serum or plasma urea nitroge n measurement (mass/volume)Ordered By: Rosalva Lopez on 01-29-2024 Urea nitrogen [Mass/Vol] 8 mg/dL 7-18 [facility] Thin prep Papanicolaou smear with manual screeningOrdered By: Rosalvajohn Lopez on 01-29-2024 Thin prep Papanicolaou smear with manual screening 3.8 g/dL 3.2-5.0 [facility] Thin prep Papanicolaou smear with manual screening 28 U/L 15-37 [facility] Thin prep Papanicolaou smear with manual screening 4 5-15 [facility] Absolute lymphocyte countOrd ered By: Bhupinder Byrd on 01-12-2024 Lymphocytes Auto (Unsp spec) [#/Vol] 2.13 10*3/uL 0.83-4.51 [facility] Automated lymphocyte count a s percentage of total leukocytesOrdered By: Bhupinder Byrd on 01-12-2024 Lymphocytes/100 WBC Auto (Unsp spec) 20.2 % 19-41 [facility] Basophil percentageOrdered B y: Bhupinder Byrd on 01-12-2024 Basophils/100 WBC (Bld) 0.8 % 0-1 [facility] Bilirubin [Mass/Vol] 0.60 mg/dL 0.20-1.00 [facility] Comment on above: For patients on eltr ombopag therapy, use of [place] TBIL is not recommended. Chloride [Moles/Vol] 106 mmol/L 98-107 [facility] Eosinophils/100 WBC (Bld) 1.2 % 0-5 [facility] Glucose [Mass/Vol] 89 mg/dL 74-106 [facility] Hemoglobin (Bld) [Mass/Vol] 13.0 g/dL 13.0-16.5 [facility] Monocytes/100 WBC (Bld) 5.9 % 0-10 [facility] Neutrophils (Bld) [#/Vol] 7.5 10*3/uL 2.0-7.7 [facility] Neutrophils/100 WBC (Bld) 71.1 % 47-70 [facility] Potassium [Moles/Vol] 3.4 mmol/L 3.5-5.1 [facility] Protein [Mass/Vol] 6.4 g/dL 6.4-8.2 [facility] Sodium [Moles/Vol] 139 mmol/L 136-145 [facility] WBC (Bld) [#/Vol] 10.6 10*3/uL 4.4-11.0 [facility] Determination of erythrocyte mean corpuscular volume (MCV)Ordered By: Bhupinder Byrd on 01-12-2024 MCV (RBC) [Entitic vol] 90.7 fL 80-94 [facility] Erythrocyte distribution wid th ratioOrdered By: Bhupinder Byrd on 01-12-2024 Erythrocyte distribution width (RBC) [Ratio] 13.2 % 11.6-14.6 [facility] Erythrocyte distribution wid th standard deviationOrdered By: Bhupinder Byrd on 01-12-2024 Erythrocyte distribution width (RBC) [Entitic vol] 43.5 fL 35.1-43.9 [facility] Hematocrit Auto (Bld) [Volum e fraction]Ordered By: Bhupinder Byrd on 01-12-2024 Hematocrit (Bld) [Volume fraction] 37.9 % 40-54 [facility] Immature granulocytes/100 WB C Auto (Bld)Ordered By: Bhupinder Byrd on 01-12-2024 Immature granulocytes/100 WBC (Bld) 0.800 % 0.0-0.9 [facility] Comment on above: IG% - Immature Granu locytes (promyelocytes, myelocytes and metamyelocytes) > 1% indicates that a LEFT SHIFT is Present. Laboratory - Chemistry and C hemistry - challengeOrdered By: Bhupinder Byrd on 01-12-2024 Albumin/Globulin [Mass ratio] 1.1 {ratio} 0.9-2.4 [facility] ALP [Catalytic activity/Vol] 49 U/L 45-117 [facility] ALT [Catalytic activity/Vol] 21 U/L 16-61 [facility] CO2 [Moles/Vol] 27.0 mmol/L 21.0-32.0 [facility] Globulin (S) [Mass/Vol] 3.1 g/dL 2.2-4.2 [facility] Urea nitrogen/Creatinine [Mass ratio] 13.5 mg/mg 10-20 [facility] Laboratory - Chemistry and C hemistry - challengeOrdered By: Vincent Begum on 01-12-2024 CK [Catalytic activity/Vol] 53 U/L 39-308 [facility] Laboratory - Drug toxicology Ordered By: Bhupinder Byrd on 01-12-2024 Amphetamines Ql (U) Positive <1000 ng/mL [facility] Benzodiazepines Ql (U) Negative < 200 ng/mL [facility] Cannabinoids Screen Ql (U) Positive < 50 ng/mL [facility] Cocaine Ql (U) Negative < 300 ng/mL [facility] Opiates Ql (U) Negative < 300 ng/mL [facility] Laboratory - Hematology and Cell countsOrdered By: Bhupinder Byrd on 01-12-2024 MCH (RBC) [Entitic mass] 31.1 pg 27.0-32.0 [facility] MCHC (RBC) [Mass/Vol] 34.3 g/dL 32-36 [facility] Nucleated RBC/100 WBC (Bld) [Ratio] 0 % 0-5 [facility] Platelet mean volume (Bld) [Entitic vol] 10.0 fL 6.2-12.0 [facility] Platelets (Bld) [#/Vol] 239 10*3/uL 150-450 [facility] No Panel InformationOrdered By: Bhupinder Byrd on 01-12-2024 Estimated Creatinine Clearance Calc 106.43 ml/min [facility] Estimated GFR (MDRD) Amer 127 mL/min >60 [facility] Comment on above: GFR Calc Estimated GFR (MDRD) Non-Af Amer 105 mL/min >60 [facility] Comment on above: Non- GFR Calc Ethyl Alcohol Level < 3.0 mg/dL [facility] Comment on above: The serum:whole bloo d ethanol ratio is approximately 1.14and varies slightly with hematocrit. Medical Alcohol reference interval and critical value innon-tolerant individuals; 50 - 100 Impairment 100 Intoxication 100 - 250 Severe Poisoning 250 - 400 Deep/possible fatal coma MDMA (Ecstasy) Screen Negative < 500 ng/mL [facility] Urine Barbiturates Screen Negative < 200 ng/mL [facility] Urine Drug Screen Comment [facility] Comment on above: CONFIRMATORY TESTING FOR ALL POSITIVE URINE DRUG SCREENRESULTS WILL ONLY BE SENT OUT UPON PHYSICIAN ORDER. VISTA Urine Drug Screen methods provide only preliminaryanalytical test results. A more specific alternate chemicalmethod must be used in order to obtain a confirmedanalytical result. Gas chromatography/mass spectrometery(GC/MS) is the preferred confirmatory method. Clinicalconsideration and professional judgement should be appliedto any drug of abuse test result, particularly whenpreliminary positive results are used. URINE TCA TESTING MUST BE ORDERED SEPARATELY. USE TESTMNEMONIC: [facility] Urine Methadone Screen Negative < 300 ng/mL [facility] RBC Auto (Bld) [#/Vol]Ordere d By: Bhupinder Byrd on 01-12-2024 RBC (Bld) [#/Vol] 4.18 10*6/uL 4.6-6.2 [facility] Serum or plasma calcium melinda urement (mass/volume)Ordered By: Bhupinder Byrd on 01-12-2024 Calcium [Mass/Vol] 8.8 mg/dL 8.5-10.1 [facility] Serum or plasma creatinine m easurement (mass/volume)Ordered By: Bhupinder Byrd on 01-12-2024 Creatinine [Mass/Vol] 0.89 mg/dL 0.70-1.30 [facility] Comment on above: The validity of the calculated GFR & GFRAA in patients over 70 years has not been determined. Clinical correlation is essential. Serum or plasma urea nitroge n measurement (mass/volume)Ordered By: Bhupinder Byrd on 01-12-2024 Urea nitrogen [Mass/Vol] 12 mg/dL 7-18 [facility] Thin prep Papanicolaou smear with manual screeningOrdered By: Bhupinder Byrd on 01-12-2024 Thin prep Papanicolaou smear with manual screening 3.3 g/dL 3.2-5.0 [facility] Thin prep Papanicolaou smear with manual screening 15 U/L 15-37 [facility] Thin prep Papanicolaou smear with manual screening 6 5-15 [facility] Urine phencyclidine (PCP) de tectionOrdered By: Bhupinder Byrd on 01-12-2024 Phencyclidine Ql (U) Negative < 25 ng/mL [facility] Absolute lymphocyte countOrd ered By: Sharon Elizabeth on 08-01-2023 Lymphocytes Auto (Unsp spec) [#/Vol] 1.56 10*3/uL 0.83-4.51 [facility] Basophil percentageOrdered B y: Sharon Elizabeth on 08-01-2023 Basophils/100 WBC (Bld) 0.5 % 0-1 [facility] Chloride [Moles/Vol] 111 mmol/L 98-107 [facility] Eosinophils/100 WBC (Bld) 2.0 % 0-5 [facility] Glucose [Mass/Vol] 94 mg/dL 74-106 [facility] Neutrophils (Bld) [#/Vol] 6.4 10*3/uL 2.0-7.7 [facility] Neutrophils/100 WBC (Bld) 72.1 % 47-70 [facility] Potassium [Moles/Vol] 4.2 mmol/L 3.5-5.1 [facility] Sodium [Moles/Vol] 138 mmol/L 136-145 [facility] WBC (Bld) [#/Vol] 8.8 10*3/uL 4.4-11.0 [facility] Blood erythrocytes count (nu mber/volume)Ordered By: Sharon Elizabeth on 08-01-2023 RBC (Bld) [#/Vol] 4.34 10*6/uL 4.6-6.2 [facility] Blood hemoglobin measurement (mass/volume)Ordered By: Sharon Elizabeth on 08-01-2023 Hemoglobin (Bld) [Mass/Vol] 13.6 g/dL 13.0-16.5 [facility] Blood lymphocytes/100 leukoc ytesOrdered By: Sharon Elizabeth on 08-01-2023 Lymphocytes/100 WBC (Bld) 17.7 % 19-41 [facility] Blood monocytes/100 leukocyt esOrdered By: Sharon Elizabeth on 08-01-2023 Monocytes/100 WBC (Bld) 7.1 % 0-10 [facility] Blood platelet mean volumeOr dered By: Sharon Elizabeth on 08-01-2023 Platelet mean volume (Bld) [Entitic vol] 9.7 fL 6.2-12.0 [facility] Determination of erythrocyte mean corpuscular volume (MCV)Ordered By: Sharon Elizabeth on 08-01-2023 MCV (RBC) [Entitic vol] 93.1 fL 80-94 [facility] Hematocrit Auto (Bld) [Volum e fraction]Ordered By: Sharon Elizabeth on 08-01-2023 Hematocrit (Bld) [Volume fraction] 40.4 % 40-54 [facility] Laboratory - Chemistry and C hemistry - challengeOrdered By: Sharon Elizabeth on 08-01-2023 CO2 [Moles/Vol] 23.0 mmol/L 21.0-32.0 [facility] Urea nitrogen/Creatinine [Mass ratio] 19.9 mg/mg 10-20 [facility] Laboratory - Hematology and Cell countsOrdered By: Sharon Elizabeth on 08-01-2023 Erythrocyte distribution width (RBC) [Entitic vol] 44.6 fL 35.1-43.9 [facility] Erythrocyte distribution width (RBC) [Ratio] 13.1 % 11.6-14.6 [facility] Immature granulocytes/100 WBC (Bld) 0.600 % 0.0-0.9 [facility] Comment on above: IG% - Immature Granu locytes (promyelocytes, myelocytes and metamyelocytes) > 1% indicates that a LEFT SHIFT is Present. MCH (RBC) [Entitic mass] 31.3 pg 27.0-32.0 [facility] Nucleated RBC/100 WBC (Bld) [Ratio] 0 % 0-5 [facility] MCHC Auto (RBC) [Mass/Vol]Or dered By: Sharon Elizabeth on 08-01-2023 MCHC (RBC) [Mass/Vol] 33.7 g/dL 32-36 [facility] No Panel InformationOrdered By: Sharon Eilzabeth on 08-01-2023 Estimated Creatinine Clearance Calc 99.24 ml/min [facility] Estimated GFR (MDRD) Amer 133 mL/min >60 [facility] Comment on above: GFR Calc Estimated GFR (MDRD) Non-Af Amer 110 mL/min >60 [facility] Comment on above: Non- GFR Calc Platelets bldOrdered By: Marlys Elizabeth on 08-01-2023 Platelets (Bld) [#/Vol] 174 10*3/uL 150-450 [facility] Serum or plasma calcium melinda urement (mass/volume)Ordered By: Sharon Elizabeth on 08-01-2023 Calcium [Mass/Vol] 8.2 mg/dL 8.5-10.1 [facility] r [facility] [place], [place] Serum or plasma creatinine m easurement (mass/volume)Ordered By: Sharon Elizabeth on 08-01-2023 Creatinine [Mass/Vol] 0.86 mg/dL 0.70-1.30 [facility] Comment on above: The validity of the calculated GFR & GFRAA in patients over 70 years has not been determined. Clinical correlation is essential. Serum or plasma urea nitroge n measurement (mass/volume)Ordered By: Sharon Elizabeth on 08-01-2023 Urea nitrogen [Mass/Vol] 17 mg/dL 7-18 [facility] Thin prep Papanicolaou smear with manual screeningOrdered By: Sharon Elizabeth on 08-01-2023 Thin prep Papanicolaou smear with manual screening 4 5-15 [facility] Bacteria identified Cx Nom ( Wound)Ordered By: Qasim Espinal on 07-31-2023 Wound Culture Staphylococcus epidermidis [facility] Gram stain for investigation of transfusion reactionOrdered By: Qasim Espinal on 07-31-2023 Microscopic observation Gram stain Nom (Unsp spec) [facility] Absolute lymphocyte countOrd ered By: Rosalva Lopez on 04-04-2023 Lymphocytes Auto (Unsp spec) [#/Vol] 2.54 10*3/uL 0.83-4.51 [facility] Basophil percentageOrdered B y: Rosalva Lopez on 04-04-2023 Basophils/100 WBC (Bld) 0.8 % 0-1 [facility] Bilirubin [Mass/Vol] 1.20 mg/dL 0.20-1.00 [facility] Comment on above: For patients on eltr ombopag therapy, use of [place] TBIL is not recommended. Chloride [Moles/Vol] 103 mmol/L 98-107 [facility] Cholesterol [Mass/Vol] 225 mg/dL <200 [facility] Comment on above: <200 mg/dL Desirable 200-240 mg/dL Borderline >240 mg/dL High Risk Eosinophils/100 WBC (Bld) 1.9 % 0-5 [facility] Glucose [Mass/Vol] 80 mg/dL 74-106 [facility] Neutrophils (Bld) [#/Vol] 5.9 10*3/uL 2.0-7.7 [facility] Neutrophils/100 WBC (Bld) 63.5 % 47-70 [facility] Potassium [Moles/Vol] 3.6 mmol/L 3.5-5.1 [facility] Protein [Mass/Vol] 7.6 g/dL 6.4-8.2 [facility] Sodium [Moles/Vol] 135 mmol/L 136-145 [facility] Triglyceride [Mass/Vol] 118 mg/dL <199 [facility] Comment on above: The drugs N-Acetylcy steine and Metamizole may falsely depress this assay.Serum Triglycerides Reference Interval Normal <150 mg/dL Borderline high 150 - 199 mg/dL High 200 - 499 mg/dL Very High > or = 500 mg/dL WBC (Bld) [#/Vol] 9.3 10*3/uL 4.4-11.0 [facility] Blood erythrocytes count (nu mber/volume)Ordered By: Rosalva Lopez on 04-04-2023 RBC (Bld) [#/Vol] 4.75 10*6/uL 4.6-6.2 [facility] Blood hemoglobin measurement (mass/volume)Ordered By: Rosalva Lopez on 04-04-2023 Hemoglobin (Bld) [Mass/Vol] 15.2 g/dL 13.0-16.5 [facility] Blood lymphocytes/100 leukoc ytesOrdered By: Rosalva Lopez on 04-04-2023 Lymphocytes/100 WBC (Bld) 27.3 % 19-41 [facility] Blood monocytes/100 leukocyt esOrdered By: Rosalva Lopez on 07-06-2023 Monocytes/100 WBC (Bld) 6.0 % 0-10 [facility] Blood platelet mean volumeOr dered By: Rosalva Lopez on 04-04-2023 Platelet mean volume (Bld) [Entitic vol] 10.3 fL 6.2-12.0 [facility] Determination of erythrocyte mean corpuscular volume (MCV)Ordered By: Rosalva Lopez on 04-04-2023 MCV (RBC) [Entitic vol] 92.4 fL 80-94 [facility] Hematocrit Auto (Bld) [Volum e fraction]Ordered By: Rosalva Lopez on 04-04-2023 Hematocrit (Bld) [Volume fraction] 43.9 % 40-54 [facility] Laboratory - Chemistry and C hemistry - challengeOrdered By: Rosalva Lopez on 04-04-2023 ALP [Catalytic activity/Vol] 50 U/L 45-117 [facility] ALT [Catalytic activity/Vol] 79 U/L 16-61 [facility] CO2 [Moles/Vol] 24.0 mmol/L 21.0-32.0 [facility] Globulin (S) [Mass/Vol] 3.4 g/dL 2.2-4.2 [facility] Urea nitrogen/Creatinine [Mass ratio] 17.8 mg/mg 10-20 [facility] Laboratory - Hematology and Cell countsOrdered By: Rosalva Lopez on 04-04-2023 Erythrocyte distribution width (RBC) [Entitic vol] 42.3 fL 35.1-43.9 [facility] Erythrocyte distribution width (RBC) [Ratio] 12.5 % 11.6-14.6 [facility] Immature granulocytes/100 WBC (Bld) 0.500 % 0.0-0.9 [facility] Comment on above: IG% - Immature Granu locytes (promyelocytes, myelocytes and metamyelocytes) > 1% indicates that a LEFT SHIFT is Present. MCH (RBC) [Entitic mass] 32.0 pg 27.0-32.0 [facility] Nucleated RBC/100 WBC (Bld) [Ratio] 0 % 0-5 [facility] MCHC Auto (RBC) [Mass/Vol]Or dered By: Rosalva Lopez on 04-04-2023 MCHC (RBC) [Mass/Vol] 34.6 g/dL 32-36 [facility] No Panel InformationOrdered By: Rosalva Lopez on 04-04-2023 Estimated GFR (MDRD) Amer 110 mL/min >60 [facility] Comment on above: GFR Calc Estimated GFR (MDRD) Non-Af Amer 91 mL/min >60 [facility] Comment on above: Non- GFR Calc Platelets bldOrdered By: Nash Lopez on 04-04-2023 Platelets (Bld) [#/Vol] 208 10*3/uL 150-450 [facility] Serum or plasma albumin melinda urement (mass/volume)Ordered By: Rosalva Lopez on 04-04-2023 Albumin [Mass/Vol] 4.2 g/dL 3.2-5.0 [facility] Serum or plasma albumin/glob ulin mass ratioOrdered By: Rosalva Lopez on 04-04-2023 Albumin/Globulin [Mass ratio] 1.2 {ratio} 0.9-2.4 [facility] Serum or plasma calcium melinda urement (mass/volume)Ordered By: Rosalva Lopez on 04-04-2023 Calcium [Mass/Vol] 9.1 mg/dL 8.5-10.1 [facility] Serum or plasma cholesterol in HDL measurement (mass/volume)Ordered By: Rosalva Lopez on 04-04-2023 Cholesterol in HDL [Mass/Vol] 40 mg/dL >40 [facility] Comment on above: The drugs N-Acetylcy steine and Metamizole may falsely depress this assay. Reference Range HDL <40 mg/dL Low HDL Cholesterol HDL >or= 60 mg/dL High HDL Cholesterol Serum or plasma cholesterol in VLDL measurement (mass/volume)Ordered By: Rosalva Lopez on 04-04-2023 Cholesterol in VLDL [Mass/Vol] 24 mg/dL 5-40 [facility] Serum or plasma creatinine m easurement (mass/volume)Ordered By: Rosalva Lopez on 04-04-2023 Creatinine [Mass/Vol] 1.01 mg/dL 0.70-1.30 [facility] Comment on above: The validity of the calculated GFR & GFRAA in patients over 70 years has not been determined. Clinical correlation is essential. Serum or plasma low density lipoprotein (LDL) cholesterol measurement (mass/volume)Ordered By: Rosalva Lopez on 04-04-2023 Cholesterol in LDL [Mass/Vol] 161 mg/dL 0-130 [facility] Serum or plasma urea nitroge n measurement (mass/volume)Ordered By: Rosalva Lopez on 04-04-2023 Urea nitrogen [Mass/Vol] 18 mg/dL 7-18 [facility] Thin prep Papanicolaou smear with manual screeningOrdered By: Rosalva Lopez on 04-04-2023 Thin prep Papanicolaou smear with manual screening 40 U/L 15-37 [facility] Thin prep Papanicolaou smear with manual screening 8 5-15 [facility] Culture, urineOrdered By: Tamiko Man on 03-02-2023 Bacteria identified Cx Nom (U) Positive [facility] Basophil percentageOrdered B y: Pramod Man on 02-28-2023 Basophil percentage 0 SEEN /hpf 0-5 [facility] Bilirubin Test strip Ql (U)O rdered By: Pramod Man on 02-28-2023 Bilirubin Ql (U) Negative Negative [facility] Culture, urineOrdered By: Tamiko Man on 02-28-2023 Bacteria identified Cx Nom (U) Positive [facility] Ketones Test strip Ql (U)Ord ered By: Pramod Man on 02-28-2023 Ketones Ql (U) 5 mg/dl Negative [facility] Mucus LM Ql (Urine sed)Order ed By: Pramod Man on 02-28-2023 Mucus Ql (Urine sed) 0 SEEN /hpf [facility] Nitrite Test strip Ql (U)Ord ered By: Pramod Man on 02-28-2023 Nitrite Ql (U) Negative Negative [facility] No Panel InformationOrdered By: Pramod Man on 02-28-2023 Miscellaneous Test See comment [facility] Comment on above: TEST RESULTS LIMITSR AK, Rfx Qn RPR/Confirm TPRPR Reactive Abnormal Non ReactiveRPR, Quant. 1:1 High NonRea<1:1Treponema pallidumAntibodies Reactive Abnormal Non Reactive TESTING PERFORMED AT [facility]. ORIGINAL REPORT ON FILE IN LAB CONTAINS ADDITIONAL TEST SITE INFORMATION. TEST RESULTS LIMITSH SV-1 DNA Negative NegativeHSV-2 DNA Negative NegativeThis test was developed and its performance characteristics determined by [employer] It has not been cleared or approved by the U.S. Food and Drug Administration. The FDA has determined that such clearance or approval is not necessary. This test is used for clinical purposes. It should not be regarded as investigational or research. TESTING PERFORMED AT [facility]. ORIGINAL REPORT ON FILE IN LAB CONTAINS ADDITIONAL TEST SITE INFORMATION. Protein Test strip Ql (U)Ord ered By: Pramod Man on 02-28-2023 Protein Ql (U) 15 mg/dl Negative [facility] Squamous epithelial cells de tection in urine sediment by light microscopyOrdered By: Pramod Man on 02-28-2023 Epithelial cells.squamous LM Ql (Urine sed) 0 SEEN /hpf 0-5 [facility] Urine blood detectionOrdered By: Pramod Man on 02-28-2023 RBC Ql (U) Negative Negative [facility] RBC Ql (U) 0 SEEN /hpf 0-5 [facility] Urine clarityOrdered By: Indy Man on 02-28-2023 Clarity (U) Sl. Cloudy Clear [facility] Urine color determinationOrd ered By: Pramod Man on 02-28-2023 Color (U) Yellow Yellow [facility] Urine glucose detectionOrder ed By: Pramod Man on 02-28-2023 Glucose Ql (U) Normal mg/dl Normal [facility] Urine leukocyte esterase det ection by dipstickOrdered By: Pramod Man on 02-28-2023 Leukocyte esterase Test strip Ql (U) Negative Negative [facility] Urine pHOrdered By: Pramod linton on 02-28-2023 pH (U) 6.0 [pH] 5.0 - 8.0 [facility] Urine sediment bacteria coun t by microscopy (number/high power field)Ordered By: Pramod Man on 02-28-2023 Bacteria LM.HPF (Urine sed) [#/Area] 0 /[HPF] None Seen [facility] Urine specific gravity measu rementOrdered By: Pramod Man on 02-28-2023 Specific gravity (U) [Rel density] 1.020 1.002-1.030 [facility] Urobilinogen Auto test strip Ql (U)Ordered By: Pramod Man on 02-28-2023 Urobilinogen Ql (U) 1 mg/dl Normal [facility] No Panel InformationOrdered By: Pramod Man on 02-04-2023 Miscellaneous Test See comment [facility] Comment on above: TEST RESULT LIMITSRP R, Rfx Qn RPR/Confirm TP RPR Reactive Abnormal Non Reactive RPR, Quant. 1:1 High NonRea<1:1 Treponema pallidum Antibodies Reactive Abnormal Non Reactive ___ [facility] ORIGINAL REPORT ON FILE IN LAB CONTAINS ADDITIONAL TEST SITE INFORMATION. Basophil percentageOrdered B y: Pramod Man on 01-31-2023 Basophil percentage TNP [facility] Comment on above: Test not performed HIV 1 and HIV-2 antibody ass ay with HIV-1 p24 antigen detectionOrdered By: Pramod Man on 01-31-2023 HIV 1+2 Ab+HIV1 p24 Ag IA Ql Non-Reactive Nonreactive [facility] No Panel InformationOrdered By: Pramod Man on 01-31-2023 Addendum Document Comment . [facility] Comment on above: The quantitative ran ge of this assay is 15 IU/mL to 100million IU/mL.Performed at: [facility] [id number] Director: Ashlyn Foley MD, Phone: [phone] Hepatitis C Antibody Preliminary Reactive Nonre active [facility] Comment on above: Non Reactive: < 0.8 Equivocal: >/= 0.8 to < 1.0 Reactive: >/= 1.0The [facility] recommends that a reactive/equivocal HCV antibody result be followed up by the HCV Nucleic Acid Amplificationtest (011370) Serum Treponema species anti body detectionOrdered By: Pramod Man on 01-31-2023 Treponema sp Ab Ql (S) Reactive [facility] Serum or plasma hepatitis C virus RNA measurement by probe and target amplification mOrdered By: Pramod Man on 01-31-2023 HCV RNA ALYSHA+probe Qn Not detected . [facility] Absolute lymphocyte counton 07-04-2022 Lymphocytes Auto (Unsp spec) [#/Vol] 2.32 10*3/uL 0.83-4.51 [facility] Work Phone: Basophil percentageon 2021 Basophil percentage TNP [facility] Work Phone: Comment on above: Test not performed Basophils/100 WBC (Bld) 0.6 % 0-1 [facility] Work Phone: Bilirubin [Mass/Vol] 0.80 mg/dL 0.20-1.00 [facility] Work Phone: Comment on above: For patients on eltr ombopag therapy, use of [place] TBIL is not recommended. Chloride [Moles/Vol] 102 mmol/L 98-107 [facility] Work Phone: Cholesterol [Mass/Vol] 237 mg/dL <200 [facility] [place] [place] Work Phone: Comment on above: <200 mg/dL Desirable 200-240 mg/dL Borderline >240 mg/dL High Risk Eosinophils/100 WBC (Bld) 1.8 % 0-5 [facility] Work Phone: [phone] Glucose [Mass/Vol] 94 mg/dL 74-106 [facility] Work Phone: Neutrophils (Bld) [#/Vol] 5.6 10*3/uL 2.0-7.7 [facility] Work Phone: Neutrophils/100 WBC (Bld) 64.1 % 47-70 [facility] Work Phone: Potassium [Moles/Vol] 4.3 mmol/L 3.5-5.1 [facility] Work Phone: Protein [Mass/Vol] 8.3 g/dL 6.4-8.2 [facility] Work Phone: Sodium [Moles/Vol] 136 mmol/L 136-145 [facility] Work Phone: Triglyceride [Mass/Vol] 203 mg/dL <199 [facility] Work Phone: Comment on above: The drugs N-Acetylcy steine and Metamizole may falsely depress this assay.Serum Triglycerides Reference Interval Normal <150 mg/dL Borderline high 150 - 199 mg/dL High 200 - 499 mg/dL Very High > or = 500 mg/dL WBC (Bld) [#/Vol] 8.8 10*3/uL 4.4-11.0 [facility] Work Phone: Blood erythrocytes count (nu mber/volume)on 07-04-2022 RBC (Bld) [#/Vol] 5.01 10*6/uL 4.6-6.2 [facility] Work Phone: Blood hemoglobin measurement (mass/volume)on 07-04-2022 Hemoglobin (Bld) [Mass/Vol] 15.8 g/dL 13.0-16.5 [facility] Work Phone: Blood lymphocytes/100 leukoc yteson 07-04-2022 Lymphocytes/100 WBC (Bld) 26.4 % 19-41 [facility] Work Phone: Blood monocytes/100 leukocyt eson 07-04-2022 Monocytes/100 WBC (Bld) 6.3 % 0-10 [facility] Work Phone: Blood platelet mean volumeon 07-04-2022 Platelet mean volume (Bld) [Entitic vol] 10.5 fL 6.2-12.0 [facility] Work Phone: Determination of erythrocyte mean corpuscular volume (MCV)on 07-04-2022 MCV (RBC) [Entitic vol] 91.0 fL 80-94 [facility] Work Phone: HIV 1 and HIV-2 antibody ass ay with HIV-1 p24 antigen detectionon 07-04-2022 HIV 1+2 Ab+HIV1 p24 Ag IA Ql Non-Reactive Nonreactive [facility] Work Phone: Hematocrit Auto (Bld) [Volum e fraction]on 07-04-2022 Hematocrit (Bld) [Volume fraction] 45.6 % 40-54 [facility] Work Phone: Laboratory - Chemistry and C hemistry - challengeon 07-04-2022 ALP [Catalytic activity/Vol] 50 U/L 45-117 [facility] Work Phone: ALT [Catalytic activity/Vol] 31 U/L 16-61 [facility] Work Phone: CO2 [Moles/Vol] 29.0 mmol/L 21.0-32.0 [facility] Work Phone: Globulin (S) [Mass/Vol] 3.9 g/dL 2.2-4.2 [facility] Work Phone: Urea nitrogen/Creatinine [Mass ratio] 12.5 mg/mg 10-20 [facility] Work Phone: Laboratory - Hematology and Cell countson 07-04-2022 Erythrocyte distribution width (RBC) [Entitic vol] 40.8 fL 35.1-43.9 [facility] Work Phone: Erythrocyte distribution width (RBC) [Ratio] 12.5 % 11.6-14.6 [facility] Work Phone: Immature granulocytes/100 WBC (Bld) 0.800 % 0.0-0.9 [facility] Work Phone: Comment on above: IG% - Immature Granu locytes (promyelocytes, myelocytes and metamyelocytes) > 1% indicates that a LEFT SHIFT is Present. MCH (RBC) [Entitic mass] 31.5 pg 27.0-32.0 [facility] Work Phone: Nucleated RBC/100 WBC (Bld) [Ratio] 0 % 0-5 [facility] Work Phone: MCHC Auto (RBC) [Mass/Vol]on 07-04-2022 MCHC (RBC) [Mass/Vol] 34.6 g/dL 32-36 [facility] Work Phone: No Panel Informationon 07-04 Addendum Document Comment . [facility] Work Phone: Comment on above: The quantitative ran ge of this assay is 15 IU/mL to 100million IU/mL.Performed at: [address] [id number] Director: Ashlyn Foley MD, Phone: [phone] Estimated GFR (MDRD) Amer 107 mL/min >60 [facility] Work Phone: Comment on above: GFR Calc Estimated GFR (MDRD) Non-Af Amer 88 mL/min >60 [facility] Work Phone: Comment on above: Non- GFR Calc Hepatitis B Surface Antigen Non-Reactive Nonreactive [facility] Work Phone: Thyroid Stimulating Hormone (TSH) 2.09 uIU/mL 0.358-3.74 [facility] Work Phone: Platelets bldon 07-04-2022 Platelets (Bld) [#/Vol] 225 10*3/uL 150-450 [facility] Work Phone: Serum or plasma albumin melinda urement (mass/volume)on 07-04-2022 Albumin [Mass/Vol] 4.4 g/dL 3.2-5.0 [facility] Work Phone: Serum or plasma albumin/glob ulin mass ratioon 07-04-2022 Albumin/Globulin [Mass ratio] 1.1 {ratio} 0.9-2.4 [facility] Work Phone: Serum or plasma calcium melinda urement (mass/volume)on 07-04-2022 Calcium [Mass/Vol] 9.8 mg/dL 8.5-10.1 [facility] Work Phone: Serum or plasma cholesterol in HDL measurement (mass/volume)on 07-04-2022 Cholesterol in HDL [Mass/Vol] 40 mg/dL >40 [facility] Work Phone: Comment on above: The drugs N-Acetylcy steine and Metamizole may falsely depress this assay. Reference Range HDL <40 mg/dL Low HDL Cholesterol HDL >or= 60 mg/dL High HDL Cholesterol Serum or plasma cholesterol in VLDL measurement (mass/volume)on 07-04-2022 Cholesterol in VLDL [Mass/Vol] 41 mg/dL 5-40 [facility] Work Phone: Serum or plasma creatinine m easurement (mass/volume)on 07-04-2022 Creatinine [Mass/Vol] 1.04 mg/dL 0.70-1.30 [facility] Work Phone: Comment on above: The validity of the calculated GFR & GFRAA in patients over 70 years has not been determined. Clinical correlation is essential. Serum or plasma hepatitis C virus RNA measurement by probe and target amplification mon 07-04-2022 HCV RNA ALYSHA+probe Qn Not detected . [facility] Work Phone: Serum or plasma low density lipoprotein (LDL) cholesterol measurement (mass/volume)on 07-04-2022 Cholesterol in LDL [Mass/Vol] 156 mg/dL 0-130 [facility] Work Phone: Serum or plasma urea nitroge n measurement (mass/volume)on 07-04-2022 Urea nitrogen [Mass/Vol] 13 mg/dL 7-18 [facility] Work Phone: Thin prep Papanicolaou smear with manual screeningon 07-04-2022 Thin prep Papanicolaou smear with manual screening 17 U/L 15-37 [facility] Work Phone: Thin prep Papanicolaou smear with manual screening 5 5-15 [facility] Work Phone: Basic Metabolic Panelon -3 Anion gap [Moles/Vol] 6 Normal [facility] Comment on above: Performed By: #### B MP3M, HEMDF #### [facility] [facility] [address] [place], [place] Calcium [Mass/Vol] 8.4 mg/dL Normal 8.4-10.4 [facility] Comment on above: Performed By: #### B MP3M, HEMDF #### [facility] [facility] [address] [place], [place] CO2 [Moles/Vol] 31 mmol/L High 22-30 [facility] Comment on above: Performed By: #### B MP3M, HEMDF #### [facility] [facility] [address] [place] [address] Glucose [Mass/Vol] 121 mg/dL High 70-100 [facility] Comment on above: Performed By: #### B MP3M, HEMDF #### [facility] [employer] [address] [place] [address] Urea nitrogen [Mass/Vol] 15 mg/dL Normal 7-20 [facility] Comment on above: Performed By: #### B MP3M, HEMDF #### [facility] [facility] [address] [place] [address] Creatinine [Mass/Vol] 0.66 mg/dL Normal 0.52-1.25 [facility] Comment on above: Performed By: #### B MP3M, HEMDF #### [facility] [address] [place] [address] GFR/1.73 sq M predicted among blacks MDRD (S/P/Bld) [Vol rate/Area] mL/min/{1.73_m2} Normal >60 [facility] Comment on above: Performed By: #### B MP3M, HEMDF #### [facility] [address] [place] [address] GFR/1.73 sq M predicted among non-blacks MDRD (S/P/Bld) [Vol rate/Area] mL/min/{1.73_m2} Normal >60 [facility] Comment on above: Result Comment: KDIG O guidelines provide the following GFR categories: Stage GFR(ml/min/1.73 m2) Terms G1 >=90 Normal or high G2 60-89 Mildly decreased* G3a 45-59 Mildly to moderately decreased G3b 30-44 Moderately to severely decreased G4 15-29 Severely decreased G5 <15 Kidney failure *Relative to young adult level. In the absence of evidence of kidney damage, neither GFR category G1 nor G2 fulfill the criteria for CKD. The CKD-EPI equation is validated in individuals 18 years of age and older. Currently the best equation for estimating glomerular filtration rate (GFR) from serum creatinine in children is the Bedside Crump equation. It is less accurate in patients with extremes of muscle mass, restriction of dietary protein, ingestion of creatine, extra-renal metabolism of creatinine, or treatment with medications that affect renal tubular creatinine secretion. Performed By: #### Tushar MP3M, HEMDF #### [facility] [address] [place] [address] Potassium [Moles/Vol] 4.2 mmol/L Normal 3.5-5.1 [facility] Comment on above: Performed By: #### B MP3M, HEMDF #### [facility] [address] [place] [address] Chloride [Moles/Vol] 101 mmol/L Normal 98-107 [facility] Comment on above: Performed By: #### B MP3M, HEMDF #### [address] [address] [place], [place] Sodium [Moles/Vol] 137 mmol/L Normal 135-145 [facility] Comment on above: Performed By: #### B MP3M, HEMDF #### [address] Basic Metabolic Panel w/ Ref benjie to MGon 10-29-2020 Anion gap [Moles/Vol] 6 mmol/L [place], [place] Calcium [Mass/Vol] 8.4 mg/dL 8.4 - 10. 4 mg/dL [place] Chloride [Moles/Vol] 101 mmol/L 98 - 10 7 mmol/L [place] CO2 [Moles/Vol] 31 mmol/L High 22 - 30 mmol/L [place] Creatinine [Mass/Vol] 0.66 mg/dL 0.52 - 1.25 mg/dL [place] EGFR IF NonAfrican Ch[place] >90.0 >60 mL/min [place] Comment on above: KDIGO guidelines pro vide the following GFR categories: Stage GFR(ml/min/1.73 m2) Terms G1 >=90 Normal or high G2 60-89 Mildly decreased* G3a 45-59 Mildly to moderately decreased G3b 30-44 Moderately to severely decreased G4 15-29 Severely decreased G5 <15 Kidney failure *Relative to young adult level. In the absence of evidence of kidney damage, neither GFR category G1 nor G2 fulfill the criteria for CKD. The CKD-EPI equation is validated in individuals 18 years of age and older. Currently the best equation for estimating glomerular filtration rate (GFR) from serum creatinine in children is the Bedside Crump equation. It is less accurate in patients with extremes of muscle mass, restriction of dietary protein, ingestion of creatine, extra-renal metabolism of creatinine, or treatment with medications that affect renal tubular creatinine secretion. GFR/1.73 sq M predicted among blacks MDRD (S/P/Bld) [Vol rate/Area] mL/min/{1.73_m2} >60 mL/min [place] Glucose [Mass/Vol] 121 mg/dL High 70 - 100 mg/dL [place] Interpretation and review of laboratory results Abnormal [place] Potassium [Moles/Vol] 4.2 mmol/L 3.5 - 5.1 mmol/L [place] Sodium [Moles/Vol] 137 mmol/L 135 - 145 mmol/L [place] Urea nitrogen [Mass/Vol] 15 mg/dL 7 - 20 mg/dL [place] Test Performed by [facility], [address] [place] [address], [place] [address] [place], [place] CBC auto differentialon 10-02 Absolute Baso # 0.0 10*3/uL 0 - 0.2 10*3/uL [place] Absolute Neut # 10.5 10*3/uL High 1.8 - 7 10*3/uL [place] Basophils/100 WBC (Bld) 0.1 % 0 - 2 % [place], [place] Eosinophils (Bld) [#/Vol] 0.0 10*3/uL 0 - 0.5 10*3/uL [place] Eosinophils/100 WBC (Bld) 0.0 % Low 1 - 6 % [place] Erythrocyte distribution width (RBC) [Ratio] 13.3 % 11.5 - 14.5 % [place] Granulocytes/100 WBC (Bld) 79.8 % 40 - 80 % [place] Hematocrit (Bld) [Volume fraction] 33.6 % Low 40 - 52 % [place] Hemoglobin (Bld) [Mass/Vol] 11.6 g/dL Low 13 - 18 g/dL [place] Interpretation and review of laboratory results Abnormal [place] Lymphocytes (Bld) [#/Vol] 1.8 10*3/uL 1 - 4.3 10*3/uL [place] Lymphocytes/100 WBC (Bld) 13.9 % Low 20 - 40 % [place] MCH (RBC) [Entitic mass] 32.4 pg 26 - 34 pg [place] MCHC (RBC) [Mass/Vol] 34.5 % 32 - 36 % [place] MCV (RBC) [Entitic vol] 93.8 fL 80 - 98 fL [place], [place] Monocytes (Bld) [#/Vol] 0.8 10*3/uL 0 - 0.8 10*3/uL [place] Monocytes/100 WBC (Bld) 6.2 % 2 - 10 % [place], [place] Platelet mean volume (Bld) [Entitic vol] 9.4 fL 7.4 - 10.4 fL [place] Platelets (Bld) [#/Vol] 168 10*3/uL 140 - 440 10*3/uL [place] RBC (Bld) [#/Vol] 3.58 10*6/uL Low 4.4 - 5.9 10*6/uL [place] WBC (Bld) [#/Vol] 13.1 10*3/uL High 3.6 - 10.7 10*3/uL [place] Test Performed by [facility], [address] [place] [address] Glucose,Bedsideon 10-29-2020 Glucose [Mass/Vol] 101 mg/dL High 70-100 [facility] Comment on above: Result Comment: Test performed by glucose meter. Results may be 10%-15% lower than serum/plasma values. (CLIA ID [id number]) Performed By: #### B GLU #### [address] [address] [place], [place] Glucose [Mass/Vol] 110 mg/dL High 70-100 [facility] Comment on above: Result Comment: Test performed by glucose meter. Results may be 10%-15% lower than serum/plasma values. (CLIA ID [id number]) Performed By: #### B GLU #### [address] [address] [place], [place] Hemogram w/ Autodiffon 10-29 Abs Baso Cnt 0.0 10*3/uL Normal 0.0-0.2 [facility] Comment on above: Performed By: #### B MP3M, HEMDF #### [address] [address] [place] [address] Abs Neutrophile Cnt 10.5 10*3/uL High 1.8-7.0 [facility] Comment on above: Performed By: #### B MP3Jareth, HEMDF #### [address] [address] [place] [address] Basophils/100 WBC (Bld) 0.1 % Normal 0.0-2.0 [facility] Comment on above: Performed By: #### B MP3M, HEMDF #### [address] [address] [address] [place], [place] Eosinophils (Bld) [#/Vol] 0.0 10*3/uL Normal 0.0-0.5 [facility] Comment on above: Performed By: #### B MP3Jareth, HEMDF #### [address] [address] [place], [place] Eosinophils/100 WBC (Bld) 0.0 % Low 1.0-6.0 [facility] Comment on above: Performed By: #### Tushar MP3Jareth, HEMDF #### [address] [address] [address] [place], [place] Erythrocyte distribution width (RBC) [Ratio] 13.3 % Normal 11.5-14.5 [facility] Comment on above: Performed By: #### Tushar MP3Jareth, HEMDF #### [address] [address] [place], [place] Granulocytes/100 WBC (Bld) 79.8 % Normal 40.0-80.0 [facility] Comment on above: Performed By: #### B MP3M, HEMDF #### [address] [address] [address] [place], [place] Hematocrit (Bld) [Volume fraction] 33.6 % Low 40.0-52.0 [facility] Comment on above: Performed By: #### B MP3M, HEMDF #### [address] [address] [place] [address] Hemoglobin (Bld) [Mass/Vol] 11.6 g/dL Low 13.0-18.0 [facility] Comment on above: Performed By: #### B MP3M, HEMDF #### [facility] [address], [place] Lymphocytes (Bld) [#/Vol] 1.8 10*3/uL Normal 1.0-4.3 [facility] Comment on above: Performed By: #### B MP3M, HEMDF #### [facility] [address], [place] Lymphocytes/100 WBC (Bld) 13.9 % Low 20.0-40.0 [facility] Comment on above: Performed By: #### B MP3M, HEMDF #### [facility] [address], [place] MCH (RBC) [Entitic mass] 32.4 pg Normal 26.0-34.0 [facility] Comment on above: Performed By: #### B MP3M, HEMDF #### [address] [address] [address] [place], [place] MCHC (RBC) [Mass/Vol] 34.5 % Normal 32.0-36.0 [facility] Comment on above: Performed By: #### B MP3M, HEMDF #### [address] [address] [address] [place], [place] MCV (RBC) [Entitic vol] 93.8 fL Normal 80.0-98.0 [facility] Comment on above: Performed By: #### B MP3M, HEMDF #### [facility] [address], [place] Monocytes (Bld) [#/Vol] 0.8 10*3/uL Normal 0.0-0.8 [facility] Comment on above: Performed By: #### B MP3M, HEMDF #### [facility] [address], [place] Monocytes/100 WBC (Bld) 6.2 % Normal 2.0-10.0 [facility] Comment on above: Performed By: #### B MP3M, HEMDF #### [facility] [address], [place] Platelet mean volume (Bld) [Entitic vol] 9.4 fL Normal 7.4-10.4 [facility] Comment on above: Performed By: #### B MP3M, HEMDF #### [facility] [address], [place] Platelets (Bld) [#/Vol] 168 10*3/uL Normal 140-440 [facility] Comment on above: Performed By: #### B MP3M, HEMDF #### [facility] [address], [place] RBC (Bld) [#/Vol] 3.58 10*6/uL Low 4.40-5.90 [facility] Comment on above: Performed By: #### B MP3M, HEMDF #### [facility] [address], [place] WBC (Bld) [#/Vol] 13.1 10*3/uL High 3.6-10.7 [facility] Comment on above: Performed By: #### B MP3M, HEMDF #### [facility] [address] [place] [address] POCT Glucoseon 10-29-2020 Glucose [Mass/Vol] 101 mg/dL High 70 - 100 mg/dL [place] Comment on above: Test performed by gl ucose meter. Results may be 10%-15% lower than serum/plasma values. (CLIA ID [id number]) Interpretation and review of laboratory results Abnormal [facility] [employer] [place] Test Performed by [facility], [facility] [place] [address] [place] Glucose [Mass/Vol] 110 mg/dL High 70 - 100 mg/dL [place] Comment on above: Test performed by gl ucose meter. Results may be 10%-15% lower than serum/plasma values. (CLIA ID [id number]) Interpretation and review of laboratory results Abnormal [facility] [place] [place] Test Performed by [facility], [facility] [place] [address] [place] Basic Metabolic Panelon - Anion gap [Moles/Vol] 9 Normal [facility] Comment on above: Performed By: #### B GLU #### [facility] [address] [place] [address] Calcium [Mass/Vol] 8.9 mg/dL Normal 8.4-10.4 [facility] Comment on above: Performed By: #### B GLU #### [facility] [address] [place] [address] CO2 [Moles/Vol] 27 mmol/L Normal 22-30 [facility] Comment on above: Performed By: #### B GLU #### [facility] [address] [place] [address] Glucose [Mass/Vol] 150 mg/dL High 70-100 [facility] Comment on above: Performed By: #### B GLU #### [facility] [address] [place] [address] Urea nitrogen [Mass/Vol] 13 mg/dL Normal 7-20 [facility] Comment on above: Performed By: #### B GLU #### [facility] [address] [place] [address] Creatinine [Mass/Vol] 0.61 mg/dL Normal 0.52-1.25 [facility] Comment on above: Performed By: #### B GLU #### [facility] [address] [place] [address] GFR/1.73 sq M predicted among blacks MDRD (S/P/Bld) [Vol rate/Area] mL/min/{1.73_m2} Normal >60 [facility] Comment on above: Performed By: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 Performed By: #### B MP3M, HEMDF #### [facility] [address] [place], [place] Eosinophils/100 WBC (Bld) 0.1 % Low 1.0-6.0 [facility] Comment on above: Performed By: #### B MP3M, HEMDF #### [facility] [address] [place], [place] Erythrocyte distribution width (RBC) [Ratio] 13.5 % Normal 11.5-14.5 [facility] Comment on above: Performed By: #### B MP3M, HEMDF #### [facility] [address] [place], [place] Granulocytes/100 WBC (Bld) 93.5 % High 40.0-80.0 [facility] Comment on above: Performed By: #### B MP3M, HEMDF #### [facility] [address] [place], [place] Hematocrit (Bld) [Volume fraction] 36.8 % Low 40.0-52.0 [facility] Comment on above: Performed By: #### B MP3M, HEMDF #### [facility] [address] [place], [place] Hemoglobin (Bld) [Mass/Vol] 12.9 g/dL Low 13.0-18.0 [facility] Comment on above: Performed By: #### B MP3M, HEMDF #### [place] [address] [address] [place], [place] Lymphocytes (Bld) [#/Vol] 0.4 10*3/uL Low 1.0-4.3 [facility] Comment on above: Performed By: #### B MP3M, HEMDF #### [place] [address] [address] [place], [place] Lymphocytes/100 WBC (Bld) 4.5 % Low 20.0-40.0 [facility] Comment on above: Performed By: #### B MP3M, HEMDF #### [place] [address] [address] [place], [place] MCH (RBC) [Entitic mass] 32.4 pg Normal 26.0-34.0 [facility] Comment on above: Performed By: #### B MP3M, HEMDF #### [place] [address] [address] [place], [place] MCHC (RBC) [Mass/Vol] 35.1 % Normal 32.0-36.0 [facility] Comment on above: Performed By: #### B MP3M, HEMDF #### [place] [address] [address] [place], [place] MCV (RBC) [Entitic vol] 92.3 fL Normal 80.0-98.0 [facility] Comment on above: Performed By: #### B MP3M, HEMDF #### [place] [address] [address] [place], [place] Monocytes (Bld) [#/Vol] 0.2 10*3/uL Normal 0.0-0.8 [facility] Comment on above: Performed By: #### B MP3M, HEMDF #### [place] [address] [address] [place], [place] Monocytes/100 WBC (Bld) 1.6 % Low 2.0-10.0 [facility] Comment on above: Performed By: #### B MP3M, HEMDF #### [facility] [address] [place] [address] Platelet mean volume (Bld) [Entitic vol] 8.5 fL Normal 7.4-10.4 [facility] Comment on above: Performed By: #### B MP3M, HEMDF #### [place] [address] [address] [place], [place] Platelets (Bld) [#/Vol] 161 10*3/uL Normal 140-440 [facility] Comment on above: Performed By: #### B MP3M, HEMDF #### [place] [address] [place] [address] RBC (Bld) [#/Vol] 3.99 10*6/uL Low 4.40-5.90 [facility] Comment on above: Performed By: #### B MP3M, HEMDF #### [place] [address] [place], [place] WBC (Bld) [#/Vol] 10.0 10*3/uL Normal 3.6-10.7 [facility] Comment on above: Performed By: #### B MP3M, HEMDF #### [address] [place] [address] [place] [address] POCT Glucoseon 10-27-2020 Glucose [Mass/Vol] 139 mg/dL High 70 - 100 mg/dL [place] Comment on above: Test performed by gl ucose meter. Results may be 10%-15% lower than serum/plasma values. (CLIA ID [id number]) Interpretation and review of laboratory results Abnormal [place] Test Performed by [facility], [facility] [place] [address] [place] Glucose [Mass/Vol] 151 mg/dL High 70 - 100 mg/dL [place] Comment on above: Test performed by gl ucose meter. Results may be 10%-15% lower than serum/plasma values. (CLIA ID [id number]) Interpretation and review of laboratory results Abnormal [facility] [place] Test Performed by [facility] [facility], [address] [place] [address] [facility] [place] Glucose [Mass/Vol] 166 mg/dL High 70 - 100 mg/dL [facility] [place] Comment on above: Test performed by gl ucose meter. Results may be 10%-15% lower than serum/plasma values. (CLIA ID [id number]) Interpretation and review of laboratory results Abnormal [facility] [place] Test Performed by [employer] [facility], [address] [place] [address] [facility] [place] Glucose [Mass/Vol] 194 mg/dL High 70 - 100 mg/dL [facility] [place] Comment on above: Test performed by gl ucose meter. Results may be 10%-15% lower than serum/plasma values. (CLIA ID [id number]) Interpretation and review of laboratory results Abnormal [facility] [place] Test Performed by [facility], [address] [place] [address] [facility] [place] XR CHEST PORTABLEon 10-27-19 Patient Name: WESTON SORIA Diagnostic Radiology ACCESSION EXAM DATE/TIME PROCEDURE ORDERING PROVIDER [id number] 10/27/2020 06:35 EST CR Chest Portable Vipul SANCHEZ, FLASH CUEVAS CPT code 16376 Reason For Exam (CR Chest Portable) ETT Placement Report PORTABLE CHEST X-RAY CLINICAL INDICATION: ETT Placement A portable frontal view of the chest was obtained. COMPARISON: 10/26/2020 FINDINGS: The cardiac silhouette is within normal limits. Endotracheal tube and feeding tube are unchanged. No focal consolidation is seen within the lungs. There is no large pleural effusion or pneumothorax. The bony structures of the chest are unremarkable as visualized. IMPRESSION: No acute cardiopulmonary disease. Report Dictated on --- Final --- Dictated: 10/27/2020 8:01 am Dictating Physician: MD HER JONATHAN R Signed Date and Time: 10/27/2020 8:01 am Signed by: MD HER JONATHAN R Transcribed Date and Time: 10/27/2020 8:01 [place], [place] Anika Joyce Incoming Radiology Results From [facility] - 10/27/2020 8:02 AM EST Patient Name: WESTON SORIA Diagnostic Radiology ACCESSION EXAM DATE/TIME PROCEDURE ORDERING PROVIDER [id number] 10/27/2020 06:35 EST CR Chest Portable Vipul SANCHEZ, FLASH CUEVAS CPT code 13209 Reason For Exam (CR Chest Portable) ETT Placement Report PORTABLE CHEST X-RAY CLINICAL INDICATION: ETT Placement A portable frontal view of the chest was obtained. COMPARISON: 10/26/2020 FINDINGS: The cardiac silhouette is within normal limits. Endotracheal tube and feeding tube are unchanged. No focal consolidation is seen within the lungs. There is no large pleural effusion or pneumothorax. The bony structures of the chest are unremarkable as visualized. IMPRESSION: No acute cardiopulmonary disease. Report Dictated on --- Final --- Dictated: 10/27/2020 8:01 am Dictating Physician: MD HER JONATHAN R Signed Date and Time: 10/27/2020 8:01 am Signed by: MD HER JONATHAN R Transcribed Date and Time: 10/27/2020 8:01 [facility], [place] Arterial Blood Gaseson 10-26 CO2 [Moles/Vol] 25.6 mmol/L Normal 23.0-27.0 [facility] Comment on above: Performed By: #### A BG #### [facility] [address] [place] [address] HCO3 (Bld) [Moles/Vol] 24.6 mmol/L Normal 21.0-25.0 [facility] Comment on above: Performed By: #### A BG #### [facility] [address] [place] [address] Hemoglobin (Bld) [Mass/Vol] 13.5 g/dL Normal ScreenOnly [facility] Comment on above: Performed By: #### A BG #### [facility] [address] [place], [place] Oxygen (Bld) [Partial pressure] 291.5 mm[Hg] High 80.0-100.0 [facility] Comment on above: Performed By: #### A BG #### [place] [address] [address] [place], [place] Oxygen saturation in Blood 99.1 % Normal 95.0-100.0 [facility] Comment on above: Performed By: #### A BG #### [place] [address] [address] [place], [place] pCO2 33.0 mm[Hg] Low 35.0-45.0 [facility] Comment on above: Performed By: #### A BG #### [place] [address] [address] [place], [place] pH (Bld) 7.490 High 7.350-7.450 [facility] Comment on above: Performed By: #### A BG #### [place] [address] [place], [place] Std Base Excess 1.8 mmol/L Normal -3.0-3.0 [facility] Comment on above: Performed By: #### A BG #### [place] [address] [place] FIO2 60% Normal [facility] Comment on above: Performed By: #### A BG #### [place] [address] [place], [place] Basic Metabolic Panelon 2 Anion gap [Moles/Vol] 13 Normal [facility] Comment on above: Performed By: #### B GLU #### [place] [address] [place], [place] Calcium [Mass/Vol] 9.0 mg/dL Normal 8.4-10.4 [facility] Comment on above: Performed By: #### B GLU #### [place] [address] [place], [place] CO2 [Moles/Vol] 23 mmol/L Normal 22-30 [facility] Comment on above: Performed By: #### B GLU #### [facility] [address] [place] [address] Glucose [Mass/Vol] 112 mg/dL High 70-100 [facility] Comment on above: Performed By: #### B GLU #### [facility] [address] [place] [address] Urea nitrogen [Mass/Vol] 13 mg/dL Normal 7-20 [facility] Comment on above: Performed By: #### B GLU #### [facility] [address] [place] [address] Creatinine [Mass/Vol] 0.72 mg/dL Normal 0.52-1.25 [facility] Comment on above: Performed By: #### B GLU #### [facility] [address] [place] [address] GFR/1.73 sq M predicted among blacks MDRD (S/P/Bld) [Vol rate/Area] mL/min/{1.73_m2} Normal >60 [facility] Comment on above: Performed By: #### B GLU #### [facility] [address] [place] [address] GFR/1.73 sq M predicted among non-blacks MDRD (S/P/Bld) [Vol rate/Area] mL/min/{1.73_m2} Normal >60 [facility] Comment on above: Result Comment: KDIG O guidelines provide the following GFR categories: Stage GFR(ml/min/1.73 m2) Terms G1 >=90 Normal or high G2 60-89 Mildly decreased* G3a 45-59 Mildly to moderately decreased G3b 30-44 Moderately to severely decreased G4 15-29 Severely decreased G5 <15 Kidney failure *Relative to young adult level. In the absence of evidence of kidney damage, neither GFR category G1 nor G2 fulfill the criteria for CKD. The CKD-EPI equation is validated in individuals 18 years of age and older. Currently the best equation for estimating glomerular filtration rate (GFR) from serum creatinine in children is the Bedside Crump equation. It is less accurate in patients with extremes of muscle mass, restriction of dietary protein, ingestion of creatine, extra-renal metabolism of creatinine, or treatment with medications that affect renal tubular creatinine secretion. Performed By: #### B GLU #### [facility] [address], [place] Potassium [Moles/Vol] 3.5 mmol/L Normal 3.5-5.1 [facility] Comment on above: Performed By: #### B GLU #### [facility] [address], [place] Sodium [Moles/Vol] 134 mmol/L Low 135-145 [facility] Comment on above: Performed By: #### B GLU #### [facility] [address], [place] Chloride [Moles/Vol] 98 mmol/L Normal 98-107 [facility] Comment on above: Performed By: #### B GLU #### [facility] [address], [place] Basic Metabolic Panel w/ Ref benjie to MGon 10-26-2020 Anion gap [Moles/Vol] 13 mmol/L [place], [place] Calcium [Mass/Vol] 9.0 mg/dL 8.4 - 10. 4 mg/dL [place] Chloride [Moles/Vol] 98 mmol/L 98 - 10 7 mmol/L [place] CO2 [Moles/Vol] 23 mmol/L 22 - 30 mmol/L [place] Creatinine [Mass/Vol] 0.72 mg/dL 0.52 - 1.25 mg/dL [place] EGFR IF NonAfrican [place] >90.0 >60 mL/min [place] Comment on above: KDIGO guidelines pro vide the following GFR categories: Stage GFR(ml/min/1.73 m2) Terms G1 >=90 Normal or high G2 60-89 Mildly decreased* G3a 45-59 Mildly to moderately decreased G3b 30-44 Moderately to severely decreased G4 15-29 Severely decreased G5 <15 Kidney failure *Relative to young adult level. In the absence of evidence of kidney damage, neither GFR category G1 nor G2 fulfill the criteria for CKD. The CKD-EPI equation is validated in individuals 18 years of age and older. Currently the best equation for estimating glomerular filtration rate (GFR) from serum creatinine in children is the Bedside Crump equation. It is less accurate in patients with extremes of muscle mass, restriction of dietary protein, ingestion of creatine, extra-renal metabolism of creatinine, or treatment with medications that affect renal tubular creatinine secretion. GFR/1.73 sq M predicted among blacks MDRD (S/P/Bld) [Vol rate/Area] mL/min/{1.73_m2} >60 mL/min [place] Glucose [Mass/Vol] 112 mg/dL High 70 - 100 mg/dL [place] Interpretation and review of laboratory results Abnormal [place] Potassium [Moles/Vol] 3.5 mmol/L 3.5 - 5.1 mmol/L [place] Sodium [Moles/Vol] 134 mmol/L Low 135 - 145 mmol/L [place] Urea nitrogen [Mass/Vol] 13 mg/dL 7 - 20 mg/dL [place] Test Performed by [facility], [address] [place] [address] [place] Blood gas, arterialon 2020 Base Excess, Arterial 1.8 mmol/L -3 - 3 mmol/L [place] HCO3, Arterial 24.6 mmol/L 21 - 25 mmol/L [place] Hemoglobin (Bld) [Mass/Vol] 13.5 g/dL ScreenOnly [place] Interpretation and review of laboratory results Abnormal [place] Oxygen saturation in Blood 99.1 % 95 - 100 % [place] pCO2, Arterial 33.0 mm[Hg] Low 35 - 45 mm[Hg] [place] pH, Arterial 7.490 High [place] pO2, Arterial 291.5 mm[Hg] High 80 - 100 mm[Hg] [place] Sodium [Moles/Vol] 60% [place] TCO2, Arterial 25.6 mmol/L 23 - 27 mmol/L [place] Test Performed by [facility], [address] [place] [address] [place] CBC auto differentialon - Absolute Baso # 0.0 10*3/uL 0 - 0.2 10*3/uL [place] Absolute Neut # 5.3 10*3/uL 1.8 - 7 10*3/uL [place] Basophils/100 WBC (Bld) 0.2 % 0 - 2 % [place] Eosinophils (Bld) [#/Vol] 0.1 10*3/uL 0 - 0.5 10*3/uL [place] Eosinophils/100 WBC (Bld) 0.6 % Low 1 - 6 % [place] Erythrocyte distribution width (RBC) [Ratio] 13.4 % 11.5 - 14.5 % [place] Granulocytes/100 WBC (Bld) 63.2 % 40 - 80 % [place] Hematocrit (Bld) [Volume fraction] 33.8 % Low 40 - 52 % [place] Hemoglobin (Bld) [Mass/Vol] 12.0 g/dL Low 13 - 18 g/dL [place] Interpretation and review of laboratory results Abnormal [place] Lymphocytes (Bld) [#/Vol] 2.4 10*3/uL 1 - 4.3 10*3/uL [place] Lymphocytes/100 WBC (Bld) 29.3 % 20 - 40 % [place] MCH (RBC) [Entitic mass] 33.0 pg 26 - 34 pg [place] MCHC (RBC) [Mass/Vol] 35.4 % 32 - 36 % [place] MCV (RBC) [Entitic vol] 93.1 fL 80 - 98 fL [place] Monocytes (Bld) [#/Vol] 0.6 10*3/uL 0 - 0.8 10*3/uL [place] Monocytes/100 WBC (Bld) 6.7 % 2 - 10 % [place] Platelet mean volume (Bld) [Entitic vol] 8.1 fL 7.4 - 10.4 fL [place] Platelets (Bld) [#/Vol] 137 10*3/uL Low 140 - 440 10*3/uL [place] RBC (Bld) [#/Vol] 3.63 10*6/uL Low 4.4 - 5.9 10*6/uL [place] WBC (Bld) [#/Vol] 8.3 10*3/uL 3.6 - 10.7 10*3/uL [place] Test Performed by [facility], [address] [place] [address], [place] [address] [place] Absolute Baso # 0.0 10*3/uL 0 - 0.2 10*3/uL [place] Absolute Neut # 10.7 10*3/uL High 1.8 - 7 10*3/uL [place] Basophils/100 WBC (Bld) 0.3 % 0 - 2 % [place] Eosinophils (Bld) [#/Vol] 0.0 10*3/uL 0 - 0.5 10*3/uL [place] Eosinophils/100 WBC (Bld) 0.0 % Low 1 - 6 % [place] Erythrocyte distribution width (RBC) [Ratio] 13.5 % 11.5 - 14.5 % [place] Granulocytes/100 WBC (Bld) 79.2 % 40 - 80 % [place] Hematocrit (Bld) [Volume fraction] 38.3 % Low 40 - 52 % [place] Hemoglobin (Bld) [Mass/Vol] 13.6 g/dL 13 - 18 g/dL [place] Interpretation and review of laboratory results Abnormal [place] Lymphocytes (Bld) [#/Vol] 2.0 10*3/uL 1 - 4.3 10*3/uL [place] Lymphocytes/100 WBC (Bld) 15.2 % Low 20 - 40 % [place] MCH (RBC) [Entitic mass] 32.4 pg 26 - 34 pg [place] MCHC (RBC) [Mass/Vol] 35.6 % 32 - 36 % [place] MCV (RBC) [Entitic vol] 90.9 fL 80 - 98 fL [place] Monocytes (Bld) [#/Vol] 0.7 10*3/uL 0 - 0.8 10*3/uL [place] Monocytes/100 WBC (Bld) 5.3 % 2 - 10 % [place] Platelet mean volume (Bld) [Entitic vol] 8.6 fL 7.4 - 10.4 fL [place] Platelets (Bld) [#/Vol] 181 10*3/uL 140 - 440 10*3/uL [place] RBC (Bld) [#/Vol] 4.21 10*6/uL Low 4.4 - 5.9 10*6/uL [place] WBC (Bld) [#/Vol] 13.5 10*3/uL High 3.6 - 10.7 10*3/uL [place] Test Performed by [facility], [address] [place] [id number] [place] [address] CR Chest Portableon 10-26-19 CR Chest Portable Patient Name: WESTON SORIA Diagnostic Radiology ACCESSION EXAM DATE/TIME PROCEDURE ORDERING PROVIDER [id number] 10/26/2020 06:59 EST CR Chest Portable Vipul SANCHEZ, FLASH CUEVAS CPT code 63953 Reason For Exam (CR Chest Portable) ETT Placement Report PORTABLE CHEST: INDICATION: Respiratory failure COMPARISON: No previous studies are available for comparison. Obtained at 0529 hours. A single portable AP radiograph of the chest was obtained. The heart is normal in size. The mediastinal silhouette is normal. The lungs are clear. There are no effusions or infiltrates. There is no pleural thickening. The osseous structures are unremarkable. An ET tube and NG tube are present. The tip of the ET tube lies well above the derek. IMPRESSION: No acute process. Report Dictated on Workstation: [id number] Final Dictated: 10/26/2020 6:21 am Dictating Physician: DO CALHOUN ALFRED Signed Date and Time: 10/26/2020 6:22 am Signed by: DO CALHOUN ALFRED Transcribed Date and Time: 10/26/2020 6:21 Normal [facility] Glucose,Bedsideon 10-26-2020 Glucose [Mass/Vol] 142 mg/dL High 70-100 [facility] Comment on above: Result Comment: Test performed by glucose meter. Results may be 10%-15% lower than serum/plasma values. (CLIA ID [id number]) Performed By: #### B GLU #### [facility] [address], [place] Hemogram w/ Autodiffon 10-26 Abs Baso Cnt 0.0 10*3/uL Normal 0.0-0.2 [facility] Comment on above: Performed By: #### B GLU #### [facility] [address], [place] Abs Neutrophile Cnt 5.3 10*3/uL Normal 1.8-7.0 [facility] Comment on above: Performed By: #### B GLU #### [place] [address], [place] Basophils/100 WBC (Bld) 0.2 % Normal 0.0-2.0 [facility] Comment on above: Performed By: #### B GLU #### [place] [address], [place] Eosinophils (Bld) [#/Vol] 0.1 10*3/uL Normal 0.0-0.5 [facility] Comment on above: Performed By: #### B GLU #### [facility] [address], [place] Eosinophils/100 WBC (Bld) 0.6 % Low 1.0-6.0 [facility] Comment on above: Performed By: #### B GLU #### [place] [address], [place] Erythrocyte distribution width (RBC) [Ratio] 13.4 % Normal 11.5-14.5 [facility] Comment on above: Performed By: #### B GLU #### [place] [address], [place] Granulocytes/100 WBC (Bld) 63.2 % Normal 40.0-80.0 [facility] Comment on above: Performed By: #### B GLU #### [facility] [address], [place] Hematocrit (Bld) [Volume fraction] 33.8 % Low 40.0-52.0 [facility] Comment on above: Performed By: #### B GLU #### [facility] [address], [place] Hemoglobin (Bld) [Mass/Vol] 12.0 g/dL Low 13.0-18.0 [facility] Comment on above: Performed By: #### B GLU #### [facility] [address], [place] Lymphocytes (Bld) [#/Vol] 2.4 10*3/uL Normal 1.0-4.3 [facility] Comment on above: Performed By: #### B GLU #### [facility] [address], [place] Lymphocytes/100 WBC (Bld) 29.3 % Normal 20.0-40.0 [facility] Comment on above: Performed By: #### B GLU #### [facility] [address], [place] MCH (RBC) [Entitic mass] 33.0 pg Normal 26.0-34.0 [facility] Comment on above: Performed By: #### B GLU #### [facility] [address], [place] MCHC (RBC) [Mass/Vol] 35.4 % Normal 32.0-36.0 [facility] Comment on above: Performed By: #### B GLU #### [facility] [address], [place] MCV (RBC) [Entitic vol] 93.1 fL Normal 80.0-98.0 [facility] Comment on above: Performed By: #### B GLU #### [facility] [address], [place] Monocytes (Bld) [#/Vol] 0.6 10*3/uL Normal 0.0-0.8 [facility] Comment on above: Performed By: #### B GLU #### [facility] [address] [place] [address] Monocytes/100 WBC (Bld) 6.7 % Normal 2.0-10.0 [facility] Comment on above: Performed By: #### B GLU #### [facility] [address] [place] [address] Platelet mean volume (Bld) [Entitic vol] 8.1 fL Normal 7.4-10.4 [facility] Comment on above: Performed By: #### B GLU #### [facility] [address] [place] [address] Platelets (Bld) [#/Vol] 137 10*3/uL Low 140-440 [facility] Comment on above: Performed By: #### B GLU #### [facility] [address], [place] RBC (Bld) [#/Vol] 3.63 10*6/uL Low 4.40-5.90 [facility] Comment on above: Performed By: #### B GLU #### [facility] [address], [place] WBC (Bld) [#/Vol] 8.3 10*3/uL Normal 3.6-10.7 [facility] Comment on above: Performed By: #### B GLU #### [facility] [address], [place] Abs Baso Cnt 0.0 10*3/uL Normal 0.0-0.2 [facility] Comment on above: Performed By: #### B MP3M, HEMDF #### [facility] [address] [place] [address] Abs Neutrophile Cnt 10.7 10*3/uL High 1.8-7.0 [facility] Comment on above: Performed By: #### B MP3M, HEMDF #### [facility] [address] [place] [address] Basophils/100 WBC (Bld) 0.3 % Normal 0.0-2.0 [facility] Comment on above: Performed By: #### B MP3M, HEMDF #### [place] [address], [place] Eosinophils (Bld) [#/Vol] 0.0 10*3/uL Normal 0.0-0.5 [facility] Comment on above: Performed By: #### B MP3M, HEMDF #### [facility] [address], [place] Eosinophils/100 WBC (Bld) 0.0 % Low 1.0-6.0 [facility] Comment on above: Performed By: #### B MP3M, HEMDF #### [place] [address], [place] Erythrocyte distribution width (RBC) [Ratio] 13.5 % Normal 11.5-14.5 [facility] Comment on above: Performed By: #### B MP3M, HEMDF #### [place] [address], [place] Granulocytes/100 WBC (Bld) 79.2 % Normal 40.0-80.0 [facility] Comment on above: Performed By: #### B MP3M, HEMDF #### [place] [address] [place] Hematocrit (Bld) [Volume fraction] 38.3 % Low 40.0-52.0 [facility] Comment on above: Performed By: #### B MP3M, HEMDF #### [place] [address], [place] Hemoglobin (Bld) [Mass/Vol] 13.6 g/dL Normal 13.0-18.0 [facility] Comment on above: Performed By: #### B MP3M, HEMDF #### [place] [address], [place] Lymphocytes (Bld) [#/Vol] 2.0 10*3/uL Normal 1.0-4.3 [facility] Comment on above: Performed By: #### B MP3M, HEMDF #### [place] [address], [place] Lymphocytes/100 WBC (Bld) 15.2 % Low 20.0-40.0 [facility] Comment on above: Performed By: #### B MP3Jareth, HEMDF #### [facility] [address], [place] MCH (RBC) [Entitic mass] 32.4 pg Normal 26.0-34.0 [facility] Comment on above: Performed By: #### B MP3M, HEMDF #### [place] [address], [place] MCHC (RBC) [Mass/Vol] 35.6 % Normal 32.0-36.0 [facility] Comment on above: Performed By: #### B MP3M, HEMDF #### [place] [address], [place] MCV (RBC) [Entitic vol] 90.9 fL Normal 80.0-98.0 [facility] Comment on above: Performed By: #### B MP3M, HEMDF #### [place] [address], [place] Monocytes (Bld) [#/Vol] 0.7 10*3/uL Normal 0.0-0.8 [facility] Comment on above: Performed By: #### B MP3M, HEMDF #### [place] [address], [place] Monocytes/100 WBC (Bld) 5.3 % Normal 2.0-10.0 [facility] Comment on above: Performed By: #### B MP3M, HEMDF #### [place] [address] Platelet mean volume (Bld) [Entitic vol] 8.6 fL Normal 7.4-10.4 [facility] Comment on above: Performed By: #### B MP3M, HEMDF #### [place] [address], [place] Platelets (Bld) [#/Vol] 181 10*3/uL Normal 140-440 [facility] Comment on above: Performed By: #### B MP3M, HEMDF #### [facility] [address], [place] RBC (Bld) [#/Vol] 4.21 10*6/uL Low 4.40-5.90 [facility] Comment on above: Performed By: #### B MP3M, HEMDF #### [facility] [address], [place] WBC (Bld) [#/Vol] 13.5 10*3/uL High 3.6-10.7 [facility] Comment on above: Performed By: #### B MP3M, HEMDF #### [facility] [address], [place] Hepatic Functionon 1 ALP [Catalytic activity/Vol] 40 U/L Normal 38-126 [facility] Comment on above: Performed By: #### B GLU #### [place] [address], [place] ALT [Catalytic activity/Vol] 20 U/L Normal 0-49 [facility] Comment on above: Result Comment: The ALT test is performed by an updated assay method. Please note that the reference intervals have been changed and are now sex specific. Performed By: #### B GLU #### [facility] [address], [place] AST [Catalytic activity/Vol] 37 U/L Normal 15-46 [facility] Comment on above: Performed By: #### B GLU #### [place] [address], [place] Bilirubin [Mass/Vol] 1.0 mg/dL Normal 0.2-1.3 [facility] Comment on above: Performed By: #### B GLU #### [place] [address], [place] Bilirubin.direct [Mass/Vol] 0.0 mg/dL Normal 0.0-0.3 [facility] Comment on above: Performed By: #### B GLU #### [place] [address], [place] Protein [Mass/Vol] 7.3 g/dL Normal 6.3-8.2 [facility] Comment on above: Performed By: #### B GLU #### [facility] [address], [place] Albumin [Mass/Vol] 4.5 g/dL Normal 3.5-5.0 [facility] Comment on above: Performed By: #### B GLU #### [facility] [address], [place] Hepatic Function Panelon Albumin [Mass/Vol] 4.5 g/dL 3.5 - 5 g/dL [place] ALP [Catalytic activity/Vol] 40 U/L 38 - 126 U/L [place] ALT [Catalytic activity/Vol] 20 U/L 0 - 49 U/L [place] Comment on above: The ALT test is perf ormed by an updated assay method. Please note that the reference intervals have been changed and are now sex specific. AST [Catalytic activity/Vol] 37 U/L 15 - 46 U/L [place] Bilirubin Ql (U) 1.0 mg/dL 0.2 - 1.3 mg/dL [place] Bilirubin.direct [Mass/Vol] 0.0 mg/dL 0 - 0.3 mg/dL [place] Protein [Mass/Vol] 7.3 g/dL 6.3 - 8.2 g/dL [place] Test Performed by [facility], [address] [place] [id number] [place] [address] LACTIC ACID, PLASMAon 2020 Lactate [Moles/Vol] 1.6 mmol/L 0.7 - 2 mmol/L [place] Test Performed by [facility], [address] [place] [id number] [place] [address] Lactate [Moles/Vol] 1.6 mmol/L 0.7 - 2 mmol/L [place] Test Performed by [facility], [address] [place] [id number] [place] [address] Lactic Acidon 10-26-2020 Lactate [Moles/Vol] 1.6 mmol/L Normal 0.7-2.0 [facility] Comment on above: Performed By: #### B GLU #### [address] [address] Lactate [Moles/Vol] 1.6 mmol/L Normal 0.7-2.0 [facility] Comment on above: Performed By: #### B MP3M, HEMDF #### [place] [address] [place] [address] Lactate [Moles/Vol] 4.3 mmol/L Critically high 0.7-2.0 [facility] Comment on above: Performed By: #### B GLU #### [address] [address] Lactic Acid, Plasmaon 2020 Interpretation and review of laboratory results Abnormal [place] Lactate [Moles/Vol] 4.3 mmol/L Critically high 0.7 - 2 mmol/L [place] Test Performed by [facility], [address] [place] [address] [place] Magnesiumon 10-26-2020 Magnesium [Mass/Vol] 1.7 mg/dL Normal 1.6-2.3 [facility] Comment on above: Performed By: #### B GLU #### [address] [address] Magnesium [Mass/Vol] 1.7 mg/dL 1.6 - 2 .3 mg/dL [place] Test Performed by [facility], [address] [place] [address] [place] POCT Glucoseon 10-26-2020 Glucose [Mass/Vol] 142 mg/dL High 70 - 100 mg/dL [place] Comment on above: Test performed by ucose meter. Results may be 10%-15% lower than serum/plasma values. (CLIA ID [id number]) Interpretation and review of laboratory results Abnormal [place] Test Performed by [id number] [place] [address] Prothrombin Timeon INR Coag (PPP) [Relative time] 1.1 Normal 0.9-1.1 [facility] Comment on above: Result Comment: Gorge mmended Anticoagulant Therapy: SEE BELOW ----- INR of 2.0 - 3.0 : - Prophylaxis of Venous Thrombosis (high-risk surgery) - Treatment of Venous Thrombosis - Treatment of Pulmonary Embolism (Includes tissue heart valves, Acute Myocardial Infarction to prevent systemic embolism, Valvular Heart Disease, and Atrial Fibrillation) ----- INR of 2.5 - 3.5 : - Mechanical Prosthetic Valves (high risk) - If oral anticoagulant therapy is used to prevent Myocardial Infarction Performed By: #### B GLU #### [address] PT Coag (PPP) [Time] 11.5 s Normal 9.0-12.0 [facility] Comment on above: Result Comment: . Performed By: #### B GLU #### [address] Protime-INRon 10-26-2020 INR Coag (PPP) [Relative time] 1.1 {INR} [place] Comment on above: Recommended Anticoag ulant Therapy: SEE BELOW ----- INR of 2.0 - 3.0 : - Prophylaxis of Venous Thrombosis (high-risk surgery) - Treatment of Venous Thrombosis - Treatment of Pulmonary Embolism (Includes tissue heart valves, Acute Myocardial Infarction to prevent systemic embolism, Valvular Heart Disease, and Atrial Fibrillation) ----- INR of 2.5 - 3.5 : - Mechanical Prosthetic Valves (high risk) - If oral anticoagulant therapy is used to prevent Myocardial Infarction PT Coag (PPP) [Time] 11.5 s 9 - 12 s [place] Comment on above: . Test Performed by [facility], [address] [place] [address] XR CHEST PORTABLEon 10-26-19 [facility] Incoming Radiology Results From [facility] - 10/26/2020 6:59 AM EST Patient Name: WESTON SORIA Diagnostic Radiology ACCESSION EXAM DATE/TIME PROCEDURE ORDERING PROVIDER [id number] 10/26/2020 06:59 EST CR Chest Portable Vipul SANCHEZ, FLASH CUEVAS CPT code 42387 Reason For Exam (CR Chest Portable) ETT Placement Report PORTABLE CHEST: INDICATION: Respiratory failure COMPARISON: No previous studies are available for comparison. Obtained at 0529 hours. A single portable AP radiograph of the chest was obtained. The heart is normal in size. The mediastinal silhouette is normal. The lungs are clear. There are no effusions or infiltrates. There is no pleural thickening. The osseous structures are unremarkable. An ET tube and NG tube are present. The tip of the ET tube lies well above the derek. IMPRESSION: No acute process. Report Dictated on Workstation: [id number] --- Final --- Dictated: 10/26/2020 6:21 am Dictating Physician: DO CALHOUN ALFRED Signed Date and Time: 10/26/2020 6:22 am Signed by: DO CALHOUN ALFRED Transcribed Date and Time: 10/26/2020 6:21 [place] Patient [id number] ACCESSION EXAM DATE/TIME PROCEDURE ORDERING PROVIDER [id number] 10/26/2020 06:59 EST CR Chest Portable Vipul SANCHEZ, FLASH FAITH CPT code 00611 Reason For Exam (CR Chest Portable) ETT Placement Report PORTABLE CHEST: INDICATION: Respiratory failure COMPARISON: No previous studies are available for comparison. Obtained at 0529 hours. A single portable AP radiograph of the chest was obtained. The heart is normal in size. The mediastinal silhouette is normal. The lungs are clear. There are no effusions or infiltrates. There is no pleural thickening. The osseous structures are unremarkable. An ET tube and NG tube are present. The tip of the ET tube lies well above the derek. IMPRESSION: No acute process. Report Dictated on Workstation: [email or web address] --- Final --- Dictated: 10/26/2020 6:21 am Dictating Physician: DO CALHOUN ALFRED Signed Date and Time: 10/26/2020 6:22 am Signed by: DO CALHOUN ALFRED Transcribed Date and Time: 10/26/2020 6:21 [facility], [place] LIVER 12-25-2019 Albumin [Mass/Vol] 4.2 g/dL Normal 3.2-5.0 [facility] Comment on above: Performed By: #### L [id number] #### [facility] [address] [place] [address] Albumin/Globulin [Mass ratio] 1.3 {ratio} Normal 0.8-2.0 [facility] Comment on above: Performed By: #### L [id number] #### [facility] [place] [address] ALK PHOS 66 U/L Normal 45-117 [facility] Comment on above: Performed By: #### L [id number] #### [facility] [address] [place] [address] ALT [Catalytic activity/Vol] 37 U/L Normal 13-61 [facility] Comment on above: Result Comment: RESU LTS MAY BE FALSELY DEPRESSED AFTER THE ADMINISTRATION OF SULFASALAZINE AND/OR SULFAPYRIDINE. Performed By: #### L [id number] #### [facility] [place] [address] BILI DIRECT 0.53 MG/DL High 0.00-0.20 [facility] Comment on above: Performed By: #### L 500.78371 #### [facility] [address] [place] [address] BILI TOTAL 1.5 MG/DL High 0.2-1.0 [facility] Comment on above: Performed By: #### L 500.48003 #### [facility] LABORATORY [facility] [place] [address] Globulin (S) [Mass/Vol] 3.3 g/dL Normal 2.2-4.2 [facility] Comment on above: Performed By: #### L [id number] #### [facility] [address] [place] [address] Protein [Mass/Vol] 7.5 g/dL Normal 6.0-8.5 [facility] Comment on above: Performed By: #### L [id number] #### [facility] [address] [place] [address] SGOT (AST) 26 U/L Normal 8-34 [facility] Comment on above: Result Comment: RESU LTS MAY BE FALSELY DEPRESSED AFTER THE ADMINISTRATION OF SULFASALAZINE AND/OR SULFAPYRIDINE. Performed By: #### L [id number] #### [facility] [address] [place] [id number] No Panel Information SARS-CoV-2 & FLU Antigen (Rapid) [facility] Work Phone: Vital Signs Date Time Vital Sign Value Performing Clinician Facility 08-12-2024 09:08-0500 Body mass index (BMI) [Ratio] 28.24 kg/m2 Toy Baeza [employer] Work Phone: [facility] 08-12-2024 09:08-0500 Body temperature 98.1 [degF] Toy Baeza [employer] Work Phone: [facility] 08-12-2024 09:08-0500 Body weight 72.3 kg Toy Clemente [employer] Work Phone: [facility] 08-12-2024 09:08-0500 Diastolic blood pressure 76 mm[Hg] Toy Baeza [employer] Work Phone: [facility] 08-12-2024 09:08-0500 Heart rate 96 /min Toy Lujannnan [employer] Work Phone: [facility] 08-12-2024 09:08-0500 Respiratory rate 16 /min Lidiaverna Baeza [employer] Work Phone: [facility] 08-12-2024 09:08-0500 SaO2% (BldA) [Mass fraction] 99 % Toy Baeza DO Work Phone: [facility] 08-12-2024 09:08-0500 Systolic blood pressure 103 mm[Hg] Toy Baeza DO Work Phone: [facility] 06-19-2024 11:00-0400 Body height 160 cm Jazzmine Parada MD Work Phone: [facility] 06-19-2024 11:00-0400 Body mass index (BMI) [Ratio] 27.99 kg/m2 Jazzmine Parada MD Work Phone: [facility] 06-19-2024 11:00-0400 Body temperature 97.39 [degF] Jazzmine Parada MD Work Phone: [facility] 06-19-2024 11:00-0400 Body weight 71.67 kg Jazzmine Parada MD Work Phone: [facility] 06-19-2024 11:00-0400 Diastolic blood pressure 77 mm[Hg] Jazzmine Parada MD Work Phone: [facility] 06-19-2024 11:00-0400 Heart rate 105 /min Jazzmine Parada MD Work Phone: [facility] 06-19-2024 11:00-0400 Systolic blood pressure 124 mm[Hg] Jazzmine Parada MD Work Phone: [facility] 04-10-2024 11:06-0400 Body height 160 cm Jazzmine Parada MD Work Phone: [facility] 04-10-2024 11:06-0400 Body mass index (BMI) [Ratio] 29.23 kg/m2 Jazzmine Parada MD Work Phone: [facility] 04-10-2024 11:06-0400 Body temperature 97.5 [degF] Jazzmine Parada MD Work Phone: [facility] 04-10-2024 11:06-0400 Body weight 74.84 kg Jazzmine Parada MD Work Phone: [facility] 04-10-2024 11:06-0400 Diastolic blood pressure 77 mm[Hg] Jazzmine Parada MD Work Phone: [facility] 04-10-2024 11:06-0400 Heart rate 100 /min Jazzmine Parada MD Work Phone: [facility] 04-10-2024 11:06-0400 Systolic blood pressure 115 mm[Hg] Jazzmine Parada MD Work Phone: [facility] 02-21-2024 10:53-0400 Body height 160 cm Jazzmine Parada MD Work Phone: [facility] 02-21-2024 10:53-0400 Body mass index (BMI) [Ratio] 30.47 kg/m2 Jazzmine Parada MD Work Phone: [facility] 02-21-2024 10:53-0400 Body temperature 97.59 [degF] Jazzmine Parada MD Work Phone: [facility] 02-21-2024 10:53-0400 Body weight 78.02 kg Jazzmine Parada MD Work Phone: [facility] 02-21-2024 10:53-0400 Diastolic blood pressure 79 mm[Hg] Jazzmine Parada MD Work Phone: [facility] 02-21-2024 10:53-0400 Heart rate 88 /min Jazzmine Parada MD Work Phone: [facility] 02-21-2024 10:53-0400 Systolic blood pressure 121 mm[Hg] Jazzmine Parada MD Work Phone: [facility] 02-07-2024 08:33-0400 Body height 160 cm Jazzmine Parada MD Work Phone: [facility] 02-07-2024 08:33-0400 Body mass index (BMI) [Ratio] 30.82 kg/m2 Jazzmine Parada MD Work Phone: [facility] 02-07-2024 08:33-0400 Body temperature 97.81 [degF] Jazzmine Parada MD Work Phone: [facility] 02-07-2024 08:33-0400 Body weight 78.93 kg Jazzmine Parada MD Work Phone: [facility] 02-07-2024 08:33-0400 Diastolic blood pressure 64 mm[Hg] Jazzmine Parada MD Work Phone: [facility] 02-07-2024 08:33-0400 Heart rate 80 /min Jazzmine Parada MD Work Phone: [facility] 02-07-2024 08:33-0400 Systolic blood pressure 107 mm[Hg] Jazzmine Parada MD Work Phone: [facility] 01-29-2024 09:27-0400 Body height 160.[address] Rosalva Lopez Work Phone: [facility] 01-29-2024 09:27-0400 Body mass index (BMI) [Ratio] 29.9 kg/m2 Dr. Rosalva Lopez Work Phone: [facility] 01-29-2024 09:27-0400 Body temperature 97.6 [degF] Dr. Rosalva Lopez Work Phone: [facility] 01-29-2024 09:27-0400 Body weight 76.[address] Rosalva Lopez Work Phone: [facility] 01-29-2024 09:27-0400 Diastolic blood pressure 70 mm[Hg] Dr. Rosalva Lopez Work Phone: [facility] 01-29-2024 09:27-0400 Heart rate 85 /min Dr. Rosalva Lopez Work Phone: [facility] 01-29-2024 09:27-0400 Respiratory rate 16 /min Dr. Rosalva Lopez Work Phone: [facility] 01-29-2024 09:27-0400 SaO2% (BldA) [Mass fraction] 99 % Dr. Rosalva Lopez Work Phone: [facility] 01-29-2024 09:27-0400 Systolic blood pressure 114 mm[Hg] Dr. Rosalva Lopez Work Phone: [facility] 01-13-2024 07:00-0400 Body temperature 98.7 [degF] [facility] 01-13-2024 07:00-0400 Diastolic blood pressure 73 mm[Hg] [facility] 01-13-2024 07:00-0400 Heart rate 81 /min [facility] 01-13-2024 07:00-0400 Respiratory rate 18 /min [facility] 01-13-2024 07:00-0400 SaO2% (BldA) [Mass fraction] 97 % [facility] 01-13-2024 07:00-0400 Systolic blood pressure 119 mm[Hg] [facility] 01-12-2024 13:40-0400 Body height 160.02 cm [facility] 01-12-2024 13:40-0400 Body mass index (BMI) [Ratio] 28.9 kg/m2 [facility] 01-12-2024 13:40-0400 Body weight 74 kg [facility] 12-31-2023 10:50-0400 Body height 160 cm Kirit Wilson MD Work Phone: [facility] 12-31-2023 10:50-0400 Body mass index (BMI) [Ratio] 31.89 kg/m2 Kirit Wilson MD Work Phone: [facility] 12-31-2023 10:50-0400 Body weight 81.65 kg Kirit Wilson MD Work Phone: [facility] 12-31-2023 10:49-0400 Body temperature 97.9 [degF] Kirit Wilson MD Work Phone: [facility] 12-31-2023 10:49-0400 Diastolic blood pressure 65 mm[Hg] Kirit Wilson MD Work Phone: [facility] 12-31-2023 10:49-0400 Heart rate 91 /min Kirit Wilson MD Work Phone: [facility] 12-31-2023 10:49-0400 Respiratory rate 18 /min Kirit Wilson MD Work Phone: [facility] 12-31-2023 10:49-0400 SaO2% (BldA) [Mass fraction] 99 % Kirit Wilson MD Work Phone: [facility] 12-31-2023 10:49-0400 Systolic blood pressure 97 mm[Hg] Kirit Wilson MD Work Phone: [facility] 08-02-2023 08:58-0400 Body temperature 98.3 [degF] 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 Work Phone: [facility] 08-02-2023 08:58-0400 Diastolic blood pressure 73 mm[Hg] 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 Work Phone: [facility] 08-02-2023 08:58-0400 Heart rate 72 /min 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 Work Phone: [facility] 08-02-2023 08:58-0400 Respiratory rate 18 /min 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 Work Phone: [facility] 08-02-2023 08:58-0400 SaO2% (BldA) [Mass fraction] 100 % 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 Work Phone: [facility] 08-02-2023 08:58-0400 Systolic blood pressure 111 mm[Hg] 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 Work Phone: [facility] 07-31-2023 16:49-0400 Body height 160.02 cm 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 Work Phone: [facility] 07-31-2023 16:49-0400 Body mass index (BMI) [Ratio] 32.6 kg/m2 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 Work Phone: [facility] 07-31-2023 16:49-0400 Body weight 83.6 kg 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 Mna 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 Work Phone: [facility] 07-31-2023 14:46-0400 Body temperature 98.4 [degF] 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 Work Phone: [facility] 07-31-2023 14:46-0400 Diastolic blood pressure 77 mm[Hg] 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 Work Phone: [facility] 07-31-2023 14:46-0400 Heart rate 77 /min 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 Work Phone: [facility] 07-31-2023 14:46-0400 Respiratory rate 17 /min 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 Work Phone: [facility] 07-31-2023 14:46-0400 SaO2% (BldA) [Mass fraction] 99 % 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 Work Phone: [facility] 07-31-2023 14:46-0400 Systolic blood pressure 113 mm[Hg] 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 Work Phone: [facility] 07-30-2023 14:36-0400 Body mass index (BMI) [Ratio] 33.3 kg/m2 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 Work Phone: [facility] 07-30-2023 14:36-0400 Body temperature 98.3 [degF] 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 Work Phone: [facility] 07-30-2023 14:36-0400 Body weight 85.27 kg 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 Work Phone: [facility] 07-30-2023 14:36-0400 Diastolic blood pressure 78 mm[Hg] 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 Work Phone: [facility] 07-30-2023 14:36-0400 Heart rate 93 /min 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 Work Phone: [facility] 07-30-2023 14:36-0400 Respiratory rate 16 /min 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 Work Phone: [facility] 07-30-2023 14:36-0400 SaO2% (BldA) [Mass fraction] 98 % 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 Work Phone: [facility] 07-30-2023 14:36-0400 Systolic blood pressure 118 mm[Hg] 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 Work Phone: [facility] 07-28-2023 15:50-0400 Body height 160.02 cm 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 Work Phone: [facility] 07-28-2023 15:50-0400 Body mass index (BMI) [Ratio] 34.2 kg/m2 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 Work Phone: [facility] 07-28-2023 15:50-0400 Body temperature 97 [degF] 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 Work Phone: [facility] 07-28-2023 15:50-0400 Body weight 87.67 kg 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 Work Phone: [facility] 07-28-2023 15:50-0400 Diastolic blood pressure 96 mm[Hg] 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 Work Phone: [facility] 07-28-2023 15:50-0400 Heart rate 89 /min 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 Work Phone: [facility] 07-28-2023 15:50-0400 Respiratory rate 16 /min 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 Work Phone: [facility] 07-28-2023 15:50-0400 SaO2% (BldA) [Mass fraction] 98 % 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 Work Phone: [facility] 07-28-2023 15:50-0400 Systolic blood pressure 125 mm[Hg] 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 Work Phone: [facility] 04-04-2023 14:40-0400 Body height 160.02 cm 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 Work Phone: [facility] 04-04-2023 14:40-0400 Body mass index (BMI) [Ratio] 33.6 kg/m2 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 Work Phone: [facility] 04-04-2023 14:40-0400 Body temperature 98.2 [degF] 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 Work Phone: [facility] 04-04-2023 14:40-0400 Body weight 86.18 kg 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 Work Phone: [facility] 04-04-2023 14:40-0400 Diastolic blood pressure 70 mm[Hg] 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 Rpamod Man 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 Work Phone: [facility] 04-04-2023 14:40-0400 Heart rate 80 /min 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 Work Phone: [facility] 04-04-2023 14:40-0400 Respiratory rate 16 /min 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 Work Phone: [facility] 04-04-2023 14:40-0400 SaO2% (BldA) [Mass fraction] 99 % 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 Work Phone: [facility] 04-04-2023 14:40-0400 Systolic blood pressure 104 mm[Hg] 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 Work Phone: [facility] 02-28-2023 14:53-0400 Body height 160.02 cm 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 Work Phone: [facility] 02-28-2023 14:53-0400 Body mass index (BMI) [Ratio] 34.4 kg/m2 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 Work Phone: [facility] 02-28-2023 14:53-0400 Body temperature 97.5 [degF] 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 Work Phone: [facility] 02-28-2023 14:53-0400 Body weight 88.16 kg 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 Work Phone: [facility] 02-28-2023 14:53-0400 Diastolic blood pressure 74 mm[Hg] 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 Work Phone: [facility] 02-28-2023 14:53-0400 Heart rate 90 /min 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 Work Phone: [facility] 02-28-2023 14:53-0400 Respiratory rate 18 /min 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 Work Phone: [facility] 02-28-2023 14:53-0400 SaO2% (BldA) [Mass fraction] 98 % 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 Work Phone: [facility] 02-28-2023 14:53-0400 Systolic blood pressure 126 mm[Hg] 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 Work Phone: [facility] 08-17-2022 20:42-0500 Respiratory rate 18 /min 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 Work Phone: [facility] Work Phone: 08-17-2022 18:29-0500 Body height 160.02 cm 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 Work Phone: [facility] Work Phone: 08-17-2022 18:29-0500 Body mass index (BMI) [Ratio] 32.6 kg/m2 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 Work Phone: [facility] Work Phone: 08-17-2022 18:29-0500 Body temperature 98.6 [degF] 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 Work Phone: [facility] Work Phone: 08-17-2022 18:29-0500 Body weight 83.7 kg 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 Work Phone: [facility] Work Phone: 08-17-2022 18:29-0500 Diastolic blood pressure 87 mm[Hg] 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 Work Phone: [facility] Work Phone: 08-17-2022 18:29-0500 Heart rate 105 /min 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 Work Phone: [facility] Work Phone: 08-17-2022 18:29-0500 SaO2% (BldA) [Mass fraction] 100 % 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 Work Phone: [facility] Work Phone: 08-17-2022 18:29-0500 Systolic blood pressure 133 mm[Hg] 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 Work Phone: [facility] Work Phone: 07-04-2022 12:53-0400 Body height 160.02 cm 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 Work Phone: [facility] Work Phone: 07-04-2022 12:53-0400 Body mass index (BMI) [Ratio] 30.4 kg/m2 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 Work Phone: [facility] Work Phone: 07-04-2022 12:53-0400 Body temperature 98.2 [degF] 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 Work Phone: [facility] Work Phone: 07-04-2022 12:53-0400 Body weight 78.01 kg 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 Work Phone: [facility] Work Phone: 07-04-2022 12:53-0400 Diastolic blood pressure 76 mm[Hg] 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 Work Phone: [facility] Work Phone: 07-04-2022 12:53-0400 Heart rate 76 /min 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 Work Phone: [facility] Work Phone: 07-04-2022 12:53-0400 Respiratory rate 14 /min 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 Work Phone: [facility] Work Phone: 07-04-2022 12:53-0400 SaO2% (BldA) [Mass fraction] 99 % 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 Work Phone: [facility] Work Phone: 07-04-2022 12:53-0400 Systolic blood pressure 120 mm[Hg] 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 Work Phone: [facility] Work Phone: 04-25-2022 14:03-0400 Body height 160.02 cm 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 Work Phone: [facility] Work Phone: 04-25-2022 14:03-0400 Body mass index (BMI) [Ratio] 27.8 kg/m2 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 Work Phone: [facility] Work Phone: 04-25-2022 14:03-0400 Body temperature 96.7 [degF] 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 Work Phone: [facility] Work Phone: 04-25-2022 14:03-0400 Body weight 71.21 kg 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 Work Phone: [facility] Work Phone: 04-25-2022 14:03-0400 Diastolic blood pressure 72 mm[Hg] 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 Work Phone: [facility] Work Phone: 04-25-2022 14:03-0400 Heart rate 91 /min 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 Work Phone: [facility] Work Phone: 04-25-2022 14:03-0400 Respiratory rate 16 /min 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 Work Phone: [facility] Work Phone: 04-25-2022 14:03-0400 SaO2% (BldA) [Mass fraction] 100 % 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 Work Phone: [facility] Work Phone: 04-25-2022 14:03-0400 Systolic blood pressure 119 mm[Hg] 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 Work Phone: [facility] Work Phone: 12-26-2021 14:45-0400 Body mass index (BMI) [Ratio] 32.8 kg/m2 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 Work Phone: [facility] Work Phone: 12-26-2021 14:45-0400 Body temperature 98.1 [degF] 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 Work Phone: [facility] Work Phone: 12-26-2021 14:45-0400 Body weight 83.91 kg 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 Work Phone: [facility] Work Phone: 12-26-2021 14:45-0400 Diastolic blood pressure 78 mm[Hg] 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 Work Phone: [facility] Work Phone: 12-26-2021 14:45-0400 Heart rate 99 /min 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 Work Phone: [facility] Work Phone: 12-26-2021 14:45-0400 Respiratory rate 18 /min 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 Work Phone: [facility] Work Phone: 12-26-2021 14:45-0400 SaO2% (BldA) [Mass fraction] 97 % 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 Work Phone: [facility] Work Phone: 12-26-2021 14:45-0400 Systolic blood pressure 122 mm[Hg] 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 Work Phone: [facility] Work Phone: 10-29-2020 05:48-0500 Body Temperature 98.01 [degF] Pramod [facility] , [place] 10-29-2020 05:48-0500 BP Diastolic 71 mm[Hg] Pramod [facility] , [place] 10-29-2020 05:48-0500 BP Systolic 99 mm[Hg] Pramod [facility] , [place] 10-29-2020 05:48-0500 Pulse (Heart Rate) 81 /min Pramod [facility], [place] 10-29-2020 05:48-0500 Pulse Oximetry 99 % Pramod [facility] , [place] 10-29-2020 05:48-0500 Respiratory Rate 20 /min Pramod [facility], [place] 10-26-2020 02:15-0500 BMI (Body Mass Index) 19.88 kg/m2 Pramod [facility], [place] 10-26-2020 02:15-0500 Body weight 66.5 kg Pramod [facility] , [place] 10-26-2020 02:15-0500 Height 182.9 cm Pramod [facility] , [place] Encounters Encounter Date Encounter Type Care Provider Facility Start: 03-30-2025 ambulatory Libra Gooden Facility: [facility] Start: 03-26-2025 ambulatory Jazzmine Karma Facility:[facility] Start: 03-18-2025 End: 03-18-2025 Telephone encounter Etelvina Wolfe PharmD [facility] [place] Comment on above: Med Management Start: 02-16-2025 End: 02-16-2025 ambulatory [facility] Start: 02-16-2025 End: 02-16-2025 Encounter for general adult medical examination without abnormal findings [facility] Start: 02-16-2025 End: 02-16-2025 ambulatory JAZZMINE PARADA Facility:[facility] Start: 02-05-2025 End: 02-11-2025 Refill Jazzmine Parada MD Work Phone: [facility] Start: 12-10-2024 End: 12-10-2024 Refill [facility] Start: 12-08-2024 End: 12-08-2024 Telephone encounter [facility] Start: 11-11-2024 End: 11-11-2024 ambulatory Jazzmine Parada Facility:[facility] Start: 11-02-2024 End: 11-02-2024 Refill [facility] [place] Start: 10-07-2024 End: 10-07-2024 Refill Jazzmine Parada MD Work Phone: [facility] [place] Start: 10-02-2024 End: 10-02-2024 ambulatory Jazzmine Parada Facility:[facility] Start: 09-08-[address] [facility] Facility: [facility] Start: 09-07-2024 End: 09-07-2024 [facility] Facility:[facility] Start: 08-12-2024 End: 08-12-[address] [facility] Start: 08-12-2024 End: 08-12-2024 Office outpatient visit 15 minutes Toy Baeza DO Work Phone: [facility] [place] Comment on above: Wound discharge (Yamini mercado Dx) Start: 08-08-2024 End: 08-08-2024 Emergency department patient visit TOY BAEZA Facility:[facility] Start: 08-07-2024 End: 08-07-2024 Refill Jazzmine Parada MD Work Phone: [facility] [place] Start: 07-10-2024 End: 07-10-[address] [facility] Facility:[facility] Start: 07-09-2024 End: 07-09-2024 Emergency department patient visit Kamlesh Christiansen Facility:[facility]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 panel - Stool by ALYSHA with probe detection [facility] Giardia lamblia Ag [Presence] in Stool by Immunoassay [facility] Hepatitis A virus Ig M Ab [Presence] in Serum [facility] Hepatitis B core ant ibody measurement, IgM type [facility] Hepatitis B surface antigen measurement [facility] Hepatitis C antibody measurement [facility] Oxygen therapy [Mini [facility] Set] Initiate Oxygen Therapy Protocol Respiratory Care Routine Daily until discontinued starting 10/26/2020 [facility] Comment on above: Daily until disconti nued starting 10/26/2020 Patient Education [facility] Work Phone: Patient referral [facility] Work Phone: End: 11-02-2020 POCT GLUCOSE POCT GLUCOSE Point of Care Testing Routine Every 6 Hours (Lab) for 7 Days starting 10/27/2020 until 11/02/2020 [facility] Comment on above: Every 6 Hours (Lab) for 7 Days starting 10/27/2020 until 11/02/2020 POCT Glucose POCT Glucose Poi nt of Care Testing STAT As Needed until discontinued starting 10/26/2020 [facility] Comment on above: As Needed until disc ontinued starting 10/26/2020 Procedure [facility] Procedure [facility] Procedure [facility] QUANTIFERON - PLUS G RAY TUBE QUANTIFERON - PLUS ADLER TUBE Lab Routine HIV infection, unspecified symptom status (HCC) Ordered: 02/21/2024 [email or web address] Comment on above: Ordered: 02/21/2024 QUANTIFERON - PLUS G REEN TUBE QUANTIFERON - PLUS GREEN TUBE Lab Routine HIV infection, unspecified symptom status (HCC) Ordered: 02/21/2024 [employer] Comment on above: Ordered: 02/21/2024 QUANTIFERON - PLUS P URPLE TUBE QUANTIFERON - PLUS PURPLE TUBE Lab Routine HIV infection, unspecified symptom status (HCC) Ordered: 02/21/2024 [employer] Comment on above: Ordered: 02/21/2024 QUANTIFERON - PLUS Y ELLOW TUBE QUANTIFERON - PLUS YELLOW TUBE Lab Routine HIV infection, unspecified symptom status (HCC) Ordered: 02/21/2024 [employer] Comment on above: Ordered: 02/21/2024 Tobacco use cessatio n education [facility] Tobacco use cessatio n education [facility] Immunizations Immunization Date Immunization Notes Care Provider Fa [facility] 06-19-2024 influenza, injectabl e, madin gabbie canine kidney, preservative free Jazzmine Parada MD Work Phone: [employer] 04-10-2024 Human Papillomavirus 9-valent vaccine Jazzmine Parada MD Work Phone: [employer] 04-10-2024 meningococcal oligosaccharide (groups A, C, Y and W-135) diphtheria toxoid conjugate vaccine (MCV4O) Jazzmine Parada MD Work Phone: [employer] 04-10-2024 HPV, unspecified formulation Jazzmine Parada MD Work Phone: [facility] [employer] 04-10-2024 meningococcal vaccin e of unknown formulation and unknown serogroups Jazzmine Parada MD Work Phone: [facility] 02-21-2024 Human Papillomavirus 9-valent vaccine Jazzmine Parada MD Work Phone: [facility] 02-21-2024 Pneumococcal Conjuga te PCV20, Pf (Prevnar 20) Jazzmine Parada MD Work Phone: [facility] 02-21-2024 HPV, unspecified formulation Jazzmine Parada MD Work Phone: [facility] 10-26-2020 tetanus and diphther ia toxoids, adsorbed, preservative free, for adult use (2 Lf of tetanus toxoid and 2 Lf of diphtheria toxoid) [facility] 10-26-2020 diphtheria and tetan us toxoids, adsorbed for pediatric use [place], [place] 10-25-2020 tetanus toxoid, redu suyapa diphtheria toxoid, and acellular pertussis vaccine, adsorbed 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 Work Phone: [facility] 07-01-2014 influenza, injectabl e, quadrivalent, preservative free 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 Work Phone: [facility] 07-01-2014 influenza, seasonal, injectable 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 Work Phone: [facility] 07-01-2014 pneumococcal polysaccharide vaccine, 23 valent 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 Work Phone: [facility] 07-01-2014 influenza virus vacc ine, unspecified formulation Kirit Wilson MD Work Phone: [facility] 08-08-2007 tetanus toxoid, redu suyapa diphtheria toxoid, and acellular pertussis vaccine, adsorbed 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 Work Phone: [facility] 03-27-2006 hepatitis B vaccine, pediatric or pediatric/adolescent dosage 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 Work Phone: [facility] 03-27-2006 meningococcal polysaccharide (groups A, C, Y and W-135) diphtheria toxoid conjugate vaccine (MCV4P) 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 Work Phone: [facility] 03-27-2006 Meningococcal, MCV4, unspecified conjugate formulation(groups A, C, Y and W-135) Lidiaverna Baeza DO Work Phone: [facility] 04-12-2005 tetanus and diphther ia toxoids, not adsorbed, for adult use Jazzmine Parada MD Work Phone: [facility] 08-04-2003 influenza, injectabl e, quadrivalent, preservative free 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 Work Phone: [facility] 08-04-2003 influenza, seasonal, injectable 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 Work Phone: [facility] 03-10-2003 measles, mumps and rubella virus vaccine 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 Work Phone: [facility] 05-25-1996 measles, mumps and rubella virus vaccine 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 Work Phone: [facility] 08-26-1995 diphtheria, tetanus toxoids and acellular pertussis vaccine 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 Work Phone: [facility] 08-26-1995 diphtheria, tetanus toxoids and acellular pertussis vaccine, unspecified formulation Jazzmine Parada MD Work Phone: [facility] 08-26-1995 poliovirus vaccine, inactivated 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 Work Phone: [facility] 08-26-1995 poliovirus vaccine, unspecified formulation Jazzmine Parada MD Work Phone: [facility] 05-25-1995 diphtheria, tetanus toxoids and acellular pertussis vaccine 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 Work Phone: [facility] 05-25-1995 diphtheria, tetanus toxoids and acellular pertussis vaccine, unspecified formulation Jazzmine Parada MD Work Phone: [facility] 05-25-1995 poliovirus vaccine, inactivated 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 Work Phone: [facility] 05-25-1995 poliovirus vaccine, unspecified formulation Jazzmine Parada MD Work Phone: [facility] 01-21-1992 diphtheria, tetanus toxoids and acellular pertussis vaccine 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 Ashleyder 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 ASSOCIATE Work Phone: [facility] 01-21-1992 diphtheria, tetanus toxoids and pertussis vaccine Jazzmine Parada MD Work Phone: [facility] 01-21-1992 haemophilus influenz ae type b vaccine, conjugate unspecified formulation Jazzmine Parada MD Work Phone: [facility] 01-21-1992 haemophilus influenz ae type b vaccine, HbOC conjugate Toy Baeza DO Work Phone: [facility] 01-21-1992 haemophilus influenz ae type b vaccine, PRP-T conjugate 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 Work Phone: [facility] 01-21-1992 measles, mumps and rubella virus vaccine 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 Ashleyder MARKETING OPERATIONS ASSOCIATE Work Phone: [facility] 03-18-1991 diphtheria, tetanus toxoids and acellular pertussis vaccine 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 Ashleyder MARKETING OPERATIONS ASSOCIATE Work Phone: [facility] 03-18-1991 diphtheria, tetanus toxoids and pertussis vaccine Jazzmine Parada MD Work Phone: [facility] 03-18-1991 haemophilus influenz ae type b vaccine, conjugate unspecified formulation Jazzmine Parada MD Work Phone: [facility] 03-18-1991 haemophilus influenz ae type b vaccine, HbOC conjugate Toy Baeza DO Work Phone: [facility] 03-18-1991 haemophilus influenz ae type b vaccine, PRP-T conjugate 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 Ashleyder MARKETING OPERATIONS ASSOCIATE Work Phone: [facility] 03-18-1991 poliovirus vaccine, inactivated 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 Work Phone: [facility] 03-18-1991 poliovirus vaccine, unspecified formulation Jazzmine Parada MD Work Phone: [facility] 1990 diphtheria, tetanus toxoids and acellular pertussis vaccine 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 Work Phone: [facility] 1990 diphtheria, tetanus toxoids and pertussis vaccine Jazzmine Parada MD Work Phone: [facility] 1990 haemophilus influenz ae type b vaccine, conjugate unspecified formulation Jazzmine Parada MD Work Phone: [facility] 1990 haemophilus influenz ae type b vaccine, HbOC conjugate Toy Baeza DO Work Phone: [facility] 1990 haemophilus influenz ae type b vaccine, PRP-T conjugate 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 2023 Medicaid [facility] MEDICA[facility] ODM [id number] 2023 Unknown [id number] 2015 Unknown [employer] [id number] 2015-Present [phone] [address] [place] [address] [id number] 2014 Unknown [id number] Unknown [id number] Unknown [id number] Unknown [id number] Unknown [id number] Unknown [id number] Unknown [id number] Unknown [id number] Unknown [id number] Unknown [id number] Unknown [id number] Unknown [id number] Unknown [id number] Unknown [id number] Unknown [id number] Unknown [id number] Unknown [id number] Unknown [id number] Unknown [id number] Unknown [id number] Social History Date Type Detail Facility Start: 10-28-2020 End: 06-19-2024 Tobacco smoking status NHIS Current every day smoker [place], [place] History of tobacco use Cigarette Smoker [facility] Start: 10-28-2020 End: 06-19-2024 Alcohol intake Ex-drinker (finding) [facility] Start: 1990 Sex Assigned At Not on file [place], [place] Start: 04-25-2022 End: 01-12-2024 Tobacco smoking status NHIS Unknown if ever smoked [facility] Start: 11-04-2020 Cigarettes [facility] Start: 1990 Sex Assigned At Male [facility] Start: 02-07-2024 End: 06-19-2024 Gender identity Not on file [facility] Start: 02-07-2024 End: 06-19-2024 Cigarettes smoked current (pack per day) - Reported 1 [facility] Start: 02-07-2024 Tobacco Comment Also vapes [facility] Start: 02-07-2024 Alcohol Comment rarely [facility] Start: 02-21-2024 End: 08-12-2024 Alcohol intake Current drinker of alcohol (finding) [facility] Start: 02-21-2024 Alcohol Comment occasionally [facility] Start: 04-10-2024 Alcohol Comment Couples times a week [facility] Start: 04-30-2022 Sex Male (finding) [facility] He alth National Score (1-10 0), lower number is lower risk 70 [facility] Start: 10-31-2012 Alcohol Comment occasion [facility] Goals Date Patient Goal Desired Activity /State Functional Status Date Assessment Result Facility 08-02-2023 Functional status Ambulates [facility] Work Phone: Mental Status Date Assessment Result Facility 08-02-2023 Cognitive function Patient Ji bradshaw Person;Place;Time [facility] Work Phone: 08-01-2023 Cognitive function Voice/Name [facility] Work Phone: Clinical Notes 07-28-2023 to 03-18-2025 Telephone Encounter - Jazzmine Parada MD - 03/18/2025 2:07 PM EDTTelephone Encounter - Jazzmine Parada MD - 03/18/2025 2:07 PM EDTTelephone Encounter - Etelvina Wolfe PharmD - 03/18/2025 1:11 PM EDT Note Date & Type Note Facility 03-18-2025 Telephone encounter Note I will refill for another 30 days but he will need to contact us as soon as he is out of longterm so we can get him an appt scheduled. He has labs done already that were done while in longterm. [facility] 03-18-2025 Miscellaneous Notes I will refill for another 30 days but he will need to contact us as soon as he is out of longterm so we can get him an appt scheduled. He has labs done already that were done while in longterm. Patient is still in [facility] and is scheduled to be released on 03/26. He is on his last tablet of Biktarvy and will need refill for dose tomorrow. According to longterm staff, he will need to coordinate follow up after discharge and they will not be scheduling to bring him to an appointment since he will be released soon. Patient wants to know if 1 more refill of Biktarvy can be sent to longterm to get him through until discharge. He will schedule follow up after his release. documented in this encounter [facility] 03-18-2025 Telephone encounter Note Patient is still in [facility] and is scheduled to be released on 03/26. He is on his last tablet of Biktarvy and will need refill for dose tomorrow. According to longterm staff, he will need to coordinate follow up after discharge and they will not be scheduling to bring him to an appointment since he will be released soon. Patient wants to know if 1 more refill of Biktarvy can be sent to longterm to get him through until discharge. He will schedule follow up after his release. [facility] 02-11-2025 Telephone encounter Note I will refill for 30 days only as we need to make sure I get lab results and that we follow up on when he can be seen. [facility] 02-11-2025 Miscellaneous Notes I will refill for 30 days only as we need to make sure I get lab results and that we follow up on when he can be seen. Spoke to [facility]. They are noit sure how long Weston will be at their facility. He may transfer to [facility] if they have room. They can draw his blood. Lab orders faxed to [facility] at . Thank you. Maybe we could get an idea of how much longer they anticipate he will be there? If they are able to do the labs, let me know and I can order and have the staff fax them to the longterm. Patient currently in [facility] ([facility]) I will call them to see if they are able to draw his labs. Left another message for patient to call the office. Left message to call office. I have not seen Weston since his first follow up appt after starting ART. This was back in May. He was supposed to follow up in 4 months. He will need to get labs done again, as the last ones were from September. Please call him to schedule him an appt to see me. Please see where he wants to get labs done and I will then order them. Once we have talked ot him and made an appt, then I will send one month of refills. I will not be able to refill beyond that until he is seen. documented in this encounter [facility] 02-11-2025 Telephone encounter Note Spoke to [facility]. They are noit sure how long Weston will be at their facility. He may transfer to [facility] if they have room. They can draw his blood. Lab orders faxed to [facility] at . [facility] 02-09-2025 Telephone encounter Note Thank you. Maybe we could get an idea of how much longer they anticipate he will be there? If they are able to do the labs, let me know and I can order and have the staff fax them to the longterm. [facility] 02-09-2025 Telephone encounter Note Patient currently in [facility] ([facility]) I will call them to see if they are able to draw his labs. [facility] 02-09-2025 Telephone encounter Note Left another message for patient to call the office. [facility] 02-08-2025 Telephone encounter Note Left message to call office. T [facility] 02-08-2025 Telephone encounter Note I have not seen Weston since his first follow up appt after starting ART. This was back in May. He was supposed to follow up in 4 months. He will need to get labs done again, as the last ones were from September. Please call him to schedule him an appt to see me. Please see where he wants to get labs done and I will then order them. Once we have talked ot him and made an appt, then I will send one month of refills. I will not be able to refill beyond that until he is seen. [facility] 12-10-2024 Telephone encounter Note Last seen 06/19/24, no future appt scheduled Labs completed. Pt stated he is waiting to confirm if he will have to face longterm time soon before scheduling an appt. Additional 30 day supply pended to hold him over. Please approve if appropriate. [facility] 12-10-2024 Miscellaneous Notes Last seen 06/19/24, no future appt scheduled Labs completed. Pt stated he is waiting to confirm if he will have to face longterm time soon before scheduling an appt. Additional 30 day supply pended to hold him over. Please approve if appropriate. documented in this encounter [facility] 11-02-2024 Telephone encounter Note Last seen 06/19/24, no future appt scheduled Patient is due for follow-up, we will remind him to get labs done and schedule appt [facility] 11-02-2024 Miscellaneous Notes Last seen 06/19/24, no future appt scheduled Patient is due for follow-up, we will remind him to get labs done and schedule appt documented in this encounter [facility] 08-12-2024 Note HNO ID: [id number] Author: TOY BAEZA, DO Service: ? Author Type: Physician Type: Progress Notes Filed: 08/13/2024 13:54 Note Text: 33 year old male presenting for wound check I have fully reviewed the past medical, surgical, social and family history and updated the Histories section of [facility]. On bactrim Wounds look good Warm, dry, open blister to the right fifth toe with surrounding cellulitis. Patient also has 2, open, healing sweeney to the dorsum of the second and third digits, please see picture and get images tab. No secondary signs of infection noted to fingers. Current Outpatient Medications on File Prior to Visit: Current Outpatient Medications Medication Sig Dispense Refill BIKTARVY 50-200-25 mg per tablet Take 1 tablet by mouth once daily. busPIRone (BUSPAR) 10 mg tablet Take 10 mg by mouth three times a day. divalproex ER (DEPAKOTE ER) 500 mg 24 hr tablet Take 500 mg by mouth once daily. QUEtiapine (SEROQUEL) 100 mg tablet Take 100 mg by mouth daily at bedtime. ketoconazole (NIZORAL) 2 % cream Apply to affected area. sulfamethoxazole-trimethoprim (BACTRIM DS) 800-160 mg per tablet Take 1 tablet by mouth every 12 hours for 7 days. 14 tablet 0 ibuprofen (MOTRIN) 800 mg tablet Take 1 tablet by mouth every 8 hours as needed for Pain. (Patient not taking: Reported on 08/12/2024) 28 tablet 0 fluticasone (FLONASE) 50 mcg/actuation nasal spray Use 1 [place] in each nostril daily at bedtime. BEFORE LYING DOWN FOR BED (Patient not taking: Reported on 08/12/2024) 1 Bottle 0 benzonatate (TESSALON PERLES) 100 mg capsule Take 1 capsule by mouth three times daily as needed. (Patient not taking: Reported on 08/12/2024) 21 capsule 0 hydrocortisone (ANUSOL-HC) 2.5 % rectal cream 1 application by RECTAL route twice daily. (Patient not taking: Reported on 08/12/2024) 1 Tube 0 No current facility-administered medications for this visit. ALLERGIES Allergen Reactions Amoxicillin Hives Benzocaine Hives Clindamycin Hives Lamictal [Lamotrigi* Hives Mushroom Combinatio* Vomiting Naproxen Hives Shellfish Derived Vomiting Tetracyclines Hives PAST SURGICAL HISTORY Procedure Laterality Date NONE Social history reviewed in [facility]. REVIEW OF SYSTEMS: Constitutional: Denies fever, denies chills, denies fatigue Head: Denies headache Eyes: Denies changes in vision or blurry vision Ears/Nose/Throat: Denies sore throat, denies rhinorrhea Musculoskeletal: Denies joint pain, denies myalgias Abd: No abd pain, no vomiting, no diarrhea, no nausea Skin/Breast: Denies rash or lesions Cardiovascular: Denies chest pain, denies palpitations, denies LE edema Respiratory: Denies cough, denies SOB, denies wheezing Neurological: Denies numbness, denies tingling, denies weakness PHYSICAL EXAMINATION: General appearance: Well appearing, alert, in no acute distress, well-hydrated, well nourished. Skin: Warm, dry, open blister to the right fifth toe with surrounding cellulitis. Patient also has 2, open, healing sweeney to the dorsum of the second and third digits, please see picture and get images tab. No secondary signs of infection noted to fingers. Head: Normocephalic, atraumatic Eyes: Anicteric sclera. Pupils are equally round and reactive to light. Extraocular movements are intact. Ears: External ears normal, canals clear Nose/Sinuses: Nares normal, septum midline, mucosa normal, Oropharynx: Lips, mucosa, and tongue normal, good dentition, no pharyngeal erythema or exudates Neck: Supple, no adenopathy Lungs: Lungs clear to auscultation. No wheezing, rhonchi, rales. Heart: RRR without murmur, gallop, or rubs. Abdomen: Normal abdominal exam, Abdomen soft, non-tender. No masses Extremities: No deformities, no edema, no cyanosis. Musculoskeletal: No joint swelling, no deformity Neuro: Gait normal. Speech intact ASSESSMENT/PLAN: 1. Wound Continue abx Wounds look like they are healing well pt is feeling very well Discussed with patient red flag symptoms. Discussed risks and benefits of treatment plan. Pt understands to seek appropriate evaluation for new or worsening symptoms. Patient understands and agrees with plan, all concerns and questions addressed. [facility] 08-12-2024 History of Presen t illness Narrative 33 year old male presenting for wound check I have fully reviewed the past medical, surgical, social and family history and updated the Histories section of [facility]. On bactrim Wounds look good Warm, dry, open blister to the right fifth toe with surrounding cellulitis. Patient also has 2, open, healing sweeney to the dorsum of the second and third digits, please see picture and get images tab. No secondary signs of infection noted to fingers. Current Outpatient Medications on File Prior to Visit: Current Outpatient Medications Medication Sig Dispense Refill BIKTARVY 50-200-25 mg per tablet Take 1 tablet by mouth once daily. busPIRone (BUSPAR) 10 mg tablet Take 10 mg by mouth three times a day. divalproex ER (DEPAKOTE ER) 500 mg 24 hr tablet Take 500 mg by mouth once daily. QUEtiapine (SEROQUEL) 100 mg tablet Take 100 mg by mouth daily at bedtime. ketoconazole (NIZORAL) 2 % cream Apply to affected area. sulfamethoxazole-trimethoprim (BACTRIM DS) 800-160 mg per tablet Take 1 tablet by mouth every 12 hours for 7 days. 14 tablet 0 ibuprofen (MOTRIN) 800 mg tablet Take 1 tablet by mouth every 8 hours as needed for Pain. (Patient not taking: Reported on 08/12/2024) 28 tablet 0 fluticasone (FLONASE) 50 mcg/actuation nasal spray Use 1 [place] in each nostril daily at bedtime. BEFORE LYING DOWN FOR BED (Patient not taking: Reported on 08/12/2024) 1 Bottle 0 benzonatate (TESSALON PERLES) 100 mg capsule Take 1 capsule by mouth three times daily as needed. (Patient not taking: Reported on 08/12/2024) 21 capsule 0 hydrocortisone (ANUSOL-HC) 2.5 % rectal cream 1 application by RECTAL route twice daily. (Patient not taking: Reported on 08/12/2024) 1 Tube 0 No current facility-administered medications for this visit. ALLERGIES Allergen Reactions Amoxicillin Hives Benzocaine Hives Clindamycin Hives Lamictal [Lamotrigi* Hives Mushroom Combinatio* Vomiting Naproxen Hives Shellfish Derived Vomiting Tetracyclines Hives PAST SURGICAL HISTORY Procedure Laterality Date NONE Social history reviewed in [facility]. REVIEW OF SYSTEMS: Constitutional: Denies fever, denies chills, denies fatigue Head: Denies headache Eyes: Denies changes in vision or blurry vision Ears/Nose/Throat: Denies sore throat, denies rhinorrhea Musculoskeletal: Denies joint pain, denies myalgias Abd: No abd pain, no vomiting, no diarrhea, no nausea Skin/Breast: Denies rash or lesions Cardiovascular: Denies chest pain, denies palpitations, denies LE edema Respiratory: Denies cough, denies SOB, denies wheezing Neurological: Denies numbness, denies tingling, denies weakness PHYSICAL EXAMINATION: General appearance: Well appearing, alert, in no acute distress, well-hydrated, well nourished. Skin: Warm, dry, open blister to the right fifth toe with surrounding cellulitis. Patient also has 2, open, healing sweeney to the dorsum of the second and third digits, please see picture and get images tab. No secondary signs of infection noted to fingers. Head: Normocephalic, atraumatic Eyes: Anicteric sclera. Pupils are equally round and reactive to light. Extraocular movements are intact. Ears: External ears normal, canals clear Nose/Sinuses: Nares normal, septum midline, mucosa normal, Oropharynx: Lips, mucosa, and tongue normal, good dentition, no pharyngeal erythema or exudates Neck: Supple, no adenopathy Lungs: Lungs clear to auscultation. No wheezing, rhonchi, rales. Heart: RRR without murmur, gallop, or rubs. Abdomen: Normal abdominal exam, Abdomen soft, non-tender. No masses Extremities: No deformities, no edema, no cyanosis. Musculoskeletal: No joint swelling, no deformity Neuro: Gait normal. Speech intact ASSESSMENT/PLAN: 1. Wound Continue abx Wounds look like they are healing well pt is feeling very well Discussed with patient red flag symptoms. Discussed risks and benefits of treatment plan. Pt understands to seek appropriate evaluation for new or worsening symptoms. Patient understands and agrees with plan, all concerns and questions addressed. documented in this encounter [facility] 06-19-2024 History of Presen t illness Narrative [facility] Follow-Up HIV Follow-Up Adherence: No missed doses Non Adherence: non applicable Mood: anxious Substance Abuse: denies current use PJP Prophylaxis: does not need Sexual Activity: yes and sometimes uses condoms Last CD4: Lab Results Last 12 Months Component Value Date/Time [id number] 715 02/07/2024 11:39 AM 979, 44% on 06/12/2024 Last CD4%: Lab Results Last 12 Months Component Value Date/Time [id number] 36.3 02/07/2024 11:39 AM Last HIV VL: Lab Results Last 12 Months Component Value Date/Time [id number] 9,450 (H) 02/07/2024 11:40 AM <20 copies on 06/12/2024 Nurse Intervention: TimeTotal Visit: 16-30 minutes total visit time SHAHZAD Ontiveros is here for HIV follow up. He was started on ART with Biktarvy back in January after diagnosis. He has continued to do well from this standpoint. Not missing doses. No current insurance or pharmacy issues. Viral load is now suppressed, CD4 counts are good, improved to over 900. He has noted some off and on loose stools, wonders if could be Biktarvy. It does not happen daily, some days has constipation. Notes more after eating dairy products. Never had issues with dairy before. Is not eating a healthy, regular diet. Asking about flaky rash around eyebrows and patricio area. He also is complaining of fatigue. Has been under a lot of stress over the past month or so. Issues with living situation, concern for bedbugs, so moved out. Back living with his aunt. Car issues, not able to work, so financial concerns. Is hoping to start a new job soon. He is seeing psychiatry. Was started on Depakote recently. Has appt for a psych intake at a place in [place]. Sobriety has been tenuous. States at his last appt he had been using IV meth again. Has since stopped. Sober for about two months now. Did not share any needles. He has had a few new sexual partners. Using condoms and mostly only oral sex. Patient Active Problem List Diagnosis Date Noted HIV infection ([facility]) 02/07/2024 Bipolar disorder in partial remission ([facility]) ([facility]) 02/07/2024 Gastroesophageal reflux disease without esophagitis 02/07/2024 Methamphetamine use disorder, mild, in early remission ([facility]) ([facility]) 02/07/2024 History of hepatitis C 02/07/2024 Hidradenitis suppurativa 02/07/2024 Tobacco abuse 02/07/2024 Current Outpatient Medications Medication Sig Dispense Refill vuzpzinbedr-sglmvbazir-nkgfgnex r (Biktarvy) 50-200-25 MG tablet Take 1 tablet by mouth daily. 30 tablet 2 busPIRone HCl (BUSPAR PO) Take by mouth. divalproex (Depakote ER) 500 MG 24 hr tablet Take 500 mg by mouth daily. QUEtiapine Fumarate (SEROQUEL PO) Take by mouth. Allergy Relief 10 MG tablet Take 10 mg by mouth daily. omeprazole (PriLOSEC) [address] capsule Take 20 mg by mouth daily. No current facility-administered medications for this visit. Allergies: Shellfish allergy, Benzocaine, Clindamycin, Mushroom extract complex, Amoxicillin, Lamotrigine, Naproxen, and Tetracyclines & related Past Medical History: Diagnosis Date Depression GERD (gastroesophageal reflux disease) Hepatitis C antibody test positive Hidradenitis suppurativa HIV disease (HCC) IV drug user recently quit December 2023 Polysubstance use disorder Syphilis History reviewed. No pertinent surgical history. Family History Problem Relation Name Age of Onset Diabetes Mother Liver disease Mother Diabetes Father Hypertension Father Heart disease Father COPD Father Social History Tobacco Use Smoking status: Every Day Current packs/day: 0.50 Types: Cigarettes Smokeless tobacco: Not on file Tobacco comments: Also vapes Substance Use Topics Alcohol use: Not Currently Alcohol/week: 2.0 standard drinks of alcohol Types: 2 Cans of beer per week Comment: Couples times a week Review of Systems Constitutional: Positive for fatigue. Negative for appetite change, chills, diaphoresis, fever and unexpected weight change. HENT: Negative for congestion, dental problem, ear pain, mouth sores, postnasal drip, rhinorrhea, sore throat and trouble swallowing. Eyes: Negative for visual disturbance. Respiratory: Negative for cough, shortness of breath and wheezing. Cardiovascular: Negative for chest pain, palpitations and leg swelling. Gastrointestinal: Positive for constipation and diarrhea. Negative for abdominal pain, blood in stool, nausea and vomiting. Endocrine: Negative for polydipsia and polyuria. Genitourinary: Negative for difficulty urinating, dysuria, frequency, genital sores and urgency. Musculoskeletal: Negative for arthralgias, gait problem and myalgias. Skin: Positive for rash (flaky skin on face). Negative for wound. Allergic/Immunologic: Negative for environmental allergies. Neurological: Negative for dizziness, seizures, syncope, weakness, numbness and headaches. Psychiatric/Behavioral: Positive for dysphoric mood. Negative for sleep disturbance and suicidal ideas. The patient is nervous/anxious. BP 124/77 (BP Location: Left arm, Patient Position: Sitting, BP Cuff Size: Adult long) Pulse 105 Temp 36.3 C (97.4 F) (Temporal) Ht 5' 3 (1.6 m) Wt 158 lb (71.7 kg) BMI 27.99 kg/m Physical Exam Vitals reviewed. Constitutional: General: He is not in acute distress. Appearance: Normal appearance. He is not ill-appearing, toxic-appearing or diaphoretic. HENT: Head: Normocephalic and atraumatic. Comments: Edentulous Nose: Nose normal. Mouth/Throat: Mouth: Mucous membranes are moist. Pharynx: Oropharynx is clear. No oropharyngeal exudate or posterior oropharyngeal erythema. Eyes: General: No scleral icterus. Conjunctiva/sclera: Conjunctivae normal. Cardiovascular: Rate and Rhythm: Normal rate and regular rhythm. Heart sounds: Normal heart sounds. No murmur heard. Pulmonary: Effort: Pulmonary effort is normal. No respiratory distress. Breath sounds: Normal breath sounds. No wheezing, rhonchi or rales. Abdominal: General: Abdomen is flat. There is no distension. Palpations: There is no mass. Tenderness: There is no abdominal tenderness. Musculoskeletal: General: No swelling or deformity. Normal range of motion. Cervical back: Normal range of motion and neck supple. Right lower leg: No edema. Left lower leg: No edema. Lymphadenopathy: Cervical: No cervical adenopathy. Skin: General: Skin is warm and dry. Findings: No lesion or rash. Comments: Mild facial seborrhea Neurological: General: No focal deficit present. Mental Status: He is alert and oriented to person, place, and time. Mental status is at baseline. Motor: No weakness. Gait: Gait normal. Psychiatric: Mood and Affect: Mood normal. Speech: Speech normal. Behavior: Behavior normal. Thought Content: Thought content normal. ASSESSMENT: Diagnosis Plan 1. HIV infection, unspecified symptom status ([facility]) T-helper cells (CD4) count HIV-1 RNA, Quantitative Viral Load, PCR Comprehensive metabolic panel T-helper cells (CD4) count HIV-1 RNA, Quantitative Viral Load, PCR Comprehensive metabolic panel 2. Dermatitis, seborrheic 3. Bipolar disorder in partial remission, most recent episode unspecified type ([facility]) 4. Methamphetamine use disorder, mild, in early remission ([facility]/HCC) ([facility]) 5. Diarrhea, unspecified type PLAN: 1. HIV infection, unspecified symptom status ([facility]) He is adherent and suppressed. Doing well on Biktarvy. Continue and check labs again in 4 months, prior to next appt. - T-helper cells (CD4) count; Future - HIV-1 RNA, Quantitative Viral Load, PCR; Future - Comprehensive metabolic panel; Future - T-helper cells (CD4) count - HIV-1 RNA, Quantitative Viral Load, PCR - Comprehensive metabolic panel 2. Dermatitis, seborrheic Will use topical cream, should improve with ongoing HIV treatment. Can use OTC dandruff shampoo for facial hair areas. 3. Bipolar disorder in partial remission, most recent episode unspecified type (HCC) Still struggling with mental health. Is seeing psychiatry. I think most of his fatigue is likely related to his stress and depression. Also could be addition of Depakote making him feel more tired. I encouraged communicating these things to his psychiatrist. Offered encouragement and emotional support. Also provided with [employer] information, as he may benefit from additional support from HIV case management. 4. Methamphetamine use disorder, mild, in early remission (CMS/HCC) (HCC) Had relapse, but is sober again. Encouraged continued abstinence. May need additional support with treatment. 5. Diarrhea, unspecified type I do not think this is due to Biktarvy, or HIV. It is intermittent and related mostly to foods. If this was Biktarvy related, it would happen on a daily basis. Encouraged him to keep a food diary to see what the triggers are and to talk to PCP about this as well. 6. Other: Reviewed/discussed vaccines. He will get flu shot today. Will give third Gardasil at next appt. Patient education/discussion provided on: HIV, Drug interactions/dosing, Adherence/resistance, Safe sex/condom use, Side effects, Insurance/OHDAP issues, Stress management, and Drugs/alcohol Time personally spent assessing and managing patient on the date of service: (which includes chart/lab review, visit, education and counseling, coordination of care) 45 minutes documented in this encounter [facility] 04-10-2024 History of Presen t illness Narrative [facility] Follow-Up HIV Follow-Up Adherence: No missed doses Non Adherence: non applicable Mood: Upset, car issues today Substance Abuse: denies current use PJP Prophylaxis: does not need Sexual Activity: yes, sometimes uses condoms, and new partners Last CD4: Lab Results Last 12 Months Component Value Date/Time [id number] 715 02/07/2024 11:39 AM 909 03/30/2024 Last CD4%: Lab Results Last 12 Months Component Value Date/Time [id number] 36.3 02/07/2024 11:39 AM Last HIV VL: Lab Results Last 12 Months Component Value Date/Time [id number] 9,450 (H) 02/07/2024 11:40 AM 50 copies, 03/30/2024 Nurse Intervention: TimeTotal Visit: 16-30 minutes total visit time SHAHZAD Ontiveros is here for HIV follow up. He was started on Biktarvy in January after his diagnosis. Has continued to do well. No missed doses. No side effects. No current insurance or pharmacy problems. His VL has fallen from around 9000 copies down to 50 copies. CD4 count has increased to over 900. He reports that his interval health has been good. Was seen by PCP, prescribed claritin for some congestion. Also new mental health medications. He only took them for one day and now he cannot find the bottles. They were in his car, is wondering if they were stolen. He continues to see counseling for his mental health. Has had some alcohol use, but has cut back. Denies any other drug use. Life has been busy and stressful in dealing with car issues, work, classes. He is trying to cope with taking drives to get away. He is still working at the same job. Living situation stable. He is not dating. Has same 2-3 sexual partners. Only condomless oral sex, with him performing oral on partners. Had treatment for gonorrhea at his last appt. Patient Active Problem List Diagnosis Date Noted HIV infection ([facility]) 02/07/2024 Bipolar disorder in partial remission ([facility]) ([facility]) 02/07/2024 Gastroesophageal reflux disease without esophagitis 02/07/2024 Methamphetamine use disorder, mild, in early remission ([facility]) ([facility]) 02/07/2024 History of hepatitis C 02/07/2024 Hidradenitis suppurativa 02/07/2024 Tobacco abuse 02/07/2024 Current Outpatient Medications Medication Sig Dispense Refill ahkeklflqhq-sqgfzztmey-txwbpzcm r (Biktarvy) 50-200-25 MG tablet Take 1 tablet by mouth daily. 30 tablet 2 busPIRone HCl (BUSPAR PO) Take by mouth. QUEtiapine Fumarate (SEROQUEL PO) Take by mouth. Allergy Relief 10 MG tablet Take 10 mg by mouth daily. Invega 6 MG 24 hr tablet Take 6 mg by mouth every morning. omeprazole (PriLOSEC) [address] capsule Take 20 mg by mouth daily. No current facility-administered medications for this visit. Allergies: Shellfish allergy, Benzocaine, Clindamycin, Mushroom extract complex, Amoxicillin, Lamotrigine, Naproxen, and Tetracyclines & related Past Medical History: Diagnosis Date Depression GERD (gastroesophageal reflux disease) Hepatitis C antibody test positive Hidradenitis suppurativa HIV disease (HCC) IV drug user recently quit December 2023 Polysubstance use disorder Syphilis History reviewed. No pertinent surgical history. Family History Problem Relation Name Age of Onset Diabetes Mother Liver disease Mother Diabetes Father Hypertension Father Heart disease Father COPD Father Social History Tobacco Use Smoking status: Every Day Current packs/day: 1.00 Types: Cigarettes Smokeless tobacco: Not on file Tobacco comments: Also vapes Substance Use Topics Alcohol use: Yes Alcohol/week: 2.0 standard drinks of alcohol Types: 2 Cans of beer per week Comment: Couples times a week Review of Systems Constitutional: Negative for appetite change, chills, diaphoresis, fatigue, fever and unexpected weight change. HENT: Positive for congestion. Negative for dental problem, ear pain, mouth sores, postnasal drip, rhinorrhea, sore throat and trouble swallowing. Eyes: Negative for visual disturbance. Respiratory: Positive for cough (occasional). Negative for shortness of breath and wheezing. Cardiovascular: Negative for chest pain, palpitations and leg swelling. Gastrointestinal: Negative for abdominal pain, blood in stool, constipation, diarrhea, nausea and vomiting. Endocrine: Negative for polydipsia and polyuria. Genitourinary: Negative for difficulty urinating, dysuria, frequency, genital sores and urgency. Musculoskeletal: Negative for arthralgias, gait problem and myalgias. Skin: Negative for rash and wound. Allergic/Immunologic: Positive for environmental allergies. Neurological: Negative for dizziness, seizures, syncope, weakness, numbness and headaches. Psychiatric/Behavioral: Positive for dysphoric mood. Negative for sleep disturbance and suicidal ideas. The patient is nervous/anxious. BP 115/77 (BP Location: Right arm, Patient Position: Sitting, BP Cuff Size: Adult long) Pulse 100 Temp 36.4 C (97.5 F) Ht 5' 3 (1.6 m) Wt 165 lb (74.8 kg) BMI 29.23 kg/m Physical Exam Vitals reviewed. Constitutional: General: He is not in acute distress. Appearance: Normal appearance. He is not ill-appearing, toxic-appearing or diaphoretic. HENT: Head: Normocephalic and atraumatic. Nose: Nose normal. Mouth/Throat: Mouth: Mucous membranes are moist. Pharynx: Oropharynx is clear. No oropharyngeal exudate or posterior oropharyngeal erythema. Comments: Throat swab collected edentulous Eyes: General: No scleral icterus. Conjunctiva/sclera: Conjunctivae normal. Cardiovascular: Rate and Rhythm: Normal rate and regular rhythm. Heart sounds: Normal heart sounds. No murmur heard. Pulmonary: Effort: Pulmonary effort is normal. No respiratory distress. Breath sounds: Normal breath sounds. No wheezing, rhonchi or rales. Abdominal: General: Abdomen is flat. There is no distension. Palpations: There is no mass. Tenderness: There is no abdominal tenderness. Musculoskeletal: General: No swelling or deformity. Normal range of motion. Cervical back: Normal range of motion and neck supple. Right lower leg: No edema. Left lower leg: No edema. Lymphadenopathy: Cervical: No cervical adenopathy. Skin: General: Skin is warm and dry. Findings: No lesion or rash. Neurological: General: No focal deficit present. Mental Status: He is alert and oriented to person, place, and time. Mental status is at baseline. Motor: No weakness. Gait: Gait normal. Psychiatric: Mood and Affect: Mood normal. Speech: Speech normal. Behavior: Behavior normal. Thought Content: Thought content normal. ASSESSMENT: Diagnosis Plan 1. HIV infection, unspecified symptom status ([facility]) Comprehensive metabolic panel CBC auto differential HIV-1 RNA, Quantitative Viral Load, PCR T-helper cells (CD4) count Comprehensive metabolic panel CBC auto differential HIV-1 RNA, Quantitative Viral Load, PCR T-helper cells (CD4) count HPV vaccine 9-valent IM Meningococcal ACWY-CRM (Menveo) 4-valent conjugate vaccine 2. Bipolar disorder in partial remission, most recent episode unspecified type ([facility]) 3. Methamphetamine use disorder, mild, in early remission (CMS/HCC) ([facility]) 4. Screen for sexually transmitted diseases Chlamydia/N. Gonorrhoeae RNA, TMA, Throat ([facility]) 5. Need for meningitis vaccination Meningococcal ACWY-CRM (Menveo) 4-valent conjugate vaccine 6. Need for HPV vaccination HPV vaccine 9-valent IM PLAN: 1. HIV infection, unspecified symptom status (HCC) He is adherent. VL responding well, is close to suppressed. CD4 counts good, improving. Discussed safe sex and U=U. Will have him get labs again in 8 weeks, prior to next appt. Continue Biktarvy. - Comprehensive metabolic panel; Future - CBC auto differential; Future - HIV-1 RNA, Quantitative Viral Load, PCR; Future - T-helper cells (CD4) count; Future - Comprehensive metabolic panel - CBC auto differential - HIV-1 RNA, Quantitative Viral Load, PCR - T-helper cells (CD4) count - HPV vaccine 9-valent IM - Meningococcal ACWY-CRM (Menveo) 4-valent conjugate vaccine 2. Bipolar disorder in partial remission, most recent episode unspecified type (HCC) Overall stable. Lost his new mental health meds. Suggested calling his pharmacy and they can likely do a lost med override. Discussed ways for healthy coping. Offered encouragement and support. 3. Methamphetamine use disorder, mild, in early remission (CMS/HCC) ([facility]) Remains abstinent from meth. Alcohol use also is declining. Encouraged continued cessation. 4. Screen for sexually transmitted diseases Will do test for sure for prior gonorrhea and to check since had new oral partners. We also had a discussion about DoxyPEP, but he has a reported allergy to tetracycline when he was younger. Not exactly sure of reaction, thinks it was hives. Will check on cross reactivity with doxy and will discuss again at next appt to see if this may be an option for him. - Chlamydia/N. Gonorrhoeae RNA, TMA, Throat ([facility]) 5. Need for meningitis vaccination Update Menveo - Meningococcal ACWY-CRM (Menveo) 4-valent conjugate vaccine 6. Need for HPV vaccination Second Gardasil - HPV vaccine 9-valent IM 7. Other: discussed vaccines. He will get above vaccines today, at next appt, will start Hep A and Shingrix. Patient education/discussion provided on: HIV, Drug interactions/dosing, Adherence/resistance, Safe sex/condom use, Tobacco cessation counseling, Side effects, Insurance/OHDAP issues, Stress management, and Drugs/alcohol Time personally spent assessing and managing patient on the date of service: (which includes chart/lab review, visit, education and counseling, coordination of care) 45 minutes documented in this encounter [facility] 02-21-2024 History of Presen t illness Narrative [facility] Follow-Up HIV Follow-Up Adherence: No missed doses Non Adherence: non applicable Mood: normal Substance Abuse: denies current use PJP Prophylaxis: does not need Sexual Activity: no Last CD4: Lab Results Last 12 Months Component Value Date/Time [id number] 02/07/2024 11:39 AM Last CD4%: Lab Results Last 12 Months Component Value Date/Time [id number] 36.3 02/07/2024 11:39 AM Last HIV VL: Lab Results Last 12 Months Component Value Date/Time [id number] 9,450 (H) 02/07/2024 11:40 AM Nurse Intervention: TimeTotal Visit: 16-30 minutes total visit time SHAHZAD Ontiveros is here for HIV follow up. He was recently diagnosed and established care here two weeks ago. He was started on Biktarvy at that time. He has done very well. Some slight loose stool but otherwise has noticed nothing new. No missed does. Today we reviewed all the HIV labs that were done at his last appt. His CD4 counts are good, over 700 and his VL is around 9000 copies. Genotype still pending. He is Hep A non immune, Hep B immune from natural immunity and Hep C RNA is still negative. STI swab done at last appt came back positive for gonorrhea. We had contacted him about this, but he has not been treated yet. No new medications from last appt No new medical issues Continues to have support and is coping ok with new diagnosis. Patient Active Problem List Diagnosis Date Noted HIV infection ([facility]) 02/07/2024 Bipolar disorder in partial remission ([facility]) ([facility]) 02/07/2024 Gastroesophageal reflux disease without esophagitis 02/07/2024 Methamphetamine use disorder, mild, in early remission ([facility]) ([facility]) 02/07/2024 History of hepatitis C 02/07/2024 Hidradenitis suppurativa 02/07/2024 Tobacco abuse 02/07/2024 Current Outpatient Medications Medication Sig Dispense Refill [id number]-flyucqhocb-hwiqgrlq r (Biktarvy) 50-200-25 MG tablet Take 1 tablet by mouth daily. 30 tablet 2 Invega 6 MG 24 hr tablet Take 6 mg by mouth every morning. omeprazole (PriLOSEC) [address] capsule Take 20 mg by mouth daily. No current facility-administered medications for this visit. Allergies: Shellfish allergy, Benzocaine, Clindamycin, Mushroom extract complex, Amoxicillin, Lamotrigine, Naproxen, and Tetracyclines & related Past Medical History: Diagnosis Date Depression GERD (gastroesophageal reflux disease) Hepatitis C antibody test positive Hidradenitis suppurativa HIV disease (HCC) IV drug user recently quit December 2023 Polysubstance use disorder Syphilis History reviewed. No pertinent surgical history. Family History Problem Relation Name Age of Onset Diabetes Mother Liver disease Mother Diabetes Father Hypertension Father Heart disease Father COPD Father Social History Tobacco Use Smoking status: Every Day Packs/day: 1 Types: Cigarettes Smokeless tobacco: Not on file Tobacco comments: Also vapes Substance Use Topics Alcohol use: Yes Comment: occasionally Review of Systems Constitutional: Negative for appetite change, chills, diaphoresis, fatigue, fever and unexpected weight change. HENT: Negative for congestion, dental problem, ear pain, mouth sores, postnasal drip, rhinorrhea, sore throat and trouble swallowing. Eyes: Negative for visual disturbance. Respiratory: Negative for cough, shortness of breath and wheezing. Cardiovascular: Negative for chest pain, palpitations and leg swelling. Gastrointestinal: Positive for diarrhea (slight loose stool). Negative for abdominal pain, blood in stool, constipation, nausea and vomiting. Endocrine: Negative for polydipsia and polyuria. Genitourinary: Negative for difficulty urinating, dysuria, frequency, genital sores and urgency. Musculoskeletal: Negative for arthralgias, gait problem and myalgias. Skin: Negative for rash and wound. Allergic/Immunologic: Negative for environmental allergies. Neurological: Negative for dizziness, seizures, syncope, weakness, numbness and headaches. Psychiatric/Behavioral: Negative for dysphoric mood, sleep disturbance and suicidal ideas. The patient is nervous/anxious. BP 121/79 (BP Location: Right arm, Patient Position: Sitting, BP Cuff Size: Adult long) Pulse 88 Temp 36.4 C (97.6 F) (Temporal) Ht 5' 3 (1.6 m) Wt 172 lb (78 kg) BMI 30.47 kg/m Physical Exam Vitals reviewed. Constitutional: General: He is not in acute distress. Appearance: Normal appearance. He is not ill-appearing, toxic-appearing or diaphoretic. HENT: Head: Normocephalic and atraumatic. Nose: Nose normal. Mouth/Throat: Mouth: Mucous membranes are moist. Pharynx: Oropharynx is clear. No oropharyngeal exudate or posterior oropharyngeal erythema. Eyes: General: No scleral icterus. Conjunctiva/sclera: Conjunctivae normal. Cardiovascular: Rate and Rhythm: Normal rate and regular rhythm. Heart sounds: Normal heart sounds. No murmur heard. Pulmonary: Effort: Pulmonary effort is normal. No respiratory distress. Breath sounds: Normal breath sounds. No wheezing, rhonchi or rales. Abdominal: General: Abdomen is flat. There is no distension. Palpations: There is no mass. Tenderness: There is no abdominal tenderness. Musculoskeletal: General: No swelling or deformity. Normal range of motion. Cervical back: Normal range of motion and neck supple. Right lower leg: No edema. Left lower leg: No edema. Lymphadenopathy: Cervical: No cervical adenopathy. Skin: General: Skin is warm and dry. Findings: No lesion or rash. Neurological: General: No focal deficit present. Mental Status: He is alert and oriented to person, place, and time. Mental status is at baseline. Motor: No weakness. Gait: Gait normal. Psychiatric: Mood and Affect: Mood normal. Speech: Speech normal. Behavior: Behavior normal. Thought Content: Thought content normal. ASSESSMENT: Diagnosis Plan 1. HIV infection, unspecified symptom status ([facility]) Comprehensive metabolic panel CBC auto differential QUANTIFERON TB GOLD HIV-1 RNA, Quantitative Viral Load, PCR T-helper cells (CD4) count Comprehensive metabolic panel CBC auto differential QUANTIFERON TB GOLD HIV-1 RNA, Quantitative Viral Load, PCR T-helper cells (CD4) count 2. Bipolar disorder in partial remission, most recent episode unspecified type ([facility]) 3. Gonorrhea 4. Screen for sexually transmitted diseases Chlamydia/Gonorrhea PLAN: 1. HIV infection, unspecified symptom status ([facility]) He is doing well with starting Biktarvy. Genotype pending but unlikely this result will change anything. Continue Bik and check labs again in 4 weeks. Appt in 6 weeks. - Comprehensive metabolic panel; Future - CBC auto differential; Future - QUANTIFERON TB GOLD; Future - HIV-1 RNA, Quantitative Viral Load, PCR; Future - T-helper cells (CD4) count; Future - Comprehensive metabolic panel - CBC auto differential - QUANTIFERON TB GOLD - HIV-1 RNA, Quantitative Viral Load, PCR - T-helper cells (CD4) count 2. Bipolar disorder in partial remission, most recent episode unspecified type (HCC) Stable. Is coping ok with diagnosis, has support and a counselor. 3. Gonorrhea Need to treat today with Ceftriaxone. He has an amoxicillin rash allergy reported. I clarified he has had PCN for syphilis with no reaction. I do not think he will have any reaction with a third generation cephalosporin. 4. Screen for sexually transmitted diseases The lab did not do the urine STI ordered, so collected a urine specimen today in the office. - Chlamydia/Gonorrhea 5. Other: Reviewed/discussed vaccines. Discussed that there are many HIV recommended vaccinations. He will start with getting Prevnar 20 and first Gardasil today. He will still need Menveo, Shingrix, Hep A. Patient education/discussion provided on: HIV, Drug interactions/dosing, Adherence/resistance, Safe sex/condom use, Side effects, Insurance/OHDAP issues, and Stress management Time personally spent assessing and managing patient on the date of service: (which includes chart/lab review, visit, education and counseling, coordination of care) 45 minutes documented in this encounter [facility] 02-21-2024 Miscellaneous Notes Addended by: DEBORAH MG on: 02/21/2024 04:12 PM Modules accepted: Orders documented in this encounter [facility] 02-21-2024 Note Addended by: DEBORAH MG on: 02/21/2024 04:12 PM Modules accepted: Orders [facility] 02-21-2024 Note Addended by: DEBORAH MG on: 02/21/2024 04:12 PM Modules accepted: Orders [facility] 02-10-2024 Telephone encounter Note Notified [facility] of positive gonorrhea test results. Needs Ceftriaxone. Instructed him to come to our office, or he can also go to his PCP office, [facility] or [facility]. [facility] 02-10-2024 Miscellaneous Notes Notified [facility] of positive gonorrhea test results. Needs Ceftriaxone. Instructed him to come to our office, or he can also go to his PCP office, [facility] or [facility]. Please call [facility]. The STI swab we did last week came back positive for Gonorrhea, negative for chlamydia. He will need to have a shot of Ceftriaxone for this. His partners, if he is able to notify them, should also be tested and treated. I know he lives in [place] and coming up here may not be easy. If his PCP has Ceftriaxone in their office and they are able to give it to him, he can get it there or he can call the [facility] or a [facility]. I don't care if he gets treated somewhere closer to him, or here, we just need to make sure he is treated. I see that his chart has amoxicillin allergy listed with rash as the reaction. Usually patients with PCN or amoxicillin do not have a high chance of cross reactivity to using a third generation cephalosporin like Ceftriaxone. I do not think that he will have a reaction to getting this. documented in this encounter [facility] 02-10-2024 Telephone encounter Note Please call [facility]. The STI swab we did last week came back positive for Gonorrhea, negative for chlamydia. He will need to have a shot of Ceftriaxone for this. His partners, if he is able to notify them, should also be tested and treated. I know he lives in [place] and coming up here may not be easy. If his PCP has Ceftriaxone in their office and they are able to give it to him, he can get it there or he can call the [facility] or a [facility]. I don't care if he gets treated somewhere closer to him, or here, we just need to make sure he is treated. I see that his chart has amoxicillin allergy listed with rash as the reaction. Usually patients with PCN or amoxicillin do not have a high chance of cross reactivity to using a third generation cephalosporin like Ceftriaxone. I do not think that he will have a reaction to getting this. [facility] 02-07-2024 History of Presen t illness Narrative [facility] HIV Initial Intake Date of HIV DX: January 2024 Last Negative Test: January 2023 SO/GI: Sexual Orientation: delatorre or lesbian Gender Identity: Male Sex assigned at : Male Preferred pronouns: He/him Preferred name: HIV: Referred by: PCP HIV risk factor/Transmission route: MSM Sexual activity: sex with male anal and sex with male oral Condom Use: Sometimes Prior STIs: Syphilis Prior ARV history: Naive Previous HIV physician: N/A Opportunistic Infection history: Other: Denies HIV Lab Data: No results found for: [id number] not done yet No results found for: [id number] not done yet Past Medical History: Past Medical History: Diagnosis Date Depression GERD (gastroesophageal reflux disease) Hepatitis C antibody test positive Hidradenitis suppurativa HIV disease (HCC) IV drug user recently quit December 2023 Polysubstance use disorder Syphilis Mental Health: Depression, Anxiety disorder, Bipolar disorder, Schizophrenia, and Clarence from [facility] is counselor Social History: Substance use: methamphetamines, marijuana, and denies current use, Has been through rehab, lived in sober living Education Level: College partial 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 He was diagnosed with a test at his PCP office last week. Testing was done due to his IVDU history. His last negative test was in January 2023. He is sexually active with men. Had thought about PrEP in the past but just never ended up getting access to it. He is upset and anxious over new diagnosis but appears to be handling it ok. He has disclosed to friends and support persons and this has helped. Has a friend who also sees me here who is positive and he has been talking with him. No other lab data for HIV available other than positive test. He is sexually active with men. Has had three sexual partners over the last year. Thinks one of them may have been positive and not taking medications, which he found out afterwards. This encounter was about a month ago. He had some GI symptoms recently and night sweats. Diarrhea is improved. He has both anal and oral sex, is verse in both, primarily a bottom. Condom use is intermittent. Has a history of syphilis a few years ago when incarcerated. Was treated back then. Through records review on [employer], an RPR of 1:1 was noted in 02/2023. He has a history of prior Hep C but tells me it was cleared up naturally. Never treated. I do see a negative RNA level in 01/2023. He was Hep B SAG negative in 2020. He has a history of bipolar disorder. Was recently hospitalized in a facility in [place]. Was started on Invega there by psychiatry. His PCP has continued this. He stopped it recently due to strange dreams affecting his sleep. He has been in counseling at [facility] in [place]. His counselor there is trying to get him into see a psychiatrist. He denies any SI. He is going to talk to PCP about stopping Invega and ask about other medications in the past which helped him. Had been on Seroquel and Vistaril before. He has a history of alcohol abuse in the past. Quit 6 years ago. Meth for a few years that was more regular. Use has been on and off since 2020. Most recent relapse and use was last month. Used primarily IV. Says he has stopped and is not going back. Also quit smoking marijuana. He does not attend meetings or have other additional support for abstinence other than his friends. He smokes tobacco. Does not want to quit. Medical history of GERD recently started on PPI. Also history of hidradenitis with some abscesses in groin area. Complains of some small red bumps on his chest, lower abdomen and groin. 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 Lives in [place]. Transportation here may be somewhat hard. He lives with a friend and her and kids. He is also taking online business classes and would like to open his own diner on the [facility] [address] [facility] [address] some day. Review of Systems Constitutional: Positive for diaphoresis (night sweats). Negative for appetite change, chills, fatigue, fever and unexpected weight change. HENT: Positive for congestion. Negative for dental problem, ear pain, mouth sores, postnasal drip, rhinorrhea, sore throat and trouble swallowing. Eyes: Negative for visual disturbance. Respiratory: Negative for cough, shortness of breath and wheezing. Cardiovascular: Negative for chest pain, palpitations and leg swelling. Gastrointestinal: Positive for diarrhea (improved). Negative for abdominal pain, blood in stool, constipation, nausea and vomiting. GERD Endocrine: Negative for polydipsia and polyuria. Genitourinary: Negative for difficulty urinating, dysuria, frequency, genital sores and urgency. Musculoskeletal: Negative for arthralgias, gait problem and myalgias. Skin: Positive for rash (few pimples on chest, groin area). Negative for wound. Allergic/Immunologic: Positive for environmental allergies. Neurological: Negative for dizziness, seizures, syncope, weakness, numbness and headaches. Psychiatric/Behavioral: Positive for dysphoric mood and sleep disturbance. Negative for suicidal ideas. The patient is nervous/anxious. Physical Exam Vitals reviewed. Constitutional: General: He is not in acute distress. Appearance: Normal appearance. He is not ill-appearing, toxic-appearing or diaphoretic. HENT: Head: Normocephalic and atraumatic. Nose: Nose normal. Mouth/Throat: Mouth: Mucous membranes are moist. Pharynx: Oropharynx is clear. No oropharyngeal exudate or posterior oropharyngeal erythema. Comments: Edentulous Eyes: General: No scleral icterus. Conjunctiva/sclera: Conjunctivae normal. Cardiovascular: Rate and Rhythm: Normal rate and regular rhythm. Heart sounds: Normal heart sounds. No murmur heard. Pulmonary: Effort: Pulmonary effort is normal. No respiratory distress. Breath sounds: Normal breath sounds. No wheezing, rhonchi or rales. Abdominal: General: Abdomen is flat. There is no distension. Palpations: There is no mass. Tenderness: There is no abdominal tenderness. Musculoskeletal: General: No swelling or deformity. Normal range of motion. Cervical back: Normal range of motion and neck supple. Right lower leg: No edema. Left lower leg: No edema. Lymphadenopathy: Cervical: No cervical adenopathy. Skin: General: Skin is warm and dry. Findings: No lesion or rash. Comments: Seborrhea on face Few scattered papules consistent with folliculitis Some scarring from prior boils/abscess in groin Neurological: General: No focal deficit present. Mental Status: He is alert and oriented to person, place, and time. Mental status is at baseline. Motor: No weakness. Gait: Gait normal. Psychiatric: Mood and Affect: Mood is anxious. Speech: Speech normal. Behavior: Behavior normal. Thought Content: Thought content normal. Assessment and Plan: Diagnosis Plan 1. HIV infection, unspecified symptom status (HCC) CBC auto differential Chlamydia/Gonorrhea Comprehensive metabolic panel Hepatitis A antibody, total Hepatitis B core antibody, total Hepatitis B surface antibody Hepatitis B surface antigen Hepatitis C antibody Hepatitis C viral load HIV Genotype HIV-1 RNA, Quantitative Viral Load, PCR RPR T-helper cells (CD4) count CBC auto differential Chlamydia/Gonorrhea Comprehensive metabolic panel Hepatitis A antibody, total Hepatitis B core antibody, total Hepatitis B surface antibody Hepatitis B surface antigen Hepatitis C antibody Hepatitis C viral load HIV Genotype HIV-1 RNA, Quantitative Viral Load, PCR RPR T-helper cells (CD4) count 2. Syphilis RPR RPR 3. Bipolar disorder in partial remission, most recent episode unspecified type (HCC) 4. Methamphetamine use disorder, mild, in early remission (CMS/HCC) (HCC) 5. Tobacco abuse 6. Screen for sexually transmitted diseases Chlamydia/N. Gonorrhoeae RNA, TMA, Rectal ([facility]) Chlamydia/Gonorrhea Chlamydia/Gonorrhea 7. Encounter for HCV screening test for high risk patient Hepatitis C antibody Hepatitis C viral load Hepatitis C antibody Hepatitis C viral load 1. HIV infection, unspecified symptom status (HCC) Long discussion about HIV, course of illness, symptoms, transmission, disclosure, safe sex, U=U, treatment recommendations and options. Discussed options for rapid start. Will use Biktarvy, as Farhan may have too many drug interactions potential with respect to possible mental health medications he may need in the future. Discussed dosing, possible side effects, importance of adherence to avoid resistance. He will get labs drawn today for staging and baseline, genotype. He will return after labs drawn to crab picker script from [facility]. - CBC auto differential; Future - Chlamydia/Gonorrhea; Future - Comprehensive metabolic panel; Future - Hepatitis A antibody, total; Future - Hepatitis B core antibody, total; Future - Hepatitis B surface antibody; Future - Hepatitis B surface antigen; Future - Hepatitis C antibody; Future - Hepatitis C viral load; Future - HIV Genotype; Future - HIV-1 RNA, Quantitative Viral Load, PCR; Future - RPR; Future - T-helper cells (CD4) count; Future - CBC auto differential - Chlamydia/Gonorrhea - Comprehensive metabolic panel - Hepatitis A antibody, total - Hepatitis B core antibody, total - Hepatitis B surface antibody - Hepatitis B surface antigen - Hepatitis C antibody - Hepatitis C viral load - HIV Genotype - HIV-1 RNA, Quantitative Viral Load, PCR - RPR - T-helper cells (CD4) count 2. Syphilis Last titer I can see was 1:1 in 02/2023. Will follow up on this to make sure still low level or if any increase. - RPR; Future - RPR 3. Bipolar disorder in partial remission, most recent episode unspecified type (HCC) Had recent hospitalization last month. Stopped Invega this week due to dreams and poor sleep. Strongly encouraged him to talk to his PCP about this. He likely needs to see psychiatry. States his counselor at [facility] is working to get him to see one. Much encouragement and support given. Does seem to have a good support system. 4. Methamphetamine use disorder, mild, in early remission (CMS/HCC) (HCC) Off and on use over past few years. Last use last month. Discussed how harmful meth and IV drug use in general is to his mental and physical health. Strongly encouraged ongoing abstinence. May need additional supports for sobriety. 5. Tobacco abuse Discussed benefits of cessation. Discussed negative impact of smoking on health. He is not ready for cessation at this time. 6. Screen for sexually transmitted diseases Oral and rectal STI specimens collected. - Chlamydia/N. Gonorrhoeae RNA, TMA, Rectal ([facility]) - Chlamydia/Gonorrhea; Future - Chlamydia/Gonorrhea 7. Encounter for HCV screening test for high risk patient Will check current Hep C status with VL since has had ongoing use of IV drugs. - Hepatitis C antibody; Future - Hepatitis C viral load; Future - Hepatitis C antibody - Hepatitis C viral load 8. Other: Reviewed vaccines. He will need many HIV recommended vaccine updates, but will begin to address this at upcoming appts. He is recommended to have Prevnar 20, Gardasil, Menveo, Shingrix. Will see if needs Hep B or A vaccine as we check immunity in labs. Patient education/discussion provided on: HIV, Drug interactions/dosing, Adherence/resistance, Safe sex/condom use, Healthy diet/weight counseling, Tobacco cessation counseling, Side effects, Insurance/OHDAP issues, Stress management, and Drugs/alcohol Time personally spent assessing and managing patient on the date of service: (which includes chart/lab review, visit, education and counseling, coordination of care) 90 minutes Referrals and Patient information: [facility] Patient seen by [facility] pharmacist for medication management, which may include: coordination of services by [facility], adherence, side effects, drug interactions, co-pay assistance, insurance coverage or prior authorization. Complete medication review and insurance coverage review done by [facility] pharmacist prior to seeing patient. documented in this encounter [facility] 01-13-2024 Discharge summary Note Date/Time January 12, 2024 2:23pm [facility] Medical Records Department [address] [place] [address] Emergency Department Summary 01/12/24 MR#: [id number] Acct: [id number] Name: WESTON SORIA Rep #:[id number] : 1990 33 From: Bhupinder Byrd DO PCP: Dr. Rosalva Lopez MD Status:REG ER Location: ED ADDENDUM by Dr. Vincent Begum MD on 01/12/24 at 2240 Additionally, I reviewed the patient's EKG and it is normal. It is 53. At thispoint in time, he has been [facility]. He is awaiting transfer. He is in stable condition. 04/14/24 2240<Electronically signed by Vincent Begum MD> Cosigner Signature (if applicable): cc: Dr. Rosalva Lopez MD ~* Signed ADDENDUM by Dr. Vincent Begum MD on 01/12/24 at 2042 In review of his laboratory work, I do feel that he is medically cleared for evaluation by the crisis counselor. In discussion with the crisis counselor, itwas felt that he has decompensated to the point where he requires inpatient admission. While the patient may be voluntary, I do feel that he needs emergentpsychiatric evaluation and treatment so he will be pink slipped for his psychosis and paranoia. He is not suicidal currently. Further tests were ordered including EKG which was interpreted by myself independently as normal sinusrhythm at 84 bpm without ectopy or acute ST changes. Patient had a mild hypokalemia of 3.4 which was replaced orally. His other screening labs are negative but his drugs for of abuse was positive for amphetamines and cannabinoids. At this point in time, he is awaiting placement in a psychiatric facility. If need be, he will be signed out to the overnight physician to continue observation until he is placed. Patient is in stable condition. 01/12/242042<Electronically signed by Vincent Begum MD> Cosigner Signature (if applicable): cc: Dr. Rosalva Lopez MD ~* Signed HPI HPI - Psych History of Present Illness Chief Complaint: Mental Health Detail of Chief Complaint: Paranoia Informant: patient Narrative Narrative: Patient presents to the emergency department with complaint of feeling like people are out to get him. Patient states that [place] [facility] [place] [facility] and then they all ended up leaving and that he was there alone. He started hearing things voices that were outside or open doors opening and closing and there was nobody there. At times she is felt like therewere people outside his house talking and when he looks outside the window thereis nobody there. Patient currently denies being suicidal or homicidal. Patientstates that he cannot take it anymore. Apparently there was an incident 3 days ago where he called his mother to come and get him and it took a while to get the test [facility] where he was so he ended up calling his aunt and told her that he was feeling suicidal. When the mom finally got to the patient he handed her a small pocket knife. Patient does have history of depression andbipolar disorder. Currently not taking medications. Patient also states has been having vomiting and diarrhea for several weeks to months. He states that he is lost about 50 pounds in the last month. Patient has had decreased p.o. intake. He states that he is sleeping all the time and feels fatigued and rundown all the time. [facility] Medical History (Updated 01/12/24 @ 15:[address] Bhupinder Byrd, ) Anxiety Arthritis Asthma Bipolar disorder Decreased thyroxine (T4) level Depression Dysuria Frequent headaches Genital lesion, male GERD (gastroesophageal reflux disease) Hepatitis Hepatitis C Hidradenitis suppurativa Hives Injury of head and neck IVDU (intravenous drug user) Knee pain Polysubstance abuse Positive RPR test Seasonal allergies Smoker Stroke/cerebrovascular accident Tobacco abuse Vitamin deficiency Home Medications gauze bandage 2 X 2 (Band-Aid Gauze Pads) #25 ea 07/30/23 [Rx Last Taken Unknown] sulfamethoxazole 800 mg-trimethoprim 160 mg tablet 1 tab PO BIDCM 10 days #20 tabs 08/02/23 [Rx Last Taken Unknown] Allergy/AdvReac Type Severity Reaction Status Date / Time aloe vera [From Benzo-Creme] Allergy Hives Verified 01/12/24 13:42 amoxicillin [Amoxicillin] Allergy Hives Verified 01/12/24 13:42 benzocaine [From Benzo-Creme] Allergy Hives Verified 01/12/24 13:42 clindamycin Allergy Hives Verified 01/12/24 13:42 lamotrigine [From Lamictal] Allergy rash Verified 01/12/24 13:42 mushroom Allergy Vomiting Verified 01/12/24 13:42 naproxen [From Naprosyn] Allergy Hives Verified 01/12/24 13:42 shellfish derived Allergy Vomiting Verified 01/12/24 13:42 Tetracyclines Allergy Hives Verified 01/12/24 13:42 Family History Father Diabetes Alcohol abuse Arthritis Heart disease Hyperlipidemia Hypertension Myocardial infarction Mother Diabetes Alcohol abuse Anxiety Arthritis Hyperlipidemia Thyroid disorder Other CVA (cerebral vascular accident) Depression Mental disorder Psychiatric care Surgical History No pertinent past surgical history Social History household members: none current occupational status: employed 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 [employer] Smoking Status: Current every day smoker tobacco type: cigarettes Electronic Cigarette Use: not used alcohol intake: never substance use type: former substance user Date of last use: 03/2022, opiates andmethamphetamine what type of physical activity do you participate in: none do you feel safe at home: Yes ROS ROS ED Review of Systems ROS Unobtainable: other Constitutional Constitutional ED: Reports lethargy; Denies chills, fever(s), sweats or weight loss Eyes Eyes: Denies blurry vision, change in vision or diplopia ENT ENT ED: Denies rhinorrhea or sore throat Cardiovascular Cardiovascular: Denies chest pain, orthopnea or racing heartbeat Respiratory/Chest Respiratory/Chest: Reports dyspnea on exertion; Denies cough, dyspnea, orthopneaor sputum Gastrointestinal Gastrointestinal: Denies abdominal pain, diarrhea, nausea or vomiting Genitourinary Genitourinary ED: Denies dysuria, hematuria or urinary frequency Musculoskeletal Musculoskeletal: Denies arthralgias, back pain, myalgias or neck pain Integumentary Denies abscess, Abrasions or rash Neurologic Neurologic: Denies headache(s) or weakness Psychiatric Psychiatric: Denies anxiety, depression or suicidal thoughts Endocrine Endocrinology: Denies polydipsia, polyphagia or polyuria Hematologic/Lymphatic Hematologic/Lymphatic: Denies easy bleeding, easy bruising or lymphadenopathy Allergic/Immunologic Allergic/Immunologic ED: Denies mouth swelling, tongue swelling or urticaria EXAM Physical Exam Const Vital Signs: 01/12/24 13:40 Temperature 97.4 F L Temperature Source Temporal Pulse Rate 90 Respiratory Rate 18 Blood Pressure 124/87 H Blood Pressure Mean 99 Pulse Ox 100 Oxygen Delivery Method Room Air Positive well nourished and well developed General Appearance ED: well developed and NAD HEENT Reports TM's clear and moist mucous membranes normocephalic and atraumatic; Negative for trauma or tenderness Tympanic Membrane ED: Yes TM's clear Eyes PERRL and EOMs intact bilaterally General Eye ED: Negative for pale conjunctiva or scleral icterus Neck no lymphadenopathy, supple and no JVD General: Negative for tenderness Chest Wall inspection of chest normal and palpation of chest normal Chest: Negative for tenderness Resp normal respiratory effort and clear to auscultation bilaterally Effort and Inspection: Negative for respiratory distress or pain with movement Auscultation: Negative for rhonchi, wheezes or diminished lung sounds Cardio regular rate, regular rhythm, S1 normal heart sound, S2 normal heart sound and no murmurs Peripheral Pulses: pulses 2+ throughout GI normal to inspection, nondistended, normoactive bowel sounds, soft to palpation,non-tender, non-distended and no masses Back/Spine no CVA tenderness and no thoracic nor lumbar tenderness Extremity normal to inspection General Extremety ED: Negative for edema General Extremity: Negative for edema Neuro oriented x3, CN's II-XII intact bilaterally, no sensory deficits noted and gait normal Sensorium / Orientation: awake, alert, oriented to person, oriented to place andoriented to time Motor Exam: strength 5/5 throughout and strength abnormal Psych mental status grossly normal Skin no rashes or lesions noted and no wounds MDM MDM MDM Narrative Medical decision making narrative: Patient presents to the emergency department with complaint of paranoia and psychosis. Does admit to using methamphetamines several days ago after initially denying and stating he had not used for years. Apparently he did tellhis aunt several days ago that he was suicidal but currently denies suicidality. CBC with differential obtained was normal. Talk screen positive for methamphetamines and marijuana. LFTs and alcohol level still pending. Care of patient will be turned over to evening physician awaiting evaluation by crisis and final disposition. Lab Data Attestation: I reviewed the patient's lab results. Labs: Laboratory Results - last 24 hr 01/12/24 01/12/24 14:30 14:56 WBC 10.6 RBC 4.18 L Hgb 13.0 Hct 37.9 L MCV 90.7 MCH 31.1 MCHC 34.3 RDW Std Deviation 43.5 RDW Coeff of Eliana 13.2 Plt Count 239 MPV 10.0 Immature Gran % (Auto) 0.800 Neut % (Auto) 71.1 H Lymph % (Auto) 20.2 Winkler % (Auto) 5.9 Eos % (Auto) 1.2 Baso % (Auto) 0.8 Absolute Neuts (auto) 7.5 Absolute Lymphs (auto) 2.13 Nucleated RBC % 0 Urine Opiates Screen NEGATIVE Urine Methadone Screen NEGATIVE Ur Barbiturates Screen NEGATIVE Ur Phencyclidine Scrn NEGATIVE Ur Amphetamines Screen POSITIVE H MDMA (Ecstasy) Screen NEGATIVE U Benzodiazepines Scrn NEGATIVE Urine Cocaine Screen NEGATIVE U Cannabinoids Screen POSITIVE H Ur Drug Screen Comment Discharge Plan Triage Chief Complaint: Mental Health ED Provider: Bhupinder Byrd Dx/Rx/DC Orders Clinical Impression: Acute paranoia, Psychosis, Methamphetamine abuse Prescriptions: No Action (DME) gauze bandage [Band-Aid Gauze Pads] 2 X 2 bandage See Rx Instructions .Route Qty: 25 0RF Rx Instructions: As directed sulfamethoxazole-trimethoprim 800-160 mg Tablet 1 tab PO BIDCM 10 Days Qty: 20 0RF Primary Care Provider: Rosalva Lopez Referrals: Rosalva Lopez MD [Primary Care Provider] - What to do if you have Problems For any increased pain, shortness of breath, bleeding, nausea or vomiting, chestpain, or any unexpected problems, contact your Primary Care Provider. Call [facility] ([phone]) or report to the closest Emergency Room. Call 911 if necessary. 01/12/24 1513 <Electronically signed by Bhupinder Byrd DO> Cosigner Signature (if applicable): CC: Dr. Rosalva Lopez MD ~ Signed [facility] Work Phone: 1(806) 405-476204-02-2024 Emergency department Note* Mahi Paredes PA-C - 12/31/2023 10:00 AM EDT I did not participate in the care of this patient Mahi Paredes PA-C 12/31/23 1250 * Kirit Wilson MD - 12/31/2023 10:00 AM EDT EMERGENCY DEPARTMENT ENCOUNTER Pt Name: Weston Soria Birthdate 1990 Date of evaluation: 12/31/2023 ED Provider: Kirit Wilson MD CHIEF COMPLAINT Chief Complaint Patient presents with Wound Check Patient presents to ED stating he has multiple small cuts on his hands that aren't healing. No distress noted. No bleeding noted. Abdominal Pain N/v/d. For the last few days HISTORY OF PRESENT ILLNESS (Location/Symptom, Timing/Onset, Context/Setting, Quality, Duration, Modifying Factors, Severity) Note limiting factors. I wore appropriate PPE for the entirety of this encounter. HPI Weston Soria is a 33 y.o. who presents to the emergency department with finger pain for 2 weeks and nausea and vomiting for the past few days Nursing Notes were reviewed. Limitations to history: None Outside historians: None REVIEW OF SYSTEMS Review of Systems Pertinent positives and negatives as per HPI PAST MEDICAL HISTORY Past Medical History: Diagnosis Date Depression SURGICAL HISTORY No past surgical history on file. CURRENT MEDICATIONS Previous Medications No medications on file ALLERGIES Amoxicillin, Naproxen, and Tetracyclines & related FAMILY HISTORY No family history on file. SOCIAL HISTORY Social History Socioeconomic History Marital status: Single Tobacco Use Smoking status: Every Day Substance and Sexual Activity Alcohol use: Not Currently Drug use: Not Currently PHYSICAL EXAM ED Triage Vitals [12/31/23 1049] Temp Heart Rate Resp BP 36.6 C (97.9 F) 91 18 97/65 SpO2 Temp Source Heart Rate Source Patient Position 99 % Temporal Monitor -- BP Location FiO2 (%) -- -- Physical Exam No purulent drainage coming from the finger at this time DIAGNOSTIC RESULTS RADIOLOGY (Per Emergency Physician): Interpretation per the Radiologist below, if available at the time of this note: No orders to display LABS: Labs Reviewed - No data to display All other labs were within normal range or not returned as of this dictation. EMERGENCY DEPARTMENT COURSE and DIFFERENTIAL DIAGNOSIS/MDM: Vitals: Vitals: 12/31/23 1049 12/31/23 1050 BP: 97/65 Pulse: 91 Resp: 18 Temp: 36.6 C (97.9 F) TempSrc: Temporal SpO2: 99% Weight: 81.6 kg (180 lb) Height: 1.6 m (5' 3) Medications - No data to display SCREENINGS MDM elements: The patient presented with chief complaint of with finger pain and nausea and vomiting, he got tired of waiting in the waiting room and in triage he told me that he is leaving, I did offer to give him IV fluids and check his electrolytes but patient said he wants to go to [facility] instead. The differential diagnosis associated with this patient's presentation includes nausea and vomiting, finger infection. Our workup consisted of ordering/reviewing: We plan to check electrolytes and give IV fluids with patient refused and eloped. The patient will be Eloped. PROCEDURES: Unless otherwise noted below, none Procedures CRITICAL CARE TIME None FINAL IMPRESSION 1. Pain of finger, unspecified laterality 2. Nausea and vomiting, unspecified vomiting type DISPOSITION Eloped 12/31/2023 01:04:54 PM PATIENT REFERRED TO: No follow-up provider specified. DISCHARGE MEDICATIONS: New Prescriptions No medications on file (Comment: Please note this report has been produced using speech recognition software and may contain errors related to that system including errors in grammar, punctuation, and spelling, as well as words and phrases that may be inappropriate. If there are any questions or concerns please feel freeto contact the dictating provider for clarification.) Kirit Wilson MD (electronically signed) Emergency Medicine Provider Kirit Wilson MD 12/31/23 1305 documented in this [facility]04-02-2024 Physician Emergency department Note* Mahi Paredes PA-C - 12/31/2023 10:00 AM EDT I did not participate in the care of this patient Mahi Paredes PA-C 12/31/23 1250 [facility]: [phone]) 874-886204-02-2024 Physician Emergency department Note* Kirit Wilson MD - 12/31/2023 10:00 AM EDT EMERGENCY DEPARTMENT ENCOUNTER Pt Name: Weston Sroia Birthdate 1990 Date of evaluation: 12/31/2023 ED Provider: Kirit Wilson MD CHIEF COMPLAINT Chief Complaint Patient presents with Wound Check Patient presents to ED stating he has multiple small cuts on his hands that aren't healing. No distress noted. No bleeding noted. Abdominal Pain N/v/d. For the last few days HISTORY OF PRESENT ILLNESS (Location/Symptom, Timing/Onset, Context/Setting, Quality, Duration, Modifying Factors, Severity) Note limiting factors. I wore appropriate PPE for the entirety of this encounter. HPI Weston Soria is a 33 y.o. who presents to the emergency department with finger pain for 2 weeks and nausea and vomiting for the past few days Nursing Notes were reviewed. Limitations to history: None Outside historians: None REVIEW OF SYSTEMS Review of Systems Pertinent positives and negatives as per HPI PAST MEDICAL HISTORY Past Medical History: Diagnosis Date Depression SURGICAL HISTORY No past surgical history on file. CURRENT MEDICATIONS Previous Medications No medications on file ALLERGIES Amoxicillin, Naproxen, and Tetracyclines & related FAMILY HISTORY No family history on file. SOCIAL HISTORY Social History Socioeconomic History Marital status: Single Tobacco Use Smoking status: Every Day Substance and Sexual Activity Alcohol use: Not Currently Drug use: Not Currently PHYSICAL EXAM ED Triage Vitals [12/31/23 1049] Temp Heart Rate Resp BP 36.6 C (97.9 F) 91 18 97/65 SpO2 Temp Source Heart Rate Source Patient Position 99 % Temporal Monitor -- BP Location FiO2 (%) -- -- Physical Exam No purulent drainage coming from the finger at this time DIAGNOSTIC RESULTS RADIOLOGY (Per Emergency Physician): Interpretation per the Radiologist below, if available at the time of this note: No orders to display LABS: Labs Reviewed - No data to display All other labs were within normal range or not returned as of this dictation. EMERGENCY DEPARTMENT COURSE and DIFFERENTIAL DIAGNOSIS/MDM: Vitals: Vitals: 12/31/23 1049 12/31/23 1050 BP: 97/65 Pulse: 91 Resp: 18 Temp: 36.6 C (97.9 F) TempSrc: Temporal SpO2: 99% Weight: 81.6 kg (180 lb) Height: 1.6 m (5' 3) Medications - No data to display SCREENINGS MDM elements: The patient presented with chief complaint of with finger pain and nausea and vomiting, he got tired of waiting in the waiting room and in triage he told me that he is leaving, I did offer to give him IV fluids and check his electrolytes but patient said he wants to go to [facility] instead. The differential diagnosis associated with this patient's presentation includes nausea and vomiting, finger infection. Our workup consisted of ordering/reviewing: We plan to check electrolytes and give IV fluids with patient refused and eloped. The patient will be Eloped. PROCEDURES: Unless otherwise noted below, none Procedures CRITICAL CARE TIME None FINAL IMPRESSION 1. Pain of finger, unspecified laterality 2. Nausea and vomiting, unspecified vomiting type DISPOSITION Eloped 12/31/2023 01:04:54 PM PATIENT REFERRED TO: No follow-up provider specified. DISCHARGE MEDICATIONS: New Prescriptions No medications on file (Comment: Please note this report has been produced using speech recognition software and may contain errors related to that system including errors in grammar, punctuation, and spelling, as well as words and phrases that may be inappropriate. If there are any questions or concerns please feel freeto contact the dictating provider for clarification.) Kirit Wilson MD (electronically signed) Emergency Medicine Provider Kirit Wilson MD 12/31/23 1305 [id number] Consult note Author Favian Nielsen [facility] August 02, 2023 10:52am Note Date/Time August 02, 2023 1 0:52am [facility] Medical Records Department [address] [place] [address] Counseling Note - Pharmacy 08/02/23 1049 MR#: [id number] Acct: [id number] Name: WESTON SORIA Rep #:[id number] : 1990 32 From: Favian Nielsen PCP: Dr. Rosalva Lopez MD Status:ADM EVELIO Y Location: [address] Pharmacy Service has performed discharge medication reconciliation and counseling for this patient. The patient's discharge medication list was reviewed for discrepancies and discrepancies were resolved. The patient was counseled on the following discharge medications and changes in medications for homegoing were reviewed. The Reason for Use, instructions for use, and potential side effects were reviewed for all new medications. The patient's questions regarding all of their medications were answered. 1. Bactrim DS BID x 10 days The patient was able to verbally demonstrate an understanding of their dischargemedications. Medications at Discharge Home Medications gauze bandage 2 X 2 (Band-Aid Gauze Pads) #25 ea 07/30/23 sulfamethoxazole 800 mg-trimethoprim 160 mg tablet 1 tab PO BIDCM 10 days #20 tabs 08/02/23 08/02/23 1052 <Electronically signed by Favian parr> Date _ Favian Nielsen Cosigner Signature (if applicable): Date CC: ~ Signed [facility] Work Phone: 1([phone]) 834-649311-03-2023 Discharge summary Author Qasim Espinal [facility] August 02, 2023 10:37am Note Date/Time August 02, 2023 1 0:35am [facility] Medical Records Department [address] [place] [address] Instructions for Home/Discharge Instructions 08/02/23 1031 MR#: [id number] Acct: [id number] Name: WESTON SOIRA Rep #:[id number] : 1990 32 From: Qasim Lynn PCP: Dr. Rosalva Lopez MD Status:ADM EVELIO Discharge Instructions Diet Discharge Diet: No restrictions Activity Discharge Activity: May Shower (Should sponge water out of wound following shower) Dressing / Incision Call your doctor if your incision/area has: Continuous Slow Oozing, Sudden Increased Bleeding, Increased Pain/ Swelling, Increased Redness and Foul Smelling Discharge Call your doctor if you observe: Fever of 101 or Higher Change Dressing in: Daily Additional Dressing/Incision Instructions:: Pack daily after showering and coverwith clean dry gauze Follow Up Care Please Follow Up With: Sharon Elizabeth PA-C When: Within 1 week of hospital discharge for wound check Test Results: Test results from this visit will be discussed in further detail at your follow- up appointment, if applicable. Discharge Plan Admission Admit Date/Time: 07/31/23 17:55 Primary Reason for Your Visit: IV antibiotics for extremity abscess Attending Provider: Qasim Espinal Primary Care Provider: Rosalva Lopez Discharge Orders/Prescriptions Prescriptions: New sulfamethoxazole-trimethoprim 800-160 mg Tablet 1 tab PO BIDCM 10 Days Qty: 20 0RF Discontinued levofloxacin [levofloxacin] 500 mg tablet 500 mg PO DAILY Qty: 6 0RF No Action (DME) gauze bandage [Band-Aid Gauze Pads] 2 X 2 bandage See Rx Instructions .Route Qty: 25 0RF Rx Instructions: As directed Referrals / Follow Up: Rosalva Lopez MD [Primary Care Provider] - Disposition Disposition (needs filled in before D/C Order can be placed): Home, Self Care 08/02/23 1037<Electronically signed by Qasim Espinal MD>Qasim Espinal MD CC: Dr. Rosalva Lopez MD ~ Signed [facility] Work Phone: [phone] 398-172711-03-2023 Progress note [facility] August 02, 2023 10:10am Note Date/Time August 02, 2023 8 :21am [facility] Medical Records Department [address] [place] [address] Progress Note - Surgery 08/02/23820 MR#: [id number] Acct: [id number] Name: WESTON SORIA Rep #:[id number] : 1990 32 From: Qasim Lynn PCP: Dr. Rosalva Lopez MD Status:ADM EVELIO Location: [place] [address] Subjective Subjective Patient seen and examined during AM rounds. He is found resting out of bed in achair. He reports that he is feeling better. Nursing has reported that they have seen a decrease in the amount of cellulitic changes in his right lower extremity. Patient also reports that he has checked with his current housing situation and they do not allow any sort of visitors?which would exclude any home health visitors as well. Objective Data Objective Data Vital Signs: Vital Signs Temp Pulse Resp BP Pulse Ox O2 Del Method 97.8 F 83 18 117/71 97 Room Air 08/02/23 03:17 08/02/23 03:17 08/02/23 03:17 08/02/23 03:17 08/02/23 03:17 08/02/23 03:17 Oxygen Delivery Method Room Air Weight: 184 lb 4.903 oz Body Mass Index (BMI) 32.6 Intake & Output: Intake and Output for Last 24 Hours 07/31/23 08/01/23 08/02/23 23:59 23:59 23:59 Intake Total 660 / 860 2971.25 / 2971.25 1522.50 / 1522.50 Balance 660 / 860 2971.25 / 2971.25 1522.50 / 1522.50 Lab / Micro Data 08/01/23 07:26 08/01/23 07:26 Micro: Microbiology 07/31/23 16:53 Boil - Leg Gram Stain - Final 07/31/23 16:53 Boil - Leg Wound Culture - Final Staphylococcus epidermidis Physical Exam Const oriented x3 and no apparent distress Resp normal respiratory effort Extremity Extremity Narrative: Decreased area of cellulitis and induration. Some immediate rob-incisional induration remains. Patient remains tender about this area. There does not appear to be any proximal propagation of the area of concern. Area was repackedand there is no signs of purulence just simple serosanguineous drainage. Assessment & Plan Assessment/Plan (1) Cellulitis and abscess of left lower extremity: PLAN: Patient is doing well hospital day 2 with significant improvements of his area of cellulitis. No further purulent drainage. Wound culture showing Staph epidermidis?possible skin contaminant. Transition to oral Bactrim Given patient's limitations with inability to receive home health visitation, hewas educated on packing procedure for his wound care at bedside Plan for discharge later today Charges/Coding Visit Charges Inpatient E&M: 88904 Subs Hosp L2 08/02/23 1010 <Electronically signed by Qasim Espinal MD> Cosigner Signature (if applicable): CC: ~ Signed [facility] Work Phone: 1([phone]) 242-124511-02-2023 Progress note Author Sharon Elizabeth [facility] August 01, 2023 10:37am Note Date/Time August 01, 2023 9 :53am [facility] Medical Records Department [address] [place] [address] Progress Note - Surgery 08/01/23 0953 MR#: [id number] Acct: [id number] Name: WESTON SORIA Rep #:[id number] : 1990 32 From: Sharon SCHWARTZ PA-C PCP: Dr. Rosalva Lopez MD Status:ADM EVELIO Location: [facility] [id number] Subjective Subjective Patient is a 32 y/o M I am following for left medial thigh abscess with cellulitis. Dr. Espinal performed an exploration and drainage of the thigh abscessin the office. Patient has continued to have yellow drainage from the open wound. Dressing was changed once over night due to saturation. Packing has remained in place. He denies any fever. He continues to note pain. Objective Data Objective Data Vital Signs: Vital Signs Temp Pulse Resp BP Pulse Ox O2 Del Method 97.3 F L 78 16 108/79 98 Room Air 08/01/23 05:29 08/01/23 05:29 08/01/23 05:29 08/01/23 05:29 08/01/23 05:29 08/01/23 05:29 Oxygen Delivery Method Room Air Weight: 184 lb 4.903 oz Body Mass Index (BMI) 32.6 Intake & Output: Intake and Output for Last 24 Hours 07/30/23 07/31/23 08/01/23 23:59 23:59 23:59 Intake Total 660 / 860 1520 / 1520 Balance 660 / 860 1520 / 1520 Lab / Micro Data 08/01/23 07:26 08/01/23 07:26 Labs: Laboratory Results - last 24 hr 07/31/23 17:33: WBC 7.8, RBC 4.32 L, Hgb 13.7, Hct 40.0, MCV 92.6, MCH 31.7, MCHC 34.3, RDW Std Deviation 44.4 H, RDW Coeff of Eliana 13.1, Plt Count 191, MPV 9.9, Immature Gran % (Auto) 0.800, Neut % (Auto) 61.7, Lymph % (Auto) 28.1, Winkler% (Auto) 5.9, Eos % (Auto) 2.7, Baso % (Auto) 0.8, Absolute Neuts (auto) 4.8, Absolute Lymphs (auto) 2.19, Nucleated RBC % 0, Sodium 140, Potassium 3.5, Chloride 107, Carbon Dioxide 26.0, Anion Gap 7, BUN 20 H, Creatinine 1.14, EstimCreat Clear Calc 74.87, Est GFR (MDRD) Af Amer 95, Est GFR (MDRD) Non-Af 79, BUN/Creatinine Ratio 17.5, Glucose 111 H, Calcium 8.8 08/01/23 07:26: WBC 8.8, RBC 4.34 L, Hgb 13.6, Hct 40.4, MCV 93.1, MCH 31.3, MCHC 33.7, RDW Std Deviation 44.6 H, RDW Coeff of Eliana 13.1, Plt Count 174, MPV 9.7, Immature Gran % (Auto) 0.600, Neut % (Auto) 72.1 H, Lymph % (Auto) 17.7 L, Winkler % (Auto) 7.1, Eos % (Auto) 2.0, Baso % (Auto) 0.5, Absolute Neuts (auto) 6.4, Absolute Lymphs (auto) 1.56, Nucleated RBC % 0, Sodium 138, Potassium 4.2, Chloride 111 H, Carbon Dioxide 23.0, Anion Gap 4 L, BUN 17, Creatinine 0.86, Estim Creat Clear Calc 99.24, Est GFR (MDRD) Af Amer 133, Est GFR (MDRD) Non-Af 110, BUN/Creatinine Ratio 19.9, Glucose 94, Calcium 8.2 L Physical Exam Extremity Extremity Narrative: Left medial thigh- open wound with packing in place. ABD pad was removed and replaced. Erythema has extended slightly past the purple marking. Surrounding area appears soft to palpation. Continued firmness near the open wound. Drainageon the ABD pad was yellow mixed with bloody drainage. Assessment & Plan Assessment/Plan (1) Cellulitis and abscess of left lower extremity: PLAN: I have evaluated this patient in conjunction with Dr. Espinal Continue IV antibiotics Change dressing and packing. Replace with 1/4 inch iodoform packing Cultures are still pending We will continue to monitor this patient Charges/Coding Visit Charges Inpatient E&M: 49174 Subs Hosp L1 08/01/23 1037 <Electronically signed by Sharon SCHWARTZ PA-C> Cosigner Signature (if applicable): CC: ~ Signed [facility] Work Phone: [phone] 756-898811-02-2023 Consult note Author Devin Brooks [facility] August 01, 2023 10:14am Note Date/Time August 01, 2023 1 0:11am [facility] Medical Records Department [facility] [place] [address] Pharmacokinetic/Renal -Consult 08/01/23 1010 MR#: [id number] Acct: [id number] Name: WESTON SORIA Rep #:[id number] : 1990 32 From: Devin Brooks PCP: Dr. Rosalva Lopez MD Status:ADM EVELIO Y Location: [place] [address] Consult Antibiotic Management Pharmacy has been consulted to manage selected antiobiotic: Vancomycin Type of Intervention Type of Consult: Follow-up Suspected Infection Suspected Infection: Skin/Soft tissue Prior Doses of Antibiotics Prior Doses of Antibiotics Received/Current Regimen: Received 2000mg iv loading dose and 1250mg iv x 1. Labs Labs: Sodium 138 mmol/L (136-145) 08/01/23 07:26 Potassium 4.2 mmol/L (3.5-5.1) 08/01/23 07:26 Chloride 111 mmol/L (98-107) H 08/01/23 07:26 Carbon Dioxide 23.0 mmol/L (21.0-32.0) 08/01/23 07:26 Anion Gap 4 (5-15) L 08/01/23 07:26 BUN 17 mg/dL (7-18) 08/01/23 07:26 Creatinine 0.86 mg/dL (0.70-1.30) 08/01/23 07:26 Est GFR (MDRD) Af Amer 133 mL/min (>60) 08/01/23 07:26 Est GFR (MDRD) Non-Af 110 mL/min (>60) 08/01/23 07:26 BUN/Creatinine Ratio 19.9 RATIO (10-20) 08/01/23 07:26 Glucose 94 mg/dL (74-106) 08/01/23 07:26 Dosing Weight Weight used for dosin.6 kg Estimated Creatinine Clearance Estimated Creatinine Clearance: 99ml/min Goal Trough Goal Trough: 15-20 mcg/mL Pharmacy Plan for Drug Dosing Pharmacy Plan for Drug Dosing: Renal function improved with Cr change from 1.14 to 0.86. CrCl change from 75ml/min to 99ml/min. Recommend changing dose to 1750mg iv q12h starting ~8hrs post 1250mg dose this AM. Trough level ordered for tomorrow before 5th total dose. Pharmacy Service will continue to monitor and adjust dosing as required. Follow-Up Labs Follow-Up Labs: Trough: Vancomycin (11.3.23 @1530) 08/01/23 1014 <Electronically signed by Devin Brooks> Date _ Devin Brooks Cosigner Signature (if applicable): Date CC: ~ Signed [facility] Work Phone: 1(305) 496-551111-02-2023 Consult note Author Tyler Lopez [facility] July 31, 2023 10:47pm Note Date/Time July 31, 2023 1 0:47pm [facility] Medical Records Department [address] [facility] [place] [address] Pharmacokinetic/Renal -Consult 07/31/235 MR#: [id number] Acct: [id number] Name: WESTON SORIA Rep #:[id number] : 1990 32 From: Tyler Garcia od PCP: Dr. Rosalva Lopez MD Status:ADM EVELIO Y Location: [place] [address] Consult Antibiotic Management Pharmacy has been consulted to manage selected antiobiotic: Vancomycin Type of Intervention Type of Consult: New start Suspected Infection Suspected Infection: Skin/Soft tissue Labs Labs: Sodium 140 mmol/L (136-145) 07/31/23 17:33 Potassium 3.5 mmol/L (3.5-5.1) 07/31/23 17:33 Chloride 107 mmol/L (98-107) 07/31/23 17:33 Carbon Dioxide 26.0 mmol/L (21.0-32.0) 07/31/23 17:33 Anion Gap 7 (5-15) 07/31/23 17:33 BUN 20 mg/dL (7-18) H 07/31/23 17:33 Creatinine 1.14 mg/dL (0.70-1.30) 07/31/23 17:33 Est GFR (MDRD) Af Amer 95 mL/min (>60) 07/31/23 17:33 Est GFR (MDRD) Non-Af 79 mL/min (>60) 07/31/23 17:33 BUN/Creatinine Ratio 17.5 RATIO (10-20) 07/31/23 17:33 Glucose 111 mg/dL (74-106) H 07/31/23 17:33 Dosing Weight Weight used for dosin.6 kg Estimated Creatinine Clearance Estimated Creatinine Clearance: 75 Goal Trough Goal Trough: 15-20 mcg/mL Pharmacy Plan for Drug Dosing Pharmacy Plan for Drug Dosing: Pharmacy Service will continue to monitor and adjust dosing as required. Follow-Up Labs Follow-Up Labs: Trough: Vancomycin Date/Time Labs Ordered Labs to be done on [date and time ordered]: 08/02 @ 0800 07/31/232246 <Electronically signed by Tyler cody> Date _ Tyler Farrell Signature (if applicable): Date CC: ~ Signed [facility] Work Phone: 1(730) 774-393111-01-2023 History and physical note Author Sharon Elizabeth [facility] July 31, 2023 5:55pm Note Date/Time July 31, 2023 5 :21pm [facility] Medical Records Department [address] [place] [id number] History & Physical Exam 07/31/23 1716 MR#: [id number] Acct: [id number] Name: DEBBIEWESTON DOAN APOLLO Rep #:[id number] : 1990 32 From: Sharon TIPTONC PCP: Dr. Rosalva Lopez MD Status:ADM EVELIO Location: [place] [address] HPI - General General Date of Admission: 07/31/23 Date of Service: 07/31/23 Chief Complaint: Cellulitis and abscess of the left lower extremity HPI Narrative WESTON SORIA, is a 32 M who presents to our office with worsening erythema, pain and increased drainage from a left lower extremity abscess. Patient was evaluated in the ED on 07/28 for a painful lump on the left medial thigh. The abscess was incised and drained in the ED. Patient notes the abscess was packed following the procedure. Patient notes he was given levaquin daily to take and has been taking the medication for 3 days now. He followed up with his PCP yesterday who replaced the packing and the abscess was improving. Patient contacted his PCP this morning noting he had saturated a gauze dressing and the redness has increased. Patient's PCP contacted our office noting the patient may need the abscess opened further. Patient denies fever. He notes a previous history ofabscesses. [facility] Medical History (Updated 07/31/23 @ 16:57 by Kristyn Kearns) Anxiety Arthritis Asthma Bipolar disorder Decreased thyroxine (T4) level Depression Dysuria Frequent headaches Genital lesion, male GERD (gastroesophageal reflux disease) Hepatitis Hepatitis C Hidradenitis suppurativa Hives Injury of head and neck IVDU (intravenous drug user) Knee pain Polysubstance abuse Positive RPR test Seasonal allergies Smoker Stroke/cerebrovascular accident Tobacco abuse Vitamin deficiency Home Medications levofloxacin 500 mg tablet 500 mg PO DAILY #6 tabs 07/28/23 [Rx Last Taken 07/31/23] gauze bandage 2 X 2 (Band-Aid Gauze Pads) #25 ea 07/30/23 [Rx Last Taken Unknown] Allergy/AdvReac Type Severity Reaction Status Date / Time aloe vera [From Benzo-Creme] Allergy Hives Verified 07/31/23 14:48 amoxicillin [Amoxicillin] Allergy Hives Verified 07/31/23 14:48 benzocaine [From Benzo-Creme] Allergy Hives Verified 07/31/23 14:48 clindamycin Allergy Hives Verified 07/31/23 14:48 lamotrigine [From Lamictal] Allergy rash Verified 07/31/23 14:48 mushroom Allergy Vomiting Verified 07/31/23 14:48 naproxen [From Naprosyn] Allergy Hives Verified 07/31/23 14:48 shellfish derived Allergy Vomiting Verified 07/31/23 14:48 Tetracyclines Allergy Hives Verified 07/31/23 14:48 Family History Father Diabetes Alcohol abuse Arthritis Heart disease Hyperlipidemia Hypertension Myocardial infarction Mother Diabetes Alcohol abuse Anxiety Arthritis Hyperlipidemia Thyroid disorder Other CVA (cerebral vascular accident) Depression Mental disorder Psychiatric care Surgical History No pertinent past surgical history Social History household members: none current occupational status: employed 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 [employer] Smoking Status: Current every day smoker tobacco type: cigarettes Electronic Cigarette Use: not used alcohol intake: never substance use type: former substance user Date of last use: 03/2022, opiates andmethamphetamine what type of physical activity do you participate in: none do you feel safe at home: Yes ROS Constitutional Constitutional: Reports systems reviewed and no addt'l complaints, except as documented Eyes Eyes: Reports systems reviewed and no addt'l complaints, except as documented ENT HEENT: Reports systems reviewed and no addt'l complaints, except as documented Cardiovascular Cardiovascular: Reports systems reviewed and no addt'l complaints, except as documented Respiratory/Chest Respiratory/Chest: Reports systems reviewed and no addt'l complaints, except as documented Gastrointestinal Gastrointestinal: Reports systems reviewed and no addt'l complaints, except as documented Genitourinary Genitourinary: Reports systems reviewed and no addt'l complaints, except as documented Musculoskeletal Musculoskeletal: Reports systems reviewed and no addt'l complaints, except as documented Integumentary Integumentary: Reports systems reviewed and no addt'l complaints, except as documented Neurologic Neurologic: Reports systems reviewed and no addt'l complaints, except as documented Psychiatric Psychiatric: Reports systems reviewed and no addt'l complaints, except as documented Endocrine Endocrinology: Reports systems reviewed and no addt'l complaints, except as documented Hematologic/Lymphatic Hematologic/Lymphatic: Reports systems reviewed and no addt'l complaints, exceptas documented Allergic/Immunologic Allergic/Immunologic: Reports systems reviewed and no addt'l complaints, except as documented Vital Signs Vital Signs Vital Signs: 07/31/23 16:53 Temperature 98.1 F Temperature Source Oral Pulse Rate 95 Respiratory Rate 18 Blood Pressure 128/87 H Blood Pressure Mean 100 Blood Pressure Source Monitor Blood Pressure Position Semi-Fowlers Blood Pressure Location Left Arm Pulse Ox 98 Oxygen Delivery Method Room Air Weight Weight: 184 lb 4.903 oz Body Mass Index (BMI) 32.6 Physical Exam Const alert, oriented x3 and no apparent distress HEENT normocephalic and head/scalp atraumatic Eyes PERRL Neck full ROM Lymph Lymphatic: no lymphadenopathy noted Resp normal respiratory effort and clear to auscultation bilaterally Cardio regular rate and regular rhythm GI normal to inspection, nondistended, normoactive bowel sounds no CVA tenderness Back/Spine no CVA tenderness Extremity normal to inspection Skin Skin Narrative: Left medial thigh- 2 cm open wound with purulent bloody material coming out. Erythema extends down inferior towards the knee. Blanching is noted from the erythema. Neuro no focal motor deficits and no sensory deficits noted Psych mental status grossly normal Results Lab / Micro Data 07/31/23 17:33 07/31/23 17:33 Assessment & Plan Assessment/Plan (1) Cellulitis and abscess of left lower extremity: PLAN: Dr. Espinal performed an exploration and further debridement of the left thigh abscess in the office. Patient's erythema was marked with a marking pen. Due to the extent of the erythema and failed outpatient antibiotic treatment, patient was admitted for IV antibiotics. Obtain CBC and BMP upon admission. Culture was sent from the wound from the office procedure. Packing will remain in place along with dressing until tomorrow unless saturated then change the outer dressing however leave the packing. Patient has had the opportunity to askand have questions answered. Patient verbally understands and agrees with the plan. Dr. Espinal will also follow this patient and has evaluated this patient in the office. Charges/Coding Visit Charges OBSV E&M: 31124 Observ/hosp same date L1 07/31/231754 <Electronically signed by Sharon SCHWARTZ PA-C> Cosigner Signature (if applicable): CC: PALOMO Elizabeth; Dr. Rosalva Lopez MD~ Signed [facility] Work Phone: 1(960) 478-703310-29-2023 Discharge summary Author Jayden Boston [facility] July 28, 2023 4:47pm Note Date/Time July 28, 2023 4 :45pm [facility] Medical Records Department [address] [place] [address] Emergency Department Summary 07/28/23 MR#: [id number] Acct: [id number] Name: WESTON SORIA Rep #:[id number] : 1990 32 From: Jayden Boston MD PCP: Dr. Rosalva Lopez MD Status:REG ER Location: ED HPI History of Present Illness Chief Complaint: Wound Detail of Chief Complaint: Oil proximal medial left thigh Informant: patient Onset/Context/Timing Onset: Days Context: Sudden Onset Timing: Continuous Quality: Pain and redness with swelling Location: Proximal medial left thigh Current Severity: Moderate Maximum Severity: Moderate Worsened by: Pain worse with palpation Relieved by: Nothing Associated Symptoms Associated Symptoms: No constitutional symptoms Narrative Narrative: Patient is a 32-year-old male without history of diabetes who presents with boil medial proximal left thigh. This started couple days ago. He did not attempt to drain it on his own. He has multiple antibiotic allergies which include amoxicillin, clindamycin and tetracycline with hives. Patient denies history of MRSA. He denies history of rheumatic heart disease, heart murmur, SBE or being immune suppressed. He denies history of SBE. There is a history of polysubstance abuse. He does have history of hepatitis C. Prior similar symptoms: Yes Recent Illness/Hospitalization: No PFSH PFSH Medical History Anxiety Arthritis Asthma Bipolar disorder Decreased thyroxine (T4) level Depression Dysuria Frequent headaches Genital lesion, male GERD (gastroesophageal reflux disease) Hepatitis C Hidradenitis suppurativa Hives IVDU (intravenous drug user) Knee pain Polysubstance abuse Positive RPR test Seasonal allergies Smoker Tobacco abuse Vitamin deficiency Home Medications levofloxacin 500 mg tablet 500 mg PO DAILY #6 tabs 07/28/23 [Rx Last Taken Unknown] Allergy/AdvReac Type Severity Reaction Status Date / Time aloe vera [From Benzo-Creme] Allergy Hives Verified 07/28/23 15:50 amoxicillin [Amoxicillin] Allergy Hives Verified 07/28/23 15:50 benzocaine [From Benzo-Creme] Allergy Hives Verified 07/28/23 15:50 clindamycin Allergy Hives Verified 07/28/23 15:50 lamotrigine [From Lamictal] Allergy rash Verified 07/28/23 15:50 mushroom Allergy Vomiting Verified 07/28/23 15:50 naproxen [From Naprosyn] Allergy Hives Verified 07/28/23 15:50 shellfish derived Allergy Vomiting Verified 07/28/23 15:50 Tetracyclines Allergy Hives Verified 07/28/23 15:50 Family History Father Diabetes Alcohol abuse Arthritis Heart disease Hyperlipidemia Hypertension Myocardial infarction Mother Diabetes Alcohol abuse Anxiety Arthritis Hyperlipidemia Thyroid disorder Other CVA (cerebral vascular accident) Depression Mental disorder Psychiatric care Surgical History No pertinent past surgical history Social History household members: none current occupational status: employed 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 [employer] Smoking Status: Current every day smoker tobacco type: cigarettes Electronic Cigarette Use: not used alcohol intake: never substance use type: former substance user Date of last use: 03/2022, opiates andmethamphetamine what type of physical activity do you participate in: none do you feel safe at home: Yes ROS ROS ED Constitutional Constitutional ED: Denies chills, fever(s), subjective or sweats Eyes Eyes: Denies blurry vision, change in vision or diplopia ENT ENT ED: Denies ear pain, rhinorrhea or sore throat Cardiovascular Cardiovascular: Denies chest pain or palpitations Respiratory/Chest Respiratory/Chest: Denies dyspnea Gastrointestinal Gastrointestinal: Denies nausea or vomiting Musculoskeletal Musculoskeletal: Denies arthralgias or myalgias Integumentary Reports abscess and rash EXAM Physical Exam Const Vital Signs: 07/28/23 15:50 Temperature 97 F L Temperature Source Temporal Pulse Rate 89 Respiratory Rate 16 Blood Pressure 125/96 H Blood Pressure Mean 105 Pulse Ox 98 Oxygen Delivery Method Room Air Positive well nourished and well developed General Appearance ED: well developed and NAD HEENT Reports moist mucous membranes HEENT Narrative: Head is atraumatic and normocephalic. Ears are normal. Nares are patent. Eyes PERRL and EOMs intact bilaterally General Eye ED: Negative for pale conjunctiva or scleral icterus Resp normal respiratory effort and clear to auscultation bilaterally Cardio regular rate, regular rhythm, S1 normal heart sound, S2 normal heart sound and no murmurs Extremity Negative for normal to inspection Extremity Narrative: Patient has a small abscess with surrounding cellulitis proximal medial left thigh. There is no ilana lymphadenopathy. There is no lymphangitis. Neuro oriented x3, CN's II-XII intact bilaterally and no sensory deficits noted Sensorium / Orientation: alert Motor Exam: strength 5/5 throughout Psych mental status grossly normal Skin Rashes: rashes noted MDM MDM MDM Narrative Medical decision making narrative: Patient has an abscess which required incision and drainage. Patient was consented for incision and drainage. Please read procedure note. Since patient's vitals are normal and he is afebrile there is no indication for laboratory studies. The area of erythema is approximately 4 cm in diameter. Procedures Other Procedures Procedure(s): Patient was prepped draped sterile manner. The area was Nestabs with dorsi lidocaine. Incision was made with a 10 blade. A 2 to 2-1/2 cm laceration was made. There was purulent material noted. Blunt dissection was undertaken. A wick was placed. Patient was treated with levofloxacin in light of his allergies. Discharge Plan Triage Chief Complaint: Wound ED Provider: Jayden Boston Dx/Rx/DC Orders Clinical Impression: Cellulitis and abscess of left lower extremity, Polysubstance abuse, Hepatitis C, Mixed hyperlipidemia Instructions: ED Abscess Incision And Drainage, ED Cellulitis Prescriptions: New levofloxacin [levofloxacin] 500 mg tablet 500 mg PO DAILY Qty: 6 0RF Primary Care Provider: Rosalva Lopez Referrals: Rosalva Lopez MD [Primary Care Provider] - 2 Days for wound check Activity Restrictions/Additional Instructions: Call your doctor for follow-up appointment for wound check and removal of wick Take antibiotics until gone If you have a temperature greater than 100, shaking chills or develop severe pain see your doctor or return to the emergency department. Disposition Disposition: Home, Self Care What to do if you have Problems For any increased pain, shortness of breath, bleeding, nausea or vomiting, chestpain, or any unexpected problems, contact your Primary Care Provider. Call [facility] ([phone]) or report to the closest Emergency Room. Call 911 if necessary. 07/28/23 8356 <Electronically signed by Jayden Boston MD> Cosigner Signature (if applicable): CC: Dr. Rosalva Lopez MD ~ Signed [facility] Work Phone: Evaluation note* Diagnosis Onset Date Resolution Status Polysubstance abuse acute Tobacco abuse acute [facility] Work Phone: Evaluation note* Diagnosis Onset Date Resolution Status Polysubstance abuse acute Allergic rhinitis noneactive [facility] Work Phone: Evaluation noteNo assessment information available [facility] Work Phone: Evaluation note* Diagnosis Onset Date Resolution Status Dysuria acute Hepatitis C acute Hidradenitis suppurativa acu te Positive RPR test acute [facility] Work Phone: Evaluation note* Diagnosis Onset Date Resolution Status Hepatitis C acute Hidradenitis suppurativa acu te Positive RPR test acute Dysuria resolved Hidradenitis suppurativa acu te Mixed hyperlipidemia acute Pressure sensation in ear no neactive COVID-19 vaccination declined noneactive Intravenous drug abuse in remission noneactive Smokes cigarettes noneactive Establishing care with new doctor, encounter for noneactive Frequent headaches noneactiv e [facility] Work Phone: Evaluation note* Diagnosis Onset Date Resolution Status Hidradenitis suppurativa acu te Mixed hyperlipidemia acute Pressure sensation in ear no neactive COVID-19 vaccination declined noneactive Intravenous drug abuse in remission noneactive Smokes cigarettes noneactive Establishing care with new doctor, encounter for noneactive Frequent headaches noneactiv e [facility] Work Phone: Evaluation note* Diagnosis Onset Date Resolution Status Hidradenitis suppurativa acu te Mixed hyperlipidemia acute Pressure sensation in ear no neactive COVID-19 vaccination declined noneactive Intravenous drug abuse in remission noneactive Smokes cigarettes noneactive Establishing care with new doctor, encounter for noneactive Frequent headaches noneactiv e Cellulitis and abscess of left lower extremity acute Hidradenitis suppurativa acu te Cellulitis and abscess of left lower extremity acute Cellulitis and abscess of left lower extremity acute [facility] Work Phone: Evaluation note* Diagnosis Pain of finger, unspecified laterality- Primary Nausea and vomiting, unspecified vomiting type [facility] Onset Date Resolution Status Hidradenitis suppurativa acu te Polysubstance abuse acute Acute psychosis noneactive Smokes cigarettes noneactive Heartburn noneactive Bipolar disorder noneactive Diarrhea noneactive Hospital discharge follow-up noneactive [facility] Work Phone: Evaluation note* Diagnosis HIV infection, unspecified symptom status (HCC)- Primary Syphilis Unspecified syphilis Bipolar disorder in partial remission, most recent episode unspecified type (HCC) Methamphetamine use disorder, mild, in early remission (CMS/HCC) (HCC) Tobacco abuse Tobacco use disorder Screen for sexually transmitted diseases Screening examination for venereal disease Encounter for HCV screening test for high risk [facility] HIV infection, unspecified symptom status (HCC)- Primary Syphilis Unspecified syphilis Bipolar disorder in partial remission, most recent episode unspecified type (HCC) Methamphetamine use disorder, mild, in early remission (CMS/HCC) (HCC) Tobacco abuse Tobacco use disorder Screen for sexually transmitted diseases Screening examination for venereal disease Encounter for HCV screening test for high risk patient [facility] Diagnosis Gonorrhea- Primary Gonococcal infection (acute) of lower genitourinary tract HIV infection, unspecified symptom status (HCC) Bipolar disorder in partial remission, most recent episode unspecified type (HCC) Screen for sexually transmitted diseases Screening examination for venereal disease [facility] Diagnosis HIV infection, unspecified symptom status (HCC)- Primary Bipolar disorder in partial remission, most recent episode unspecified type (HCC) Methamphetamine use disorder, mild, in early remission (CMS/HCC) (HCC) Screen for sexually transmitted diseases Screening examination for venereal disease Need for meningitis vaccination Need for HPV vaccination Need for prophylactic vaccination and inoculation against other viral diseases [facility] Diagnosis HIV infection, unspecified symptom status (HCC)- Primary Dermatitis, seborrheic Unspecified seborrheic dermatitis Bipolar disorder in partial remission, most recent episode unspecified type (HCC) Methamphetamine use disorder, mild, in early remission (CMS/HCC) (HCC) Diarrhea, unspecified type [facility] Diagnosis Wound discharge- Primary Open wound(s) (multiple) of unspecified site(s), without mention of complication documented in this encounter [facility] Discharge instructions Additional Instructions Call your doctor for follow-up appointment for wound check and removal of wick Take antibiotics until gone If you have a temperature greater than 100, shaking chills or develop severe pain see your doctor or return to the emergency department.[facility] Work Phone: Summary Purpose Family History No Family History Records Found Relationship Condition Age at Onset Recorded Date/T raquel Not Specified Psychiatric care Unknown Alcohol abuse Unknown Anxiety Unknown Arthritis Unknown Depression Unknown Cardiac disease Unknown Hyperlipidemia Unknown Mental disorder Unknown Myocardial infarction Unknown Hypertension Unknown Disorder of thyroid Unknown Cerebrovascular accident (CVA) Unknown father Diabetes mellitus Unknown mother Diabetes mellitus Unknown Relationship Condition Age at Onset Recorded Date/T raquel Not Specified Psychiatric care Unknown Depression Unknown Mental disorder Unknown Cerebrovascular accident (CVA) Unknown father Diabetes mellitus Unknown Alcohol abuse Unknown Arthritis Unknown Cardiac disease Unknown Hyperlipidemia Unknown Hypertension Unknown Myocardial infarction Unknown mother Diabetes mellitus Unknown Anxiety Unknown Disorder of thyroid Unknown Advance Directives No Advanced Directives Records FoundLatest Code Status on File Code Status Date Activated Date Inactivated Comments Full Code 10/26/2020 2:25 AM Advance Directive Response Recorded Date/ Time Living Will No April 25, 2022 2:26pm Power of Power Line Installer No April 25 2:26pm Advance Directive Response Recorded Date/ Time Living Will No August 17, 2 022 6:46pm Power of Power Line Installer No August 17, 2022 6:46pm Advance Directive Response Recorded Date/ Time Living Will No August 17, 2 022 7:46pm Power of Power Line Installer No August 17, 2022 7:46pm Advance Directive Response Recorded Date/ Time Living Will No July 28 4:00pm Power of Power Line Installer No July 28, 2023 4:00pm Advance Directive Response Recorded Date/ Time Living Will No July 31 4:57pm Power of Power Line Installer No July 31, 2023 4:57pm Advance Directive Response Recorded Date/ Time Living Will No January 12, 2024 3:35pm Power of Power Line Installer No January 11 3:35pm Discharge Instructions * Discharge Instr - Activity* Trang Portillo APRN - CNP - 10/29/2020 1:49 PM EST As tolerated * Additional Instructions* Trang Portillo APRN - CNP - 10/29/2020 While taking narcotic medications be sure to: Not operate heavy machinery Do not drive while taking narcotic medication Return to the emergency department if: You are very drowsy. Your speech is slurred. You have trouble thinking, remembering things, or focusing. Contact your healthcare provider if: You want help or information on how to stop using or abusing narcotics. Follow up with your healthcare provider as directed: Write down your questions so you remember to ask them during your visits. Narcotic intoxication usually lasts for several hours. You may have the following during or after you use narcotics: Behavior or mood changes, such as a great feeling followed by the feeling that you do not care about anyone or anything Trouble thinking, remembering things, or focusing Small pupils Feeling very drowsy Slurred speech Narcotic withdrawal occurs if you stop using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 Visit (unrecogniz ed section and content) Reason Comments Wound Check Patient presents to ED stating he has multiple small cuts on his hands that aren't healing. No distress noted. No bleeding noted. Abdominal Pain N/v/d. For the last few days Reason Comments HIV Positive/AIDS New Patient Reason Onset Date Comments Results 02/10/2024 Positive swab Reason Comments HIV Positive/AIDS Follow up Specialty Diagnoses / Procedures Referred By Contray t Referred To Contact Diagnoses Gonorrhea Jazzmine Parada MD [address] [place] [id number] Referral ID Status Reason Start Date Expiration Date V isits Requested Visits Authorized [id number] Pending Review 02/21/2024 02/15/2025 1 1 Reason Comments HIV Positive/AIDS Reason Comments HIV Positive/AIDS Follow up Reason Onset Date Comments Med Refill 08/07/2024 Reason Comments ER F/U Wound check, right m iddle and ring fingers. And pinky toe right foot. Reason Onset Date Comments Med Refill 10/07/2024 Reason Onset Date Comments Med Refill 11/02/2024 Reason Onset Date Comments Error (VOID this visit) 12/08/2024 Reason Onset Date Comments Med Refill 12/10/2024 Reason Comments Med Refill Reason Onset Date Comments Med Management 03/18/2025 Source Comments (unrecognize d section and content) In the event this informatio n is protected by the Federal Confidentiality of Alcohol and Drug Abuse Patient Records regulations: The Federal rules restrict any use of the information to criminally investigate or prosecute any alcohol or drug abuse patient.[facility] FOR RECORDS PERTAINING TO PATIENTS WHO ARE OR HAVE BEEN ENROLLED IN A CHEMICAL DEPENDENCY/SUBSTANCEABUSE PROGRAM, SOME INFORMATION MAY BE OMITTED. This clinical summary was aggregated from multiple sources. Caution should be exercised in using it in the provision of clinical care. This summary normalizes information from multiple sources, and as a consequence, information in this document may materially change the coding, format and clinical context of patient data. In addition, data may be omitted in some cases. CLINICAL DECISIONS SHOULD BE BASED ON THE PRIMARY CLINICAL RECORDS. [employer] provides no warranty or guarantee of the accuracy or completeness of information in this document.
== END 2025-03-28 00:56 | disposition home or self-care (01) ==
PROVIDERS: Emergency Provider Emergency Medicine; PCP Internal Medicine; Visit Provider Emergency Medicine
DX: L30.9 Dermatitis, unspecified (principal); F19.19 Other psychoactive substance abuse with unspecified psychoactive substance-induced disorder; F31.9 Bipolar disorder, unspecified; Z21 Asymptomatic human immunodeficiency virus [HIV] infection status; B19.20 Unspecified viral hepatitis C without hepatic coma; F17.210 Nicotine dependence, cigarettes, uncomplicated; F41.9 Anxiety disorder, unspecified; Z86.73 Personal history of transient ischemic attack (TIA), and cerebral infarction without residual deficits; Z79.899 Other long term (current) drug therapy
CPT/HCPCS: 99282